=== PATIENT | female | born 1970 | race African-American/Black ===

== ENCOUNTER → 2017-11-06 | Outpatient (CLI) | payer OTHER ==
--- NOTE | 2017-11-08 08:53 | MM ---
Reason for exam: screening (asymptomatic). Last mammogram was performed 2 years and 4 months ago. History: Patient had first child at age 41. Physical Findings: A clinical breast exam by your physician is recommended on an annual basis and results should be correlated with mammographic findings. MG Screening Mammo w CAD Bilateral CC and MLO view(s) were taken. Prior study comparison: July 14, 2015, bilateral MG screening mammo w CAD. June 25, 2014, bilateral MG screening mammo w CAD. No significant changes when compared with prior studies. ASSESSMENT: Benign, BI-RAD 2 RECOMMENDATION: Routine screening mammogram of both breasts in 1 year.
== END | disposition home or self-care (01) ==
LOC: RADMAMWWP 10:42
PROVIDERS: ATTEND Family Medicine
DX: Z12.31 Encounter for screening mammogram for malignant neoplasm of breast (principal)
CPT/HCPCS: 77067

== ENCOUNTER → 2017-11-15 | Outpatient (CLI) | payer OTHER ==
--- NOTE | 2017-11-15 12:29 | XR ---
EXAMINATION TYPE: XR chest 2V DATE OF EXAM: 11/15/2017 COMPARISON: NONE HISTORY: Chest pain TECHNIQUE: Frontal and lateral views of the chest are obtained. FINDINGS: There is no focal air space opacity, pleural effusion, or pneumothorax seen. The cardiac silhouette size is within normal limits. The osseous structures are intact. Minimal multilevel dege nerative change of the thoracic spine is noted. IMPRESSION: No acute cardiopulmonary process.
== END | disposition home or self-care (01) ==
LOC: RADXRMAIN 12:09
PROVIDERS: ATTEND Family Medicine
DX: R07.9 Chest pain, unspecified (principal)
CPT/HCPCS: 71046

== ENCOUNTER 2018-03-04 13:11 | Observation (INO) | payer OTHER ==
[2018-03-04] MEDS ORDERED: NITROGLYCERIN OINT 1 INCH/GM PACKET TOPICAL STA (13:51)
[2018-03-04] MEDS ORDERED: ASPIRIN 81 MG PO STA (13:51)
--- NOTE | 2018-03-04 13:53 | ED ---
General Adult HPI - General Chief complaint: Chest Pain Stated complaint: Chest pain Time Seen by Provider: 03/04/18 13:35 Source: patient, RN notes reviewed Mode of arrival: wheelchair Limitations: no limitations - History of Present Illness Initial comments: Patient is a pleasant 48-year-old female presenting to the emergency Department with complaints of chest discomfort. Patient has had symptoms for several days , worse for the past couple of days. Discomfort is mild at this time. Discomfort seems to be intermittent. Patient does have some exertional dyspnea. No nausea. Patient does feel sweaty at times. No calf pain or leg swelling. No history of cardiac disease. - Related Data Home Medications Medication Instructions Recorded Confirmed Aspirin EC [Ecotrin Low Dose] 81 mg PO DAILY 03/04/18 03/04/18 Flaxseed Oil [[place]-3 Flaxseed Oil] 1,000 mg PO DAILY 03/04/18 03/04/18 Multivitamins, Thera [Multivitamin 1 tab PO DAILY 03/04/18 03/04/18 (formulary)] Ranitidine HCl [Zantac] 150 mg PO BID 03/04/18 03/04/18 Allergies Allergy/AdvReac Type Severity Reaction Status Date / Time No Known Allergies Allergy Verified 03/04/18 13:41 Review of Systems ROS Statement: Those systems with pertinent positive or pertinent negative responses have been documented in the HPI. ROS Other: All systems not noted in ROS Statement are negative. Constitutional: Denies: fever Eyes: Denies: eye pain ENT: Denies: ear pain Respiratory: Reports: dyspnea. Denies: cough Cardiovascular: Reports: chest pain Endocrine: Reports: fatigue Gastrointestinal: Denies: abdominal pain Genitourinary: Denies: dysuria Musculoskeletal: Denies: back pain Skin: Denies: rash Neurological: Denies: weakness Past Medical History Past Medical History: No Reported History Additional Past Medical History / Comment(s): genital herpes History of Any Multi-Drug Resistant Organisms: MRSA Date of last positivie culture/infection: 12/08/2011 MDRO Source:: left axilla Past Surgical History: Cholecystectomy, Hernia Repair Additional Past Surgical History / Comment(s): umbillical hernia Past Anesthesia/Blood Transfusion Reactions: No Reported Reaction Past Psychological History: No Psychological Hx Reported Smoking Status: Former smoker Past Alcohol Use History: None Reported Past Drug Use History: None Reported General Exam Limitations: no limitations General appearance: alert, in no apparent distress Head exam: Present: atraumatic Eye exam: Present: normal appearance, PERRL ENT exam: Present: normal oropharynx Neck exam: Present: normal inspection Respiratory exam: Present: normal lung sounds bilaterally. Absent: chest wall tenderness Cardiovascular Exam: Present: regular rate, normal rhythm Expanded Peripheral pulses: 2+: Radial (R), Radial (L), Posterior Tibialis (R), Posterior Tibialis (L), Dorsalis Pedis (R), Dorsalis Pedis (L) GI/Abdominal exam: Present: soft. Absent: tenderness Extremities exam: Present: normal inspection. Absent: pedal edema, calf tenderness Neurological exam: Present: alert Psychiatric exam: Present: normal affect, normal mood Skin exam: Present: normal color Course Vital Signs 03/04/18 03/04/18 03/04/18 13:16 13:27 14:50 Temperature 98.3 F 98.5 F Pulse Rate 79 79 Pulse Rate [ 86 Head Bone Grinder ] Respiratory 18 18 Rate Blood Pressure 145/107 112/77 O2 Sat by Pulse 99 96 Oximetry EKG Findings - EKG Comments: EKG Findings:: Normal sinus rhythm 84. HI 158. QRS 84. QT 384. QTC 453. Normal axis. Normal QRS. No acute ST change. Medical Decision Making - Medical Decision Making Patient reevaluated and resting comfortably in bed. Patient only with minimal discomfort at this time. Patient updated on results and plan. Case was discussed in detail with Dr. Sarmiento, who will admit for Dr. Kingston. - Lab Data Result diagrams: 03/04/18 13:25 03/04/18 13:25 Lab Results 03/04/18 03/04/18 03/04/18 Range/Units 13:25 13:25 13:25 WBC 5.4 (3.8-10.6) k/uL RBC 4.88 (3.80-5.40) m/uL Hgb 13.5 (11.4-16.0) gm/dL Hct 42.2 (34.0-46.0) % MCV 86.5 (80.0-100.0) fL MCH 27.7 (25.0-35.0) pg MCHC 32.0 (31.0-37.0) g/dL RDW 14.4 (11.5-15.5) % Plt Count 313 (150-450) k/uL Neutrophils % 54 % Lymphocytes % 36 % Monocytes % 3 % Eosinophils % 4 % Basophils % 1 % Neutrophils # 2.9 (1.3-7.7) k/uL Lymphocytes # 2.0 (1.0-4.8) k/uL Monocytes # 0.2 (0-1.0) k/uL Eosinophils # 0.2 (0-0.7) k/uL Basophils # 0.0 (0-0.2) k/uL PT (9.0-12.0) sec INR (<1.2) APTT (22.0-30.0) sec D-Dimer (<0.60) mg/L FEU Sodium 140 (137-145) mmol/L Potassium 4.1 (3.5-5.1) mmol/L Chloride 108 H (98-107) mmol/L Carbon Dioxide 24 (22-30) mmol/L Anion Gap 8 mmol/L BUN 14 (7-17) mg/dL Creatinine 0.78 (0.52-1.04) mg/dL Est GFR (CKD-EPI)AfAm >90 (>60 ml/min/1.73 sqM) Est GFR (CKD-EPI)NonAf 90 (>60 ml/min/1.73 sqM) Glucose 113 H (74-99) mg/dL Calcium 9.0 (8.4-10.2) mg/dL Magnesium 2.0 (1.6-2.3) mg/dL Total Bilirubin 0.3 (0.2-1.3) mg/dL AST 32 (14-36) U/L ALT 33 (9-52) U/L Alkaline Phosphatase 70 (38-126) U/L Total Creatine Kinase 222 H (30-135) U/L CK-MB (CK-2) 1.3 (0.0-2.4) ng/mL CK-MB (CK-2) Rel Index 0.6 Troponin I <0.012 (0.000-0.034) ng/mL NT-Pro-B Natriuret Pep pg/mL Total Protein 6.7 (6.3-8.2) g/dL Albumin 3.8 (3.5-5.0) g/dL 09/25/18 09/25/18 Range/Units 13:25 13:25 WBC (3.8-10.6) k/uL RBC (3.80-5.40) m/uL Hgb (11.4-16.0) gm/dL Hct (34.0-46.0) % MCV (80.0-100.0) fL MCH (25.0-35.0) pg MCHC (31.0-37.0) g/dL RDW (11.5-15.5) % Plt Count (150-450) k/uL Neutrophils % % Lymphocytes % % Monocytes % % Eosinophils % % Basophils % % Neutrophils # (1.3-7.7) k/uL Lymphocytes # (1.0-4.8) k/uL Monocytes # (0-1.0) k/uL Eosinophils # (0-0.7) k/uL Basophils # (0-0.2) k/uL PT 10.2 (9.0-12.0) sec INR 1.0 (<1.2) APTT 23.9 (22.0-30.0) sec D-Dimer 0.28 (<0.60) mg/L FEU Sodium (137-145) mmol/L Potassium (3.5-5.1) mmol/L Chloride (98-107) mmol/L Carbon Dioxide (22-30) mmol/L Anion Gap mmol/L BUN (7-17) mg/dL Creatinine (0.52-1.04) mg/dL Est GFR (CKD-EPI)AfAm (>60 ml/min/1.73 sqM) Est GFR (CKD-EPI)NonAf (>60 ml/min/1.73 sqM) Glucose (74-99) mg/dL Calcium (8.4-10.2) mg/dL Magnesium (1.6-2.3) mg/dL Total Bilirubin (0.2-1.3) mg/dL AST (14-36) U/L ALT (9-52) U/L Alkaline Phosphatase (38-126) U/L Total Creatine Kinase (30-135) U/L CK-MB (CK-2) (0.0-2.4) ng/mL CK-MB (CK-2) Rel Index Troponin I (0.000-0.034) ng/mL NT-Pro-B Natriuret Pep 44 pg/mL Total Protein (6.3-8.2) g/dL Albumin (3.5-5.0) g/dL - Radiology Data Radiology results: image reviewed (Chest x-ray shows no acute process) Disposition Clinical Impression: Chest pain Disposition: ADMITTED IP TO THIS HOSP Is patient prescribed a controlled substance at d/c from ED?: No Referrals: Harjit Kingston DO [Primary Care Provider] - 1-2 days Decision Time: 15:17
[2018-03-04 14:05] LABS: Basophils % (A) 1 %; Eosinophils # (A) 0.2 k/uL (0-0.7); Eosinophils % (A) 4 %; HCT 42.2 % (34.0-46.0); HGB 13.5 gm/dL (11.4-16.0); Lymphocytes % (A) 36 %; MCH 27.7 pg (25.0-35.0); MCV 86.5 fL (80.0-100.0); Mean Platelet Volume 7.2; Monocytes # (A) 0.2 k/uL (0-1.0); Monocytes % (A) 3 %; Neutrophils # (A) 2.9 k/uL (1.3-7.7); Neutrophils % (A) 54 %; Platelet Count 313 k/uL (150-450); RBC 4.88 m/uL (3.80-5.40); RDW 14.4 % (11.5-15.5); WBC 5.4 k/uL (3.8-10.6)
--- NOTE | 2018-03-04 14:12 | XR ---
EXAMINATION TYPE: XR chest 2V DATE OF EXAM: 03/04/2018 COMPARISON: Prior chest x-ray 11/15/2017 HISTORY: Chest pain TECHNIQUE: Frontal and lateral views of the chest are obtained. FINDINGS: There is no focal air space opacity, pleural effusion, or pneumothorax seen. The cardiac silhouette size is within normal limits. The osseous structures are intact. There are overlying car diac leads. Surgical clips are present in the upper abdomen. IMPRESSION: No acute cardiopulmonary process.
[2018-03-04 14:21] LABS: ALT 33 U/L (9-52); AST 32 U/L (14-36); Albumin 3.8 g/dL (3.5-5.0); Alkaline Phosphatase 70 U/L (38-126); Anion Gap 8 mmol/L; Blood Urea Nitrogen 14 mg/dL (7-17); Carbon Dioxide 24 mmol/L (22-30); Chloride 108 mmol/L (98-107); D-Dimer 0.28 mg/L FEU (<0.60); Glucose 113 mg/dL (74-99); Partial Thromboplastin Time 23.9 sec (22.0-30.0); Potassium 4.1 mmol/L (3.5-5.1); Prothrombin Time 10.2 sec (9.0-12.0); Sodium 140 mmol/L (137-145); Total Bilirubin 0.3 mg/dL (0.2-1.3); Total Protein 6.7 g/dL (6.3-8.2)
[2018-03-04 14:22] LABS: Creatine Kinase 222 U/L (30-135)
[2018-03-04 14:35] LABS: Creatine Kinase MB 1.3 ng/mL (0.0-2.4); Troponin I <0.012 ng/mL (0.000-0.034)
[2018-03-04] MEDS ORDERED: NITROGLYCERIN SL TABS 0.4 MG TAB SUBLINGUAL PRN (15:17)
[2018-03-04] MEDS ORDERED: ACETAMINOPHEN TAB 325 MG TAB PO PRN (16:34)
[2018-03-04] MEDS ORDERED: LACTULOSE 20 GM/30 ML CUP PO PRN (16:34)
[2018-03-04] MEDS ORDERED: ONDANSETRON 4 MG/2 ML VIAL IVP PRN (16:34)
[2018-03-04] MEDS ORDERED: MAGNESIUM HYDROXIDE 2,400 MG/10 ML CUP PO PRN (16:34)
[2018-03-04] MEDS ORDERED: CALCIUM CARBONATE 500 MG CHEWABLE PO PRN (16:34)
[2018-03-04] MEDS ORDERED: MELATONIN 3 MG TABLET PO PRN (16:34)
[2018-03-04] MEDS ORDERED: ALPRAZolam 0.25 MG TAB PO PRN (16:34)
[2018-03-04] MEDS: NITROGLYCERIN OINT 1 INCH/GM PACKET TOPICAL SCH (18:09)
[2018-03-04 19:43] LABS: Creatine Kinase 198 U/L (30-135)
[2018-03-04 19:57] LABS: Creatine Kinase MB 1.3 ng/mL (0.0-2.4); Troponin I <0.012 ng/mL (0.000-0.034)
[2018-03-04] MEDS: FAMOTIDINE 20 MG TAB PO SCH (20:32)
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
[2018-03-04] MEDS: PSYLLIUM HUSK 100% 6 GM PACKET PO SCH (22:31)
[2018-03-05] MEDS: NITROGLYCERIN OINT 1 INCH/GM PACKET TOPICAL SCH ×2 (00:33→04:00)
[2018-03-05 01:21] LABS: Cholesterol 173 mg/dL (<200); HDL Cholesterol 49 mg/dL (40-60); LDL Cholesterol,Calculated 96 mg/dL (0-99); Triglycerides 142 mg/dL (<150)
[2018-03-05 01:42] LABS: Creatine Kinase 181 U/L (30-135)
[2018-03-05 01:57] LABS: Creatine Kinase MB 1.1 ng/mL (0.0-2.4); Troponin I <0.012 ng/mL (0.000-0.034)
[2018-03-05 08:00] VITALS: RESP 18; TEMP 98.2
[2018-03-05] MEDS ORDERED: ASPIRIN 81 MG PO SCH (09:00)
[2018-03-05] MEDS ORDERED: ASPIRIN 325 MG TAB PO SCH (09:00)
--- NOTE | 2018-03-05 10:28 | P.CRDCN ---
History of Present Illness History of present illness: This is a pleasant 48-year-old -[place] female past medical history significant for gastroesophageal reflux disease, osteoarthritis, former drug abuse and former nicotine dependence. She denies history of coronary artery disease, hypertension, diabetes mellitus or dyslipidemia. We've passing consultation for symptoms of chest pain. She has been feeling sore achy sensation in the mid-sternal region off and on for the last week. She woke up one day last week with a heavy brick sensation on her chest that was associated with mild shortness of breath and dizziness. The heaviness persisted until she started passing gas and then started to subside. She continued to have a soreness in the chest that has been ongoing ever since. She denies associated palpitations, nausea, vomiting or diaphoresis. She denies radiation of pain to the back, neck, arm or jaw. EKG reveals sinus mechanism with no acute ST or T wave abnormalities noted. Chest x-ray is negative for an acute cardiopulmonary process. Laboratory data reviewed, cardiac enzymes negative 3, hemoglobin 13.5, platelets 313, d-dimer 0.28, sodium 140, potassium 4.1, creatinine 0.78, magnesium 2.0, and she proBNP 44, LDL 96 and HDL 49. Current cardiac medications include aspirin 81 mg daily. She also takes Zantac. Most recent stress test performed 07/2015 negative for stress-induced cardiac ischemia. Review of Systems At the time of my exam: CONSTITUTIONAL: Denies fever. Denies chills. EYES: Denies blurred vision. Denies vision changes. Denies eye pain. EARS, NOSE, MOUTH & THROAT: Denies headache. Denies sore throat. Denies ear pain. CARDIOVASCULAR: Denies chest pain. Denies shortness of breath. Denies orthopnea. Denies PND. Denies palpitations. RESPIRATORY: Denies cough. GASTROINTESTINAL: Denies abdominal pain. Denies diarrhea. Denies constipation. Denies nausea. Denies vomiting. MUSCULOSKELETAL: Denies myalgias. INTEGUMENTARY: Denies pruitis. Denies rash. NEUROLOGIC: Denies numbness. Denies tingling. Denies weakness. PSYCHIATRIC: Denies anxiety. Denies depression. ENDOCRINE: Denies fatigue. Denies weight change. Denies polydipsia. Denies polyurina. GENITOURINARY: Denies burning, hematuria or urgency with micturation. HEMATOLOGIC: Denies history of anemia. Denies bleeding. Past Medical History Past Medical History: GERD/Reflux, Osteoarthritis (OA) Additional Past Medical History / Comment(s): genital herpes-no recent outbreaks , pt stated she was told in past that "she has an irreg heart beat", past bladder polyps-benign, rt knee arthritis. History of Any Multi-Drug Resistant Organisms: MRSA Date of last positivie culture/infection: 12/08/2011 MDRO Source:: left axilla Past Surgical History: Section, Cholecystectomy, Hernia Repair Additional Past Surgical History / Comment(s): umbillical hernia, cystoscopy, resection of bladder tumor Past Anesthesia/Blood Transfusion Reactions: No Reported Reaction Smoking Status: Former smoker - Past Family History Father Family Medical History: Cancer, Hyperlipidemia, Hypertension Additional Family Medical History / Comment(s): hepatitis c Mother Family Medical History: Hypertension Additional Family Medical History / Comment(s): mental health issues Medications and Allergies Home Medications Medication Instructions Recorded Confirmed Type Aspirin EC [Ecotrin Low Dose] 81 mg PO DAILY 03/04/18 03/04/18 History Flaxseed Oil [[place]-3 Flaxseed Oil] 1,000 mg PO DAILY 03/04/18 03/04/18 History Multivitamins, Thera [Multivitamin 1 tab PO DAILY 03/04/18 03/04/18 History (formulary)] Ranitidine HCl [Zantac] 150 mg PO BID 03/04/18 03/04/18 History Allergies Allergy/AdvReac Type Severity Reaction Status Date / Time No Known Allergies Allergy Verified 03/04/18 13:41 Physical Exam Vitals: Vital Signs Temp Pulse Pulse Pulse Resp BP BP 03/05/18 07:20 98.2 F 79 18 136/95 03/05/18 03:58 16 03/05/18 03:54 98.6 F 78 16 115/80 03/05/18 00:00 16 03/04/18 23:24 97.7 F 83 16 126/80 03/04/18 20:00 16 03/04/18 19:39 98.7 F 88 16 122/79 03/04/18 16:35 98.3 F 72 18 146/87 03/04/18 14:50 98.5 F 79 18 112/77 03/04/18 13:27 86 03/04/18 13:16 98.3 F 79 18 145/107 Pulse Ox 03/05/18 07:20 95 03/05/18 03:58 03/05/18 03:54 98 03/05/18 00:00 03/04/18 23:24 95 03/04/18 20:00 03/04/18 19:39 97 03/04/18 16:35 98 03/04/18 14:50 96 03/04/18 13:27 03/04/18 13:16 99 Intake and Output 03/04/18 03/05/18 03/05/18 22:59 06:59 14:59 Other: # Voids 1 1 Weight 116.4 kg Blood pressure 136/95 heart rate 79 afebrile maintaining oxygen saturation on room air GENERAL: This is a 48-year-old -[place] female in no apparent distress at the time of my examination. Obese. HEENT: Head is atraumatic, normocephalic. Pupils are equal, round. Sclerae anicteric. Conjunctivae are clear. Mucous membranes of the mouth are moist. Neck is supple. There is no jugular venous distention. No carotid bruit is heard. LUNGS: Clear to auscultation no wheezes, rales or rhonchi. No chest wall tenderness is noted on palpation or with deep breathing. HEART: Regular rate and rhythm without murmurs, rubs or gallops. S1 and S2 heard. ABDOMEN: Soft, nontender. Bowel sounds are heard. No organomegaly noted. EXTREMITIES: No evidence of peripheral edema and no calf tenderness noted. VASCULAR: Radial and dorsalis pedis pulses palpated, no evidence of clubbing. NEUROLOGIC: Patient is awake, alert and oriented x3. Results 03/04/18 13:25 03/04/18 13:25 Cardiac Enzymes 03/04/18 03/04/18 03/04/18 Range/Units 13:25 13:25 19:02 AST 32 (14-36) U/L CK-MB (CK-2) 1.3 1.3 (0.0-2.4) ng/mL Troponin I <0.012 <0.012 (0.000-0.034) ng/mL 03/05/18 Range/Units 00:51 AST (14-36) U/L CK-MB (CK-2) 1.1 (0.0-2.4) ng/mL Troponin I <0.012 (0.000-0.034) ng/mL Coagulation 03/04/18 Range/Units 13:25 PT 10.2 (9.0-12.0) sec APTT 23.9 (22.0-30.0) sec Lipids 03/04/18 Range/Units 13:25 Triglycerides 142 (<150) mg/dL Cholesterol 173 (<200) mg/dL HDL Cholesterol 49 (40-60) mg/dL CBC 03/04/18 Range/Units 13:25 WBC 5.4 (3.8-10.6) k/uL RBC 4.88 (3.80-5.40) m/uL Hgb 13.5 (11.4-16.0) gm/dL Hct 42.2 (34.0-46.0) % Plt Count 313 (150-450) k/uL Comprehensive Metabolic Panel 03/04/18 Range/Units 13:25 Sodium 140 (137-145) mmol/L Potassium 4.1 (3.5-5.1) mmol/L Chloride 108 H (98-107) mmol/L Carbon Dioxide 24 (22-30) mmol/L BUN 14 (7-17) mg/dL Creatinine 0.78 (0.52-1.04) mg/dL Glucose 113 H (74-99) mg/dL Calcium 9.0 (8.4-10.2) mg/dL AST 32 (14-36) U/L ALT 33 (9-52) U/L Alkaline Phosphatase 70 (38-126) U/L Total Protein 6.7 (6.3-8.2) g/dL Albumin 3.8 (3.5-5.0) g/dL Current Medications Generic Name Dose Route Start Last Admin Trade Name Freq PRN Reason Stop Dose Admin Acetaminophen 650 mg 03/04/18 16:34 03/04/18 20:32 Tylenol Tab PO 650 mg Q6HR PRN Administration Mild Pain or Fever > 100.5 Alprazolam 0.25 mg 03/04/18 16:34 Xanax PO Q6HR PRN Anxiety Aspirin 81 mg 03/05/18 09:00 Aspirin PO DAILY EUSEBIA Calcium Carbonate/Glycine 1,000 mg 09/25/18 16:34 Tums PO Q4HR PRN Dyspepsia Famotidine 20 mg 03/04/18 21:00 03/04/18 20:32 Pepcid PO 20 mg BID [place]SE[place] Administration Lactulose 20 gm 03/04/18 16:34 Cephulac PO DAILY PRN Constipation Magnesium Hydroxide 2,400 mg 03/04/18 16:34 Milk Of Magnesia PO DAILY PRN Constipation Melatonin 3 mg 03/04/18 16:34 Melatonin PO HS PRN Insomnia Multivitamins 1 each 03/05/18 12:00 Theragran PO DAILY@1200 [facility] Nitroglycerin 1 inch 03/04/18 18:00 03/05/18 04:00 Nitro-Bid Oint TOPICAL Not Given Q6HR [facility] Nitroglycerin 0.4 mg 03/04/18 15:17 Nitrostat SUBLINGUAL Q5M PRN Chest Pain Ondansetron HCl 4 mg 03/04/18 16:34 Zofran IVP Q8HR PRN Nausea And Vomiting Psyllium Hydrophilic Mucilloid 6 gm 03/04/18 21:45 03/04/18 22:31 Metamucil PO 6 gm BID [place]SE[place] Administration Sodium Chloride 10 ml 03/04/18 21:00 03/04/18 20:32 Saline Flush IV 10 ml BID [place]SE[place] Administration Intake and Output 03/04/18 03/05/18 03/05/18 22:59 06:59 14:59 Other: # Voids 1 1 Weight 116.4 kg 03/04/18 13:25 03/04/18 13:25 Assessment and Plan Assessment: ASSESSMENT Chest pain, atypical. An acute coronary event has been ruled out with no EKG evidence of ischemia and negative cardiac enzymes. Gastroesophageal reflux disease History of cholecystectomy Morbid obesity, BMI 41.4 PLAN Discontinue Nitropaste. Obtain 2-D echocardiogram and Doppler study to assess cardiac structure and function. Perform stress echocardiogram to assess for stress-induced cardiac ischemia. If stress test is normal she is stable from a cardiac perspective. Lifestyle modifications are recommended for weight loss. Thank you kindly for this consultation. Nurse Practitioner note has been reviewed, I agree with a documented findings and plan of care. Patient was seen and examined.
[2018-03-05] MEDS: PSYLLIUM HUSK 100% 6 GM PACKET PO SCH (11:32)
[2018-03-05] MEDS: FAMOTIDINE 20 MG TAB PO SCH (11:32)
[2018-03-05 11:44] VITALS: BP 125/83; PULSE 77
--- NOTE | 2018-03-05 11:47 | P.STRESS ---
- Stress Test Note Stress Test Results/Findings: Exam Performed: stress echo exercise Exam Date: 03/05/18 Reason for Exam: CHEST PAIN Height: 5 ft 6 in Weight: 116.12 kg Protocol: SHI Stage: 3 Duration of Exercise: 8:00 Resting Heart Rate: 82 Resting Blood Pressure: 141/77 Maximum Achieved Heart Rate: 150 Maximum Achieved Blood Pressure: 187/66 85% PMHR: 145 100% PMHR: 171 METS: 9.7 Technologist Comment: Stress Test Results/Findings: This is a 48-year-old female who was admitted to the hospital with chest pain and palpitations. She has a history of smoking. Stress data: Baseline EKG showed sinus rhythm with normal AR interval and QRS duration. Blood pressure at rest is 140/77 with pulse rate of 82. Patient walked on the face protocol for 8 minutes achieving a maximal heart rate of 150 with a blood pressure 187/66. EKGs taken during and after the exercise did not reveal any significant changes to suggest ischemia. Patient complained of atypical chest pain. Echo data: Baseline echo images show normal wall motion and thickening. Exercise echo images showed augmentation of the wall motion and thickening in all segments. Final impression: #1. Negative stress test #2. Negative stress echo.
--- NOTE | 2018-03-05 11:54 | ECHOF ---
Referral Reason:Chest pain shortness of breath MEASUREMENTS -------- HEIGHT: 167.6 cm WEIGHT: 116.1 kg BP: IVSd: 1.3 cm (0.6 - 1.1) LVIDd: 2.8 cm (3.9 - 5.3) LVPWd: 1.0 cm (0.6 - 1.1) IVSs: 1.3 cm LVIDs: 1.4 cm LVPWs: 1.5 cm Ao Diam: 2.9 cm (2.0 - 3.7) AV Cusp: 1.9 cm (1.5 - 2.6) LA Diam: 3.1 cm (2.7 - 3.8) MV EXCURSION: 21.171 mm (> 18.000) MV EF SLOPE: 88 mm/s (70 - 150) EPSS: 0.8 cm MV E Tim: 0.83 m/s MV DecT: 155 ms MV A Tim: 0.79 m/s MV E/A Ratio: 1.05 RAP: 5.00 mmHg RVSP: 10.42 mmHg FINDINGS -------- Sinus rhythm. This was a technically good study. The left ventricular size is normal. There is borderline concentric left ventricular hypertrophy. Overall left ventricular systolic function is normal with, an EF between 55 - 60 %. The right ventricle is normal in size and function. The left atrium is normal in size. The right atrium is normal in size. The aortic valve is trileaflet, and appears structurally normal. No aortic stenosis or regurgitation. The mitral valve leaflets are mildly thickened. Mild mitral regurgitation is present. Mild tricuspid regurgitation present. The right ventricular systolic pressure, as measured by Doppl er, is 10.42mmHg. Pulmonic valve appears structurally normal. The aortic root size is normal. Normal inferior vena cava with normal inspiratory collapse consistent with estimated right atrial pre ssure of 5 mmHg. The pericardium is normal. CONCLUSIONS -------- 1. Sinus rhythm. 2. This was a technically good study. 3. The left ventricular size is normal. 4. There is borderline concentric left ventricular hypertrophy. 5. Overall left ventricular systolic function is normal with, an EF between 55 - 60 %. 6. The right ventricle is normal in size and function. 7. The left atrium is normal in size. 8. The right atrium is normal in size. 9. The aortic valve is trileaflet, and appears structurally normal. No aortic stenosis or regurgitati on. 10. The mitral valve leaflets are mildly thickened. 11. Mild mitral regurgitation is present. 12. Mild tricuspid regurgitation present. 13. The right ventricular systolic pressure, as measured by Doppler, is 10.42mmHg. 14. Pulmonic valve appears structurally normal. 15. The aortic root size is normal. 16. Normal inferior vena cava with normal inspiratory collapse consistent with estimated right atrial pressure of 5 mmHg. 17. The pericardium is normal. GROCERY WORKER: Madelaine Barreto RDCS
[2018-03-05] MEDS ORDERED: MULTIVITAMINS, THERA 1 EACH TAB PO SCH (12:00)
[2018-03-05 13:46] VITALS: BMI 41.3
--- NOTE | 2018-03-06 05:42 | DS ---
DISCHARGE SUMMARY DATE OF ADMISSION: 03/04/2018 DATE OF DISCHARGE: 03/05/2018 FINAL DIAGNOSES: 1. Anterior chest wall pain probably acute costochondritis. 2. Morbid obesity, body mass index over 41.4. 3. Primary osteoarthritis of the right knee. 4. Chronic constipation. HOSPITAL COURSE: This patient presented with anterior chest wall pain of a long duration. The patient has put on about 30 to 40 pounds. It does get worse on moving the body in a particular direction. The patient was seen by Cardiology. Did undergo a stress echocardiogram that came back to be negative. The patient is advised weight loss. On examination, temperature 98.2, pulse 77, blood pressure 125/83, pulse ox 95% on room air. Troponins were negative. A 2-D echo showed EF of 55% to 60%. CONSULTATION: Dr. Lucia from Cardiology. DISCHARGE MEDICATIONS: 1. Aspirin 81 mg a day. 2. Flaxseed oil 1000 mg p.o. daily. 3. Multivitamin 1 tablet p.o. daily. 4. Zantac 150 mg b.i.d. 5. Metamucil 6 grams p.o. b.i.d. DIET: High fiber. Follow up with Dr. Kingston in [address] Birdie Lucia in 2 weeks. MMODL / IJN: [id number] /
--- NOTE | 2018-03-06 12:54 | ECHOS ---
Stress Test Results/Findings: Exam Performed: stress echo exercise Exam Date: 03/05/18 Reason for Exam: CHEST PAIN Height: 5 ft 6 in Weight: 116.12 kg Protocol: SHI Stage: 3 Duration of Exercise: 8:00 Resting Heart Rate: 82 Resting Blood Pressure: 141/77 Maximum Achieved Heart Rate: 150 Maximum Achieved Blood Pressure: 187/66 85% PMHR: 145 100% PMHR: 171 METS: 9.7 Technologist Comment: Stress Test Results/Findings: This is a 48-year-old female who was admitted to the hospital with chest pain and palpitations. She has a history of smoking. Stress data: Baseline EKG showed sinus rhythm with normal AL interval and QRS duration. Blood pressure at rest is 140/77 with pulse rate of 82. Patient walked on the face protocol for 8 minutes achieving a maximal heart rate of 150 with a blood pressure 187/66. EKGs taken during and after the exercise did not reveal any significant changes to suggest ischemia. Patient complained of atypical chest pain. Echo data: Baseline echo images show normal wall motion and thickening. Exercise echo images showed augmentation of the wall motion and thickening in all segments. Final impression: #1. Negative stress test #2. Negative stress echo. MIKE
== END 2018-03-05 13:57 | disposition home or self-care (01) ==
LOC: EC 13:11 → 3OBS 15:18
PROVIDERS: ADMIT Hospitalist; ATTEND Hospitalist
DX: R07.89 Other chest pain (principal); R42 Dizziness and giddiness; R06.02 Shortness of breath; R06.00 Dyspnea, unspecified; R61 Generalized hyperhidrosis; E66.01 Morbid (severe) obesity due to excess calories; Z68.41 Body mass index [BMI] 40.0-44.9, adult; K59.09 Other constipation; K21.9 Gastro-esophageal reflux disease without esophagitis; M17.11 Unilateral primary osteoarthritis, right knee; Z79.899 Other long term (current) drug therapy; Z79.82 Long term (current) use of aspirin; Z86.14 Personal history of Methicillin resistant Staphylococcus aureus infection; Z90.49 Acquired absence of other specified parts of digestive tract; Z87.891 Personal history of nicotine dependence; Z82.49 Family history of ischemic heart disease and other diseases of the circulatory system; Z80.9 Family history of malignant neoplasm, unspecified; Z84.89 Family history of other specified conditions; Z81.8 Family history of other mental and behavioral disorders
CPT/HCPCS: 99285; 36415; 93005; 93306; 93351; 85379; 83880; 80061; 80053; 82550 ×2; 82553 ×2; 83735; 84484 ×2; 85025; 85610; 85730; 71046; G0378 ×2

== ENCOUNTER 2018-03-27 08:11 | Day surgery (SDC) | payer OTHER ==
[2018-03-25 10:26] VITALS: BMI 41.1
[~2018-03-27 08:11] MED LIST: LACTATED RINGERS 1,000 ML IV SCH; LIDOCAINE 1% 20 ML VIAL (10MG/ML) FOR IV START INTRADERMA PRN; ONDANSETRON 4 MG/2 ML VIAL IVP PRN
[2018-03-27 08:28] VITALS: RESP 16; TEMP 07
[2018-03-27] MEDS ORDERED: LIDOCAINE 1% INJ 10MG/ML (20 ML MDV) ONE (08:39)
[2018-03-27] MEDS ORDERED: PROPOFOL 10 MG/ML 20 ML VIAL IV ONE (08:39)
--- NOTE | 2018-03-27 08:48 | P.GSHP ---
History of Present Illness H&P Date: 03/27/18 Chief Complaint: GERD This a 48-year-old female who presents today for EGD. She's had issues with GERD. Past Medical History Past Medical History: GERD/Reflux, Osteoarthritis (OA) Additional Past Medical History / Comment(s): genital herpes-no recent outbreaks , pt stated she was told in past that "she has an irreg heart beat", past bladder polyps-benign History of Any Multi-Drug Resistant Organisms: MRSA Date of last positivie culture/infection: 12/08/2011 MDRO Source:: left axilla Past Surgical History: Section, Cholecystectomy, Hernia Repair Additional Past Surgical History / Comment(s): umbillical hernia, cystoscopy, resection of bladder tumor Past Anesthesia/Blood Transfusion Reactions: No Reported Reaction Smoking Status: Former smoker - Past Family History Father Family Medical History: Cancer, Hyperlipidemia, Hypertension Additional Family Medical History / Comment(s): hepatitis c Mother Family Medical History: Hypertension Additional Family Medical History / Comment(s): mental health issues Medications and Allergies Home Medications Medication Instructions Recorded Confirmed Type Aspirin EC [Ecotrin Low Dose] 81 mg PO DAILY 03/04/18 03/27/18 History Flaxseed Oil [[place]-3 Flaxseed Oil] 1,000 mg PO DAILY 03/04/18 03/27/18 History Ranitidine HCl [Zantac] 150 mg PO BID 03/04/18 03/27/18 History Psyllium Husk 100% [Metamucil 6 gm PO BID #60 packet 03/05/18 03/27/18 Rx Packet] Allergies Allergy/AdvReac Type Severity Reaction Status Date / Time No Known Allergies Allergy Verified 03/25/18 10:22 Surgical - Exam Vital Signs Temp Pulse Resp BP Pulse Ox 07.0 F L 78 16 131/74 98 03/27/18 08:25 03/27/18 08:25 03/27/18 08:25 03/27/18 08:25 03/27/18 08:25 - General well developed, no distress - Eyes PERRL - ENT normal pinna - Neck no masses - Respiratory normal expansion - Cardiovascular Rhythm: regular - Abdomen Abdomen: soft, non tender Assessment and Plan Assessment: GERD. We'll perform EGD.
--- NOTE | 2018-03-27 09:00 | P.OP ---
Date of Procedure: 03/27/18 Preoperative Diagnosis: GERD epigastric pain Postoperative Diagnosis: Mild antral gastritis Procedure(s) Performed: EGD Anesthesia: MAC Surgeon: Lopez Jang Pathology: other (Antrum) Condition: stable Disposition: PACU Description of Procedure: Patient's placed on the endoscopy table lateral position. She received IV sedation. The gastroscope placed oropharynx passed in the esophagus and stomach. Scope was then placed through the pylorus. The first and second portion of the duodenum appeared normal. Scope was then brought back the antrum this was mildly inflamed. A biopsies performed. Scope was then retroflexed and the remainder of the stomach appeared normal. There is no significant hiatal hernia. The GE junction was at 7 is. The distal esophagus appeared normal. The proximal esophagus. Scope was withdrawn for patient.
[2018-03-27 09:18] VITALS: BP 137/88; PULSE 86
== END 2018-03-27 09:40 | disposition home or self-care (01) ==
LOC: ORWHC2ENDO 08:11
PROVIDERS: ATTEND Surgery
DX: K29.50 Unspecified chronic gastritis without bleeding (principal); B96.81 Helicobacter pylori [H. pylori] as the cause of diseases classified elsewhere; K21.9 Gastro-esophageal reflux disease without esophagitis; M19.90 Unspecified osteoarthritis, unspecified site; Z90.49 Acquired absence of other specified parts of digestive tract; Z87.891 Personal history of nicotine dependence; Z79.82 Long term (current) use of aspirin; Z79.899 Other long term (current) drug therapy; Z86.14 Personal history of Methicillin resistant Staphylococcus aureus infection; Z79.891 Long term (current) use of opiate analgesic
CPT/HCPCS: 81025; 88305; 88342; 43239; J2001; J2704

== ENCOUNTER → 2018-06-09 | Outpatient (CLI) | payer OTHER ==
--- NOTE | 2018-06-09 10:24 | FL ---
EXAMINATION TYPE: FL barium swallow DATE OF EXAM: 06/09/2018 CLINICAL HISTORY: Mid esophageal globus sensation. Prior endoscopy with probable treated H. pylori. TECHNIQUE: A double contrast esophagram is performed utilizing air and barium. A total of 1 minute and 41 seconds of fluoroscopic time was utilized during procedure. 41 images were saved throughout e examination. COMPARISON: None FINDINGS: The esophagus shows normal motility and emptying into the stomach on the gravity dependent portion of the examination. There does appear to be slight delay of focal small volume retained contr ast within the mid esophagus persistently throughout the exam that results upon a second swallow. No focal stricture is seen throughout the esophagus. No hiatal hernia. Moderate degree significant gastr oesophageal reflux was seen during real time performance of this study on the gravity independent por tion of the exam. IMPRESSION: 1. Moderate gastroesophageal reflux on the gravity independent portion of examination to the midthora cic esophagus. 2. Slight delay of a very small volume of contrast at the patient's described area of globus sensatio n without stricture. Correlate with endoscopy results for possible esophagitis.
== END ==
LOC: RADFLMAIN 09:28
PROVIDERS: ATTEND Surgery
DX: K21.9 Gastro-esophageal reflux disease without esophagitis (principal)
CPT/HCPCS: 74220

== ENCOUNTER 2018-07-24 13:23 | Emergency (ER) | payer OTHER ==
[2018-07-24] MEDS ORDERED: ASPIRIN 81 MG PO STA (14:26)
[2018-07-24] MEDS ORDERED: NITROGLYCERIN OINT 1 INCH/GM PACKET TOPICAL STA (14:27)
--- NOTE | 2018-07-24 14:28 | ED ---
General Adult HPI - General Chief complaint: Chest Pain Stated complaint: EYE TURNING YELLOW, CHEST HEAVINESS Time Seen by Provider: 07/24/18 13:50 Source: patient, RN notes reviewed Mode of arrival: ambulatory Limitations: no limitations - History of Present Illness Initial comments: This is a 48-year-old female who comes in complaining of chest pressure that is been constant for 2 months. Patient states it's worse with deep inspiration as well. Patient states she seen her primary medical care doctor multiple times for this. Patient states she does not have diabetes denies hypertension or high cholesterol. Patient denies smoking. Patient denies any family history of heart disease. Patient states her primary has been able to figure that pain out so she decided come emergency department. Patient denies any shortness of breath per patient denies any radiation of the pain. Patient denies any diaphoretic episodes. Patient denies any nausea. Patient denies abdominal pain patient denies vomiting or diarrhea. Patient denies any recent fever chills or cough. Patient denies headache patient denies numbness weakness. Patient denies lightheadedness dizziness or nursing episode. Patient denies any swelling to the legs or calf. - Related Data Home Medications Medication Instructions Recorded Confirmed Acetaminophen Tab [Tylenol Tab] 650 mg PO Q6H PRN 07/24/18 07/24/18 Loratadine [Claritin] 10 mg PO DAILY PRN 07/24/18 07/24/18 Omeprazole 20 mg PO DAILY 07/24/18 07/24/18 Allergies Allergy/AdvReac Type Severity Reaction Status Date / Time No Known Allergies Allergy Verified 07/24/18 14:48 Review of Systems ROS Statement: Those systems with pertinent positive or pertinent negative responses have been documented in the HPI. ROS Other: All systems not noted in ROS Statement are negative. Past Medical History Past Medical History: GERD/Reflux, Osteoarthritis (OA) Additional Past Medical History / Comment(s): genital herpes-no recent outbreaks , pt stated she was told in past that "she has an irreg heart beat", past bladder polyps-benign History of Any Multi-Drug Resistant Organisms: MRSA Date of last positivie culture/infection: 12/08/2011 MDRO Source:: left axilla Past Surgical History: Section, Cholecystectomy, Hernia Repair Additional Past Surgical History / Comment(s): umbillical hernia, cystoscopy, resection of bladder tumor Past Anesthesia/Blood Transfusion Reactions: No Reported Reaction Past Psychological History: No Psychological Hx Reported Smoking Status: Former smoker Past Alcohol Use History: None Reported Past Drug Use History: None Reported - Past Family History Father Family Medical History: Cancer, Hyperlipidemia, Hypertension Additional Family Medical History / Comment(s): hepatitis c Mother Family Medical History: Hypertension Additional Family Medical History / Comment(s): mental health issues General Exam - General Exam Comments Initial Comments: GENERAL: Patient is well-developed and well-nourished. Patient is nontoxic and well- hydrated and is in minimal distress. ENT: Neck is soft and supple. No significant lymphadenopathy is noted. Oropharynx is clear. Moist mucous membranes. Neck has full range of motion without eliciting any pain. EYES: The sclera were anicteric and conjunctiva were pink and moist. Extraocular movements were intact and pupils were equal round and reactive to light. Eyelids were unremarkable. PULMONARY: Unlabored respirations. Good breath sounds bilaterally. No audible rales rhonchi or wheezing was noted. CARDIOVASCULAR: There is a regular rate and rhythm without any murmurs gallops or rubs. ABDOMEN: Soft and nontender with normal bowel sounds. No palpable organomegaly was noted. There is no palpable pulsatile mass. SKIN: Skin is clear with no lesions or rashes and otherwise unremarkable. NEUROLOGIC: Patient is alert and oriented x3. Cranial nerves II through XII are grossly intact. Motor and sensory are also intact. Normal speech, volume and content. Symmetrical smile. MUSCULOSKELETAL: Normal extremities with adequate strength and full range of motion. No lower extremity swelling or edema. No calf tenderness. LYMPHATICS: No significant lymphadenopathy is noted PSYCHIATRIC: Normal psychiatric evaluation. Limitations: no limitations Course Vital Signs 07/24/18 07/24/18 07/24/18 13:40 15:15 16:52 Temperature 97.9 F 98.1 F Pulse Rate 84 82 79 Respiratory 18 16 16 Rate Blood Pressure 129/88 119/80 109/76 O2 Sat by Pulse 98 98 97 Oximetry Medical Decision Making - Medical Decision Making EKG shows normal sinus rhythm at 85 bpm IN interval is 160 QRS is 84 QT interval 386 QTC is 459. Patient's EKG shows no ST segment elevation or depression or T wave abnormalities are noted. Chest x-ray shows no acute abnormality. Patient is indicated to me when I went back into reevaluate her that the pain in her chest is also reproducible with palpation to the center of her chest. - Lab Data Result diagrams: 07/24/18 15:00 07/24/18 15:00 Lab Results 07/24/18 07/24/18 07/24/18 Range/Units 15:00 15:00 15:00 WBC 6.0 (3.8-10.6) k/uL RBC 5.16 (3.80-5.40) m/uL Hgb 13.7 (11.4-16.0) gm/dL Hct 44.0 (34.0-46.0) % MCV 85.3 (80.0-100.0) fL MCH 26.6 (25.0-35.0) pg MCHC 31.1 (31.0-37.0) g/dL RDW 14.5 (11.5-15.5) % Plt Count 307 (150-450) k/uL Neutrophils % 49 % Lymphocytes % 40 % Monocytes % 5 % Eosinophils % 4 % Basophils % 1 % Neutrophils # 3.0 (1.3-7.7) k/uL Lymphocytes # 2.4 (1.0-4.8) k/uL Monocytes # 0.3 (0-1.0) k/uL Eosinophils # 0.3 (0-0.7) k/uL Basophils # 0.0 (0-0.2) k/uL PT (9.0-12.0) sec INR (<1.2) APTT (22.0-30.0) sec D-Dimer (<0.60) mg/L FEU Sodium 144 (137-145) mmol/L Potassium 4.1 (3.5-5.1) mmol/L Chloride 108 H (98-107) mmol/L Carbon Dioxide 28 (22-30) mmol/L Anion Gap 8 mmol/L BUN 13 (7-17) mg/dL Creatinine 0.88 (0.52-1.04) mg/dL Est GFR (CKD-EPI)AfAm 90 (>60 ml/min/1.73 sqM) Est GFR (CKD-EPI)NonAf 78 (>60 ml/min/1.73 sqM) Glucose 78 (74-99) mg/dL Calcium 9.3 (8.4-10.2) mg/dL Magnesium 2.4 H (1.6-2.3) mg/dL Total Bilirubin 0.4 (0.2-1.3) mg/dL AST 35 (14-36) U/L ALT 44 (9-52) U/L Alkaline Phosphatase 71 (38-126) U/L Total Creatine Kinase 340 H (30-135) U/L CK-MB (CK-2) 1.6 (0.0-2.4) ng/mL CK-MB (CK-2) Rel Index 0.5 Troponin I <0.012 (0.000-0.034) ng/mL Total Protein 7.2 (6.3-8.2) g/dL Albumin 4.2 (3.5-5.0) g/dL 07/24/18 Range/Units 15:00 WBC (3.8-10.6) k/uL RBC (3.80-5.40) m/uL Hgb (11.4-16.0) gm/dL Hct (34.0-46.0) % MCV (80.0-100.0) fL MCH (25.0-35.0) pg MCHC (31.0-37.0) g/dL RDW (11.5-15.5) % Plt Count (150-450) k/uL Neutrophils % % Lymphocytes % % Monocytes % % Eosinophils % % Basophils % % Neutrophils # (1.3-7.7) k/uL Lymphocytes # (1.0-4.8) k/uL Monocytes # (0-1.0) k/uL Eosinophils # (0-0.7) k/uL Basophils # (0-0.2) k/uL PT 10.1 (9.0-12.0) sec INR 0.9 (<1.2) APTT 25.5 (22.0-30.0) sec D-Dimer 0.29 (<0.60) mg/L FEU Sodium (137-145) mmol/L Potassium (3.5-5.1) mmol/L Chloride (98-107) mmol/L Carbon Dioxide (22-30) mmol/L Anion Gap mmol/L BUN (7-17) mg/dL Creatinine (0.52-1.04) mg/dL Est GFR (CKD-EPI)AfAm (>60 ml/min/1.73 sqM) Est GFR (CKD-EPI)NonAf (>60 ml/min/1.73 sqM) Glucose (74-99) mg/dL Calcium (8.4-10.2) mg/dL Magnesium (1.6-2.3) mg/dL Total Bilirubin (0.2-1.3) mg/dL AST (14-36) U/L ALT (9-52) U/L Alkaline Phosphatase (38-126) U/L Total Creatine Kinase (30-135) U/L CK-MB (CK-2) (0.0-2.4) ng/mL CK-MB (CK-2) Rel Index Troponin I (0.000-0.034) ng/mL Total Protein (6.3-8.2) g/dL Albumin (3.5-5.0) g/dL Disposition Clinical Impression: Chest wall pain Disposition: HOME SELF-CARE Instructions (If sedation given, give patient instructions): Chest Pain (ED) Is patient prescribed a controlled substance at d/c from ED?: No Referrals: Harjit Kingston DO [Primary Care Provider] - 1-2 days Time of Disposition: 17:26
[2018-07-24 15:12] LABS: Basophils % (A) 1 %; Eosinophils # (A) 0.3 k/uL (0-0.7); Eosinophils % (A) 4 %; HGB 13.7 gm/dL (11.4-16.0); Lymphocytes # (A) 2.4 k/uL (1.0-4.8); Lymphocytes % (A) 40 %; MCH 26.6 pg (25.0-35.0); MCHC 31.1 g/dL (31.0-37.0); MCV 85.3 fL (80.0-100.0); Mean Platelet Volume 6.9; Monocytes # (A) 0.3 k/uL (0-1.0); Monocytes % (A) 5 %; Neutrophils % (A) 49 %; Platelet Count 307 k/uL (150-450); RBC 5.16 m/uL (3.80-5.40); RDW 14.5 % (11.5-15.5)
[2018-07-24 15:17] VITALS: RESP 16
[2018-07-24 15:29] LABS: INR 0.9 (<1.2)
[2018-07-24 15:30] LABS: D-Dimer 0.29 mg/L FEU (<0.60); Partial Thromboplastin Time 25.5 sec (22.0-30.0); Prothrombin Time 10.1 sec (9.0-12.0)
[2018-07-24 15:31] LABS: Albumin 4.2 g/dL (3.5-5.0); Calcium 9.3 mg/dL (8.4-10.2); Creatine Kinase 340 U/L (30-135); Magnesium 2.4 mg/dL (1.6-2.3); Potassium 4.1 mmol/L (3.5-5.1); Total Bilirubin 0.4 mg/dL (0.2-1.3); Total Protein 7.2 g/dL (6.3-8.2)
[2018-07-24 15:43] LABS: Creatine Kinase MB 1.6 ng/mL (0.0-2.4); Troponin I <0.012 ng/mL (0.000-0.034)
--- NOTE | 2018-07-24 15:55 | XR ---
EXAMINATION TYPE: XR chest 2V DATE OF EXAM: 07/24/2018 COMPARISON: 03/04/2018 INDICATION: Difficulty breathing TECHNIQUE: Frontal and lateral views of the chest are obtained. FINDINGS: The heart size is normal. The pulmonary vasculature is upper limits of normal.. The lungs are clear. IMPRESSION: 1. No acute pulmonary process. Early volume overload could be considered.
[2018-07-24 16:53] VITALS: BP 109/76; PULSE 79; TEMP 98.1
== END 2018-07-24 17:55 | disposition home or self-care (01) ==
LOC: EC 13:23
DX: R07.89 Other chest pain (principal); H57.89 Other specified disorders of eye and adnexa; K21.9 Gastro-esophageal reflux disease without esophagitis; Z86.14 Personal history of Methicillin resistant Staphylococcus aureus infection; Z87.891 Personal history of nicotine dependence; Z82.49 Family history of ischemic heart disease and other diseases of the circulatory system; Z79.899 Other long term (current) drug therapy
CPT/HCPCS: 36415; 71046; 80053; 82550; 82553; 83735; 84484; 85025; 85379; 85610; 85730; 93005; 99285

== ENCOUNTER → 2018-08-11 | Outpatient (CLI) | payer OTHER ==
--- NOTE | 2018-08-11 13:17 | XR ---
EXAMINATION TYPE: XR Hip Complete LT DATE OF EXAM: 08/11/2018 CLINICAL HISTORY: Left hip pain with no known injury TECHNIQUE: AP and frogleg views of the left hip are obtained. COMPARISON: None. FINDINGS: There is no acute fracture/dislocation evident in the left hip. The joint space in the le ft hip appears mildly narrowed in the cephalad direction. The overlying soft tissue appears unremark able. Note is made of a tubal ligation clip within the pelvis. IMPRESSION: There is no acute fracture or dislocation in the left hip. Minimal left femoral acetabul ar arthropathy.
== END | disposition home or self-care (01) ==
LOC: RADXRMAIN 12:33
PROVIDERS: ATTEND Internal Medicine
DX: M16.12 Unilateral primary osteoarthritis, left hip (principal)
CPT/HCPCS: 73502

== ENCOUNTER 2019-03-14 20:43 | Emergency (ER) | payer OTHER ==
[2019-03-14 20:49] VITALS: RESP 18
[2019-03-14 21:36] LABS: Basophils # (A) 0.1 k/uL (0-0.2); Basophils % (A) 1 %; Eosinophils # (A) 0.3 k/uL (0-0.7); Eosinophils % (A) 3 %; HCT 42.4 % (34.0-46.0); HGB 13.4 gm/dL (11.4-16.0); Lymphocytes # (A) 3.6 k/uL (1.0-4.8); Lymphocytes % (A) 43 %; MCH 26.9 pg (25.0-35.0); MCHC 31.6 g/dL (31.0-37.0); MCV 85.2 fL (80.0-100.0); Monocytes # (A) 0.5 k/uL (0-1.0); Monocytes % (A) 6 %; Neutrophils # (A) 3.7 k/uL (1.3-7.7); Neutrophils % (A) 45 %; Platelet Count 290 k/uL (150-450); RBC 4.97 m/uL (3.80-5.40); WBC 8.3 k/uL (3.8-10.6)
[2019-03-14] MEDS ORDERED: KETOROLAC 30 MG/ML 1 ML VIAL IVP STA (21:41)
[2019-03-14 21:55] LABS: Albumin 4.2 g/dL (3.5-5.0); Calcium 9.5 mg/dL (8.4-10.2); Magnesium 2.2 mg/dL (1.6-2.3); Total Bilirubin 0.5 mg/dL (0.2-1.3); Total Protein 7.4 g/dL (6.3-8.2)
[2019-03-14 21:59] LABS: INR 0.9 (<1.2); Partial Thromboplastin Time 24.2 sec (22.0-30.0); Prothrombin Time 10.2 sec (9.0-12.0)
[2019-03-14 22:07] LABS: Potassium 4.7 mmol/L (3.5-5.1)
--- NOTE | 2019-03-14 23:12 | XR ---
EXAMINATION TYPE: XR chest 2V DATE OF EXAM: 03/14/2019 COMPARISON: 07/24/2018 HISTORY: Chest pain TECHNIQUE: Frontal and lateral views of the chest are obtained. FINDINGS: Heart and mediastinum are normal. Lungs are clear of infiltrate. There is no heart failure . There are chest leads. Diaphragm is normal. Bony thorax is intact. IMPRESSION: No active cardiopulmonary disease. Normal heart. No change.
[2019-03-15] MEDS ORDERED: ACET/COD 300 MG/30 MG STARTER PACK 6 TAB BTL PO STA (00:06)
--- NOTE | 2019-03-15 00:06 | ED ---
Chest Pain HPI - General Chief Complaint: Chest Pain Stated Complaint: chest pain Time Seen by Provider: 03/14/19 21:31 Source: patient Mode of arrival: wheelchair Limitations: no limitations - History of Present Illness Initial Comments: 49-year-old female patient presents to the emergency department today for evaluation of upper middle chest pain. Patient states pain started this morning has and worsening throughout the day. Patient states the pain increases never she turns her head to the right or left. States she is also having pain to the left side of her neck. Patient denies any known injury. States she has been doing a lot of housework over the last couple days but nothing unusual. Denies taking any medication for her symptoms. She denies shortness of breath, nausea, vomiting, abdominal pain with this. Denies any dizziness or weakness. She denies history of hypertension, diabetes, or heart disease. Patient denies any recent rash, fever, chills, diarrhea, constipation, back pain, numbness, tingling, hematuria, dysuria, urinary urgency, urinary frequency, headache, visual changes, or any other complaints. - Related Data Home Medications Medication Instructions Recorded Confirmed Acetaminophen Tab [Tylenol Tab] 650 mg PO Q6H PRN 07/24/18 07/24/18 Loratadine [Claritin] 10 mg PO DAILY PRN 07/24/18 07/24/18 Omeprazole 20 mg PO DAILY 07/24/18 07/24/18 Previous Rx's Medication Instructions Recorded Naproxen [EC-Naprosyn] 500 mg PO BID PRN #30 tablet. 03/15/19 Allergies Allergy/AdvReac Type Severity Reaction Status Date / Time No Known Allergies Allergy Verified 03/14/19 20:49 Review of Systems ROS Statement: Those systems with pertinent positive or pertinent negative responses have been documented in the HPI. ROS Other: All systems not noted in ROS Statement are negative. EKG Findings - EKG Comments: EKG Findings:: EKG obtained at 2100 shows normal sinus rhythm with a ventricular rate of 83, NJ interval 162, QRS duration 82, QT 386, QTc 453. No evidence of ST elevation or depression. Past Medical History Past Medical History: GERD/Reflux, Osteoarthritis (OA) Additional Past Medical History / Comment(s): genital herpes-no recent outbreaks, pt stated she was told in past that "she has an irreg heart beat", past bladder polyps-benign History of Any Multi-Drug Resistant Organisms: MRSA Date of last positivie culture/infection: 12/08/2011 MDRO Source:: left axilla Past Surgical History: Section, Cholecystectomy, Hernia Repair, Tubal Ligation Additional Past Surgical History / Comment(s): umbillical hernia, cystoscopy, resection of bladder tumor Past Anesthesia/Blood Transfusion Reactions: No Reported Reaction Past Psychological History: No Psychological Hx Reported Smoking Status: Former smoker Past Alcohol Use History: None Reported Past Drug Use History: None Reported - Past Family History Father Family Medical History: Cancer, Hyperlipidemia, Hypertension Additional Family Medical History / Comment(s): hepatitis c Mother Family Medical History: Hypertension Additional Family Medical History / Comment(s): mental health issues General Exam Limitations: no limitations General appearance: alert, in no apparent distress, other (This is a well- developed, well-nourished adult female patient in no acute distress. Vital signs upon presentation are temperature 98.0F, pulse 87, respirations 18, blood pressure 136/81, pulse ox 99% on room air.) Eye exam: Present: normal appearance, PERRL, EOMI. Absent: scleral icterus, conjunctival injection, periorbital swelling ENT exam: Present: normal exam, normal oropharynx, mucous membranes moist Neck exam: Present: normal inspection, tenderness (Left lateral). Absent: meningismus, lymphadenopathy Respiratory exam: Present: normal lung sounds bilaterally. Absent: respiratory distress, wheezes, rales, rhonchi, stridor Cardiovascular Exam: Present: regular rate, normal rhythm, normal heart sounds. Absent: systolic murmur, diastolic murmur, rubs, gallop, clicks GI/Abdominal exam: Present: soft, normal bowel sounds. Absent: distended, tenderness, guarding, rebound, rigid Neurological exam: Present: alert, oriented X3, CN II-XII intact Psychiatric exam: Present: normal affect, normal mood Skin exam: Present: warm, dry, intact, normal color. Absent: rash Course Vital Signs 03/14/19 03/14/19 03/14/19 20:47 21:52 22:26 Temperature 98.0 F Pulse Rate 87 Respiratory 18 18 Rate Blood Pressure 136/81 126/77 O2 Sat by Pulse 99 98 Oximetry 03/14/19 03/15/19 23:05 00:36 Temperature 98.6 F 98.7 F Pulse Rate 84 88 Respiratory 18 18 Rate Blood Pressure 130/84 132/78 O2 Sat by Pulse 98 98 Oximetry Chest Pain MDM - [facility]:Two-view x-ray of the chest is obtained. Report reviewed in its entirety. Impression by Dr. Cross shows no active cardiopulmonary disease. Normal heart. No change. MDM: 49-year-old female patient presents to the emergency department today for evaluation of upper chest pain and left-sided neck pain. Patient states pain worsens with movement of her head. She denies shortness of breath, nausea, vomiting, or sweats. Lungs are clear to auscultation with good air movement. Labs reviewed and were unremarkable. Troponin negative. EKG showed normal s inus rhythm with no ST elevation or depression. Chest x-ray showed no acute cardiopulmonary process. Patient does report improvement of symptoms with administration of anti-inflammatory medication. Patient has no personal history of hypertension, diabetes, coronary artery disease, or cigarette smoking. No family history of heart disease. Given symptoms and findings patient's pain is most likely related to musculoskeletal inflammation. She'll be given a prescription for naproxen. She is instructed to follow-up with her primary care physician for recheck in 1-2 days. Return parameters discussed in detail. She verbalizes understanding and agrees with this plan. Disposition Clinical Impression: Chest pain Disposition: HOME SELF-CARE Condition: Good Instructions (If sedation given, give patient instructions): Chest Pain (ED), Costochondritis (ED) Additional Instructions: Take medications as directed. Follow up with her primary care physician for recheck on Saturday. Return to the emergency department immediately for any new, worsening, or concerning symptoms. Pain medication was sent to [facility] on . Prescriptions: Naproxen [EC-Naprosyn] 500 mg PO BID PRN #30 tablet.dr CABRERA Reason: Pain Is patient prescribed a controlled substance at d/c from ED?: No Referrals: Harjit Kingston DO [Primary Care Provider] - 1-2 days Time of Disposition: 00:05
[2019-03-15 01:12] VITALS: BP 132/78; PULSE 88; TEMP 98.7
== END 2019-03-15 00:36 | disposition home or self-care (01) ==
LOC: EC 20:43
DX: R07.9 Chest pain, unspecified (principal); M54.2 Cervicalgia; K21.9 Gastro-esophageal reflux disease without esophagitis; Z79.899 Other long term (current) drug therapy; Z87.891 Personal history of nicotine dependence
CPT/HCPCS: 36415; 93005; 80053; 83735; 84484; 85025; 85610; 85730; 71046; 99285; 96374; J1885

== ENCOUNTER → 2019-04-01 | Outpatient (CLI) | payer OTHER ==
--- NOTE | 2019-04-02 08:36 | CT ---
EXAMINATION TYPE: CT sinus wo con DATE OF EXAM: 04/01/2019 COMPARISON: None HISTORY: Headache and nasal congestion. CT DLP: 643 mGycm CONTRAST: 0 mL of Isovue 300 The paranasal sinuses are examined in the axial plane at 2 mm thick sections. Reconstructed images i n the coronal plane were obtained. There is dental amalgam scatter artifact The maxillary sinuses are clear. The ethmoid air cells are clear. The sphenoid sinuses are clear. The frontal sinuses are hypoplastic on the right aplastic on the left. The septum is evaluated. There is septal deviation to the right. The ostiomeatal units are patent. IMPRESSIONS: 1. Normal paranasal sinus study
== END | disposition home or self-care (01) ==
LOC: RADCTMAIN 16:16
PROVIDERS: ATTEND Family Medicine
DX: R09.81 Nasal congestion (principal)
CPT/HCPCS: 70486

== ENCOUNTER 2019-04-15 13:12 | Day surgery (SDC) | payer OTHER ==
[2019-04-10 10:30] VITALS: BMI 43.0
[~2019-04-15 13:12] MED LIST changes: -ONDANSETRON 4 MG/2 ML VIAL IVP PRN
[2019-04-15] MEDS ORDERED: MIDAZOLAM 2 MG/2 ML VIAL ONE (14:19)
[2019-04-15] MEDS ORDERED: PROPOFOL 10 MG/ML 20 ML VIAL IV ONE (14:19)
[2019-04-15] MEDS ORDERED: LIDOCAINE 1% INJ 10MG/ML (20 ML MDV) ONE (14:19)
[2019-04-15] MEDS ORDERED: fentaNYL (PF) 50 MCG/ML 2 ML AMP ONE (14:19)
--- NOTE | 2019-04-15 14:20 | P.GSHP ---
History of Present Illness H&P Date: 04/15/19 Chief Complaint: GERD This a 49-year-old female with history of GERD and hiatal hernia. Patient rents today for EGD. Past Medical History Past Medical History: GERD/Reflux, Osteoarthritis (OA) Additional Past Medical History / Comment(s): genital herpes-no recent outbreaks, pt stated she was told in past that "she has an irreg heart beat", past bladder polyps-benign History of Any Multi-Drug Resistant Organisms: MRSA Date of last positivie culture/infection: 12/08/2011 MDRO Source:: left axilla Past Surgical History: Section, Cholecystectomy, Hernia Repair, Tubal Ligation Additional Past Surgical History / Comment(s): umbillical hernia, cystoscopy, resection of bladder tumor Past Anesthesia/Blood Transfusion Reactions: No Reported Reaction Past Psychological History: No Psychological Hx Reported Additional Psychological History / Comment(s): pt is independant. lives with 3 of her children. Smoking Status: Former smoker Past Alcohol Use History: None Reported Additional Past Alcohol Use History / Comment(s): started smoking 1984 adn quit 2002 smoked 1ppd.past occ use of alcohol none now. Past Drug Use History: None Reported Additional Drug Use History / Comment(s): crack/marijuana use but quit 1997 - Past Family History Father Family Medical History: Cancer, Hyperlipidemia, Hypertension Additional Family Medical History / Comment(s): hepatitis c Mother Family Medical History: Hypertension Additional Family Medical History / Comment(s): mental health issues Medications and Allergies Home Medications Medication Instructions Recorded Confirmed Type Acetaminophen Tab [Tylenol Tab] 650 mg PO Q6H PRN 07/24/18 04/10/19 History Omeprazole 20 mg PO DAILY 07/24/18 04/10/19 History Naproxen [EC-Naprosyn] 500 mg PO BID PRN #30 tablet. 03/15/19 04/10/19 Rx Multivitamins, Thera [Multivitamin 1 tab PO DAILY 04/10/19 04/10/19 History (formulary)] [place]-3 Fatty Acids/Fish Oil [Fish 1 each PO DAILY 04/10/19 04/10/19 History Oil 1,000 mg Softgel] Acetaminophen-Codeine 300-30mg 1 tab PO Q6H PRN 04/15/19 04/15/19 History [Tylenol w/codeine #3] Allergies Allergy/AdvReac Type Severity Reaction Status Date / Time No Known Allergies Allergy Verified 04/10/19 10:25 Surgical - Exam - General well developed, well nourished, no distress - Eyes PERRL - ENT normal pinna - Neck no masses - Respiratory normal expansion - Cardiovascular Rhythm: regular - Abdomen Abdomen: soft, non tender Assessment and Plan Assessment: GERD. We'll perform EGD.
--- NOTE | 2019-04-15 14:31 | P.OP ---
Date of Procedure: 04/15/19 Preoperative Diagnosis: GERD Postoperative Diagnosis: Antral gastritis Small hiatal hernia Mild esophagitis Procedure(s) Performed: EGD Anesthesia: MAC Surgeon: Lopez Jang Pathology: other (Antral, esophagus) Condition: stable Disposition: PACU Description of Procedure: The patient's placed on the endoscopy table in the lateral position. She received IV sedation. The gastroscope placed oropharynx passed in the esophagus and stomach. Scope was then placed through the pylorus. The first and second portion of the duodenum appeared normal. Scope was then brought back the antrum was mildly inflamed. A biopsies performed. Scope was unretroflexed and remainder some appeared normal. There was a small hiatal hernia. The GE junction was at 40 cm. The distal esophagus appeared mildly inflamed a biopsies performed. The proximal esophagus appeared normal. The was withdrawn for patient.
[2019-04-15 14:55] VITALS: BP 122/80; PULSE 88; RESP 18
== END 2019-04-15 15:37 | disposition home or self-care (01) ==
LOC: ORWHC2ENDO 13:12
PROVIDERS: ATTEND Surgery
DX: K29.50 Unspecified chronic gastritis without bleeding (principal); K21.0 Gastro-esophageal reflux disease with esophagitis; K44.9 Diaphragmatic hernia without obstruction or gangrene; M19.90 Unspecified osteoarthritis, unspecified site; E66.01 Morbid (severe) obesity due to excess calories; Z79.899 Other long term (current) drug therapy; Z86.19 Personal history of other infectious and parasitic diseases; Z86.14 Personal history of Methicillin resistant Staphylococcus aureus infection; Z90.49 Acquired absence of other specified parts of digestive tract; Z98.51 Tubal ligation status; Z87.891 Personal history of nicotine dependence; Z82.49 Family history of ischemic heart disease and other diseases of the circulatory system; Z83.1 Family history of other infectious and parasitic diseases; Z80.9 Family history of malignant neoplasm, unspecified; Z68.41 Body mass index [BMI] 40.0-44.9, adult
CPT/HCPCS: 81025; 88305; 43239; J2250; J2001; J3010; J2704

== ENCOUNTER 2019-05-21 10:39 | Day surgery (SDC) | payer OTHER ==
[2019-05-19 13:03] VITALS: BMI 43.9
[~2019-05-21 10:39] MED LIST changes: -LIDOCAINE 1% 20 ML VIAL (10MG/ML) FOR IV START INTRADERMA PRN
[2019-05-21 11:08] VITALS: TEMP 97.5
[2019-05-21] MEDS ORDERED: PROPOFOL 10 MG/ML 20 ML VIAL IV ONE (11:33)
[2019-05-21] MEDS ORDERED: LIDOCAINE 1% INJ 10MG/ML (20 ML MDV) ONE (11:33)
--- NOTE | 2019-05-21 11:37 | P.GSHP ---
History of Present Illness H&P Date: 05/21/19 Chief Complaint: Screening colonoscopy This a 49-year-old female who presents today for screening colonoscopy. Patient denies a significant GI complaints. Past Medical History Past Medical History: GERD/Reflux, Osteoarthritis (OA) Additional Past Medical History / Comment(s): genital herpes-no recent outbreaks, pt stated she was told in past that "she has an irreg heart beat", past bladder polyps-benign History of Any Multi-Drug Resistant Organisms: MRSA Date of last positivie culture/infection: 12/08/2011 MDRO Source:: left axilla Past Surgical History: Section, Cholecystectomy, Hernia Repair, Tubal Ligation Additional Past Surgical History / Comment(s): umbilical hernia, cystoscopy, resection of bladder tumor, EGD Past Anesthesia/Blood Transfusion Reactions: No Reported Reaction Smoking Status: Former smoker - Past Family History Father Family Medical History: Cancer, Hyperlipidemia, Hypertension Additional Family Medical History / Comment(s): hepatitis c Mother Family Medical History: Hypertension Additional Family Medical History / Comment(s): mental health issues Medications and Allergies Home Medications Medication Instructions Recorded Confirmed Type Acetaminophen Tab [Tylenol Tab] 650 mg PO Q6H PRN 07/24/18 05/21/19 History Omeprazole 20 mg PO DAILY 07/24/18 05/21/19 History Allergies Allergy/AdvReac Type Severity Reaction Status Date / Time No Known Allergies Allergy Verified 05/21/19 11:08 Surgical - Exam Vital Signs Temp Pulse Resp BP Pulse Ox 97.5 F L 89 17 148/76 100 05/21/19 11:07 05/21/19 11:07 05/21/19 11:07 05/21/19 11:07 05/21/19 11:07 - General well developed, well nourished, no distress - Eyes PERRL - ENT normal pinna - Neck no masses - Respiratory normal expansion - Cardiovascular Rhythm: regular - Abdomen Abdomen: soft, non tender Assessment and Plan Assessment: We'll perform screening colonoscopy
--- NOTE | 2019-05-21 11:51 | P.OP ---
Date of Procedure: 05/21/19 Preoperative Diagnosis: Screening colonoscopy Postoperative Diagnosis: Normal colon Procedure(s) Performed: Colonoscopy Anesthesia: MAC Surgeon: Lopez Jang Pathology: none sent Condition: stable Disposition: PACU Description of Procedure: PROCEDURE: The patient was placed on the endoscopy table in the lateral position. Digital rectal examination was performed which revealed no abnormalities. Flexible colonoscope was then placed in the patient's anus and passed throughout the entire colon. The ileocecal valve was visualized. The cecum, ascending, transverse, descending and sigmoid colon were normal. The rectum was normal as well. There were no masses, polyps or diverticula noted in the entire colon. SUMMARY OF FINDINGS: Normal colonoscopy.
[2019-05-21 12:15] VITALS: BP 117/79; PULSE 87; RESP 18
== END 2019-05-21 12:22 | disposition home or self-care (01) ==
LOC: ORWHC2ENDO 10:39
PROVIDERS: ATTEND Surgery
DX: Z12.11 Encounter for screening for malignant neoplasm of colon (principal); K21.9 Gastro-esophageal reflux disease without esophagitis; M19.90 Unspecified osteoarthritis, unspecified site; Z86.19 Personal history of other infectious and parasitic diseases; Z86.14 Personal history of Methicillin resistant Staphylococcus aureus infection; Z90.49 Acquired absence of other specified parts of digestive tract; Z98.51 Tubal ligation status; Z98.890 Other specified postprocedural states; Z87.19 Personal history of other diseases of the digestive system; Z87.891 Personal history of nicotine dependence; Z83.1 Family history of other infectious and parasitic diseases; Z83.49 Family history of other endocrine, nutritional and metabolic diseases; Z79.899 Other long term (current) drug therapy; Z82.49 Family history of ischemic heart disease and other diseases of the circulatory system; Z78.0 Asymptomatic menopausal state
CPT/HCPCS: 45378; J2001; J2704

== ENCOUNTER → 2019-07-31 | Outpatient (CLI) | payer OTHER ==
--- NOTE | 2019-08-03 13:10 | MM ---
Reason for exam: screening (asymptomatic). Last mammogram was performed 1 year and 9 months ago. History: Patient had first child at age 41. Physical Findings: A clinical breast exam by your physician is recommended on an annual basis and results should be correlated with mammographic findings. MG Screening Mammo w CAD Bilateral CC, MLO, and XCCL view(s) were taken. Prior study comparison: November 06, 2017, bilateral MG screening mammo w CAD. July 14, 2015, bilateral MG screening mammo w CAD. There are scattered fibroglandular densities. Stable benign calcifications. There is no discrete abnormality. No significant changes when compared with prior studies. ASSESSMENT: Benign, BI-RAD 2 RECOMMENDATION: Routine screening mammogram of both breasts in 1 year.
== END | disposition home or self-care (01) ==
LOC: RADMAMWWP 12:59
PROVIDERS: ATTEND Family Medicine
DX: Z12.39 Encounter for other screening for malignant neoplasm of breast (principal)
CPT/HCPCS: 77067

== ENCOUNTER → 2019-10-28 | Outpatient (CLI) | payer OTHER ==
[2019-10-28 15:12] VITALS: BP 137/91; PULSE 92; RESP 20; BMI 44.9
--- NOTE | 2019-10-28 15:51 | P.HPBAR ---
Bariatric H&P - History & Physicial H&P Date: 10/28/19 History & Physicial: Visit/CC: pre surgical visit Patient initial contact: Initial weight: 126.099 kg Initial weight in pounds: 278.00 Height: 5 ft 6 in Initial BMI: 44.9 Last weight: Current weight: 126.099 kg Current weight in pounds: 278.00 Current BMI: 44.9 [place] body weight (based on NIH guidelines): 58.967 kg Excess body weight loss: 0.0% The patient is a 49 year-old F who presents for Bariatric Assessment. She presents for weight loss evaluation. She reports lifetime problems with weight loss. She is looking into the sleeve gastrectomy. She had an upper scope with Dr. Jang and she depends on it. She reports severe GERD. No stomach or esophageal cancer. She takes an anti-acid with some relief for 2 to 3 years. No Crohns or ulcerative colitis. She had her colonoscopy. She does not have her gallbladder. No DVTs or PEs. Food diary journal with 75 grams advised. Osteoarthritis of both knees left worse than the right. Hip pain as well. No ankle pain. She denies no sleep apnea study. She reports sleep apnea. She is at her highest weight at present. 1. Esophogram 2. EGD 3. Labs Past Medical History Past Medical History: GERD/Reflux, Osteoarthritis (OA) Additional Past Medical History / Comment(s): genital herpes-no recent outbreaks, pt stated she was told in past that "she has an irreg heart beat", past bladder polyps-benign History of Any Multi-Drug Resistant Organisms: MRSA Year Discovered:: 12/08/2011 MDRO Source:: left axilla Past Surgical History: Section, Cholecystectomy, Hernia Repair, Tubal Ligation Additional Past Surgical History / Comment(s): umbilical hernia, cystoscopy, resection of bladder tumor, EGD Past Anesthesia/Blood Transfusion Reactions: No Reported Reaction Smoking Status: Former smoker - Past Family History Father Family Medical History: Cancer, Hyperlipidemia, Hypertension Additional Family Medical History / Comment(s): hepatitis c Mother Family Medical History: Hypertension Additional Family Medical History / Comment(s): mental health issues Surgical - Exam Vital Signs Pulse Resp BP 92 20 137/91 10/28/19 15:02 10/28/19 15:02 10/28/19 15:02 Bariatric Checklist Checklist: Plan: Checklist: EGD: 1. Hiatal hernia: 2. H. Pylori: HgbA1c: Vitamin D: Smoking: Former smoker Primary care physician referral: Thee Psychiatry clearance: Cardiology clearance: Sleep study: Diet journal: VTE risk score: VTE risk level: Rehab needs at discharge:
== END | disposition home or self-care (01) ==
LOC: BARWHC3 14:58
PROVIDERS: ATTEND Surgery Plastic and Reconstructive Surgery
DX: K21.9 Gastro-esophageal reflux disease without esophagitis (principal); M17.0 Bilateral primary osteoarthritis of knee; M25.559 Pain in unspecified hip; G47.30 Sleep apnea, unspecified; Z90.49 Acquired absence of other specified parts of digestive tract; Z87.891 Personal history of nicotine dependence
CPT/HCPCS: 99211

== ENCOUNTER → 2019-11-09 | Outpatient (CLI) | payer OTHER ==
[2019-11-09 11:31] LABS: Partial Thromboplastin Time 24.8 sec (22.0-30.0); Prothrombin Time 10.1 sec (9.0-12.0)
[2019-11-09 11:39] LABS: HCT 41.1 % (34.0-46.0); HGB 13.2 gm/dL (11.4-16.0); Hypochromasia Slight; MCH 26.8 pg (25.0-35.0); MCHC 32.1 g/dL (31.0-37.0); MCV 83.6 fL (80.0-100.0); Mean Platelet Volume 7.6; Platelet Count 275 k/uL (150-450); RBC 4.92 m/uL (3.80-5.40); RDW 14.9 % (11.5-15.5); WBC 5.4 k/uL (3.8-10.6)
[2019-11-09 17:22] LABS: African American GFR (CKD) 99.6 (60.0-200.0); Albumin 4.1 g/dL (3.80-4.90); Albumin/Globulin Ratio 1.71 (1.60-3.17); Anion Gap 8.1 mmol/L (4.00-12.00); Calcium 8.9 mg/dL (8.7-10.3); Carbon Dioxide 26.9 mmol/L (21.6-31.8); Globulin 2.4 g/dL (1.6-3.3); Potassium 3.8 mmol/L (3.5-5.5); Total Bilirubin 0.4 mg/dL (0.3-1.2); Total Protein 6.5 g/dL (6.2-8.2)
[2019-11-09 17:23] LABS: % Iron Saturation 15.98 (12.00-45.00); Chol/HDL Ratio 3.87; LDL Cholesterol,Calculated 116.6 mg/dL (0.0-131.0); Magnesium 2.1 mg/dL (1.5-2.4); Phosphorus 4.3 mg/dL (2.4-5.1); VLDL Calculation 12.4 mg/dL (5.00-40.00)
[2019-11-09 17:33] LABS: Ferritin 30.7 ng/mL (10.0-291.0)
[2019-11-09 17:44] LABS: Folate, Serum 20.5 ng/mL
[2019-11-09 18:20] LABS: Hemoglobin A1C 5.8 % (4.0-6.0)
[2019-11-11 07:31] LABS: Vitamin A 44 ug/dL (38-106)
[2019-11-11 08:46] LABS: Vit B1(Thiamine) 38 ug/L (38-122)
[2019-11-11 13:30] LABS: Zinc, Serum 61 ug/dL (60-130)
[2019-11-13 16:50] LABS: Selenium 94 mcg/L (63-160)
== END | disposition home or self-care (01) ==
LOC: LABWHC1 09:27
PROVIDERS: ATTEND Surgery Plastic and Reconstructive Surgery
DX: E89.1 Postprocedural hypoinsulinemia (principal); E21.1 Secondary hyperparathyroidism, not elsewhere classified; D50.9 Iron deficiency anemia, unspecified; K90.9 Intestinal malabsorption, unspecified; E55.9 Vitamin D deficiency, unspecified; K74.1 Hepatic sclerosis; N19 Unspecified kidney failure; K50.90 Crohn's disease, unspecified, without complications
CPT/HCPCS: 36415; 80053; 80061; 82306; 82525; 82607; 82728; 82746; 83036; 83540; 83550; 83735; 83970; 84100; 84134; 84255; 84425; 84443; 84590; 84630; 85027; 85610; 85730; 93005

== ENCOUNTER → 2019-11-10 | Outpatient (CLI) | payer OTHER | END | disposition home or self-care (01) | LOC: LABWHC1 10:23 | PROVIDERS: ATTEND Surgery Plastic and Reconstructive Surgery | DX: Z11.59 Encounter for screening for other viral diseases (principal) ==

== ENCOUNTER 2019-11-19 08:52 | Day surgery (SDC) | payer OTHER ==
[2019-11-18 09:36] VITALS: BMI 44.9
--- NOTE | 2019-11-18 21:31 | P.GSHP ---
History of Present Illness H&P Date: 11/19/19 CHIEF COMPLAINT: GERD HISTORY OF PRESENT ILLNESS: The patient is a 49-year-old female who presents reports gastroesophageal reflux disease. Upper endoscopy was offered for further evaluation and management. PAST MEDICAL HISTORY: Please see list. PAST SURGICAL HISTORY: Please see list. MEDICATIONS: Please see list. ALLERGIES: Please see list. SOCIAL HISTORY: No illicit drug use FAMILY HISTORY: No reports of Crohn disease or ulcerative colitis. REVIEW OF ORGAN SYSTEMS: CONSTITUTIONAL: No reports of fevers or chills. GI: Denies any blood in stools or constipation. PHYSICAL EXAM: VITAL SIGNS: Stable GENERAL: Well-developed and pleasant in no acute distress. HEENT: No scleral icterus. Extraocular movements grossly intact. Moist buccal mucosa. NECK: Supple without lymphadenopathy. CHEST: Unlabored respirations. Equal bilateral excursions. CARDIOVASCULAR: Regular rate and rhythm. Distal 2+ pulses. ABDOMEN: Soft, nondistended. MUSCULOSKELETAL: No clubbing, cyanosis, or edema. ASSESSMENT: 1. Gastroesophageal reflux disease PLAN: 1. Recommend proceeding with an upper endoscopy Past Medical History Past Medical History: GERD/Reflux, Osteoarthritis (OA) Additional Past Medical History / Comment(s): genital herpes-no recent outbreaks, pt stated she was told in past that "she has an irreg heart beat", past bladder polyps-benign , GLAUCOMA History of Any Multi-Drug Resistant Organisms: MRSA Date of last positivie culture/infection: 12/08/2011 MDRO Source:: left axilla Past Surgical History: Section, Cholecystectomy, Hernia Repair, Tubal Ligation Additional Past Surgical History / Comment(s): umbilical hernia resection , cystoscopy, bladder-polyp removed , EGD Past Anesthesia/Blood Transfusion Reactions: No Reported Reaction Smoking Status: Former smoker - Past Family History Father Family Medical History: Cancer, Hyperlipidemia, Hypertension Additional Family Medical History / Comment(s): hepatitis c Mother Family Medical History: Hypertension Additional Family Medical History / Comment(s): mental health issues Medications and Allergies Home Medications Medication Instructions Recorded Confirmed Type Acetaminophen Tab [Tylenol Tab] 650 mg PO Q6H PRN 07/24/18 11/18/19 History Omeprazole 20 mg PO DAILY 07/24/18 11/18/19 History Multivitamin [Multivitamins Adult 1 each PO DAILY 10/28/19 11/18/19 History Gummies] [place]-3 Fatty Acids [[place]-3] 1,000 mg PO DAILY 10/28/19 11/18/19 History Vit D3/Folic Acid/B2/B6/B12 1 each PO DAILY 10/28/19 11/18/19 History [Folgard Tablet] Brimonidine Tartrate/Timolol 1 drop BOTH EYES DAILY 11/18/19 11/18/19 History [Combigan 0.2%-0.5% Eye Drops] valACYclovir HCL [Valacyclovir] 1,000 mg PO DAILY PRN 11/18/19 11/18/19 History Allergies Allergy/AdvReac Type Severity Reaction Status Date / Time No Known Allergies Allergy Verified 11/18/19 08:51
[2019-11-19 09:19] VITALS: TEMP 97.8
[2019-11-19] MEDS ORDERED: LACTATED RINGERS 1,000 ML IV ONE (09:25)
[2019-11-19] MEDS ORDERED: LIDOCAINE 1% INJ 10MG/ML (20 ML MDV) ONE (09:34)
[2019-11-19] MEDS ORDERED: PROPOFOL 10 MG/ML 20 ML VIAL IV ONE (09:34)
--- NOTE | 2019-11-19 09:52 | P.HPADDEND ---
H&P Addendum H&P Addendum Date: 11/19/19 Patient presents with reflux disease and gastritis. Will proceed for endoscopy.
--- NOTE | 2019-11-19 09:53 | P.PCN ---
Date of Procedure: 11/19/19 Description of Procedure: PREOPERATIVE DIAGNOSIS: Gastroesophageal reflux disease. Morbid obesity. POSTOPERATIVE DIAGNOSIS: Morbid obesity. Gastritis. Gastroesophageal reflux disease. Diaphragmatic hiatal hernia OPERATION: Esophagogastroduodenoscopy with biopsies along antrum. SURGEON: Kimberly Gifford MD ANESTHESIA: MAC. INDICATIONS: The patient is a 49-year-old female who presents with a history of reflux disease. Benefits and risks of the procedure were described. Informed consent was obtained. DESCRIPTION: The patient was brought into the endoscopy suite and laid in the left lateral decubitus position. An Olympus gastroscope was passed along the posterior oropharynx down to the distal esophagus where the squamocolumnar junction was encountered at 35 cm from the incisors. The stomach was entered and no bile reflux was found. Additional findings are listed below. Biopsies with cold f orceps were obtained of the antrum. The first through third portion of the duodenum was examined and unremarkable. Retroflexion of the scope confirmed Hill grade 2 lower esophageal valve. The squamocolumnar junction demonstrated LA grade A erosive esophagitis. The stomach was desufflated. The patient tolerated the procedure well. FINDINGS: Squamocolumnar junction 35 cm from the incisors. Diaphragmatic hiatus at 36 cm. Hiatal hernia, 1 cm Hill grade 2 lower esophageal valve. LA grade A erosive esophagitis. No active duodenitis. Chronic gastritis RECOMMENDATIONS: Upper endoscopy as needed. Plan - Discharge Summary Discharge Rx Participant: Yes New Discharge Prescriptions: Continue Acetaminophen Tab [Tylenol] 650 mg PO Q6H PRN PRN Reason: Pain Omeprazole 20 mg PO DAILY Vit D3/Folic Acid/B2/B6/B12 [Folgard Tablet] 1 each PO DAILY [place]-3 Fatty Acids [[place]-3] 1,000 mg PO DAILY Multivitamin [Multivitamins Adult Gummies] 1 each PO DAILY valACYclovir HCL [Valacyclovir] 1,000 mg PO DAILY PRN PRN Reason: HERPES FLARE UP Brimonidine Tartrate/Timolol [Combigan 0.2%-0.5% Eye Drops] 1 drop BOTH EYES DAILY Discharge Medication List Acetaminophen Tab [Tylenol] 650 mg PO Q6H PRN 07/24/18 [History] Omeprazole 20 mg PO DAILY 07/24/18 [History] Multivitamin [Multivitamins Adult Gummies] 1 each PO DAILY 10/28/19 [History] [place]-3 Fatty Acids [[place]-3] 1,000 mg PO DAILY 10/28/19 [History] Vit D3/Folic Acid/B2/B6/B12 [Folgard Tablet] 1 each PO DAILY 10/28/19 [History] Brimonidine Tartrate/Timolol [Combigan 0.2%-0.5% Eye Drops] 1 drop BOTH EYES DAILY 11/18/19 [History] valACYclovir HCL [Valacyclovir] 1,000 mg PO DAILY PRN 11/18/19 [History] [facility] [facility] [place] [facility] [place] Patient Instructions/Handouts: Gastritis (DC) Discharge Disposition: HOME SELF-CARE
[2019-11-19 09:56] VITALS: RESP 16
[2019-11-19 10:13] VITALS: BP 113/73; PULSE 91
== END 2019-11-19 10:32 | disposition home or self-care (01) ==
LOC: ORWHC2ENDO 08:52
PROVIDERS: ATTEND Surgery Plastic and Reconstructive Surgery
DX: K21.0 Gastro-esophageal reflux disease with esophagitis (principal); K22.10 Ulcer of esophagus without bleeding; K29.50 Unspecified chronic gastritis without bleeding; K44.9 Diaphragmatic hernia without obstruction or gangrene; E66.01 Morbid (severe) obesity due to excess calories; M19.90 Unspecified osteoarthritis, unspecified site; A60.00 Herpesviral infection of urogenital system, unspecified; I49.9 Cardiac arrhythmia, unspecified; H40.9 Unspecified glaucoma; Z68.42 Body mass index [BMI] 45.0-49.9, adult; Z87.19 Personal history of other diseases of the digestive system; Z86.14 Personal history of Methicillin resistant Staphylococcus aureus infection; Z98.890 Other specified postprocedural states; Z90.49 Acquired absence of other specified parts of digestive tract; Z98.51 Tubal ligation status; Z87.891 Personal history of nicotine dependence; Z79.899 Other long term (current) drug therapy; Z80.9 Family history of malignant neoplasm, unspecified; Z83.438 Family history of other disorder of lipoprotein metabolism and other lipidemia; Z82.49 Family history of ischemic heart disease and other diseases of the circulatory system; Z83.1 Family history of other infectious and parasitic diseases; Z81.8 Family history of other mental and behavioral disorders
CPT/HCPCS: 81025; 88305; 43239; J2001; J2704

== ENCOUNTER → 2019-11-23 | Outpatient (CLI) | payer OTHER ==
[2019-11-23 09:41] VITALS: BMI 46.0
== END | disposition home or self-care (01) ==
LOC: BARWHC3 09:03
PROVIDERS: ATTEND Surgery Plastic and Reconstructive Surgery
DX: E66.01 Morbid (severe) obesity due to excess calories (principal); Z71.3 Dietary counseling and surveillance; Z68.42 Body mass index [BMI] 45.0-49.9, adult
CPT/HCPCS: 97804

== ENCOUNTER → 2019-11-26 | Outpatient (CLI) | payer OTHER ==
--- NOTE | 2019-11-26 11:42 | FL ---
EXAMINATION TYPE: FL barium swallow DATE OF EXAM: 11/26/2019 CLINICAL HISTORY: Dysphagia per order. Burning epigastric pain per patient. Recent endoscopy one week ago with hiatal hernia per patient. TECHNIQUE: A double contrast esophagram is performed utilizing air and barium. A total of 29 second s of fluoroscopic time was utilized during procedure. 55 spot images are saved to PACS. COMPARISON: Prior esophagram June 09, 2018 FINDINGS: The esophagus shows satisfactory motility and emptying into the stomach. No evidence of fi xed hiatal hernia or stricture noted. No significant gastroesophageal reflux was seen during real karan e performance of this study. Cholecystectomy clips incidentally noted. IMPRESSION: No significant abnormality is seen to account for patient's symptoms.
== END | disposition home or self-care (01) ==
LOC: RADUSWWP 10:13
PROVIDERS: ATTEND Surgery Plastic and Reconstructive Surgery
DX: R13.10 Dysphagia, unspecified (principal)
CPT/HCPCS: 74220

== ENCOUNTER 2020-01-04 08:22 | Day surgery (SDC) | payer OTHER ==
[2019-12-30 13:33] VITALS: BMI 45.1
--- NOTE | 2020-01-03 19:28 | P.GSHP ---
History of Present Illness H&P Date: 01/03/20 DATE OF SERVICE: 01/03/2020 CHIEF COMPLAINT: Morbid obesity HISTORY OF PRESENT ILLNESS: Franko Rao is a 49-year-old female who comes with lifelong morbid obesity. She presents for weight loss evaluation. She reports lifetime problems with weight loss. She is looking into the gastric bypass as she reports severe gastroesophageal reflux disease. She denies stomach or esophageal cancer. She takes an anti-acid with some relief for 2 to 3 years. She denies Crohns or ulcerative colitis. She had a colonoscopy. She does not have her gallbladder. No reports of deep venous thrombosis or pulmonary embolism. As result of her morbid obesity, she has developed osteoarthritis of both knees with left knee worse than the right. She reports hip pain as well. She denies any ankle pain. She reports sleep apnea. She has completed medical included cardiac risk assessment. She completed upper endoscopy. Nutritional assessment were completed. At height of 5 feet 6 inches, her ideal body weight is 154 pounds. She comes in 277 pounds. Her body mass index is 44.9. She is 123 pounds overweight. PAST MEDICAL HISTORY: 1. Morbid obesity due to excess calories 2. Body mass index of 44.9, initial 3. Gastroesophageal reflux disease 4. History of methicillin resistant staph aureus infection 5. Osteoarthritis of the knee 6. Osteoarthritis of the hips 7. History of bladder tumor PAST SURGICAL HISTORY: 1. section 2. Cholecystectomy 3. Umbilical hernia 4. Tubal ligation 5. Cystoscopy 6. Upper endoscopy 7. Bladder tumor resection 8. Colonoscopy HOME MEDICATIONS: Home Medications Medication Instructions Recorded Confirmed Acetaminophen Tab [Tylenol Tab] 650 mg PO Q6H PRN 07/24/18 10/28/19 Omeprazole 20 mg PO DAILY 07/24/18 10/28/19 Multivitamin [Multivitamins Adult 1 each PO 10/28/19 Gummies] [place]-3 Fatty Acids [[place]-3] 10/28/19 Vit D3/Folic Acid/B2/B6/B12 1 each PO 10/28/19 [Folgard Tablet] ALLERGIES: SOCIAL HISTORY: Past tobacco use. FAMILY HISTORY: No family history of ulcerative colitis disease or Crohn's disease. Family history of morbid obesity. No lupus in the family. No reports of stomach or esophageal cancer. REVIEW OF ORGAN SYSTEMS: CONSTITUTIONAL: At height of 5 feet 6 inches, her ideal body weight is 154 pounds. She comes in 277 pounds. Her body mass index is 44.9. She is 123 pounds overweight. HEENT: Denies any active troubles with vision or hearing. ENDOCRINE: No diabetes. No hypothyroidism. CARDIOVASCULAR: She reports past history of irregular heart rate. No recent chest pain. RESPIRATORY: Has daytime somnolence. Denies asthma. GASTROINTESTINAL: Denies any bright red blood per rectum. No diarrhea. No constipation. She reports severe GERD. MUSCULOSKELETAL: Has lower back pain and joint pain. Has osteoarthritis of the knees and hips. Osteoarthritis of both knees left worse than the right. Hip pain as well. No ankle pain. NEURO: No headaches. No seizure disorders. PSYCH: Denies depression. No suicidal ideation. RHEUMATOLOGIC: No lupus. No rheumatoid arthritis. HEMATOLOGIC: Denies any abnormal bleeding or bruising. No personal history of DVTs. SKIN: No rash. No skin cancer. PHYSICAL EXAM: VITAL SIGNS: Height 5 foot 6 inches, weight 277 pounds. BMI 44.9 GENERAL: Well-developed in no acute distress. HEENT: No scleral icterus. Extraocular movements grossly intact. Hears conversational speech. No nasal drainage. NECK: Supple without lymphadenopathy. CHEST: Nonlabored respirations with equal bilateral excursions. CARDIOVASCULAR: Regular rate and regular rhythm. Distal 2+ pulses. ABDOMEN: Obese, soft, nontender, nondistended. MUSCULOSKELETAL: No clubbing, cyanosis. NEURO: No focal or lateralizing signs. Cranial nerves 2 through 12 grossly within normal limits. PSYCH: Appropriate affect. Alert and oriented to person, place and time. SKIN: Good skin turgor. Well perfused. ASSESSMENT: PAST MEDICAL HISTORY: 1. Morbid obesity due to excess calories 2. Body mass index of 44.9, initial 3. Gastroesophageal reflux disease 4. History of methicillin resistant staph aureus infection 5. Osteoarthritis of the knee 6. Osteoarthritis of the hips 7. History of bladder tumor 8. History of irregular heart rate PLAN: 1. Bariatric options between a sleeve, band and a Lois-en-Y gastric bypass were reviewed in detail. The patient elected for a gastric bypass to address severe gastroesophageal reflux disease Robotic assisted approach described. 2. The [facility] Data was also reviewed with benefits and risks as described. 3. An 8 page second-generation bariatric consent form was reviewed in detail including potential of bleeding, infection, leaks, adequate weight loss, nutritional deficiencies which the patient demonstrated understanding of the risks. 4. A 2 week high-protein low caloric 800 kcal diet described to address hepatomegaly. 5. Preoperative labs including complete metabolic panel and CBC with type and screen recommended. 6. DVT prophylaxis per [place] [facility]. 7. Antibiotic prophylaxis. 8. Inpatient hospitalization anticipated for more than 2 nights. 9. All questions and concerns were addressed with the patient. 10. She is elevated risk for complications due to pre-existing MRSA, irregular heart rate. Past Medical History Past Medical History: GERD/Reflux, Hypertension, Osteoarthritis (OA) Additional Past Medical History / Comment(s): genital herpes-no recent outbreaks, pt stated she was told in past that "she has an irreg heart beat", past bladder polyps-benign , GLAUCOMA, pt states she stopped chlorthalidone because she was having some dizziness-instructed to call her physician. , Pt states she is on a high protein shake diet per Dr. Alfred instructions. History of Any Multi-Drug Resistant Organisms: MRSA Date of last positivie culture/infection: 12/08/2011 MDRO Source:: left axilla Past Surgical History: Section, Cholecystectomy, Hernia Repair, Tubal Ligation Additional Past Surgical History / Comment(s): umbilical hernia , cystoscopy, bladder-polyp removed , EGD Past Anesthesia/Blood Transfusion Reactions: No Reported Reaction Past Psychological History: No Psychological Hx Reported Additional Psychological History / Comment(s): . Smoking Status: Former smoker Past Alcohol Use History: Rare Additional Past Alcohol Use History / Comment(s): started smoking 1984 and quit 2002 smoked 1ppd. Past Drug Use History: Cocaine, Marijuana Additional Drug Use History / Comment(s): crack/marijuana use but quit 1997 - Past Family History Father Family Medical History: Cancer, Hyperlipidemia, Hypertension Additional Family Medical History / Comment(s): hepatitis c Mother Family Medical History: Hypertension Additional Family Medical History / Comment(s): mental health issues Medications and Allergies Home Medications Medication Instructions Recorded Confirmed Type Acetaminophen Tab [Tylenol] 650 mg PO Q6H PRN 07/24/18 12/30/19 History Omeprazole 20 mg PO DAILY 07/24/18 12/30/19 History Brimonidine Tartrate/Timolol 1 drop BOTH EYES DAILY 11/18/19 12/30/19 History [Combigan 0.2%-0.5% Eye Drops] Chlorthalidone [Hygroton] 25 mg PO DAILY 12/22/19 12/30/19 History Acetaminophen [Tylenol Arthritis] 650 mg PO DIRECTED PRN 12/30/19 12/30/19 History Randell/D3/Mag11/Zinc/[employer]/Anthony/Bor 1 each PO DAILY 12/30/19 12/30/19 History [Caltrate 600+D Plus Tablet] Lysine 500 mg PO BID 12/30/19 12/30/19 History [place] 3-6-9 1 tab PO DAILY 12/30/19 History Vitamin B-12 (Unknown Dose) 1 tab PO DAILY 12/30/19 History valACYclovir HCL [Valacyclovir] 500 mg PO DAILY PRN 12/30/19 12/30/19 History Allergies Allergy/AdvReac Type Severity Reaction Status Date / Time No Known Allergies Allergy Verified 12/30/19 12:55
[2020-01-04 06:32] VITALS: RESP 16
[2020-01-04 06:58] LABS: Basophils % (A) 1 %; Eosinophils # (A) 0.2 k/uL (0-0.7); Eosinophils % (A) 4 %; HGB 14.9 gm/dL (11.4-16.0); Lymphocytes # (A) 2.3 k/uL (1.0-4.8); Lymphocytes % (A) 50 %; MCH 26.9 pg (25.0-35.0); MCHC 33.1 g/dL (31.0-37.0); MCV 81.2 fL (80.0-100.0); Mean Platelet Volume 7.6; Monocytes # (A) 0.3 k/uL (0-1.0); Monocytes % (A) 7 %; Neutrophils # (A) 1.7 k/uL (1.3-7.7); Neutrophils % (A) 37 %; Platelet Count 285 k/uL (150-450); RBC 5.54 m/uL (3.80-5.40); WBC 4.7 k/uL (3.8-10.6)
[~2020-01-04 08:22] MED LIST changes: +ACETAMINOPHEN IV (For NPO) 1,000 MG in EMPTY BAG 1 BAG IVPB ONE; +BUPIVACAIN-EPI 0.25%-1:200,000 30 ML VIAL SQ ONE; +CHLORHEXIDINE GLUCONATE 15 ML CUP MUCOUS MEM ONE; +DEXAMETHASONE SOD PHOSPHATE 10 MG/ML 1 ML VIAL IV ONE; +ENOXAPARIN 40 MG/0.4 ML SYRINGE SQ ONE; +GABAPENTIN 300 MG CAP PO ONE; +GLYCOPYRROLATE 0.2 MG/ML 2 ML VIAL ONE; +LIDOCAINE 1% (10MG/ML) FOR IV START INTRADERMA PRN; +LIDOCAINE 1% INJ 10MG/ML (20 ML MDV) ONE; +MAGNESIUM SULFATE-D5W PMX 1 GM in DEXTROSE/WATER 1 100ML.BAG IVPB ONE; +MIDAZOLAM 2 MG/2 ML VIAL ONE; +NEOSTIGMINE 1 MG/ML 10 ML VIAL ONE; +ONDANSETRON 4 MG/2 ML VIAL IVP ONE; +ONDANSETRON 4 MG/2 ML VIAL ONE; +PANTOPRAZOLE 40 MG/10 ML VIAL IV ONE; +PHENYLEPHRINE-0.9% NACL SYG 1 MG/10 ML SYRINGE ONE; +PROPOFOL 10 MG/ML 20 ML VIAL IV ONE; +ROCURONIUM BROMIDE 10 MG/ML 5 ML VIAL IV ONE; +SCOPOLAMINE 1.5MG/72HR PATCH TRANSDERM ONE; +SUCCINYLCHOLINE CHLORIDE 100 MG/5 ML SYR IV ONE; +TAMSULOSIN 0.4 MG CAP.ER.24H PO ONE; +ceFAZolin 3 GM in SODIUM CHLORIDE 0.9% 100 ML IVPB ONE; +fentaNYL (PF) 50 MCG/ML 2 ML AMP ONE
[2020-01-04 08:58] VITALS: TEMP 97.6
--- NOTE | 2020-01-04 09:03 | P.OP ---
Date of Procedure: 01/04/20 Description of Procedure: SURGEON: KP DUPREE MD PREOPERATIVE DIAGNOSES: 1. Morbid obesity due to excess calories 2. Body mass index of 44.9, initial 3. Gastroesophageal reflux disease 4. History of methicillin resistant staph aureus infection 5. Osteoarthritis of the knee 6. Osteoarthritis of the hips 7. History of bladder tumor 8. History of irregular heart rate POSTOPERATIVE DIAGNOSES: 1. Morbid obesity due to excess calories 2. Body mass index of 44.9, initial 3. Gastroesophageal reflux disease 4. History of methicillin resistant staph aureus infection 5. Osteoarthritis of the knee 6. Osteoarthritis of the hips 7. History of bladder tumor 8. History of irregular heart rate OPERATION: 1. Aborted Robotic assisted da Sharmaine Xi laparoscopic Lois-en-Y gastric bypass to diagnostic laparoscopy ANESTHESIA: GETA and local ESTIMATED BLOOD LOSS: 5 mL SPECIMENS REMOVED: None. COMPLICATIONS: NONE. Operative Findings: 1. Dense greater omental adhesions with incarcerated ventral hernia incorporating greater omentum including bilateral upper quadrant peritoneal adhesions prohibiting advancement to gastric bypass INDICATIONS: Franko Rao is a 49-year-old female who comes with lifelong morbid obesity. She comes in for the gastric bypass. She completed all measures as required at the bariatric center including medical risk assessment, cardiac risk assessment, psychological assessment and including but not limited to medical supervised weight loss. At height of 5 feet 6 inches, her ideal body weight is 154 pounds. She comes in 277 pounds. Her body mass index is 44.9. She is 123 pounds overweight. A second-generation bariatric consent form was described in detail including the possibility of protein malnutrition, leaks, gastrojejunal stricture, venous thrombosis, need for further surgery for which she demonstrated understanding. Benefits and risks of the procedure were described at length. Informed consent was obtained. DESCRIPTION: The patient was brought into the operating room theater. She was placed supine. She had received Lovenox subcutaneously for DVT prophylaxis. Additionally she Peridex oral solution as an oral decontaminant. After general induction, the abdomen was prepped and draped in standard sterile fashion. Ioban draping was placed along the abdomen. Wagoner catheter was placed A robotic da Sharmaine Xi system was prepped and primed. Incisions were proposed at 15 cm from the xiphoid. Proposed port sites were marked with indelible marker along the anterior axillary line bilaterally, mid clavicular line bilaterally with each port marked 10 cm from each other. The robotic stapler port was marked for the right midclavicular line including along the left midclavicular line. A 5 mm 0 degrees laparoscopic trocar entry was performed along the left upper quadrant. The abdomen was insufflated to 15 mmHg pressure, which she tolerated well. Diagnostic laparoscopy demonstrated no injury to bowel, viscera, or mesentery. Along the umbilicus, incarcerated greater omentum was found consistent with incarcerated ventral hernia. Additionally along the bilateral upper abdomen, abdominal wall peritoneal adhesions greater omentum to the abdominal wall were identified as well. With this finding, gastric bypass was abandoned. Patient did not give consent for alternatives such as sleeve gastrectomy or additional procedures. All instruments and pneumoperitoneum were evacuated from the abdominal cavity. The left upper quadrant incision was reapproximated using 4-0 Monocryl in an interrupted subcuticular fashion. Local anesthetic was infiltrated along the skin for postop analgesia. At the end of the procedure, needle, sponge and instrument count had been verified correct by the neurosurgical physician assistant. The patient had tolerated the procedure well and was extubated and taken to the postanesthesia unit in stable condition. Intraoperative findings were described to the patient. Follow-up in the bariatric center for additional options were described. Plan - Discharge Summary Discharge Rx Participant: Yes New Discharge Prescriptions: Continue Acetaminophen Tab [Tylenol] 650 mg PO Q6H PRN PRN Reason: Pain Omeprazole 20 mg PO DAILY Brimonidine Tartrate/Timolol [Combigan 0.2%-0.5% Eye Drops] 1 drop BOTH EYES DAILY Chlorthalidone [Hygroton] 25 mg PO DAILY valACYclovir HCL 500 mg PO DAILY PRN PRN Reason: herpes [place] 3-6-9 1 tab PO DAILY Vitamin B-12 (Unknown Dose) 1 tab PO DAILY Randell/D3/Mag11/Zinc/Makeup Sales Advisor/Anthony/Bor [Caltrate 600+D Plus Tablet] 1 each PO DAILY Lysine 500 mg PO BID Discontinued Acetaminophen [Tylenol Arthritis] 650 mg PO DIRECTED PRN PRN Reason: Pain Discharge Medication List Acetaminophen Tab [Tylenol] 650 mg PO Q6H PRN 07/24/18 [History] Omeprazole 20 mg PO DAILY 07/24/18 [History] Brimonidine Tartrate/Timolol [Combigan 0.2%-0.5% Eye Drops] 1 drop BOTH EYES DAILY 11/18/19 [History] Chlorthalidone [Hygroton] 25 mg PO DAILY 12/22/19 [History] Randell/D3/Mag11/Zinc/Makeup Sales Advisor/Anthony/Bor [Caltrate 600+D Plus Tablet] 1 each PO DAILY 12/30/19 [History] Lysine 500 mg PO BID 12/30/19 [History] [place] 3-6-9 1 tab PO DAILY 12/30/19 [History] Vitamin B-12 (Unknown Dose) 1 tab PO DAILY 12/30/19 [History] valACYclovir HCL 500 mg PO DAILY PRN 12/30/19 [History] Follow up Appointment(s[facility]Ref[place]s[place] [facility] [place] [place] [facility] [place] [facility] Patient Instructions/Handouts: Exploratory Laparoscopy (DC) Activity/Diet/Wound Care/Special Instructions: No lifting over 10 pounds in 2 weeks until Jan 17October shower. No bath tub soaks for two weeks until Jan 17 Diet as tolerated. Use Tylenol and ibuprofen or Aleve scheduled for the next 24-48 hours for best pain relief. Use ice along incisions for the today to prevent swelling. Discharge Disposition: HOME SELF-CARE
--- NOTE | 2020-01-04 09:06 | P.DS ---
Providers Date of admission: 01/04/20 05:54 Expected date of discharge: 01/04/20 Attending physician: Kimberly Gifford Primary care physician: Mario Hartman - Discharge Diagnosis(es) (1) Morbid (severe) obesity due to excess calories Current Visit: Yes Status: Acute (2) BMI 40.0-44.9, adult Current Visit: Yes Status: Acute Hospital Course: POSTOPERATIVE DIAGNOSES: 1. Morbid obesity due to excess calories 2. Body mass index of 44.9, initial 3. Gastroesophageal reflux disease 4. History of methicillin resistant staph aureus infection 5. Osteoarthritis of the knee 6. Osteoarthritis of the hips 7. History of bladder tumor 8. History of irregular heart rate COURSE: Franko Rao is a 49-year-old female who comes in for gastric bypass. She completed bariatric risk assessment prior to procedure. During surgery, the abdomen was entered and dense abdominal adhesions were found prohibiting advancement of her gastric bypass. As result, her gastric bypass was aborted. Patient was hemodynamically stable prior to discharge. Procedures: OPERATION: 1. Aborted Robotic assisted da Sharmaine Xi laparoscopic Lois-en-Y gastric bypass to diagnostic laparoscopy ANESTHESIA: GETA and local ESTIMATED BLOOD LOSS: 5 mL SPECIMENS REMOVED: None. COMPLICATIONS: NONE. Operative Findings: 1. Dense greater omental adhesions with incarcerated ventral hernia incorporating greater omentum including bilateral upper quadrant peritoneal adhesions prohibiting advancement to gastric bypass Patient Condition at Discharge: Stable Plan - Discharge Summary Discharge Rx Participant: Yes New Discharge Prescriptions: Continue Acetaminophen Tab [Tylenol] 650 mg PO Q6H PRN PRN Reason: Pain Omeprazole 20 mg PO DAILY Brimonidine Tartrate/Timolol [Combigan 0.2%-0.5% Eye Drops] 1 drop BOTH EYES DAILY Chlorthalidone [Hygroton] 25 mg PO DAILY valACYclovir HCL 500 mg PO DAILY PRN PRN Reason: herpes [place] 3-6-9 1 tab PO DAILY Vitamin B-12 (Unknown Dose) 1 tab PO DAILY Randell/D3/Mag11/Zinc/Control Area Operator/Anthony/Bor [Caltrate 600+D Plus Tablet] 1 each PO DAILY Lysine 500 mg PO BID Discontinued Acetaminophen [Tylenol Arthritis] 650 mg PO DIRECTED PRN PRN Reason: Pain Discharge Medication List Acetaminophen Tab [Tylenol] 650 mg PO Q6H PRN 07/24/18 [History] Omeprazole 20 mg PO DAILY 07/24/18 [History] Brimonidine Tartrate/Timolol [Combigan 0.2%-0.5% Eye Drops] 1 drop BOTH EYES DAILY 11/18/19 [History] Chlorthalidone [Hygroton] 25 mg PO DAILY 12/22/19 [History] Randell/D3/Mag11/Zinc/Control Area Operator/Anthony/Bor [Caltrate 600+D Plus Tablet] 1 each PO DAILY 12/30/19 [History] Lysine 500 mg PO BID 12/30/19 [History] [place] 3-6-9 1 tab PO DAILY 12/30/19 [History] Vitamin B-12 (Unknown Dose) 1 tab PO DAILY 12/30/19 [History] valACYclovir HCL 500 mg PO DAILY PRN 12/30/19 [History] Follow up Appointment(s)/Ref[place]([facility] [facility] [place] - 01/06/20 Patient Instructions/Handouts: Exploratory Laparoscopy (DC) Activity/Diet/Wound Care/Special Instructions: No lifting over 10 pounds in 2 weeks until Jan 17October shower. No bath tub soaks for two weeks until Jan 17 Diet as tolerated. Use Tylenol and ibuprofen or Aleve scheduled for the next 24-48 hours for best pain relief. Use ice along incisions for the today to prevent swelling. Discharge Disposition: HOME SELF-CARE
[2020-01-04] MEDS: HYDROmorphone 0.5 MG/0.5 ML SYRINGE IVP PRN ×2 (09:30→09:40)
[2020-01-04] MEDS ORDERED: KETOROLAC 30 MG/ML 1 ML VIAL IVP ONE (09:39)
[2020-01-04 10:10] VITALS: BP 120/75; PULSE 81
== END 2020-01-04 10:39 | disposition home or self-care (01) ==
LOC: OR 08:22 → UNDODISIN 10:39 → OR 10:39
PROVIDERS: ATTEND Surgery Plastic and Reconstructive Surgery
DX: E66.01 Morbid (severe) obesity due to excess calories (principal); K21.9 Gastro-esophageal reflux disease without esophagitis; I10 Essential (primary) hypertension; K66.0 Peritoneal adhesions (postprocedural) (postinfection); Z86.018 Personal history of other benign neoplasm; M16.9 Osteoarthritis of hip, unspecified; H40.9 Unspecified glaucoma; Z86.14 Personal history of Methicillin resistant Staphylococcus aureus infection; Z68.41 Body mass index [BMI] 40.0-44.9, adult; M17.9 Osteoarthritis of knee, unspecified; Z98.890 Other specified postprocedural states; Z87.891 Personal history of nicotine dependence; Z79.899 Other long term (current) drug therapy; Z98.51 Tubal ligation status; Z90.49 Acquired absence of other specified parts of digestive tract; Z82.49 Family history of ischemic heart disease and other diseases of the circulatory system; Z80.9 Family history of malignant neoplasm, unspecified; Z81.8 Family history of other mental and behavioral disorders
CPT/HCPCS: 81025; 86900; 86901; 84132; 85025; 86850; 49320; C1762; J2250; J1100; J2710; J0690; J2405; J2001; J1650; J3010; J1885; J0131; J2370; J0330; J2704; C9113; J1170

== ENCOUNTER 2020-01-25 06:53 | Day surgery (SDC) | payer OTHER ==
[2020-01-21 12:28] VITALS: BMI 27.9
[~2020-01-25 06:53] MED LIST changes: -ACETAMINOPHEN IV (For NPO) 1,000 MG in EMPTY BAG 1 BAG IVPB ONE; -BUPIVACAIN-EPI 0.25%-1:200,000 30 ML VIAL SQ ONE; -CHLORHEXIDINE GLUCONATE 15 ML CUP MUCOUS MEM ONE; -ENOXAPARIN 40 MG/0.4 ML SYRINGE SQ ONE; -GABAPENTIN 300 MG CAP PO ONE; -GLYCOPYRROLATE 0.2 MG/ML 2 ML VIAL ONE; -LIDOCAINE 1% (10MG/ML) FOR IV START INTRADERMA PRN; -LIDOCAINE 1% INJ 10MG/ML (20 ML MDV) ONE; -MAGNESIUM SULFATE-D5W PMX 1 GM in DEXTROSE/WATER 1 100ML.BAG IVPB ONE; +MIDAZOLAM 2 MG/2 ML VIAL IV PRN; -MIDAZOLAM 2 MG/2 ML VIAL ONE; -NEOSTIGMINE 1 MG/ML 10 ML VIAL ONE; -ONDANSETRON 4 MG/2 ML VIAL ONE; -PANTOPRAZOLE 40 MG/10 ML VIAL IV ONE; -PHENYLEPHRINE-0.9% NACL SYG 1 MG/10 ML SYRINGE ONE; -PROPOFOL 10 MG/ML 20 ML VIAL IV ONE; -ROCURONIUM BROMIDE 10 MG/ML 5 ML VIAL IV ONE; -SUCCINYLCHOLINE CHLORIDE 100 MG/5 ML SYR IV ONE; -TAMSULOSIN 0.4 MG CAP.ER.24H PO ONE; -ceFAZolin 3 GM in SODIUM CHLORIDE 0.9% 100 ML IVPB ONE; -fentaNYL (PF) 50 MCG/ML 2 ML AMP ONE
[2020-01-25] MEDS ORDERED: fentaNYL (PF) 50 MCG/ML 2 ML AMP IVP ONE (07:00)
[2020-01-25] MEDS ORDERED: MIDAZOLAM 2 MG/2 ML VIAL IVP ONE (07:00)
[2020-01-25] MEDS ORDERED: ONDANSETRON 4 MG/2 ML VIAL ONE (07:14)
[2020-01-25] MEDS ORDERED: LIDOCAINE 1% (10MG/ML) FOR IV START INTRADERMA ONE (07:18)
--- NOTE | 2020-01-25 07:40 | P.GSHP ---
History of Present Illness H&P Date: 01/25/20 CHIEF COMPLAINT: Incisional hernia. HISTORY OF PRESENT ILLNESS: The patient is a 49-year-old female who presents with a history of swelling along the abdomen. Findings were consistent with possible incisional hernia. Now she presents for further evaluation and management. PAST MEDICAL HISTORY: Please see list. PAST SURGICAL HISTORY: Please see list. MEDICATIONS: Please see list. ALLERGIES: Please see list. SOCIAL HISTORY: No illicit drug use FAMILY HISTORY: No reports of Crohn disease or ulcerative colitis. REVIEW OF ORGAN SYSTEMS: CONSTITUTIONAL: No reports of fevers or chills. GI: Denies any blood in stools or constipation. PHYSICAL EXAM: VITAL SIGNS: Stable GENERAL: Well-developed pleasant female in no acute distress. HEENT: No scleral icterus. Extraocular movements grossly intact. Moist buccal mucosa. NECK: Supple without lymphadenopathy. CHEST: Unlabored respirations. Equal bilateral excursions. CARDIOVASCULAR: Regular rate and rhythm. Distal 2+ pulses. ABDOMEN: Soft, nondistended. Swelling along the abdomen. Protuberant. MUSCULOSKELETAL: No clubbing, cyanosis, or edema. ASSESSMENT: 1. Incisional ventral hernia. 2. Morbid obesity, BMI 44.6 PLAN: 1. Recommend proceeding with robotic ventral hernia repair with mesh. 2. Benefits and risks of surgical intervention was discussed including possibility of open technique. 3. DVT prophylaxis. 4. Antibiotic prophylaxis. Past Medical History Past Medical History: GERD/Reflux, Hypertension, Osteoarthritis (OA) Additional Past Medical History / Comment(s): genital herpes-no recent outbreaks, pt stated she was told in past that "she has an irreg heart beat", Hx bladder polyps-benign , glaucoma. , has ventral hernia and adhesions -pt had laparoscopy 01/04/20. History of Any Multi-Drug Resistant Organisms: MRSA Date of last positivie culture/infection: 12/08/2011 MDRO Source:: left axilla Past Surgical History: Section, Cholecystectomy, Hernia Repair, Tubal Ligation Additional Past Surgical History / Comment(s): umbilical hernia , cystoscopy, bladder-polyp removed , EGD., 01/04/20-laparoscopy-(bariatric surgery aborted due to hernia and adhesions) Past Anesthesia/Blood Transfusion Reactions: No Reported Reaction Past Psychological History: No Psychological Hx Reported Additional Psychological History / Comment(s): . Smoking Status: Former smoker Past Alcohol Use History: Rare Additional Past Alcohol Use History / Comment(s): started smoking 1984 and quit 2002 smoked 1ppd. Past Drug Use History: Cocaine, Marijuana Additional Drug Use History / Comment(s): crack/marijuana use but quit 1997 - Past Family History Father Family Medical History: Cancer, Hyperlipidemia, Hypertension Additional Family Medical History / Comment(s): hepatitis c Mother Family Medical History: Hypertension Additional Family Medical History / Comment(s): mental health issues Medications and Allergies Home Medications Medication Instructions Recorded Confirmed Type Omeprazole 20 mg PO DAILY 07/24/18 01/21/20 History Brimonidine Tartrate/Timolol 1 drop BOTH EYES DAILY 11/18/19 01/25/20 History [Combigan 0.2%-0.5% Eye Drops] valACYclovir HCL 500 mg PO DAILY PRN 12/30/19 01/25/20 History Acetaminophen [Tylenol Arthritis] 650 mg PO DIRECTED PRN 01/21/20 01/25/20 History Allergies Allergy/AdvReac Type Severity Reaction Status Date / Time No Known Allergies Allergy Verified 01/25/20 07:03 Surgical - Exam Vital Signs Temp Pulse Resp BP Pulse Ox 97.8 F 84 18 132/69 96 01/25/20 07:10 01/25/20 07:10 01/25/20 07:10 01/25/20 07:10 01/25/20 07:10
[2020-01-25] MEDS ORDERED: SCOPOLAMINE 1.5MG/72HR PATCH TRANSDERM STA (07:41)
[2020-01-25] MEDS ORDERED: ACETAMINOPHEN TAB 500 MG TAB PO STA (07:41)
[2020-01-25] MEDS ORDERED: GABAPENTIN 300 MG CAP PO STA (07:41)
[2020-01-25] MEDS ORDERED: HEPARIN SODIUM,PORCINE 5,000 UNIT/ML 1 ML VIAL SQ ONE (07:41)
[2020-01-25] MEDS ORDERED: HEPARIN SODIUM,PORCINE 5,000 UNIT/ML 1 ML VIAL ONE (07:50)
[2020-01-25] MEDS ORDERED: ACETAMINOPHEN TAB 500 MG TAB ONE (07:50)
[2020-01-25] MEDS ORDERED: PHENYLEPHRINE-0.9% NACL SYG 1 MG/10 ML SYRINGE ONE (09:25)
[2020-01-25] MEDS ORDERED: ROCURONIUM 10 MG/ML (5 ML VIAL) IV ONE (09:25)
[2020-01-25] MEDS ORDERED: DEXAMETHASONE SOD PHOSPHATE 4 MG/ML 1 ML VIAL ONE (09:25)
[2020-01-25] MEDS ORDERED: ROPIVACAINE 5 MG/ML 30 ML VIAL ONE (09:25)
[2020-01-25] MEDS ORDERED: fentaNYL (PF) 50 MCG/ML 2 ML AMP ONE (09:25)
[2020-01-25] MEDS ORDERED: SODIUM CHLORIDE 0.9% 100 ML BAG ONE (09:25)
[2020-01-25] MEDS ORDERED: ceFAZolin 1,000 MG VIAL ONE (09:25)
[2020-01-25] MEDS ORDERED: SUCCINYLCHOLINE CHLORIDE 100 MG/5 ML SYR IV ONE (09:25)
[2020-01-25] MEDS ORDERED: MIDAZOLAM 2 MG/2 ML VIAL ONE (09:25)
[2020-01-25] MEDS ORDERED: GLYCOPYRROLATE 0.2 MG/ML 2 ML VIAL ONE (09:25)
[2020-01-25] MEDS ORDERED: LIDOCAINE 1% INJ 10MG/ML (20 ML MDV) ONE (09:25)
[2020-01-25] MEDS ORDERED: NEOSTIGMINE 1 MG/ML 10 ML VIAL ONE (09:25)
[2020-01-25] MEDS ORDERED: PROPOFOL 10 MG/ML 20 ML VIAL IV ONE (09:25)
[2020-01-25] MEDS ORDERED: LIDOCAINE 1%-EPI 1:100,000 20 ML VIAL SQ ONE (10:13)
[2020-01-25] MEDS ORDERED: LACTATED RINGERS 1,000 ML IV ONE ×2 (10:38→11:32)
[2020-01-25] MEDS ORDERED: KETOROLAC 15 MG/ML 1 ML VIAL IVP PRN (10:50)
[2020-01-25 10:55] VITALS: TEMP 98.1
--- NOTE | 2020-01-25 10:59 | P.OP ---
Description of Procedure: SURGEON: KP DUPREE MD PREOPERATIVE DIAGNOSES: 1. Initial incarcerated incisional hernia 2. Morbid obesity due to excess calories, BMI 44.6 3. Gastroesophageal reflux disease 4. Hypertensive heart disease 5. Osteoarthritis, generalized POSTOPERATIVE DIAGNOSES: 1. Initial incarcerated incisional hernia 2. Morbid obesity due to excess calories, BMI 44.6 3. Gastroesophageal reflux disease 4. Hypertensive heart disease 5. Osteoarthritis, generalized 6. Intra-abdominal peritoneal adhesions, OPERATION: 1. Robotic-assisted daVinci Xi laparoscopic repair of initial incarcerated incisional hernia 2 cm with fascial imbrication 3 without mesh 2. Robotic-assisted daVinci Xi laparoscopic extensive lysis of adhesions ANESTHESIA: General with local, and abdominal wall block ESTIMATED BLOOD LOSS: 5 mL. SPECIMENS: None. COMPLICATIONS: None. Operative Findings: 1. Incarcerated incisional hernia supraumbilical from previous surgery with incarcerated omental fat reduced 2. Lysis of adhesions mid-abdomen and right upper quadrant from previous cholecystectomy INDICATIONS: The patient is a 49-year-old female who presents with incisional hernia from previous abdominal surgery. Surgical intervention with laparoscopic versus robotic and open techniques were reviewed. Placement of mesh was also reviewed. Benefits and risks were thoroughly described. Informed consent was obtained. DESCRIPTION OF PROCEDURE: The patient was brought into the operating room and laid in supine position. After general induction, the abdomen had been prepped and draped in standard sterile fashion. Ioban draping was also placed. Prior to incision, a timeout protocol was confirmed with surgical team regarding the patient's name including procedures to be performed. The robot was primed prior to the procedure. A field block using local anesthetis was placed along hernia site including the proposed port sites. Initial incision was made with an #11 blade along the left upper quadrant. A 0 degree 5 mm laparoscopic trocar entry was performed. Diagnostic laparoscopy demonstrated peritoneal adhesions along the midline and right upper quadrant. Two 8-mm ports were placed along the left lateral abdominal wall under direct visualization. The 5-mm port was exchanged for an 8 mm robotic port. Placements of the ports were 20 cm from the target anatomy and 10 cm apart. A separate 12-mmn port was placed along the right upper quadrant to facilitate placement of sutures and mesh. The Electrikusi XI robot was previously primed, prepped and draped then docked along the left side of the patient. I then sat at the robot Da Sharmaine XI console where working arms of the robot including Bovie cautery connected to robotic scissors, vessel sealer and graspers placed by the dietetic assistant. Adhesions along the midline including right upper quadrant were lysed sharply using Bovie cautery and scissors. Incarcerated falciform ligament and omentum along the epigastrium was reduced. Fascial defect was 2 cm in size. With her pre-existing history of severe peritoneal adhesions, oversew of fascial defects were proposed without mesh. The hernia defect was oversewn using #1 nonabsorbable VLOC with fascial imbrication. Mesh placement was avoided given the severe peritoneal adhesions and foreign body reaction to mesh. A final endoscopic imaging was obtained. All instruments and pneumoperitoneum were evacuated from the abdominal cavity. The da Sharmaine XI robot was undocked from the patient. I re-scrubbed into the case for closure of incisions. The incisions were reapproximated using 4-0 Monocryl in an interrupted subcuticular fashion. Liquid glue was applied to the skin. At the end of the procedure, needle, sponge, and instrument count had been verified correct by control systems technician. The patient was taken to the postanesthesia care unit in stable condition with abdominal binder. Plan - Discharge Summary New Discharge Prescriptions: New Naproxen [Naprosyn] 250 mg PO TID PRN #30 tab PRN Reason: Pain Acetaminophen Tab [Tylenol Tab] 1,000 mg PO Q6HR PRN #30 tablet PRN Reason: Pain Continue RX: Omeprazole 20 mg PO DAILY RX: Brimonidine Tartrate/Timolol [Combigan 0.2%-0.5% Eye Drops] 1 drop BOTH EYES DAILY RX: valACYclovir HCL 500 mg PO DAILY PRN PRN Reason: herpes Discontinued Acetaminophen [Tylenol Arthritis] 650 mg PO DIRECTED PRN PRN Reason: Pain Discharge Medication List RX: Omeprazole 20 mg PO DAILY 07/24/18 [History] RX: Brimonidine Tartrate/Timolol [Combigan 0.2%-0.5% Eye Drops] 1 drop BOTH EYES DAILY 11/18/19 [History] RX: valACYclovir HCL 500 mg PO DAILY PRN 12/30/19 [History] Acetaminophen Tab [Tylenol Tab] 1,000 mg PO Q6HR PRN #30 tablet 01/25/20 [Rx] Naproxen [Naprosyn] 250 mg PO TID PRN #30 tab 01/25/20 [Rx] [facility]ment[facility] [facility] [place] [place] [facility] [place] [facility] Patient Instructions/Handouts: Ventral Hernia Repair (GEN), Laparoscopic Herniorrhaphy (IP), Abdominal Binder (DC) Activity/Diet/Wound Care/Special Instructions: Wear abdominal binder at all times No lifting over 10 pounds in 2 weeks until Feb 07. October shower. No bath tub soaks for two weeks until Feb 07. Diet as tolerated. No driving while on narcotics. Use Tylenol and ibuprofen/Aleve scheduled for the next 24-48 hours for best pain relief. Use ice along incisions for the today to prevent swelling. Discharge Disposition: HOME SELF-CARE
--- NOTE | 2020-01-25 10:59 | P.PN ---
Progress Note - Text Progress Note Date: 01/25/20 Patient's family member was contacted via telephone regarding update
[2020-01-25] MEDS: HYDROmorphone 0.5 MG/0.5 ML SYRINGE IVP PRN ×2 (11:17→11:21)
[2020-01-25 12:38] VITALS: BP 119/69; PULSE 82; RESP 20
--- NOTE | 2020-01-25 12:41 | P.ANPRN ---
Procedure Note - Anesthesia - Nerve Block Performed Bilateral Rectus Abdominis Time Out Performed: Yes (:) Date of Procedure: 01/25/20 Procedure Start Time: Procedure Stop Time: Location of Patient: PreOp Indication: Acute Post-Operative Pain, Requested by Surgeon (Dr Gifford) Sedation Type: Sedate with meaningful contact maintained Preparation: Sterile Prep Position: Supine Catheter: None Needle Types: Pajunk Needle Gauge: 21 Ultrasound used to visualize needle placement: Yes Ultrasound used to observe medication spread: Yes Injectate: 0.5% Ropivacaine (see comment for volume) (15cc 0.5% Rovipacaine each side. Decadron 2mg each side) Blood Aspirated: No Pain Paresthesia on Injection Noted: No Resistance on Injection: Normal Image Stored and Saved: Yes Events: Uneventful and Well Tolerated
== END 2020-01-25 13:20 | disposition home or self-care (01) ==
LOC: OR 06:53
PROVIDERS: ATTEND Surgery Plastic and Reconstructive Surgery
DX: K43.0 Incisional hernia with obstruction, without gangrene (principal); K66.0 Peritoneal adhesions (postprocedural) (postinfection); I11.9 Hypertensive heart disease without heart failure; K21.9 Gastro-esophageal reflux disease without esophagitis; E66.01 Morbid (severe) obesity due to excess calories; M19.90 Unspecified osteoarthritis, unspecified site; H40.9 Unspecified glaucoma; Z68.41 Body mass index [BMI] 40.0-44.9, adult; Z79.899 Other long term (current) drug therapy; Z86.73 Personal history of transient ischemic attack (TIA), and cerebral infarction without residual deficits; Z86.14 Personal history of Methicillin resistant Staphylococcus aureus infection; Z86.19 Personal history of other infectious and parasitic diseases; Z90.49 Acquired absence of other specified parts of digestive tract; Z98.51 Tubal ligation status; Z98.891 History of uterine scar from previous surgery; Z98.890 Other specified postprocedural states; Z87.891 Personal history of nicotine dependence; Z82.49 Family history of ischemic heart disease and other diseases of the circulatory system; Z83.1 Family history of other infectious and parasitic diseases
CPT/HCPCS: 64488; 49655; J2250; J1644; J1100 ×2; J2710; J0690 ×2; J2405; J2001; J3010; J2795; J2370; J0330; J2704; J1170

== ENCOUNTER 2020-07-30 11:58 | Emergency (ER) | payer OTHER ==
[2020-07-30 12:04] VITALS: RESP 18; TEMP 98.1
--- NOTE | 2020-07-30 12:27 | ED ---
General Adult HPI - General Chief complaint: Chest Pain Stated complaint: chest pain Source: patient Mode of arrival: wheelchair Limitations: no limitations - History of Present Illness Initial comments: Dictation was produced using [employer] dictation software. please excuse any grammatical, word or spelling errors. This patient was cared for during a federal and state declared state of emergency secondary to Covid 19 Chief Complaint: 50-year-old female with past medical history of GERD, hypertension and hypercholesterol presents emergency department with chest pain since yesterday History of Present Illness: She is 50-year-old female she presents today with chief complaint of chest pain. Patient has been having intermittent episodes since yesterday. Patient states that it's a sharp substernal pressure. She does feel like it's worse whenever she lifts her right upper extremity. Patient denies any history of coronary artery disease. She denies any extensive family history of chest pain. She does report that may be her grandmother had some car diac processes in her geriatric years. Patient complains of some mild associated nausea. Denies any associated shortness of breath or diaphoresis. No radiation to the jaw shoulders or upper 70s. Patient has any chest pain at this time. She is here in the emergency department to make sure she is not having a heart process. The ROS documented in this emergency department record has been reviewed and confirmed by me. Those systems with pertinent positive or negative responses have been documented in the HPI. All other systems are other negative and/or noncontributory. PHYSICAL EXAM: General Impression: Alert and oriented x3, not in acute distress HEENT: Normocephalic atraumatic, extra-ocular movements intact, pupils equal and reactive to light bilaterally, mucous membranes moist. Cardiovascular: Heart regular rate and rhythm Chest: Able to complete full sentences, no retractions, no tachypnea Abdomen: abdomen soft, non-tender, non-distended, no organomegaly Musculoskeletal: Pulses present and equal in all extremities, no peripheral edema Motor: no focal deficits noted Neurological: CN II-XII grossly intact, no focal motor or sensory deficits noted Skin: Intact with no visualized rashes Psych: Normal affect and mood ED course: 50-year-old male presents with atypical chest pain with typical features. Signs upon arrival are within acceptable limits. EKG does not show a ny signs of ischemia or infarction. Patient is currently asymptomatic. She does have some risk factors. Laboratory evaluation obtained. CBC, coag panel, metabolic panel is unremarkable. Troponin is negative. Chest x-ray is nonacute. Patient given aspirin. She is notified of results of her workup. Disposition options were discussed. It is recommended the patient be admitted observation for suture troponins however patient declined patient understands that heart attacks have not been completely ruled out. She is provided bedside approximately 1:30 PM in stable medical condition. Denies any symptoms. Patient is urged to follow-up with her primary care physician. She is also given referral to cardiology. She is told to return to emergency department as soon as possible with any worsening symptoms. Patient be discharged. EKG interpretation: Ventricular rate 84, normal sinus rhythm,. Interval 174, QRS 82, QTc 456. No FL prolongation, no QTC prolongation, no ST or T-wave hall ges noted. EKG compared to 11/09/2019 showing no changes. Overall, this EKG is unremarkable - Related Data Home Medications Medication Instructions Recorded Confirmed Omeprazole 20 mg PO DAILY 07/24/18 07/30/20 Ascorbic Acid [Vitamin C] 500 mg PO DAILY 07/30/20 07/30/20 Cholecalciferol [Vitamin D3 (25 25 mcg PO DAILY 07/30/20 07/30/20 Mcg = 1000 Iu)] Multivitamins, Thera [Multivitamin 1 tab PO DAILY 07/30/20 07/30/20 (formulary)] Naproxen [Naprosyn] 500 mg PO ONCE PRN 07/30/20 07/30/20 Allergies Allergy/AdvReac Type Severity Reaction Status Date / Time No Known Allergies Allergy Verified 07/30/20 13:10 Review of Systems ROS Statement: Those systems with pertinent positive or pertinent negative responses have been documented in the HPI. ROS Other: All systems not noted in ROS Statement are negative. Past Medical History Past Medical History: GERD/Reflux, Hypertension, Osteoarthritis (OA) Additional Past Medical History / Comment(s): genital herpes-no recent outbreaks, pt stated she was told in past that "she has an irreg heart beat", Hx bladder polyps-benign , glaucoma. , has ventral hernia and adhesions -pt had laparoscopy 01/04/20. History of Any Multi-Drug Resistant Organisms: MRSA Date of last positivie culture/infection: 12/08/2011 MDRO Source:: left axilla Past Surgical History: Section, Cholecystectomy, Hernia Repair, Tubal L igation Additional Past Surgical History / Comment(s): umbilical hernia , cystoscopy, bladder-polyp removed , EGD., 01/04/20-laparoscopy-(bariatric surgery aborted due to hernia and adhesions) Past Anesthesia/Blood Transfusion Reactions: No Reported Reaction Past Psychological History: No Psychological Hx Reported Smoking Status: Former smoker Past Alcohol Use History: None Reported Past Drug Use History: Cocaine, Marijuana - Past Family History Father Family Medical History: Cancer, Hyperlipidemia, Hypertension Additional Family Medical History / Comment(s): hepatitis c Mother Family Medical History: Hypertension Additional Family Medical History / Comment(s): mental health issues General Exam Limitations: no limitations Course Vital Signs 07/30/20 07/30/20 07/30/20 12:00 12:24 12:47 Temperature 98.1 F Pulse Rate 85 82 79 Pulse Rate [ Pulse Oximetery ] Respiratory 18 18 18 Rate Blood Pressure 127/81 99/82 113/79 O2 Sat by Pulse 100 99 98 Oximetry 07/30/20 12:52 Temperature Pulse Rate Pulse Rate [ 79 Pulse Oximetery ] Respiratory Rate Blood Pressure O2 Sat by Pulse Oximetry Medical Decision Making - Lab Data Result diagrams: 07/30/20 12:22 07/30/20 12:22 Lab Results 07/30/20 07/30/20 07/30/20 Range/Units 12:22 12:22 12:22 WBC 5.6 (3.8-10.6) k/uL RBC 5.17 (3.80-5.40) m/uL Hgb 13.7 (11.4-16.0) gm/dL Hct 42.7 (34.0-46.0) % MCV 82.5 (80.0-100.0) fL MCH 26.6 (25.0-35.0) pg MCHC 32.2 (31.0-37.0) g/dL RDW 14.5 (11.5-15.5) % Plt Count 266 (150-450) k/uL MPV 7.3 Neutrophils % 43 % Lymphocytes % 44 % Monocytes % 5 % Eosinophils % 5 % Basophils % 1 % Neutrophils # 2.4 (1.3-7.7) k/uL Lymphocytes # 2.5 (1.0-4.8) k/uL Monocytes # 0.3 (0-1.0) k/uL Eosinophils # 0.3 (0-0.7) k/uL Basophils # 0.0 (0-0.2) k/uL PT 10.5 (9.0-12.0) sec INR 1.0 (<1.2) APTT 24.9 (22.0-30.0) sec Sodium 139 (137-145) mmol/L Potassium 3.8 (3.5-5.1) mmol/L Chloride 104 (98-107) mmol/L Carbon Dioxide 29 (22-30) mmol/L Anion Gap 6 mmol/L BUN 10 (7-17) mg/dL Creatinine 0.85 (0.52-1.04) mg/dL Est GFR (CKD-EPI)AfAm >90 (>60 ml/min/1.73 sqM) Est GFR (CKD-EPI)NonAf 80 (>60 ml/min/1.73 sqM) Glucose 93 (74-99) mg/dL Calcium 9.0 (8.4-10.2) mg/dL Magnesium 2.1 (1.6-2.3) mg/dL Total Bilirubin 0.4 (0.2-1.3) mg/dL AST 33 (14-36) U/L ALT 34 (4-34) U/L Alkaline Phosphatase 87 (38-126) U/L Troponin I (0.000-0.034) ng/mL Total Protein 7.0 (6.3-8.2) g/dL Albumin 4.0 (3.5-5.0) g/dL 07/30/20 Range/Units 12:22 WBC (3.8-10.6) k/uL RBC (3.80-5.40) m/uL Hgb (11.4-16.0) gm/dL Hct (34.0-46.0) % MCV (80.0-100.0) fL MCH (25.0-35.0) pg MCHC (31.0-37.0) g/dL RDW (11.5-15.5) % Plt Count (150-450) k/uL MPV Neutrophils % % Lymphocytes % % Monocytes % % Eosinophils % % Basophils % % Neutrophils # (1.3-7.7) k/uL Lymphocytes # (1.0-4.8) k/uL Monocytes # (0-1.0) k/uL Eosinophils # (0-0.7) k/uL Basophils # (0-0.2) k/uL PT (9.0-12.0) sec INR (<1.2) APTT (22.0-30.0) sec Sodium (137-145) mmol/L Potassium (3.5-5.1) mmol/L Chloride (98-107) mmol/L Carbon Dioxide (22-30) mmol/L Anion Gap mmol/L BUN (7-17) mg/dL Creatinine (0.52-1.04) mg/dL Est GFR (CKD-EPI)AfAm (>60 ml/min/1.73 sqM) Est GFR (CKD-EPI)NonAf (>60 ml/min/1.73 sqM) Glucose (74-99) mg/dL Calcium (8.4-10.2) mg/dL Magnesium (1.6-2.3) mg/dL Total Bilirubin (0.2-1.3) mg/dL AST (14-36) U/L ALT (4-34) U/L Alkaline Phosphatase (38-126) U/L Troponin I <0.012 (0.000-0.034) ng/mL Total Protein (6.3-8.2) g/dL Albumin (3.5-5.0) g/dL Disposition Clinical Impression: Chest pain Disposition: HOME SELF-CARE Condition: Good Instructions (If sedation given, give patient instructions): Chest Pain (ED) Additional Instructions: Please seek immediate medical attention if you have any recurrence of symptoms especially if it's associated with sweating, nausea or radiation of symptoms to the jaw or upper extremity. Otherwise it's important that he follow-up with a primary care physician. You're also given referral to cardiology. Is patient prescribed a controlled substance at d/c from ED?: No Referrals: Mario Hartman MD [Primary Care Provider] - 1-2 days Roldan Farrell DO [STAFF PHYSICIAN] - 1-2 days Time of Disposition: 13:35
[2020-07-30] MEDS ORDERED: ASPIRIN 81 MG PO STA (12:28)
[2020-07-30 12:36] LABS: Basophils % (A) 1 %; Eosinophils # (A) 0.3 k/uL (0-0.7); Eosinophils % (A) 5 %; HCT 42.7 % (34.0-46.0); HGB 13.7 gm/dL (11.4-16.0); Lymphocytes # (A) 2.5 k/uL (1.0-4.8); Lymphocytes % (A) 44 %; MCH 26.6 pg (25.0-35.0); MCHC 32.2 g/dL (31.0-37.0); MCV 82.5 fL (80.0-100.0); Mean Platelet Volume 7.3; Monocytes # (A) 0.3 k/uL (0-1.0); Monocytes % (A) 5 %; Neutrophils # (A) 2.4 k/uL (1.3-7.7); Neutrophils % (A) 43 %; Platelet Count 266 k/uL (150-450); RBC 5.17 m/uL (3.80-5.40); RDW 14.5 % (11.5-15.5); WBC 5.6 k/uL (3.8-10.6)
[2020-07-30 12:44] LABS: ALT 34 U/L (4-34); AST 33 U/L (14-36); African American GFR (CKD) >90 (>60 ml/min/1.73 sqM); Alkaline Phosphatase 87 U/L (38-126); Anion Gap 6 mmol/L; Blood Urea Nitrogen 10 mg/dL (7-17); Carbon Dioxide 29 mmol/L (22-30); Chloride 104 mmol/L (98-107); Glucose 93 mg/dL (74-99); Magnesium 2.1 mg/dL (1.6-2.3); Non-African American GFR(CKD) 80 (>60 ml/min/1.73 sqM); Potassium 3.8 mmol/L (3.5-5.1); Sodium 139 mmol/L (137-145); Total Bilirubin 0.4 mg/dL (0.2-1.3)
--- NOTE | 2020-07-30 12:46 | XR ---
EXAMINATION TYPE: XR chest 2V DATE OF EXAM: 07/30/2020 COMPARISON: 03/24/2019 HISTORY: Chest pain TECHNIQUE: Frontal and lateral views of the chest are obtained. FINDINGS: There is no focal air space opacity. No evidence for pneumothorax. No pleural effusion. The cardiac silhouette size is within normal limits. The osseous structures are grossly intact. IMPRESSION: 1. No acute cardiopulmonary process.
[2020-07-30 12:51] LABS: Partial Thromboplastin Time 24.9 sec (22.0-30.0); Prothrombin Time 10.5 sec (9.0-12.0)
[2020-07-30 13:51] VITALS: BP 114/74; PULSE 83
== END 2020-07-30 13:48 | disposition home or self-care (01) ==
LOC: EC 11:58
DX: R07.89 Other chest pain (principal); R11.0 Nausea; K21.9 Gastro-esophageal reflux disease without esophagitis; I10 Essential (primary) hypertension; Z79.899 Other long term (current) drug therapy; M19.90 Unspecified osteoarthritis, unspecified site; Z87.891 Personal history of nicotine dependence; Z86.14 Personal history of Methicillin resistant Staphylococcus aureus infection; Z98.51 Tubal ligation status; Z90.49 Acquired absence of other specified parts of digestive tract
CPT/HCPCS: 36415; 71046; 80053; 83735; 84484; 85025; 85610; 85730; 93005; 99285

== ENCOUNTER 2020-09-01 07:59 | Day surgery (SDC) | payer OTHER ==
[2020-08-29 14:56] VITALS: BMI 47.7
[~2020-09-01 07:59] MED LIST changes: -DEXAMETHASONE SOD PHOSPHATE 10 MG/ML 1 ML VIAL IV ONE; +LIDOCAINE 1% (10MG/ML) FOR IV START INTRADERMA PRN; -MIDAZOLAM 2 MG/2 ML VIAL IV PRN; -ONDANSETRON 4 MG/2 ML VIAL IVP ONE; -SCOPOLAMINE 1.5MG/72HR PATCH TRANSDERM ONE
[2020-09-01 08:39] VITALS: TEMP 97.3
[2020-09-01] MEDS ORDERED: LACTATED RINGERS 1,000 ML IV ONE ×2 (08:40)
[2020-09-01] MEDS ORDERED: LIDOCAINE 1% INJ 10MG/ML (20 ML MDV) ONE (08:57)
[2020-09-01] MEDS ORDERED: PROPOFOL 10 MG/ML 20 ML VIAL IV ONE (08:57)
--- NOTE | 2020-09-01 09:03 | P.GSHP ---
History of Present Illness H&P Date: 09/01/20 Chief Complaint: GERD Is a 50-year-old female who's had history of GERD. Patient presents today for EGD. Past Medical History Past Medical History: GERD/Reflux, Hypertension, Osteoarthritis (OA) Additional Past Medical History / Comment(s): "had covid 12 days ago-just off [place]."genital herpes-no recent outbreaks, pt stated she was told in past that "she has an irreg heart beat", Hx bladder polyps-benign , glaucoma. , has ventral hernia and adhesions History of Any Multi-Drug Resistant Organisms: MRSA Date of last positivie culture/infection: 12/08/2011 MDRO Source:: left axilla Past Surgical History: Section, Cholecystectomy, Hernia Repair, Tubal Ligation Additional Past Surgical History / Comment(s): umbilical hernia , cystoscopy, bladder-polyp removed , EGD., 01/04/20-laparoscopy-(bariatric surgery aborted due to hernia and adhesions) Past Anesthesia/Blood Transfusion Reactions: No Reported Reaction Smoking Status: Former smoker - Past Family History Father Family Medical History: Cancer, Hyperlipidemia, Hypertension Additional Family Medical History / Comment(s): hepatitis c Mother Family Medical History: Hypertension Additional Family Medical History / Comment(s): mental health issues Medications and Allergies Home Medications Medication Instructions Recorded Confirmed Type Omeprazole 20 mg PO DAILY 07/24/18 08/29/20 History Ascorbic Acid [Vitamin C] 500 mg PO DAILY 07/30/20 08/29/20 History Cholecalciferol [Vitamin D3 (25 25 mcg PO DAILY 07/30/20 08/29/20 History Mcg = 1000 Iu)] Multivitamins, Thera [Multivitamin 1 tab PO DAILY 07/30/20 08/29/20 History (formulary)] Acetaminophen [Tylenol Extra 500 mg PO Q6H PRN 08/29/20 08/29/20 History Strength] Aspirin 81 mg PO DAILY 08/29/20 08/29/20 History Allergies Allergy/AdvReac Type Severity Reaction Status Date / Time No Known Allergies Allergy Verified 08/29/20 14:49 Surgical - Exam Vital Signs Temp Pulse Resp BP Pulse Ox 97.3 F L 85 18 135/88 97 09/01/20 08:37 09/01/20 08:37 09/01/20 08:37 09/01/20 08:37 09/01/20 08:37 - General well developed, well nourished, no distress - Eyes PERRL - ENT normal pinna - Neck no masses - Respiratory normal expansion - Cardiovascular Rhythm: regular - Abdomen Abdomen: soft Assessment and Plan Assessment: GERD. We'll perform EGD.
--- NOTE | 2020-09-01 09:10 | P.OP ---
Date of Procedure: 09/01/20 Preoperative Diagnosis: GERD Postoperative Diagnosis: Antral gastritis Mild esophagitis Procedure(s) Performed: EGD Anesthesia: MAC Surgeon: Lopez Jang Pathology: other (Antrum, esophagus) Condition: stable Disposition: PACU Description of Procedure: The patient's placed on the endoscopy table in the lateral position. She received IV sedation. The gastro-/oropharynx passed in the esophagus and stomach. Scope was then placed through the pylorus. First and second portion of duodenum appeared normal. Scope was then brought back the antrum this. Mildly inflamed. A biopsies performed. Scope was unretroflexed and remainder stomach appeared normal. There is no significant hiatal hernia. The GE junction was at 47 is. The distal esophagus. Minimal inflamed a biopsies performed. The proximal esophagus appeared normal. The scope was withdrawn for patient.
[2020-09-01 09:15] VITALS: RESP 16
[2020-09-01 09:29] VITALS: PULSE 81
[2020-09-01 09:40] VITALS: BP 106/85
== END 2020-09-01 09:52 | disposition home or self-care (01) ==
LOC: ORWHC2ENDO 07:59
PROVIDERS: ATTEND Surgery
DX: K29.50 Unspecified chronic gastritis without bleeding (principal); K21.00 Gastro-esophageal reflux disease with esophagitis, without bleeding; I10 Essential (primary) hypertension; M19.90 Unspecified osteoarthritis, unspecified site; Z86.16 Personal history of COVID-19; B00.9 Herpesviral infection, unspecified; H40.9 Unspecified glaucoma; Z86.14 Personal history of Methicillin resistant Staphylococcus aureus infection; Z98.891 History of uterine scar from previous surgery; Z90.49 Acquired absence of other specified parts of digestive tract; Z98.890 Other specified postprocedural states; Z98.51 Tubal ligation status; Z87.891 Personal history of nicotine dependence; Z82.49 Family history of ischemic heart disease and other diseases of the circulatory system; Z81.8 Family history of other mental and behavioral disorders; Z83.1 Family history of other infectious and parasitic diseases; Z79.82 Long term (current) use of aspirin; Z79.899 Other long term (current) drug therapy
CPT/HCPCS: 88305; 43239; J2001; J2704

== ENCOUNTER → 2020-10-03 | Outpatient (CLI) | payer OTHER ==
[2020-10-03 14:38] VITALS: BP 119/88; PULSE 90; TEMP 98.1; BMI 47.2
--- NOTE | 2020-10-03 17:37 | P.HPBAR ---
Bariatric H&P - History & Physicial H&P Date: 10/03/20 History & Physicial: Visit/CC: initial clinic visit with dr sauceda Patient initial contact: Initial weight: 126.099 kg Initial weight in pounds: 278.00 Height: 5 ft 6 in Initial BMI: 44.9 Last weight: Current weight: 132.903 kg Current weight in pounds: 293.00 Current BMI: 47.2 Rogers body weight (based on NIH guidelines): 58.967 kg Excess body weight loss: The patient is a 50 year-old F who presents for Bariatric Assessment. Patient presents today for initial clinic visit she is requesting sleeve dysphagia. She's had problems morbid obesity for most of her life. Her BMI is 47. Past Medical History Past Medical History: GERD/Reflux, Hypertension, Osteoarthritis (OA) Additional Past Medical History / Comment(s): genital herpes-no recent outbreaks, pt stated she was told in past that "she has an irreg heart beat", Hx bladder polyps-benign , glaucoma. , has ventral hernia and adhesions -pt had laparoscopy 01/04/20. History of Any Multi-Drug Resistant Organisms: MRSA Year Discovered:: 12/08/2011 MDRO Source:: left axilla Past Surgical History: Section, Cholecystectomy, Hernia Repair, Tubal Ligation Additional Past Surgical History / Comment(s): umbilical hernia , cystoscopy, bladder-polyp removed , EGD., 01/04/20-laparoscopy-(bariatric surgery aborted due to hernia and adhesions) Past Anesthesia/Blood Transfusion Reactions: No Reported Reaction Past Psychological History: No Psychological Hx Reported Additional Psychological History / Comment(s): . Smoking Status: Former smoker Past Alcohol Use History: None Reported Additional Past Alcohol Use History / Comment(s): started smoking 1984 and quit 2002 smoked 1ppd. Past Drug Use History: Cocaine, Marijuana Additional Drug Use History / Comment(s): crack/marijuana use but quit 1997 - Past Family History Father Family Medical History: Cancer, Hyperlipidemia, Hypertension Additional Family Medical History / Comment(s): hepatitis c Mother Family Medical History: Hypertension Additional Family Medical History / Comment(s): mental health issues Surgical - Exam Vital Signs Temp Pulse BP 98.1 F 90 119/88 10/03/20 14:37 10/03/20 14:37 04/26/21 14:37 - General well developed, well nourished, no distress - Eyes PERRL - ENT normal pinna - Neck no masses - Respiratory normal expansion - Abdomen Abdomen: soft, non tender Bariatric Assessment & Plan Plan: Morbid obesity. Patient is already undergone EGD. She'll follow-up in one month. We will attempt to obtain her progress notes from her PCP. Bariatric Checklist Checklist: Plan: Checklist: EGD: 1. Hiatal hernia: 2. H. Pylori: HgbA1c: Vitamin D: Smoking: Former smoker Primary care physician referral: Thee Psychiatry clearance: Cardiology clearance: Sleep study: Diet journal: VTE risk score: VTE risk level: Rehab needs at discharge:
== END | disposition home or self-care (01) ==
LOC: BARWHC3 13:56
PROVIDERS: ATTEND Surgery
DX: E66.01 Morbid (severe) obesity due to excess calories (principal); Z68.42 Body mass index [BMI] 45.0-49.9, adult
CPT/HCPCS: 99211

== ENCOUNTER 2020-11-10 09:08 | Emergency (ER) | payer OTHER ==
[2020-11-10 09:16] VITALS: BP 126/74; PULSE 90; TEMP 97.5
[2020-11-10] MEDS ORDERED: KETOROLAC 15 MG/ML 1 ML VIAL IM STA (10:24)
--- NOTE | 2020-11-10 10:54 | XR ---
EXAMINATION TYPE: XR Hip Complete LT DATE OF EXAM: 11/10/2020 CLINICAL HISTORY: Left hip pain . TECHNIQUE: Single AP portable view of left hip is obtained immediately postoperatively. COMPARISON: 08/11/2018 FINDINGS: No evidence of fracture or dislocation of the left hip. There is mild osteoarthritis of the left hip with superior compartment joint space narrowing and subchondral sclerosis of the acetabulum . Soft tissues are unremarkable. IMPRESSION: 1. No evidence of fracture or dislocation of left hip. Mild osteoporosis of the left hip.
--- NOTE | 2020-11-10 11:05 | ED ---
Back Pain HPI - General Chief Complaint: Back Pain/Injury Stated Complaint: L side pain Time Seen by Provider: 11/10/20 09:55 Source: patient, RN notes reviewed Limitations: no limitations - History of Present Illness Initial Comments: Patient is a 50-year-old female that presents emergency room complaining of left lower back and left hip pain. 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 She noted that the pain started after this increase in work. She denied any radicular symptoms such as weakness numbness tingling decreased strength or range of motion. She denied any tenderness. She was a well-appearing well- hydrated 50-year-old female in no apparent distress. She did note that her pain was approximately an 8 out of 10. She denied any decreased range of motion or strength in her left lower extremity. She denied any chest pain first breath headache nausea vomiting diarrhea constipation fever fatigue chills. - Related Data Home Medications Medication Instructions Recorded Confirmed Omeprazole 20 mg PO DAILY 07/24/18 11/10/20 Ascorbic Acid [Vitamin C] 500 mg PO DAILY 07/30/20 11/10/20 Cholecalciferol [Vitamin D3 (25 25 mcg PO DAILY 07/30/20 11/10/20 Mcg = 1000 Iu)] Multivitamins, Thera [Multivitamin 1 tab PO DAILY 07/30/20 11/10/20 (formulary)] Brimonidine Tartrate [Alphagan P 1 drops LEFT EYE BID 11/10/20 11/10/20 0.2% Ophth Soln] Naproxen 500 mg PO BID PRN 11/10/20 11/10/20 Zinc 50 mg PO DAILY 11/10/20 11/10/20 Allergies Allergy/AdvReac Type Severity Reaction Status Date / Time No Known Allergies Allergy Verified 11/10/20 12:05 Review of Systems ROS Statement: Those systems with pertinent positive or pertinent negative responses have been documented in the HPI. ROS Other: All systems not noted in ROS Statement are negative. Past Medical History Past Medical History: GERD/Reflux, Hypertension, Osteoarthritis (OA) Additional Past Medical History / Comment(s): genital herpes-no recent outbreaks, pt stated she was told in past that "she has an irreg heart beat", Hx bladder polyps-benign , glaucoma. , has ventral hernia and adhesions -pt had laparoscopy 01/04/20. History of Any Multi-Drug Resistant Organisms: MRSA Date of last positivie culture/infection: 12/08/2011 MDRO Source:: left axilla Past Surgical History: Section, Cholecystectomy, Hernia Repair, Tubal Ligation Additional Past Surgical History / Comment(s): umbilical hernia , cystoscopy, bladder-polyp removed , EGD., 01/04/20-laparoscopy-(bariatric surgery aborted due to hernia and adhesions) Past Anesthesia/Blood Transfusion Reactions: No Reported Reaction Past Psychological History: No Psychological Hx Reported Smoking Status: Former smoker Past Alcohol Use History: None Reported Past Drug Use History: Cocaine, Marijuana - Past Family History Father Family Medical History: Cancer, Hyperlipidemia, Hypertension Additional Family Medical History / Comment(s): hepatitis c Mother Family Medical History: Hypertension Additional Family Medical History / Comment(s): mental health issues General Exam Limitations: no limitations General appearance: alert, in no apparent distress, obese Head exam: Present: atraumatic, normocephalic, normal inspection Eye exam: Present: normal appearance, PERRL, EOMI. Absent: scleral icterus, conjunctival injection, periorbital swelling Neck exam: Present: normal inspection Respiratory exam: Present: normal lung sounds bilaterally. Absent: respiratory distress, wheezes, rales, rhonchi, stridor Cardiovascular Exam: Present: regular rate, normal rhythm, normal heart sounds. Absent: systolic murmur, diastolic murmur, rubs, gallop, clicks GI/Abdominal exam: Present: soft, normal bowel sounds. Absent: distended, tenderness, guarding, rebound, rigid Extremities exam: Present: normal inspection, full ROM, normal capillary refill. Absent: tenderness, pedal edema, joint swelling, calf tenderness Back exam: Present: normal inspection, tenderness (Mild tenderness along the left paraspinal and SI.) Neurological exam: Present: alert, oriented X3, CN II-XII intact Psychiatric exam: Present: normal affect, normal mood Skin exam: Present: warm, dry, intact, normal color. Absent: rash Course Vital Signs 11/10/20 09:12 Temperature 97.5 F L Pulse Rate 90 Respiratory 18 Rate Blood Pressure 126/74 O2 Sat by Pulse 99 Oximetry Medical Decision Making - Medical Decision Making 50-year-old female complaining of left lower back and left hip pain after increased work at home. 15 mg Toradol, x-ray of the lumbar and left hip ordered. X-ray shows arthritic and osteoporosis changes to the left hip. Case discussed with Dr. Berger, patient can discharge home with follow-up to primary care. - Radiology Data Radiology results: report reviewed, image reviewed X-ray lumbar spine on there are 5 lumbar type vertebral bodies redemonstrated. The lumbar spine shows stable and satisfactory alignment without evidence of acute fracture dislocation. Mild disc space narrowing with moderate anterior spurring L5 to S1 level didn't demonstrated. For T[place]o body heights and disc space heights otherwise are within normal limits. Bilateral pars defect L5 level without spondylolisthesis. Mild to moderate multilevel anterior lateral spurring the lower thoracic spine with dementia. Cholecystectomy clips in the overlying soft tissue again seen. Left hip x-ray: No evidence of fracture dislocation of the left hip. There is mild osteoarthritis of the left hip superior compartment joint space narrowing and subchondral sclerosis of the acetabulum. Soft tissues are unremarkable. Mild osteoporosis of left hip. Disposition Clinical Impression: Left hip pain, Hip arthritis, Osteoporosis Disposition: HOME SELF-CARE Condition: Stable Instructions (If sedation given, give patient instructions): Osteoarthritis (ED), Osteoporosis (ED), Acute Low Back Pain (ED) Additional Instructions: Please return to the Emergency Department if symptoms worsen or any other conc erns. Follow-up primary care as needed for symptom control. Can take Tylenol Motrin for pain control. Rest, avoid any strenuous lifting or activities for the next several days. Is patient prescribed a controlled substance at d/c from ED?: No Referrals: Mario Hartman MD [Primary Care Provider] - 1-2 days Time of Disposition: 12:20
--- NOTE | 2020-11-10 11:19 | XR ---
EXAMINATION TYPE: XR lumbar spine 2 or 3V DATE OF EXAM: 11/10/2020 CLINICAL HISTORY: Lumbar radiculopathy. Low back pain into left hip. TECHNIQUE: Frontal and lateral images of the lumbar spine are obtained. COMPARISON: Prior lumbar spine x-ray May 16, 2015 FINDINGS: There are 5 lumbar type vertebral bodies redemonstrated. The lumbar spine shows stable an d satisfactory alignment without evidence of acute fracture or dislocation. Mild disc space narrowing with moderate anterior spurring L5-S1 level redemonstrated. Vertebral body heights and disk space he ights otherwise are within normal limits. Bilateral pars defect L5 level without spondylolisthesis. M [id number] multilevel anterior and lateral spurring in the lower thoracic spine redemonstrated. Cholecystectomy clips in the overlying soft tissue again seen. IMPRESSION: As above. No significant change from prior.
[2020-11-10 12:30] VITALS: RESP 16
== END 2020-11-10 12:25 | disposition home or self-care (01) ==
LOC: EC 09:08
DX: M16.12 Unilateral primary osteoarthritis, left hip (principal); M81.0 Age-related osteoporosis without current pathological fracture; I10 Essential (primary) hypertension; K21.9 Gastro-esophageal reflux disease without esophagitis; Z87.891 Personal history of nicotine dependence; Z79.899 Other long term (current) drug therapy
CPT/HCPCS: 99283 ×2; 72100; 73502; 96372; J1885

== ENCOUNTER → 2020-12-01 | Outpatient (CLI) | payer OTHER ==
[2020-12-01 15:42] LABS: Albumin 4.5 g/dL (3.5-5.0); Calcium 9.8 mg/dL (8.4-10.2); Potassium 4.2 mmol/L (3.5-5.1); Total Bilirubin 0.2 mg/dL (0.2-1.3); Total Protein 7.3 g/dL (6.3-8.2)
[2020-12-01 16:08] LABS: Basophils # (A) 0.1 k/uL (0-0.2); Basophils % (A) 1 %; Eosinophils # (A) 0.1 k/uL (0-0.7); Eosinophils % (A) 2 %; Lymphocytes # (A) 2.6 k/uL (1.0-4.8); Lymphocytes % (A) 42 %; MCH 26.9 pg (25.0-35.0); MCHC 32.6 g/dL (31.0-37.0); MCV 82.5 fL (80.0-100.0); Mean Platelet Volume 7.5; Monocytes # (A) 0.3 k/uL (0-1.0); Monocytes % (A) 5 %; Neutrophils % (A) 48 %; Platelet Count 268 k/uL (150-450); RBC 5.21 m/uL (3.80-5.40); RDW 14.8 % (11.5-15.5); WBC 6.2 k/uL (3.8-10.6)
[2020-12-02 04:15] LABS: Hemoglobin A1C 5.8 % (4.0-6.0)
== END | disposition home or self-care (01) ==
LOC: LABPAT 14:55
PROVIDERS: ATTEND Surgery
DX: Z01.812 Encounter for preprocedural laboratory examination (principal)
CPT/HCPCS: 36415; 80053; 83036; 85025

== ENCOUNTER 2020-12-06 07:14 | Inpatient (IN) | payer OTHER ==
[~2020-12-06 07:14] MED LIST changes: +DEXAMETHASONE SOD PHOSPHATE 4 MG/ML 1 ML VIAL IV ONE; +ENOXAPARIN 40 MG/0.4 ML SYRINGE SQ PRN; -LACTATED RINGERS 1,000 ML IV SCH; -LIDOCAINE 1% (10MG/ML) FOR IV START INTRADERMA PRN; +ONDANSETRON 4 MG/2 ML VIAL IVP ONE; +ceFAZolin 3 GM in SODIUM CHLORIDE 0.9% 100 ML IVPB PRN
[2020-12-06] MEDS: LACTATED RINGERS 1,000 ML IV SCH (07:48)
[2020-12-06] MEDS ORDERED: ONDANSETRON 4 MG/2 ML VIAL IVP ONE (08:01)
[2020-12-06] MEDS ORDERED: DEXAMETHASONE SOD PHOSPHATE 4 MG/ML 1 ML VIAL IVP ONE (08:01)
[2020-12-06] MEDS ORDERED: MIDAZOLAM 2 MG/2 ML VIAL IVP ONE ×2 (08:19→08:25)
--- NOTE | 2020-12-06 08:47 | P.GSHP ---
History of Present Illness H&P Date: 12/06/20 Chief Complaint: Morbid obesity, BMI 45 This a 50-year-old female who presents today for laparoscopic sleeve gastrectomy. Patient's had issues with morbid obesity. Her BMI is 45. Patient since procedure of sleeve gastrectomy. She is aware the risk, location's and benefits procedure. He is also aware of risk of gastric perforation bleeding and scarring. Past Medical History Past Medical History: GERD/Reflux, Hypertension, Osteoarthritis (OA) Additional Past Medical History / Comment(s): genital herpes., past HTN (no current meds)., states irregular heart beat., bladder polyps. , glaucoma left eye . History of Any Multi-Drug Resistant Organisms: MRSA Date of last positivie culture/infection: 12/08/2011 MDRO Source:: left axilla Past Surgical History: Section, Cholecystectomy, Hernia Repair, Tubal Ligation Additional Past Surgical History / Comment(s): umbilical hernia , cystoscopy, bladder-polyp removed , EGD., 01/04/20-laparoscopy-(bariatric surgery aborted due to hernia and adhesions) Past Anesthesia/Blood Transfusion Reactions: No Reported Reaction Past Psychological History: No Psychological Hx Reported Additional Psychological History / Comment(s): . Smoking Status: Former smoker Past Alcohol Use History: None Reported Additional Past Alcohol Use History / Comment(s): started smoking 1984 and quit 2002 smoked 1ppd. Past Drug Use History: Cocaine, Marijuana Additional Drug Use History / Comment(s): crack/marijuana use but quit 1997 - Past Family History Father Family Medical History: Cancer, Hyperlipidemia, Hypertension Additional Family Medical History / Comment(s): hepatitis c Mother Family Medical History: Hypertension Additional Family Medical History / Comment(s): mental health issues Medications and Allergies Home Medications Medication Instructions Recorded Confirmed Type Omeprazole 20 mg PO DAILY 07/24/18 12/01/20 History Ascorbic Acid [Vitamin C] 500 mg PO DAILY 07/30/20 12/01/20 History Cholecalciferol [Vitamin D3 (25 25 mcg PO DAILY 07/30/20 12/01/20 History Mcg = 1000 Iu)] Multivitamins, Thera [Multivitamin 1 tab PO DAILY 07/30/20 12/01/20 History (formulary)] Brimonidine Tartrate [Alphagan P 1 drops LEFT EYE BID 11/10/20 12/06/20 History 0.2% Ophth Soln] Naproxen 500 mg PO BID PRN 11/10/20 12/01/20 History Zinc 50 mg PO DAILY 11/10/20 12/01/20 History Acetaminophen Tab [Tylenol] 325 mg PO DIRECTED PRN 12/01/20 12/01/20 History Allergies Allergy/AdvReac Type Severity Reaction Status Date / Time No Known Allergies Allergy Verified 12/06/20 07:53 Surgical - Exam Vital Signs Temp Pulse Resp BP Pulse Ox 97.7 F 93 16 126/75 95 12/06/20 07:45 12/06/20 07:45 12/06/20 07:45 12/06/20 07:45 12/06/20 07:45 - General well developed, well nourished, no distress - Eyes PERRL - ENT normal pinna - Neck no masses - Respiratory normal expansion - Cardiovascular Rhythm: regular - Abdomen Abdomen: soft, non tender Assessment and Plan Assessment: Morbid obesity. We'll perform laparoscopic sleeve gastrectomy.
[2020-12-06] MEDS ORDERED: KETOROLAC 15 MG/ML 1 ML VIAL ONE (08:58)
[2020-12-06] MEDS ORDERED: ROCURONIUM 10 MG/ML (5 ML VIAL) IV ONE (08:58)
[2020-12-06] MEDS ORDERED: ePHEDrine SULFATE/0.9% NACL/PF 50 MG/5 ML SYRINGE IV ONE (08:58)
[2020-12-06] MEDS ORDERED: MIDAZOLAM 2 MG/2 ML VIAL ONE (08:58)
[2020-12-06] MEDS ORDERED: KETAMINE 10 MG/ML 20 ML VIAL ONE (08:58)
[2020-12-06] MEDS ORDERED: PHENYLEPHRINE-0.9% NACL SYG 1,000 MCG/10 ML SYRINGE ONE (08:58)
[2020-12-06] MEDS ORDERED: HYDROmorphone (PF) 1 MG/ML ONE (08:58)
[2020-12-06] MEDS ORDERED: WATER FOR INJECTION, STERILE 10 ML VIAL IV ONE (08:58)
[2020-12-06] MEDS ORDERED: LIDOCAINE 1% INJ 10MG/ML (20 ML MDV) ONE (08:58)
[2020-12-06] MEDS ORDERED: PROPOFOL 10 MG/ML 20 ML VIAL IV ONE (08:58)
[2020-12-06] MEDS ORDERED: NEOSTIGMINE 1 MG/ML 10 ML VIAL ONE (08:58)
[2020-12-06] MEDS ORDERED: fentaNYL (PF) 50 MCG/ML 2 ML AMP ONE (08:58)
[2020-12-06] MEDS ORDERED: SUCCINYLCHOLINE CHLORIDE 100 MG/5 ML SYR IV ONE (08:58)
[2020-12-06] MEDS ORDERED: GLYCOPYRROLATE 0.2 MG/ML 2 ML VIAL ONE (08:58)
[2020-12-06] MEDS ORDERED: BUPIVACAINE (PF) 0.25% 30 ML VIAL SQ ONE (09:43)
[2020-12-06] MEDS ORDERED: LACTATED RINGERS 1,000 ML IV ONE (09:51)
[2020-12-06] MEDS ORDERED: NALOXONE 0.4 MG/ML 1 ML VIAL IV PRN (10:20)
[2020-12-06] MEDS ORDERED: HYDROcodone/APAP 15 ML SOLUTION PO PRN (10:20)
[2020-12-06] MEDS ORDERED: ONDANSETRON 4 MG/2 ML VIAL IVP PRN (10:20)
[2020-12-06] MEDS ORDERED: HYOSCYAMINE ORAL DROPS 1.875 MG/15 ML BOTTLE PO PRN (10:20)
[2020-12-06] MEDS ORDERED: SIMETHICONE 40 MG/0.6 ML DROPS 2,000 MG/30 ML BOTTLE PO PRN (10:20)
[2020-12-06] MEDS ORDERED: diphenhydrAMINE 50 MG/ML 1 ML VIAL IVP PRN (10:20)
--- NOTE | 2020-12-06 10:20 | P.OP ---
Date of Procedure: 12/06/20 Preoperative Diagnosis: Morbid obesity, BMI 45 Postoperative Diagnosis: Morbid obesity, BMI 45 Procedure(s) Performed: Laparoscopic sleeve gastrectomy Anesthesia: BRUNO Surgeon: Lopez Jang Estimated Blood Loss (ml): 10 Pathology: other (Stomach) Condition: stable Disposition: PACU Description of Procedure: The patient was placed on the operating room table in the supine position. She received general anesthesia and then was placed in dorsal lithotomy position. Her abdomen was prepped and draped in sterile fashion. The skin incision sites were anesthetized 1% local Xylocaine. And then the skin was incised with an 11 blade in the left lateral position. Using a blade less trocar under direct visualization the peritoneal cavity was entered. The abdomen was insufflated and then a 5 mm laparoscope was placed into the peritoneal cavity. A 5 mm trocar was placed in the right epigastric, and right lateral position. A 15 mm trocar was placed in the supra-umbilical position and another 5 mm trocar was placed in the left lateral position. The left lateral lobe of the liver was retracted. The stomach was visualized. The greater curvature of the stomach was then dissected using the Harmonic scissors. The dissection occurred approximately 5 cm from the pylorus to the level of the left nirmala. There was no hiatal hernia seen. At this point a 40-Bel[place]ian bougie dilator was placed the oropharynx and passed into the esophagus and into the stomach by the [employer]EST [employer] PROFESSOR. The sleeve gastrectomy was performed by using the powered echelon stapler with a seam guard buttress material. Sequential firings of the stapler were performed. The gastric remnant was then brought out through the 15 mm trocar site. The dilator was withdrawn. And a orogastric tube was replaced into the stomach. The stomach was insufflated with 200 mL of methylene blue normal saline. There was no evidence of extravasation. The abdomen was irrigated there is no bleeding seen. The Peewee-Shawna device was used to close the 15 mm trocar with 0 Vicryl. Skin was closed with interrupted 3-0 Monocryl sutures once the trochars withdrawn. Dermabond dressing was applied. Patient was sent to recovery in stable condition.
[2020-12-06] MEDS: HYDROmorphone 0.5 MG/0.5 ML SYRINGE IVP PRN ×3 (10:43→12:04)
[2020-12-06] MEDS: KETOROLAC 15 MG/ML 1 ML VIAL IVP SCH ×2 (13:15→17:42)
[2020-12-06] MEDS: HYDROmorphone 1 MG/ML 1 ML SYRINGE IVP PRN ×3 (14:02→23:42)
[2020-12-06] MEDS: 0.9% NACL WITH KCL 20 MEQ/L 1,000 ML IV SCH ×2 (14:20→20:11)
[2020-12-06] MEDS: ALBUTEROL NEBULIZED 2.5 MG/3 ML INHALATION SCH ×2 (15:36→20:46)
[2020-12-06] MEDS ORDERED: ENALAPRILAT 1.25 MG/ML 1 ML VIAL IVP STA (17:23)
[2020-12-06] MEDS: ceFAZolin 3 GM in SODIUM CHLORIDE 0.9% 100 ML IVPB SCH (17:41)
[2020-12-06] MEDS ORDERED: SIMETHICONE 80 MG CHEWABLE PO PRN (17:43)
[2020-12-06] MEDS: ONDANSETRON 4 MG/2 ML VIAL IVP PRN (20:11)
[2020-12-06] MEDS: SIMETHICONE 40 MG/0.6 ML DROPS 2,000 MG/30 ML BOTTLE PO PRN (20:11)
[2020-12-06] MEDS: ENOXAPARIN 40 MG/0.4 ML SYRINGE SQ SCH (20:12)
[2020-12-06] MEDS ORDERED: atenoloL 25 MG TAB PO SCH (21:00)
[2020-12-07] MEDS: KETOROLAC 15 MG/ML 1 ML VIAL IVP SCH ×5 (00:20→23:05)
[2020-12-07] MEDS: ceFAZolin 3 GM in SODIUM CHLORIDE 0.9% 100 ML IVPB SCH (00:21)
[2020-12-07] MEDS: 0.9% NACL WITH KCL 20 MEQ/L 1,000 ML IV SCH (02:32)
[2020-12-07] MEDS: HYDROmorphone 1 MG/ML 1 ML SYRINGE IVP PRN ×4 (02:33→20:25)
[2020-12-07] MEDS: ONDANSETRON 4 MG/2 ML VIAL IVP PRN ×4 (02:33→23:05)
[2020-12-07] MEDS: LACTATED RINGERS 1,000 ML IV SCH (05:02)
--- NOTE | 2020-12-07 06:26 | CONS ---
CONSULTATION HISTORY OF PRESENT ILLNESS: female, status post gastric sleeve, sitting up in bed. She has some atypical chest pain, nausea. Medications have been restarted. She is going to get a swallow test in the morning. Continue home medications. Hypertension acceleration was treated with some Vasotec today p.r.n. She is not able to take her home medicines yet. She is on IV thiamine, folic acid, potassium, albuterol, Benadryl, [place], Dilaudid, Levsin drops, Toradol p.r.n. Temp 97.5, pulse is 102, respiratory 16 to 18, blood pressure is 143/87 currently, 93% on 2 L. Cardiovascular S1-S2. Lungs mostly clear. GI soft. Hematology negative Homans. Plan is to wean off the oxygen. Check electrolytes. Check a chest x-ray. Continue home medicines. Prognosis guarded. Try to wean off the oxygen and maybe give her breathing treatment. She is on Decadron and cefazolin. Do a chest x-ray to rule out any pneumonia. Prognosis guarded. Continue current treatment. MMODL / IJN: [id number] /
[2020-12-07] MEDS: ENOXAPARIN 40 MG/0.4 ML SYRINGE SQ SCH ×2 (07:39→20:25)
[2020-12-07] MEDS: BRIMONIDINE TARTRATE 0.2% DROPS 5 ML BTL LEFT EYE SCH ×2 (07:39→20:25)
[2020-12-07] MEDS: PANTOPRAZOLE 40 MG/10 ML VIAL IV SCH (07:40)
[2020-12-07] MEDS: SIMETHICONE 40 MG/0.6 ML DROPS 2,000 MG/30 ML BOTTLE PO PRN ×2 (07:49→20:32)
[2020-12-07] MEDS: ALBUTEROL NEBULIZED 2.5 MG/3 ML INHALATION SCH ×4 (08:09→19:56)
[2020-12-07] MEDS: 1: MVI, ADULT NO.4 WITH VIT K 10 ML, THIAMINE 100 MG, FOLIC ACID 1 MG, POTASSIUM CHLORID IV SCH ×12 (08:59→15:40)
[2020-12-07] MEDS ORDERED: SIMETHICONE 40 MG/0.6 ML DROPS 2,000 MG/30 ML BOTTLE PO PRN (09:00)
[2020-12-07] MEDS ORDERED: SCOPOLAMINE 1.5MG/72HR PATCH TRANSDERM SCH (10:00)
[2020-12-07 10:20] LABS: Basophils # (A) 0.01 X 10*3/uL (0.00-0.10); Basophils % (A) 0.1 %; Eosinophils # (A) 0 X 10*3/uL (0.04-0.35); Eosinophils % (A) 0 %; HCT 42.9 % (37.2-46.3); HGB 13.3 g/dL (12.0-15.0); Lymphocytes # (A) 1.46 X 10*3/uL (0.90-5.00); Lymphocytes % (A) 16.4 %; MCH 26.3 pg (27.0-32.0); MCV 84.8 fL (80.0-97.0); Mean Platelet Volume 10.8 fL (9.5-12.2); Monocytes # (A) 0.73 X 10*3/uL (0.20-1.00); Monocytes % (A) 8.2 %; Neutrophils # (A) 6.69 X 10*3/uL (1.80-7.70); Platelet Count 316 X 10*3/uL (140-440); RBC 5.06 X 10*6/uL (4.10-5.20); RDW 15.8 % (11.5-14.5); WBC 8.92 X 10*3/uL (4.50-10.00)
[2020-12-07 10:36] LABS: African American GFR (CKD) 98.9 (60.0-200.0); Albumin 4.3 g/dL (3.80-4.90); Albumin/Globulin Ratio 1.72 (1.60-3.17); Anion Gap 11.3 mmol/L (4.00-12.00); Calcium 8.3 mg/dL (8.7-10.3); Carbon Dioxide 23.7 mmol/L (21.6-31.8); Globulin 2.5 g/dL (1.6-3.3); Magnesium 2.1 mg/dL (1.5-2.4); Non-African American GFR(CKD) 85.4 (60.0-200.0); Phosphorus 3.6 mg/dL (2.4-5.1); Potassium 4.4 mmol/L (3.5-5.5); Total Bilirubin 0.3 mg/dL (0.3-1.2); Total Protein 6.8 g/dL (6.2-8.2)
[2020-12-07] MEDS: DEXAMETHASONE SOD PHOSPHATE 4 MG/ML 1 ML VIAL IV SCH ×4 (12:05→23:05)
--- NOTE | 2020-12-07 13:30 | FL ---
EXAMINATION TYPE: FL UGI DATE OF EXAM: 12/07/2020 COMPARISON: NONE HISTORY: Recent gastric sleeve TECHNIQUE: A single Isovue contrast UGI study is performed. A total of 40 seconds of fluoroscopic t jyothi was utilized during procedure and multiple images obtained. FINDINGS: The esophagus shows normal motility and emptying into the stomach. The gastric sleeve is patent. No e vidence of leakage of contrast. Contrast is seen within the duodenum.. IMPRESSION: 1. Post gastric sleeve. No evidence of leakage of contrast. Contrast is seen within the duodenum.
--- NOTE | 2020-12-07 13:36 | XR ---
EXAMINATION TYPE: XR chest 2V DATE OF EXAM: 12/07/2020 COMPARISON: 07/30/2020 HISTORY: 50-year-old female with hypoxia TECHNIQUE: Frontal and lateral views of the chest are obtained. FINDINGS: Heart size is within normal limits. Trachea is midline. There are patchy and linear infrah ilar and bibasilar airspace opacities suggestive of atelectasis or developing pneumonia. No pleural e ffusion or pneumothorax. Degenerative changes of the spine. IMPRESSION: 1. Patchy and linear bibasilar airspace opacities and left infrahilar airspace opacity are suggestive of infectious/inflammatory processes, such as pneumonia or atelectasis.
[2020-12-07 13:43] VITALS: BMI 45.3
--- NOTE | 2020-12-07 15:20 | P.PN ---
Subjective Progress Note Date: 12/07/20 CHIEF COMPLAINT: Morbid obesity HISTORY OF PRESENT ILLNESS: Patient is postop day #1 status post laparoscopic sleeve gastrectomy. Patient had nausea and vomiting last night and this morning. Scopolamine patch was added as well as Decadron. Patient's nausea has improved. Patient has not yet started her bariatric clear liquid diet. Nursing staff is bringing in tray shortly. Patient reports that her pain is controlled. Denies any flatus or BM. Upper GI showed no leak or obstruction. She is afeb rile. Patient has had some mild tachycardia. Heart rate 109 PHYSICAL EXAM: VITAL SIGNS: Reviewed. GENERAL: Well-developed in no acute distress. HEENT: No sclera icterus. Extraocular movements grossly intact. Moist buccal mucosa. Head is atraumatic, normocephalic. ABDOMEN: Soft. Nondistended. Incision sites clean dry and intact NEUROLOGIC: Alert and oriented. Cranial nerves II through XII grossly intact. ASSESSMENT: 1. Morbid obesity status post laparoscopic sleeve gastrectomy PLAN: -Start bariatric clear liquid diet -Continue Decadron for nausea -Scopolamine patches added for nausea and vomiting -Continue pain medication as needed -Encourage patient to ambulate -Encourage patient to use incentive spirometer. Chest x-ray did show evidence of atelectasis -Continue GI and DVT prophylaxis Physician Department Chair note has been reviewed by physician. Signing provider agrees with the documented findings, assessment, and plan of care. Objective - Vital Signs Vital signs: Vital Signs Temp 98.8 F 12/07/20 14:00 Pulse 109 H 12/07/20 14:00 Resp 18 12/07/20 14:00 BP 136/82 12/07/20 14:00 Pulse Ox 92 L 12/07/20 14:00 Intake & Output 12/06/20 12/07/20 12/07/20 18:59 06:59 18:59 Intake Total 1700 Output Total 5 Balance 1695 Weight 127.4 kg 127.4 kg Intake: IV 1700 Output: Estimated Blood Loss 5 Other: Voiding Method Toilet # Voids 1 2 - Labs CBC & Chem 7: 12/07/20 05:29 12/07/20 05:29 Labs: Abnormal Lab Results - Last 24 Hours (Table) 12/07/20 12/07/20 Range/Units 05:29 05:29 MCH 26.3 L (27.0-32.0) pg MCHC 31.0 L (32.0-37.0) g/dL RDW 15.8 H (11.5-14.5) % Eosinophils # 0 L (0.04-0.35) X 10*3/uL BUN 8.0 L (9.0-27.0) mg/dL BUN/Creatinine Ratio 10.00 L (12.00-20.00) Ratio Calcium 8.3 L (8.7-10.3) mg/dL AST 69 H (13-35) U/L ALT 50 H (8-44) U/L
[2020-12-08] MEDS: LACTATED RINGERS 1,000 ML IV SCH (00:48)
[2020-12-08] MEDS: 1: MVI, ADULT NO.4 WITH VIT K 10 ML, THIAMINE 100 MG, FOLIC ACID 1 MG, POTASSIUM CHLORID IV SCH ×6 (05:14)
[2020-12-08] MEDS: KETOROLAC 15 MG/ML 1 ML VIAL IVP SCH (05:15)
[2020-12-08] MEDS: DEXAMETHASONE SOD PHOSPHATE 4 MG/ML 1 ML VIAL IV SCH ×3 (05:15→12:07)
[2020-12-08] MEDS: HYDROmorphone 1 MG/ML 1 ML SYRINGE IVP PRN (06:21)
--- NOTE | 2020-12-08 07:13 | PN ---
PROGRESS NOTE A 50-year-old female. Remains on dexamethasone, Lovenox, Benadryl, [place], Dilaudid, Toradol, Protonix, Transderm scopolamine, drops. Cardiovascular S1-S2. Lungs transmitted upper airway sounds. Hematology negative Homans. Psych fair mood and affect. Chest pain is better. She is feeling better. She is having more liquids. Her hypertension is improved. Possible discharge home. Continue current medicines. Discharge home in the morning. MMODL / IJN: [id number] /
[2020-12-08] MEDS: SIMETHICONE 40 MG/0.6 ML DROPS 2,000 MG/30 ML BOTTLE PO PRN ×2 (07:19→12:07)
[2020-12-08] MEDS: ENOXAPARIN 40 MG/0.4 ML SYRINGE SQ SCH (07:19)
[2020-12-08] MEDS: BRIMONIDINE TARTRATE 0.2% DROPS 5 ML BTL LEFT EYE SCH (07:19)
[2020-12-08] MEDS: PANTOPRAZOLE 40 MG/10 ML VIAL IV SCH (07:19)
[2020-12-08] MEDS: ALBUTEROL NEBULIZED 2.5 MG/3 ML INHALATION SCH ×2 (09:15→12:18)
[2020-12-08 09:24] VITALS: PULSE 90
--- NOTE | 2020-12-08 13:15 | P.DS ---
Providers Date of admission: 12/06/20 07:14 Expected date of discharge: 12/08/20 Attending physician: Lopez Jang Consults: 12/06/20 10:20 Consult Physician Routine Consulting Provider: Mario Hartman Consult Reason/Comments: Medical management Do you want consulting provider notified?: Yes Primary care physician: Mario Hartman [facility] Course: Discharge diagnosis 1. Morbid obesity status post laparoscopic sleeve gastrectomy Hospital course This is a 50-year-old female with history of morbid obesity. She is status post laparoscopic sleeve gastrectomy. Patient tolerated surgery well. Her pain is controlled. She is tolerating bariatric clear liquid diet. She is having flatus. She has been up and ambulating. She is afebrile. She is stable for discharge. Please refer to chart for any further details. Physician Fret Saw Operator note has been reviewed by physician. Signing provider agrees with the documented findings, assessment, and plan of care. Patient Condition at Discharge: Stable Plan - Discharge Summary Discharge Rx Participant: Yes New Discharge Prescriptions: New HYDROcodone/APAP [[place] Elixir 7.5-325Mg/15Ml] 15 ml PO Q6HR PRN #180 ml PRN Reason: Severe Pain Continue Omeprazole 20 mg PO DAILY Multivitamins, Thera [Multivitamin (formulary)] 1 tab PO DAILY Cholecalciferol [Vitamin D3 (25 Mcg = 1000 Iu)] 25 mcg PO DAILY Ascorbic Acid [Vitamin C] 500 mg PO DAILY Brimonidine Tartrate [Alphagan P 0.2% Ophth Soln] 1 drops LEFT EYE BID Zinc 50 mg PO DAILY Discontinued Naproxen 500 mg PO BID PRN PRN Reason: Pain Acetaminophen Tab [Tylenol] 325 mg PO DIRECTED PRN PRN Reason: Pain Discharge Medication List Omeprazole 20 mg PO DAILY 07/24/18 [History] Ascorbic Acid [Vitamin C] 500 mg PO DAILY 07/30/20 [History] Cholecalciferol [Vitamin D3 (25 Mcg = 1000 Iu)] 25 mcg PO DAILY 07/30/20 [History] Multivitamins, Thera [Multivitamin (formulary)] 1 tab PO DAILY 07/30/20 [History] Brimonidine Tartrate [Alphagan P 0.2% Ophth Soln] 1 drops LEFT EYE BID 11/10/20 [History] Zinc 50 mg PO DAILY 11/10/20 [History] HYDROcodone/APAP [[place] Elixir 7.5-325Mg/15Ml] 15 ml PO Q6HR PRN #180 ml 12/08/20 [Rx] Follow up Appointment(s)/Referral(s): Mario Hartman MD [Primary Care Provider] - [facility] [place] - 12/09/20 10:45 am Activity/Diet/Wound Care/Special Instructions: No driving while taking [place] No lifting over 10 pounds You may shower. No soaking or tub baths for 2 weeks Very light activity until you are reevaluated at your follow up appointment with your surgeon Discharge Disposition: HOME SELF-CARE
[2020-12-08 15:16] VITALS: BP 156/81; RESP 15; TEMP 98.7
== END 2020-12-08 14:40 | disposition home or self-care (01) | DRG 621 ==
LOC: 2ORMAIN 07:14 → 4SSUR 12:07
PROVIDERS: ADMIT Surgery; ATTEND Surgery
PROC: 0DB64Z3 Excision of Stomach, Percutaneous Endoscopic Approach, Vertical (ICD-10-PCS; principal; 2020-12-06 08:35)
DX: E66.01 Morbid (severe) obesity due to excess calories (principal); Z68.42 Body mass index [BMI] 45.0-49.9, adult; H40.9 Unspecified glaucoma; Z20.822 Contact with and (suspected) exposure to COVID-19; I10 Essential (primary) hypertension; K21.9 Gastro-esophageal reflux disease without esophagitis; M19.90 Unspecified osteoarthritis, unspecified site; Z79.899 Other long term (current) drug therapy; Z87.891 Personal history of nicotine dependence; Z86.19 Personal history of other infectious and parasitic diseases; Z86.14 Personal history of Methicillin resistant Staphylococcus aureus infection; Z90.49 Acquired absence of other specified parts of digestive tract; Z87.19 Personal history of other diseases of the digestive system; Z87.448 Personal history of other diseases of urinary system; Z98.51 Tubal ligation status; Z98.891 History of uterine scar from previous surgery; Z98.890 Other specified postprocedural states; Z82.49 Family history of ischemic heart disease and other diseases of the circulatory system; Z83.49 Family history of other endocrine, nutritional and metabolic diseases; Z83.79 Family history of other diseases of the digestive system; Z81.8 Family history of other mental and behavioral disorders; Z80.9 Family history of malignant neoplasm, unspecified
CPT/HCPCS: 71046; 74240; 80053; 81025; 83735; 84100; 84443; 85025; 87635; 88307; 94640; 94760; 94762

== ENCOUNTER → 2020-12-09 | Outpatient (CLI) | payer OTHER ==
[2020-12-09 11:35] VITALS: BP 106/70; PULSE 86; RESP 16; TEMP 99.2; BMI 45.0
== END ==
LOC: BARWHC3 10:47
PROVIDERS: ATTEND Surgery
DX: E66.01 Morbid (severe) obesity due to excess calories (principal); Z48.815 Encounter for surgical aftercare following surgery on the digestive system; Z98.84 Bariatric surgery status
CPT/HCPCS: 99211

== ENCOUNTER → 2020-12-14 | Outpatient (CLI) | payer OTHER ==
[2020-12-14] MEDS: SODIUM CHLORIDE 0.9% 1,000 ML IV SCH ×2 (12:10→13:14)
[2020-12-14 12:21] VITALS: BP 104/65; PULSE 82; RESP 16; TEMP 97.7
== END ==
LOC: PROCWHC3 12:04
PROVIDERS: ATTEND Surgery
DX: E86.0 Dehydration (principal); Z87.891 Personal history of nicotine dependence
CPT/HCPCS: 96360; 96361

== ENCOUNTER → 2020-12-19 | Outpatient (CLI) | payer OTHER ==
[2020-12-19 14:29] VITALS: BP 122/86; PULSE 106; TEMP 98; BMI 43.2
--- NOTE | 2020-12-19 16:17 | P.HPBAR ---
Bariatric H&P - History & Physicial H&P Date: 12/19/20 History & Physicial: Visit/CC: two follow up sleeve Patient initial contact: Initial weight: 126.099 kg Initial weight in pounds: 278.00 Height: 5 ft 6 in Initial BMI: 44.9 Last weight: Current weight: 121.563 kg Current weight in pounds: 268.00 Current BMI: 43.2 [place] body weight (based on NIH guidelines): 58.967 kg Excess body weight loss: 6.7% The patient is a 50 year-old F who presents for Bariatric Assessment. Patient presents today for sleeve gastrectomy follow-up. She's had excellent weight loss. She complains of some mild GERD. Past Medical History Past Medical History: GERD/Reflux, Hypertension, Osteoarthritis (OA) Additional Past Medical History / Comment(s): genital herpes., past HTN (no current meds)., states irregular heart beat., bladder polyps. , glaucoma left eye . History of Any Multi-Drug Resistant Organisms: MRSA Year Discovered:: 12/08/2011 MDRO Source:: left axilla Past Surgical History: Bariatric Surgery, Section, Cholecystectomy, Hernia Repair, Tubal Ligation Additional Past Surgical History / Comment(s): umbilical hernia , cystoscopy, bladder-polyp removed , EGD., 01/04/20-laparoscopy-(bariatric surgery aborted due to hernia and adhesions). Gastric sleeve 12/06/20 Past Anesthesia/Blood Transfusion Reactions: No Reported Reaction Past Psychological History: No Psychological Hx Reported Additional Psychological History / Comment(s): . Smoking Status: Former smoker Past Alcohol Use History: None Reported Additional Past Alcohol Use History / Comment(s): started smoking 1984 and quit 2002 smoked 1ppd. Past Drug Use History: Cocaine, Marijuana Additional Drug Use History / Comment(s): crack/marijuana use but quit 1997 - Past Family History Father Family Medical History: Cancer, Hyperlipidemia, Hypertension Additional Family Medical History / Comment(s): hepatitis c Mother Family Medical History: Hypertension Additional Family Medical History / Comment(s): mental health issues Surgical - Exam Vital Signs Temp Pulse BP 98 F 106 H 122/86 12/19/20 14:27 12/19/20 14:27 12/19/20 14:27 - General well developed, well nourished, no distress - Eyes PERRL - ENT normal pinna - Neck no masses - Respiratory normal expansion - Cardiovascular Rhythm: regular - Abdomen Abdomen: soft, non tender Bariatric Assessment & Plan Plan: Status post sleeve yesterday. Patient is an excellent weight loss. Her GERD is minimal will be observed. Bariatric Checklist Checklist: Plan: Checklist: EGD: 1. Hiatal hernia: 2. H. Pylori: HgbA1c: Vitamin D: Smoking: Former smoker Primary care physician referral: Thee Psychiatry clearance: Cardiology clearance: Sleep study: Diet journal: VTE risk score: VTE risk level: Rehab needs at discharge:
== END ==
LOC: BARWHC3 13:38
PROVIDERS: ATTEND Surgery
DX: Z09 Encounter for follow-up examination after completed treatment for conditions other than malignant neoplasm (principal); K21.9 Gastro-esophageal reflux disease without esophagitis; I10 Essential (primary) hypertension; M19.90 Unspecified osteoarthritis, unspecified site; Z98.84 Bariatric surgery status; Z87.891 Personal history of nicotine dependence
CPT/HCPCS: 99211

== ENCOUNTER → 2020-12-27 | Outpatient (CLI) | payer OTHER ==
[2020-12-27 12:30] VITALS: BP 110/77; PULSE 103; RESP 16; TEMP 98
[2020-12-27] MEDS: SODIUM CHLORIDE 0.9% 1,000 ML IV SCH ×2 (12:30→13:23)
== END ==
LOC: PROCWHC3 12:11
PROVIDERS: ATTEND Surgery
DX: E86.0 Dehydration (principal); Z87.891 Personal history of nicotine dependence
CPT/HCPCS: 96360; 96361

== ENCOUNTER → 2021-01-02 | Outpatient (CLI) | payer OTHER ==
[2021-01-02 13:42] VITALS: BP 118/78; PULSE 101; TEMP 97.7; BMI 40.8
--- NOTE | 2021-01-02 14:37 | P.HPBAR ---
Bariatric H&P - History & Physicial H&P Date: 01/02/21 History & Physicial: Visit/CC: one month follow up Patient initial contact: Initial weight: 126.099 kg Initial weight in pounds: 278.00 Height: 5 ft 6 in Initial BMI: 44.9 Last weight: Current weight: 114.759 kg Current weight in pounds: 253.00 Current BMI: 40.8 [place] body weight (based on NIH guidelines): 58.967 kg Excess body weight loss: 16.8% The patient is a 50 year-old F who presents for Bariatric Assessment. Patient presents today for 1 month. Follow-up. She states she has some mild dysphagia. She is requesting fluid hydration. Past Medical History Past Medical History: GERD/Reflux, Hypertension, Osteoarthritis (OA) Additional Past Medical History / Comment(s): genital herpes., past HTN (no current meds)., states irregular heart beat., bladder polyps. , glaucoma left eye . History of Any Multi-Drug Resistant Organisms: MRSA Year Discovered:: 12/08/2011 MDRO Source:: left axilla Past Surgical History: Bariatric Surgery, Section, Cholecystectomy, Hernia Repair, Tubal Ligation Additional Past Surgical History / Comment(s): umbilical hernia , cystoscopy, bladder-polyp removed , EGD., 01/04/20-laparoscopy-(bariatric surgery aborted due to hernia and adhesions). Gastric sleeve 12/06/20 Past Anesthesia/Blood Transfusion Reactions: No Reported Reaction Past Psychological History: No Psychological Hx Reported Additional Psychological History / Comment(s): . Smoking Status: Former smoker Past Alcohol Use History: None Reported Additional Past Alcohol Use History / Comment(s): started smoking 1984 and quit 2002 smoked 1ppd. Past Drug Use History: Cocaine, Marijuana Additional Drug Use History / Comment(s): crack/marijuana use but quit 1997 - Past Family History Father Family Medical History: Cancer, Hyperlipidemia, Hypertension Additional Family Medical History / Comment(s): hepatitis c Mother Family Medical History: Hypertension Additional Family Medical History / Comment(s): mental health issues Surgical - Exam Vital Signs Temp Pulse BP 97.7 F 101 H 118/78 01/02/21 13:40 01/02/21 13:40 01/02/21 13:40 - General well developed, well nourished, no distress - Eyes PERRL - ENT normal pinna - Neck no masses - Respiratory normal expansion - Cardiovascular Rhythm: regular - Abdomen Abdomen: soft, non tender Bariatric Assessment & Plan Plan: Mild dysphagia and GERD. Patient was given 1 L of saline today. She'll follow- up in the morning for another liter. Bariatric Checklist Checklist: Plan: Checklist: EGD: 1. Hiatal hernia: 2. H. Pylori: HgbA1c: Vitamin D: Smoking: Former smoker Primary care physician referral: Thee Psychiatry clearance: Cardiology clearance: Sleep study: Diet journal: VTE risk score: VTE risk level: Rehab needs at discharge:
[2021-01-02 15:05] LABS: HCT 45.6 % (34.0-46.0); HGB 14.4 gm/dL (11.4-16.0); MCH 26.9 pg (25.0-35.0); MCHC 31.5 g/dL (31.0-37.0); MCV 85.3 fL (80.0-100.0); Mean Platelet Volume 8.9; Platelet Count 215 k/uL (150-450); RBC 5.34 m/uL (3.80-5.40); RDW 14.7 % (11.5-15.5); WBC 4.8 k/uL (3.8-10.6)
[2021-01-02 19:16] LABS: Ferritin 198.2 ng/mL (10.0-291.0)
[2021-01-02 19:33] LABS: % Iron Saturation 21.29 (12.00-45.00); African American GFR (CKD) 98.9 (60.0-200.0); Albumin/Globulin Ratio 1.6 (1.60-3.17); Anion Gap 15.2 mmol/L (4.00-12.00); BUN/Creat Ratio 12.5 Ratio (12.00-20.00); Calcium 8.9 mg/dL (8.7-10.3); Carbon Dioxide 21.8 mmol/L (21.6-31.8); Folate, Serum 13.4 ng/mL; Globulin 2.5 g/dL (1.6-3.3); Magnesium 1.6 mg/dL (1.5-2.4); Non-African American GFR(CKD) 85.4 (60.0-200.0); Potassium 3.9 mmol/L (3.5-5.5); Total Bilirubin 0.4 mg/dL (0.2-1.2); Total Protein 6.5 g/dL (6.2-8.2)
[2021-01-03 11:51] LABS: Zinc, Serum 99 ug/dL (60-130)
[2021-01-04 07:09] LABS: Vitamin A 30 ug/dL (38-106)
[2021-01-04 07:50] LABS: Vit B1(Thiamine) 39 ug/L (38-122)
== END ==
LOC: BARWHC3 10:55
PROVIDERS: ATTEND Surgery
DX: Z09 Encounter for follow-up examination after completed treatment for conditions other than malignant neoplasm (principal); K21.9 Gastro-esophageal reflux disease without esophagitis; I10 Essential (primary) hypertension; M19.90 Unspecified osteoarthritis, unspecified site; Z98.84 Bariatric surgery status; Z87.891 Personal history of nicotine dependence
CPT/HCPCS: 84255; 84425; 80053; 82607; 82728; 82746; 83540; 83550; 83735; 84443; 84590; 84630; 85027; 82306; 97803; G0463; 99211

== ENCOUNTER 2021-01-21 10:21 | Inpatient (IN) | payer OTHER ==
[2021-01-21] MEDS ORDERED: SODIUM CHLORIDE 0.9% 1,000 ML IV STA (10:31)
[2021-01-21] MEDS ORDERED: ONDANSETRON 4 MG/2 ML VIAL IVP STA (10:31)
--- NOTE | 2021-01-21 10:34 | ED ---
General Adult HPI - General Stated complaint: NVD Time Seen by Provider: 01/21/21 10:23 - History of Present Illness Initial comments: Dictation was produced using [employer] dictation software. please excuse any grammatical, word or spelling errors. Chief Complaint: 50-year-old female presents with nausea vomiting. She is 6 weeks status post bariatric surgery History of Present Illness: Patient is a 50-year-old female she states that 6 weeks ago she had bariatric surgery. On December 06 patient had laparoscopic sleeve gastrectomy. Patient has had a mostly an uncomplicated postoperative course. However over the last several days she's been having worsening nausea, vomiting. Patient states that her symptoms are so severe that she is unable to keep any liquids or solids down. She started to feel lightheaded. Patient claims of some mild suprapubic pain. Denies any dysuria. No fever chills or night sweats. Patient states she feels lightheaded when she tries to any activity especially stand and walk. The ROS documented in this emergency department record has been reviewed and confirmed by me. Those systems with pertinent positive or negative responses have been documented in the HPI. All other systems are other negative and/or noncontributory. PHYSICAL EXAM: General Impression: Alert and oriented x3, not in acute distress HEENT: Normocephalic atraumatic, extra-ocular movements intact, pupils equal and reactive to light bilaterally, dry mucous membranes. Cardiovascular: Heart regular rate and rhythm Chest: Able to complete full sentences, no retractions, no tachypnea Abdomen: abdomen soft, non-tender, non-distended, no organomegaly Musculoskeletal: Pulses present and equal in all extremities, no peripheral edema Motor: no focal deficits noted Neurological: CN II-XII grossly intact, no focal motor or sensory deficits noted Skin: Intact with no visualized rashes Psych: Normal affect and mood ED course: 50-year-old female presents with nausea, vomiting status post sleeve gastrectomy. Vital signs upon arrival are within acceptable limits. Laboratory evaluation obtained. CBC unremarkable. No leukocytosis. Hemoglobin stable. Metabolic panel shows mild acidosis. Lipase level 752. Patient ree valuated bedside at 1:35 PM found to be in stable medical condition. Patient states that she does not feel comfortable being discharged. She states that she is unable to tolerate anything by mouth. Given patient's symptoms I will have patient needed observation with IV fluids, symptoms controlled and general surgery on consult. Patient is agreeable with plan. EKG interpretation: Ventricular rate 77, normal sinus rhythm,. 166, QRS 84, QTC 420. No NE prolongation, no QTC prolongation, no ST or T-wave changes noted. Overall, this EKG is unremarkable - Related Data Home Medications Medication Instructions Recorded Confirmed Omeprazole 20 mg PO DAILY 07/24/18 01/03/21 Ascorbic Acid [Vitamin C] 500 mg PO DAILY 07/30/20 01/03/21 Cholecalciferol [Vitamin D3 (25 25 mcg PO DAILY 07/30/20 01/03/21 Mcg = 1000 Iu)] Multivitamins, Thera [Multivitamin 1 tab PO DAILY 07/30/20 01/03/21 (formulary)] Brimonidine Tartrate [Alphagan P 1 drops LEFT EYE BID 11/10/20 01/03/21 0.2% Ophth Soln] Zinc 50 mg PO DAILY 11/10/20 01/03/21 Previous Rx's Medication Instructions Recorded HYDROcodone/APAP [[place] Elixir 15 ml PO Q6HR PRN #180 ml 12/08/20 7.5-325Mg/15Ml] Ondansetron Odt [Zofran Odt] 4 mg PO Q8HR PRN #9 tab 12/08/20 Simethicone 40 mg/0.6 ml Drops 40 mg PO PCHS PRN #30 ml 12/08/20 [Mylicon Drops] bisacodyL [Dulcolax] 5 mg PO DAILY PRN #10 tablet. 12/08/20 Allergies Allergy/AdvReac Type Severity Reaction Status Date / Time No Known Allergies Allergy Verified 01/03/21 12:17 Review of Systems ROS Statement: Those systems with pertinent positive or pertinent negative responses have been documented in the HPI. ROS Other: All systems not noted in ROS Statement are negative. Past Medical History Past Medical History: GERD/Reflux, Hypertension, Osteoarthritis (OA) Additional Past Medical History / Comment(s): genital herpes., past HTN (no current meds)., states irregular heart beat., bladder polyps. , glaucoma left eye . History of Any Multi-Drug Resistant Organisms: MRSA Date of last positivie culture/infection: 12/08/2011 MDRO Source:: left axilla Past Surgical History: Bariatric Surgery, Section, Cholecystectomy, Hernia Repair, Tubal Ligation Additional Past Surgical History / Comment(s): umbilical hernia , cystoscopy, bladder-polyp removed , EGD., 01/04/20-laparoscopy-(bariatric surgery aborted due to hernia and adhesions). Gastric sleeve 12/06/20 Past Anesthesia/Blood Transfusion Reactions: No Reported Reaction Smoking Status: Former smoker - Past Family History Father Family Medical History: Cancer, Hyperlipidemia, Hypertension Additional Family Medical History / Comment(s): hepatitis c Mother Family Medical History: Hypertension Additional Family Medical History / Comment(s): mental health issues Course Vital Signs 01/21/21 01/21/21 10:32 11:50 Temperature 98.0 F 98.7 F Pulse Rate 83 74 Respiratory 16 16 Rate Blood Pressure 116/87 122/81 O2 Sat by Pulse 97 99 Oximetry Medical Decision Making - Lab Data Result diagrams: 01/21/21 10:40 01/21/21 10:40 Lab Results 01/21/21 01/21/21 Range/Units 10:40 10:40 WBC 5.6 (3.8-10.6) k/uL RBC 5.63 H (3.80-5.40) m/uL Hgb 15.2 (11.4-16.0) gm/dL Hct 47.7 H (34.0-46.0) % MCV 84.7 (80.0-100.0) fL MCH 26.9 (25.0-35.0) pg MCHC 31.8 (31.0-37.0) g/dL RDW 14.2 (11.5-15.5) % Plt Count 216 (150-450) k/uL MPV 8.9 Neutrophils % 60 % Lymphocytes % 30 % Monocytes % 5 % Eosinophils % 2 % Basophils % 1 % Neutrophils # 3.4 (1.3-7.7) k/uL Lymphocytes # 1.7 (1.0-4.8) k/uL Monocytes # 0.3 (0-1.0) k/uL Eosinophils # 0.1 (0-0.7) k/uL Basophils # 0.0 (0-0.2) k/uL Sodium 135 L (137-145) mmol/L Potassium 3.4 L (3.5-5.1) mmol/L Chloride 100 (98-107) mmol/L Carbon Dioxide 20 L (22-30) mmol/L Anion Gap 15 mmol/L BUN 12 (7-17) mg/dL Creatinine 0.69 (0.52-1.04) mg/dL Est GFR (CKD-EPI)AfAm >90 (>60 ml/min/1.73 sqM) Est GFR (CKD-EPI)NonAf >90 (>60 ml/min/1.73 sqM) Glucose 88 (74-99) mg/dL Calcium 9.5 (8.4-10.2) mg/dL Magnesium 2.0 (1.6-2.3) mg/dL Total Bilirubin 0.6 (0.2-1.3) mg/dL AST 29 (14-36) U/L ALT 23 (4-34) U/L Alkaline Phosphatase 87 (38-126) U/L Total Protein 7.0 (6.3-8.2) g/dL Albumin 4.1 (3.5-5.0) g/dL Lipase 752 H (23-300) U/L Disposition Clinical Impression: Intractable nausea and vomiting Disposition: ADMITTED IP TO THIS [facility] Condition: Fair Referrals: Mario Hartman MD [Primary Care Provider] - 1-2 days
[2021-01-21 10:47] LABS: Basophils % (A) 1 %; Eosinophils # (A) 0.1 k/uL (0-0.7); Eosinophils % (A) 2 %; HCT 47.7 % (34.0-46.0); HGB 15.2 gm/dL (11.4-16.0); Lymphocytes # (A) 1.7 k/uL (1.0-4.8); Lymphocytes % (A) 30 %; MCH 26.9 pg (25.0-35.0); MCHC 31.8 g/dL (31.0-37.0); MCV 84.7 fL (80.0-100.0); Mean Platelet Volume 8.9; Monocytes # (A) 0.3 k/uL (0-1.0); Monocytes % (A) 5 %; Neutrophils # (A) 3.4 k/uL (1.3-7.7); Neutrophils % (A) 60 %; Platelet Count 216 k/uL (150-450); RBC 5.63 m/uL (3.80-5.40); RDW 14.2 % (11.5-15.5); WBC 5.6 k/uL (3.8-10.6)
[2021-01-21 11:16] LABS: ALT 23 U/L (4-34); AST 29 U/L (14-36); African American GFR (CKD) >90 (>60 ml/min/1.73 sqM); Albumin 4.1 g/dL (3.5-5.0); Alkaline Phosphatase 87 U/L (38-126); Anion Gap 15 mmol/L; Blood Urea Nitrogen 12 mg/dL (7-17); Calcium 9.5 mg/dL (8.4-10.2); Carbon Dioxide 20 mmol/L (22-30); Chloride 100 mmol/L (98-107); Glucose 88 mg/dL (74-99); Lipase 752 U/L (23-300); Non-African American GFR(CKD) >90 (>60 ml/min/1.73 sqM); Sodium 135 mmol/L (137-145); Total Bilirubin 0.6 mg/dL (0.2-1.3)
[2021-01-21 11:39] LABS: Potassium 3.4 mmol/L (3.5-5.1)
[2021-01-21] MEDS ORDERED: NALOXONE 0.4 MG/ML 1 ML VIAL IV PRN (13:31)
[2021-01-21 13:36] LABS: Appearance,Urine Cloudy (Clear); Bacteria,Urine Rare /hpf; Bilirubin,Urine 1+ (Negative); Blood,Urine Trace (Negative); Color,Urine Yellow; Glucose,Urine (UA) Negative (Negative); Hyaline Casts,Urine 26 /lpf (0-2); Ketones,Urine 4+ (Negative); Leukocyte Esterase,Urine Negative (Negative); Mucus,Urine Many /hpf; Nitrite,Urine Negative (Negative); Protein,Urine 1+ (Negative); RBC,Urine 4 /hpf (0-5); Specific Gravity,Urine 1.033 (1.001-1.035); Squamous Epithelial Cell,Urine 4 /hpf (0-4); WBC,Urine 4 /hpf (0-5)
[2021-01-21] MEDS: ONDANSETRON 4 MG/2 ML VIAL IVP PRN (16:59)
[2021-01-21] MEDS: SODIUM CHLORIDE 0.9% 1,000 ML IV SCH (17:03)
[2021-01-21] MEDS ORDERED: diphenhydrAMINE 50 MG/ML 1 ML VIAL IVP PRN (21:23)
[2021-01-22] MEDS: SODIUM CHLORIDE 0.9% 1,000 ML IV SCH ×4 (06:14→23:28)
[2021-01-22] MEDS: CHOLECALCIFEROL 25 MCG (1000 IU) TABLET PO SCH (08:17)
[2021-01-22] MEDS: polyethylene glycoL 3350 17 GM POWD.PACK PO SCH (08:17)
[2021-01-22] MEDS: ASCORBIC ACID 500 MG TAB PO SCH (08:17)
[2021-01-22] MEDS: MULTIVITAMINS, THERA 1 EACH TAB PO SCH (08:17)
[2021-01-22] MEDS: PANTOPRAZOLE 40 MG TABLET PO SCH (08:17)
[2021-01-22] MEDS: ZINC SULFATE 220 MG CAP PO SCH (08:17)
[2021-01-22] MEDS: METOCLOPRAMIDE 5 MG/ML 2 ML VIAL IVP SCH ×3 (08:17→23:28)
--- NOTE | 2021-01-22 11:07 | HP ---
HISTORY AND PHYSICAL 50-year-old female came in with status post 6 weeks for bariatric surgery. She had laparoscopic sleeve gastrectomy. She has been in the hospital 4 or 5 times for fluid rehydration due to worsening, nausea, vomiting worse. She is unable to keep solids or liquids down, has been lightheaded and near syncope for weeks. She is unable to get in Dr. Jang's office to see him postop. Admitted for rehydration and surgical consult. Possibly GI. PHYSICAL EXAM: This is an overweight female in no acute distress. Cardiovascular S1, S2. Lungs: Clear. GI: Diffuse tenderness. No organomegaly. Pulses are normal. No extremity edema. Integument dry skin, poor skin turgor, dry mucous membranes. Psych: Fair mood and affect. Lipase is high in the 700. She presents with nausea, vomiting, status post gastric sleeve gastrectomy, mild hypokalemia, elevated lipase for acute on chronic pancreatitis. EKG shows sinus rhythm. ASSESSMENT: 1. Dehydration. 2. Status post gastric sleeve. 3. Acute on chronic pancreatitis. 4. Gastroesophageal reflux disease. 5. Hypertension. 6. Osteoarthritis. Admit. Consult surgery versus GI. Clear liquid diet. Ultrasound of her abdomen. Please see further orders. Possible barium swallow will have to be done. MMODL / IJN: [id number] /
--- NOTE | 2021-01-22 17:06 | US ---
EXAMINATION TYPE: US abdomen complete DATE OF EXAM: 01/22/2021 COMPARISON: NONE CLINICAL HISTORY: pancreatitis; 6 weeks post gastric sleeve bypass; RUQ pain; gallbladder removed EXAM MEASUREMENTS: Liver Length: 13.4 cm Gallbladder Wall: surgically removed CBD: 0.5 cm Spleen: 8.0 cm Right Kidney: 11.3 x 5.7 x 4.6 cm Left Kidney: 11.2 x 5.6 x 5.3 cm Pancreas: hyperechoic; mid and tail gassed out Liver: hyperechoic Evidence for sonographic Alegria's sign: no CBD: wnl Spleen: wnl Right Kidney: No hydronephrosis or masses seen Left Kidney: No hydronephrosis or masses seen Upper IVC: wnl Abd Aorta: intimal wall thickening noted distally with A/P measure = 2.5cm. IMPRESSION: Cholecystectomy. No dilated ducts. No free fluid.
[2021-01-22] MEDS ORDERED: IOPAMIDOL CONTRAST (ORAL USE) VIAL PO PRN (18:37)
--- NOTE | 2021-01-22 19:04 | P.GSCN ---
History of Present Illness Consult date: 01/22/21 History of present illness: CHIEF COMPLAINT: Intractable nausea and vomiting HISTORY OF PRESENT ILLNESS: Franko Rao is a 50-year-old female who presents with intractable nausea and vomiting following sleeve gastrectomy 1 month ago. Patient had a complicated postoperative course including chronic dehydration and nausea with vomiting. She has lost over 35 pounds in 1 year. She's had multiple diagnostic studies regarding her dysphagia. Patient presents with intolerance of solid foods and drinking liquids. She reports intermittent epigastric abdominal pain. No reports recent blood in stools. She reports troubles with severe gastroesophageal reflux disease following her sleeve. PAST MEDICAL HISTORY: 1. Morbid obesity due to excess calories 2. Body mass index of 45.2 3. Gastroesophageal reflux disease 4. History of methicillin resistant staph aureus infection 5. Osteoarthritis of the knee 6. Osteoarthritis of the hips 7. History of bladder tumor PAST SURGICAL HISTORY: 1. section 2. Cholecystectomy 3. Umbilical hernia 4. Tubal ligation 5. Cystoscopy 6. Upper endoscopy 7. Bladder tumor resection 8. Colonoscopy 9. Ventral hernia repair 10. Sleeve gastrectomy HOME MEDICATIONS: Home Medications Medication Instructions Recorded Confirmed Omeprazole 20 mg PO DAILY 07/24/18 01/21/21 Ascorbic Acid [Vitamin C] 500 mg PO DAILY 07/30/20 01/21/21 Cholecalciferol [Vitamin D3 (25 25 mcg PO DAILY 07/30/20 01/21/21 Mcg = 1000 Iu)] Multivitamins, Thera [Multivitamin 1 tab PO DAILY 07/30/20 01/21/21 (formulary)] Brimonidine Tartrate [Alphagan P 1 drops LEFT EYE BID 11/10/20 01/21/21 0.2% Ophth Soln] Zinc 50 mg PO DAILY 11/10/20 01/21/21 polyethylene glycoL 3350 [Miralax] 17 gm PO DAILY 01/21/21 01/21/21 ALLERGIES: Allergies Allergy/AdvReac Type Severity Reaction Status Date / Time No Known Allergies Allergy Verified 01/21/21 13:48 SOCIAL HISTORY: Past tobacco use. FAMILY HISTORY: No family history of ulcerative colitis disease or Crohn's disease. Family history of morbid obesity. No lupus in the family. No reports of stomach or esophageal cancer. REVIEW OF ORGAN SYSTEMS: CONSTITUTIONAL: At height of 5 feet 6 inches, her ideal body weight is 154 pounds. Prior weight of Her body mass index is 45.2. HEENT: Denies any active troubles with vision or hearing. ENDOCRINE: No diabetes. No hypothyroidism. CARDIOVASCULAR: She reports past history of irregular heart rate. No recent chest pain. RESPIRATORY: Has daytime somnolence. Denies asthma. GASTROINTESTINAL: Denies any bright red blood per rectum. No diarrhea. No constipation. GERD present prior to her sleeve gastrectomy. MUSCULOSKELETAL: Has lower back pain and joint pain. Has osteoarthritis of the knees and hips. Osteoarthritis of both knees left worse than the right. Hip pain as well. No ankle pain. NEURO: No headaches. No seizure disorders. PSYCH: Denies depression. No suicidal ideation. RHEUMATOLOGIC: No lupus. No rheumatoid arthritis. HEMATOLOGIC: Denies any abnormal bleeding or bruising. No personal history of DVTs. SKIN: No rash. No skin cancer. PHYSICAL EXAM: VITAL SIGNS: Height 5 foot 6 inches, weight 245 pounds. BMI 39.7. Reviewed GENERAL: Well-developed in no acute distress. HEENT: No scleral icterus. Extraocular movements grossly intact. Hears conversational speech. No nasal drainage. NECK: Supple without lymphadenopathy. CHEST: Nonlabored respirations with equal bilateral excursions. CARDIOVASCULAR: Regular rate and regular rhythm. Distal 2+ pulses. ABDOMEN: Obese, soft, nontender, nondistended. MUSCULOSKELETAL: No clubbing, cyanosis. NEURO: No focal or lateralizing signs. Cranial nerves 2 through 12 grossly within normal limits. PSYCH: Appropriate affect. Alert and oriented to person, place and time. SKIN: Good skin turgor. Well perfused. LABS: Reviewed. White blood cell count normal 5.6. Potassium low 3.4. Lipase done elevated from 752 to 910. Urinalysis was 4+ ketones. STUDIES: Reviewed. Barium swallow from December 2020 independent reviewed demonstrating stricture along the body of sleeve gastrectomy of moderate reflux. This is my independent interpretation. RECORDS: Reviewed hospitalization from November 2020 to December 2020 demonstrating multiple visits for IV fluid hydration and esophagram demonstrating no leaks following procedure. ASSESSMENT: 1. Dysphagia. 2. Intractable nausea and vomiting 3. Status post sleeve gastrectomy 4. Morbid obesity due to excess calories 5. Body mass index of 44.9, initial to 39.7 6. Gastroesophageal reflux disease 7. Hyperkalemia 8. Elevated lipase PLAN: 1. She has elevated lipase levels with recent sleeve gastrectomy. Recommend CT of the of the abdomen and pelvis IV contrast for further assessment of pancreatitis including risk of leak following sleeve gastrectomy. 2. Patient has elevated liver enzymes in the presence of has cholecystectomy. Recommend right upper quadrant ultrasound to evaluate for common bile duct stricture due to persistently elevated LFTs 3. IV fluid hydration 4. For chronic stenosis, may require upper endoscopy with dilation for which she is high risk due to recent surgery. 5. All questions addressed with patient including recent imaging barium swallow. ADDENDUM: Ultrasound of right upper quadrant demonstrates CBD within normal limits. Past Medical History Past Medical History: GERD/Reflux, Hypertension, Osteoarthritis (OA) Additional Past Medical History / Comment(s): genital herpes., past HTN (no current meds)., states irregular heart beat., bladder polyps. , glaucoma left eye . History of Any Multi-Drug Resistant Organisms: MRSA Year Discovered:: 12/08/2011 MDRO Source:: left axilla Past Surgical History: Bariatric Surgery, Section, Cholecystectomy, Hernia Repair, Tubal Ligation Additional Past Surgical History / Comment(s): umbilical hernia , cystoscopy, bladder-polyp removed , EGD., 01/04/20-laparoscopy-(bariatric surgery aborted due to hernia and adhesions). Gastric sleeve 12/06/20 Past Anesthesia/Blood Transfusion Reactions: No Reported Reaction Past Psychological History: No Psychological Hx Reported Smoking Status: Former smoker Past Alcohol Use History: None Reported Additional Past Alcohol Use History / Comment(s): started smoking 1984 and quit 2002 smoked 1ppd. Past Drug Use History: Cocaine, Marijuana Additional Drug Use History / Comment(s): crack/marijuana use but quit 1997 - Past Family History Father Family Medical History: Cancer, Hyperlipidemia, Hypertension Additional Family Medical History / Comment(s): hepatitis c Mother Family Medical History: Hypertension Additional Family Medical History / Comment(s): mental health issues Medications and Allergies Home Medications Medication Instructions Recorded Confirmed Type Omeprazole 20 mg PO DAILY 07/24/18 01/21/21 History Ascorbic Acid [Vitamin C] 500 mg PO DAILY 07/30/20 01/21/21 History Cholecalciferol [Vitamin D3 (25 25 mcg PO DAILY 07/30/20 01/21/21 History Mcg = 1000 Iu)] Multivitamins, Thera [Multivitamin 1 tab PO DAILY 07/30/20 01/21/21 History (formulary)] Brimonidine Tartrate [Alphagan P 1 drops LEFT EYE BID 11/10/20 01/21/21 History 0.2% Ophth Soln] Zinc 50 mg PO DAILY 11/10/20 01/21/21 History polyethylene glycoL 3350 [Miralax] 17 gm PO DAILY 01/21/21 01/21/21 History Allergies Allergy/AdvReac Type Severity Reaction Status Date / Time No Known Allergies Allergy Verified 01/21/21 13:48 Surgical - Exam Vital Signs Temp Pulse Resp BP Pulse Ox 98.0 F 83 16 116/87 97 01/21/21 10:32 01/21/21 10:32 01/21/21 10:32 01/21/21 10:32 01/21/21 10:32 Results - Labs 01/21/21 10:40 01/21/21 10:40 Abnormal Lab Results - Last 24 Hours (Table) 01/22/21 Range/Units 12:25 Lipase 913 H (23-300) U/L Assessment and Plan (1) Pancreatitis Current Visit: Yes Status: Acute Code(s): K85.90 - ACUTE PANCREATITIS WITHOUT NECROSIS OR INFECTION, UNSP SNOMED Code(s): 94997630 (2) History of sleeve gastrectomy Current Visit: Yes Status: Acute Code(s): Z90.3 - ACQUIRED ABSENCE OF STOMACH [PART OF] SNOMED Code(s): 316885025678726 (3) Intractable nausea and vomiting Current Visit: Yes Status: Acute Code(s): R11.2 - NAUSEA WITH VOMITING, UNSPECIFIED SNOMED Code(s): 923014655 (4) Morbid (severe) obesity due to excess calories Current Visit: No Status: Acute Code(s): E66.01 - MORBID (SEVERE) OBESITY DUE TO EXCESS CALORIES SNOMED Code(s): 716845122
--- NOTE | 2021-01-22 19:38 | CT ---
EXAMINATION TYPE: CT abdomen pelvis w con DATE OF EXAM: 01/22/2021 COMPARISON: 07/15/2014 HISTORY: Pancreatitis. Hx bariatric sx 6 [address] ago. Bariatric prep CT DLP: 2271.4 mGycm Automated exposure control for dose reduction was used. CONTRAST: Performed with IV Contrast, patient injected with 100 mL of Isovue 300. Images obtained from the diaphragm to the floor the pelvis with IV contrast. The lung bases are clear of consolidation. There is minimal subsegmental atelectasis at the lung base s. Heart size is normal. There is no pericardial effusion. Liver spleen appear intact. Gallbladder is intact. There are clips from gastric bariatric surgery. I see no evidence of pancreatic mass. There is no adrenal mass. Kidneys show satisfactory contrast opacification. There is no hydronephrosi s. Ureters are not dilated. Bladder distends smoothly. There is no inguinal hernia. Uterus is antever alvaro. There is no free fluid in the pelvis. I see no sign of a pelvic mass. There are phleboliths in t he pelvis. The lumbar vertebra have normal alignment. Disc spaces are normal. There is no compression fracture. The bony pelvis is intact. Hip joints are intact. There is no hip dysplasia. There is no mesenteric edema. There is no ascites or free air. There is no sign of a bowel obstructio n. Appendix has normal size. There is some calcification in the appendix. There is no mesenteric edema. There is no ascites or free air. There is no sign of a bowel obstructio n. IMPRESSION: There are appendicoliths without evidence of appendicitis. Gastric bariatric surgery. No sign of a pancreatitis.
[2021-01-22] MEDS: BRIMONIDINE TARTRATE 0.2% DROPS 5 ML BTL LEFT EYE SCH ×2 (21:02→22:13)
[2021-01-23] MEDS: METOCLOPRAMIDE 5 MG/ML 2 ML VIAL IVP SCH ×4 (05:30→22:55)
[2021-01-23] MEDS: SODIUM CHLORIDE 0.9% 1,000 ML IV SCH ×3 (06:09→20:23)
[2021-01-23] MEDS: BRIMONIDINE TARTRATE 0.2% DROPS 5 ML BTL LEFT EYE SCH ×2 (07:58→20:21)
[2021-01-23] MEDS: polyethylene glycoL 3350 17 GM POWD.PACK PO SCH (07:58)
[2021-01-23] MEDS: PANTOPRAZOLE 40 MG TABLET PO SCH (07:59)
[2021-01-23] MEDS: ASCORBIC ACID 500 MG TAB PO SCH (07:59)
[2021-01-23] MEDS: CHOLECALCIFEROL 25 MCG (1000 IU) TABLET PO SCH (07:59)
[2021-01-23] MEDS: MULTIVITAMINS, THERA 1 EACH TAB PO SCH ×2 (07:59→08:00)
[2021-01-23] MEDS: ZINC SULFATE 220 MG CAP PO SCH (07:59)
[2021-01-23 08:59] LABS: Basophils # (A) 0.05 X 10*3/uL (0.00-0.10); Basophils % (A) 0.9 %; Eosinophils # (A) 0.11 X 10*3/uL (0.04-0.35); Eosinophils % (A) 1.9 %; HGB 12.6 g/dL (12.0-15.0); Lymphocytes # (A) 2.73 X 10*3/uL (0.90-5.00); MCHC 31.5 g/dL (32.0-37.0); MCV 82.5 fL (80.0-97.0); Mean Platelet Volume 11.7 fL (9.5-12.2); Monocytes # (A) 0.46 X 10*3/uL (0.20-1.00); Monocytes % (A) 7.9 %; Neutrophils # (A) 2.44 X 10*3/uL (1.80-7.70); Platelet Count 193 X 10*3/uL (140-440); RBC 4.85 X 10*6/uL (4.10-5.20); RDW 14.8 % (11.5-14.5); WBC 5.81 X 10*3/uL (4.50-10.00)
[2021-01-23 09:48] LABS: African American GFR (CKD) 98.9 (60.0-200.0); Albumin 3.6 g/dL (3.80-4.90); Albumin/Globulin Ratio 1.71 (1.60-3.17); Anion Gap 13.1 mmol/L (4.00-12.00); BUN/Creat Ratio 8.75 Ratio (12.00-20.00); Calcium 8.4 mg/dL (8.7-10.3); Carbon Dioxide 26.9 mmol/L (21.6-31.8); Globulin 2.1 g/dL (1.6-3.3); Non-African American GFR(CKD) 85.4 (60.0-200.0); Potassium 3.1 mmol/L (3.5-5.5); Total Bilirubin 0.4 mg/dL (0.3-1.2); Total Protein 5.7 g/dL (6.2-8.2)
[2021-01-23] MEDS: ONDANSETRON 4 MG/2 ML VIAL IVP PRN (15:58)
[2021-01-24] MEDS: METOCLOPRAMIDE 5 MG/ML 2 ML VIAL IVP SCH ×4 (05:09→23:57)
[2021-01-24] MEDS: SODIUM CHLORIDE 0.9% 1,000 ML IV SCH ×3 (05:19→18:26)
[2021-01-24] MEDS: PANTOPRAZOLE 40 MG TABLET PO SCH ×2 (06:09→09:55)
[2021-01-24 07:16] LABS: Basophils % (A) 1 %; Eosinophils # (A) 0.2 k/uL (0-0.7); Eosinophils % (A) 3 %; HCT 40.3 % (34.0-46.0); HGB 13.3 gm/dL (11.4-16.0); Lymphocytes # (A) 1.7 k/uL (1.0-4.8); Lymphocytes % (A) 35 %; MCHC 33.1 g/dL (31.0-37.0); MCV 84.7 fL (80.0-100.0); Mean Platelet Volume 9.3; Monocytes # (A) 0.3 k/uL (0-1.0); Monocytes % (A) 6 %; Neutrophils # (A) 2.5 k/uL (1.3-7.7); Neutrophils % (A) 53 %; Platelet Count 176 k/uL (150-450); RBC 4.76 m/uL (3.80-5.40); RDW 14.2 % (11.5-15.5); WBC 4.8 k/uL (3.8-10.6)
--- NOTE | 2021-01-24 07:35 | PN ---
PROGRESS NOTE 50-year-old white female, started on Reglan and Zofran, Protonix. She is going to get an EGD tomorrow for possible esophageal stenosis dilation. If not, she is going to get outpatient gastric bypass gastric sleeve converted to a bypass with Dr. Gifford. Cardiovascular: S1, S2. GI soft. Hematology negative Homans. Psych: Fair mood and affect. ASSESSMENT: Progressive nausea vomiting with liquids and solids, status post gastric sleeve with stenosis, gastric stenosis, possible esophageal dilation tomorrow. Possible conversion of gastric sleeve to gastric bypass and worse case scenario. Continue to advance to clear liquid diet. IV fluids. Prognosis guarded. Monitor electrolytes. MMODL / IJN: [id number] /
[2021-01-24 07:43] LABS: ALT 19 U/L (4-34); AST 22 U/L (14-36); African American GFR (CKD) >90 (>60 ml/min/1.73 sqM); Albumin 3.6 g/dL (3.5-5.0); Alkaline Phosphatase 82 U/L (38-126); Anion Gap 15 mmol/L; Blood Urea Nitrogen 5 mg/dL (7-17); Calcium 8.8 mg/dL (8.4-10.2); Carbon Dioxide 25 mmol/L (22-30); Chloride 100 mmol/L (98-107); Glucose 70 mg/dL (74-99); Non-African American GFR(CKD) >90 (>60 ml/min/1.73 sqM); Potassium 2.8 mmol/L (3.5-5.1); Sodium 140 mmol/L (137-145); Total Bilirubin 0.6 mg/dL (0.2-1.3); Total Protein 5.9 g/dL (6.3-8.2)
[2021-01-24] MEDS: ASCORBIC ACID 500 MG TAB PO SCH (09:53)
[2021-01-24] MEDS: polyethylene glycoL 3350 17 GM POWD.PACK PO SCH (09:53)
[2021-01-24] MEDS: CHOLECALCIFEROL 25 MCG (1000 IU) TABLET PO SCH (09:53)
[2021-01-24] MEDS: MULTIVITAMINS, THERA 1 EACH TAB PO SCH (09:53)
[2021-01-24] MEDS: ZINC SULFATE 220 MG CAP PO SCH (09:53)
[2021-01-24] MEDS: BRIMONIDINE TARTRATE 0.2% DROPS 5 ML BTL LEFT EYE SCH ×2 (09:54→20:53)
[2021-01-24] MEDS ORDERED: Potassium Replacement Protocol 1 EACH MISC MISCELLANE PRN (11:15)
[2021-01-24] MEDS ORDERED: GLYCERIN ADULT SUPPOSITORY 1 EACH RECTAL STA (11:19)
[2021-01-24] MEDS: POTASSIUM CHLORIDE ER 20 MEQ TAB.ER PO SCH ×4 (12:06→21:22)
--- NOTE | 2021-01-24 12:10 | P.PN ---
Progress Note - Text Progress Note Date: 01/23/21 Patient was admitted over the weekend for dysphagia and dehydration. She states she has trouble drinking. On exam vital signs are stable. Abdomen soft. Patient was scheduled for EGD in the a.m.
--- NOTE | 2021-01-24 12:11 | P.PN ---
Progress Note - Text Progress Note Date: 01/24/21 The patient is resting comfortably liver bed. She denies any significant abdominal pain. She was scheduled for an EGD today however her potassium was 2.7. Anesthesia cancel her procedure. On exam her vital signs are stable. Abdomen soft. Patient will undergo potassium replacement today. She'll have her EGD rescheduled for tomorrow. We will perform an esophagram today. Patient states that she may not have the EGD performed she is unsure if she wants to have it done. We will reevaluate her position on the EGD in the a.m.
--- NOTE | 2021-01-24 17:17 | FL ---
EXAMINATION TYPE: FL UGI w esophagus DATE OF EXAM: 01/24/2021 COMPARISON: 01/02/2021 HISTORY: 50-year-old female dysphasia, sleeve gastrectomy TECHNIQUE: A single contrast UGI study is performed. A total of 1 minute 58 seconds of fluoroscopic time was utilized during procedure and 36 images obtai carrington. FINDINGS: The esophagus shows normal motility and emptying into the stomach. No evidence of hiatal hernia. Post surgical change of sleeve gastrectomy is redemonstrated. There is persistent relative narrowing along the mid segment of the spleen. As seen previously, a challenge results in aggressive accumulati on and pooling of contrast to the lower third esophageal level. The duodenal bulb, sweep, and proximal small bowel loops are unremarkable. IMPRESSION: Stable findings compared to 01/02/2021. Relative narrowing at the midportion of the sleeve gastrectomy . A challenge results in pooling of contrast to the lower third esophagus.
[2021-01-24] MEDS: ONDANSETRON 4 MG/2 ML VIAL IVP PRN (20:55)
[2021-01-25] MEDS: SODIUM CHLORIDE 0.9% 1,000 ML IV SCH ×3 (02:04→19:25)
[2021-01-25] MEDS: METOCLOPRAMIDE 5 MG/ML 2 ML VIAL IVP SCH ×3 (06:13→18:11)
[2021-01-25] MEDS: BRIMONIDINE TARTRATE 0.2% DROPS 5 ML BTL LEFT EYE SCH ×2 (09:41→19:53)
[2021-01-25 10:04] VITALS: BMI 39.6
[2021-01-25 10:30] LABS: ALT 18 U/L (4-34); AST 23 U/L (14-36); African American GFR (CKD) >90 (>60 ml/min/1.73 sqM); Albumin 3.4 g/dL (3.5-5.0); Alkaline Phosphatase 83 U/L (38-126); Anion Gap 11 mmol/L; Blood Urea Nitrogen 3 mg/dL (7-17); Calcium 8.7 mg/dL (8.4-10.2); Carbon Dioxide 25 mmol/L (22-30); Chloride 102 mmol/L (98-107); Glucose 76 mg/dL (74-99); Non-African American GFR(CKD) >90 (>60 ml/min/1.73 sqM); Potassium 3.6 mmol/L (3.5-5.1); Sodium 138 mmol/L (137-145); Total Bilirubin 0.6 mg/dL (0.2-1.3)
[2021-01-25] MEDS ORDERED: POTASSIUM BICARBONATE/CIT AC 20 MEQ TABLET.EFF PO ONE (12:52)
--- NOTE | 2021-01-25 13:35 | PN ---
PROGRESS NOTE DATE OF SERVICE: 01/24/2021 This 50-year-old -[place] female is supposed to have EGD done tomorrow. We are replacing her potassium due to significant hypokalemia, hypomagnesemia. Today her potassium was 2.8 and 3.5. Cardiovascular: S1, S2. Lungs clear. GI soft. Hematology: Negative Homans. ASSESSMENT: 1. Severe dehydration. 2. Hypokalemia. 3. Hypomagnesemia secondary to dehydration secondary to status post gastric sleeve with esophageal narrowing. Will have to have an EGD with dilation tomorrow. Wait for test to be done per Dr. Jang. MMODL / IJN: [id number] /
--- NOTE | 2021-01-25 13:38 | P.PN ---
Progress Note - Text Progress Note Date: 01/25/21 Patient feels well. She was scheduled for EGD today. However due to delays in the endoscopy unit will be rescheduled for tomorrow. On exam her vital signs are stable abdomen soft. Patient be scheduled for EGD in the a.m. Her esophagram was reviewed. She appears to have some corkscrewing of the stomach gastric sleeve which may be causing a relative obstruction.
[2021-01-25] MEDS: ONDANSETRON 4 MG/2 ML VIAL IVP PRN ×2 (14:25→21:28)
[2021-01-25] MEDS: POTASSIUM CHLORIDE ER 20 MEQ TAB.ER PO SCH (14:26)
[2021-01-25] MEDS: CHOLECALCIFEROL 25 MCG (1000 IU) TABLET PO SCH (14:26)
[2021-01-25] MEDS: ZINC SULFATE 220 MG CAP PO SCH (14:27)
[2021-01-25] MEDS: ASCORBIC ACID 500 MG TAB PO SCH (14:27)
[2021-01-25] MEDS: polyethylene glycoL 3350 17 GM POWD.PACK PO SCH (14:27)
[2021-01-25] MEDS: MULTIVITAMINS, THERA 1 EACH TAB PO SCH (14:27)
[2021-01-26] MEDS: METOCLOPRAMIDE 5 MG/ML 2 ML VIAL IVP SCH ×5 (00:21→23:47)
[2021-01-26] MEDS: SODIUM CHLORIDE 0.9% 1,000 ML IV SCH ×5 (02:20→23:51)
--- NOTE | 2021-01-26 07:41 | PN ---
PROGRESS NOTE 50-year-old female hypokalemia has been resolved. Cardiovascular S1-S2. Lungs clear. GI soft. Hematology: Negative Homans. ASSESSMENT: 1. Esophageal stenosis. 2. Gastric stenosis. 3. Hypokalemia. 4. Dehydration. Continue with IV fluids, updrafts. Continue current treatment. Follow up in next 24 to 48 hours for discharge after EGD is done to stretch her gastric stenosis. MMODL / IJN: [id number] /
[2021-01-26] MEDS ORDERED: IV FLUID CONTINUATION 800 ML IV ONE (08:20)
--- NOTE | 2021-01-26 08:38 | P.OP ---
Date of Procedure: 01/26/21 Preoperative Diagnosis: Dysphagia Postoperative Diagnosis: 's fascia Possible mild stricture of lower thirds of sleeve Procedure(s) Performed: EGD Dilatation 20 mm Anesthesia: MAC Surgeon: Lopez Jang Pathology: none sent Condition: stable Disposition: PACU Description of Procedure: The patient's placed on the endoscopy table in the lateral position. She received IV sedation. The gastroscope placed oropharynx passed in scope was then placed through the pylorus. The duodenum was photographed. The antrum appeared normal. Scope was brought back the lower third of the sleeve appeared to be a small possible stricture. The 20 mm balloon was placed across this. His relative for 3 minutes. There is no evidence of any injury to the stomach. The balloon was withdrawn.
[2021-01-26 09:54] VITALS: RESP 16
[2021-01-26] MEDS: PANTOPRAZOLE 40 MG TABLET PO SCH (10:16)
[2021-01-26] MEDS: CHOLECALCIFEROL 25 MCG (1000 IU) TABLET PO SCH (10:17)
[2021-01-26] MEDS: ASCORBIC ACID 500 MG TAB PO SCH (10:17)
[2021-01-26] MEDS: MULTIVITAMINS, THERA 1 EACH TAB PO SCH (10:17)
[2021-01-26] MEDS: POTASSIUM CHLORIDE ER 20 MEQ TAB.ER PO SCH (10:18)
[2021-01-26] MEDS: ZINC SULFATE 220 MG CAP PO SCH (10:18)
[2021-01-26] MEDS: polyethylene glycoL 3350 17 GM POWD.PACK PO SCH (10:18)
[2021-01-26] MEDS: BRIMONIDINE TARTRATE 0.2% DROPS 5 ML BTL LEFT EYE SCH ×2 (11:32→20:44)
--- NOTE | 2021-01-26 22:49 | PN ---
PROGRESS NOTE This 50-year-old -[place] female was taken for EGD for dilation gastric stenosis area by Dr. Jang. She is now on a clear liquid diet. Cardiovascular: S1, S2. Lungs clear. GI soft. Hematology: Negative Homans. Potassium is 3.6. Will discharge her home tomorrow. She is on a clear liquid diet at this time and we will discharge her home, as she is appears to be stable at this point. MMODL / IJN: [id number] /
[2021-01-27] MEDS: SODIUM CHLORIDE 0.9% 1,000 ML IV SCH (05:57)
[2021-01-27] MEDS: METOCLOPRAMIDE 5 MG/ML 2 ML VIAL IVP SCH (05:57)
[2021-01-27 07:17] LABS: Basophils % (A) 1 %; Eosinophils # (A) 0.2 k/uL (0-0.7); Eosinophils % (A) 4 %; HCT 41.5 % (34.0-46.0); HGB 13.4 gm/dL (11.4-16.0); Lymphocytes # (A) 2.1 k/uL (1.0-4.8); Lymphocytes % (A) 41 %; MCH 27.2 pg (25.0-35.0); MCHC 32.4 g/dL (31.0-37.0); MCV 84.1 fL (80.0-100.0); Mean Platelet Volume 9.1; Monocytes # (A) 0.3 k/uL (0-1.0); Monocytes % (A) 5 %; Neutrophils # (A) 2.5 k/uL (1.3-7.7); Neutrophils % (A) 48 %; Platelet Count 202 k/uL (150-450); RBC 4.93 m/uL (3.80-5.40); RDW 14.6 % (11.5-15.5); WBC 5.2 k/uL (3.8-10.6)
[2021-01-27 07:37] LABS: ALT 21 U/L (4-34); AST 28 U/L (14-36); African American GFR (CKD) >90 (>60 ml/min/1.73 sqM); Albumin 3.4 g/dL (3.5-5.0); Alkaline Phosphatase 83 U/L (38-126); Anion Gap 12 mmol/L; Blood Urea Nitrogen 2 mg/dL (7-17); Calcium 8.7 mg/dL (8.4-10.2); Carbon Dioxide 25 mmol/L (22-30); Chloride 102 mmol/L (98-107); Glucose 74 mg/dL (74-99); Non-African American GFR(CKD) >90 (>60 ml/min/1.73 sqM); Potassium 3.3 mmol/L (3.5-5.1); Sodium 139 mmol/L (137-145); Total Bilirubin 0.5 mg/dL (0.2-1.3); Total Protein 5.9 g/dL (6.3-8.2)
[2021-01-27] MEDS: POTASSIUM CHLORIDE ER 20 MEQ TAB.ER PO SCH (07:52)
[2021-01-27] MEDS: PANTOPRAZOLE 40 MG TABLET PO SCH (07:52)
[2021-01-27 08:00] VITALS: BP 121/76; PULSE 85; TEMP 98.2
[2021-01-27] MEDS ORDERED: PROPOFOL 10 MG/ML 20 ML VIAL IV ONE (08:20)
[2021-01-27] MEDS ORDERED: LIDOCAINE 1% INJ 10MG/ML (20 ML MDV) ONE (08:20)
[2021-01-27] MEDS: polyethylene glycoL 3350 17 GM POWD.PACK PO SCH (09:00)
[2021-01-27] MEDS: ZINC SULFATE 220 MG CAP PO SCH (09:00)
[2021-01-27] MEDS: ASCORBIC ACID 500 MG TAB PO SCH (09:00)
[2021-01-27] MEDS: MULTIVITAMINS, THERA 1 EACH TAB PO SCH (09:00)
[2021-01-27] MEDS: CHOLECALCIFEROL 25 MCG (1000 IU) TABLET PO SCH (09:00)
--- NOTE | 2021-01-27 11:47 | P.PN ---
Progress Note - Text Progress Note Date: 01/27/21 Patient states she feels better today. She is actually tolerating clear liquids. She has no abdominal pain. Patiently discharged home today. She'll follow-up in next Saturday at the bariatric center
== END 2021-01-27 12:20 | disposition home or self-care (01) | DRG 393 ==
LOC: EC 10:21 → 4SSUR 13:31 → 6PED 01-23 10:15 → OBSVTOIN 01-24 14:21
PROVIDERS: ADMIT Family Medicine; ATTEND Family Medicine
PROC: 0D748ZZ Dilation of Esophagogastric Junction, Via Natural or Artificial Opening Endoscopic (ICD-10-PCS; principal; 2021-01-26 12:10)
DX: K95.89 Other complications of other bariatric procedure (principal); K85.90 Acute pancreatitis without necrosis or infection, unspecified; E87.2 Acidosis; K86.1 Other chronic pancreatitis; Z68.41 Body mass index [BMI] 40.0-44.9, adult; E66.01 Morbid (severe) obesity due to excess calories; E83.42 Hypomagnesemia; E86.0 Dehydration; E87.5 Hyperkalemia; E87.6 Hypokalemia; I10 Essential (primary) hypertension; K21.9 Gastro-esophageal reflux disease without esophagitis; K22.2 Esophageal obstruction; M16.0 Bilateral primary osteoarthritis of hip; M17.10 Unilateral primary osteoarthritis, unspecified knee; Z82.49 Family history of ischemic heart disease and other diseases of the circulatory system; Z86.14 Personal history of Methicillin resistant Staphylococcus aureus infection; Z87.891 Personal history of nicotine dependence; Z98.84 Bariatric surgery status
CPT/HCPCS: 36415; 43249; 74177; 74240; 76700; 80053; 81001; 83690; 83735; 84132; 84703; 85025; 93005; 96361; 96374; 99285

== ENCOUNTER → 2021-01-30 | Outpatient (CLI) | payer OTHER ==
--- NOTE | 2021-01-30 14:55 | P.HPBAR ---
Bariatric H&P - History & Physicial H&P Date: 01/30/21 History & Physicial: Visit/CC: Patient initial contact: Initial weight: 126.099 kg Initial weight in pounds: Height: Initial BMI: Last weight: Current weight: Current weight in pounds: Current BMI: [place] body weight (based on NIH guidelines): Excess body weight loss: The patient is a 50 year-old F who presents for Bariatric Assessment. Patient presents today for bariatric follow-up. She underwent EGD with balloon di latation last week. She states that she has improvement in her oral intake. Past Medical History Past Medical History: GERD/Reflux, Hypertension, Osteoarthritis (OA) Additional Past Medical History / Comment(s): genital herpes., past HTN (no current meds)., states irregular heart beat., bladder polyps. , glaucoma left eye . History of Any Multi-Drug Resistant Organisms: MRSA Year Discovered:: 12/08/2011 MDRO Source:: left axilla Past Surgical History: Bariatric Surgery, Section, Cholecystectomy, Hernia Repair, Tubal Ligation Additional Past Surgical History / Comment(s): umbilical hernia , cystoscopy, bladder-polyp removed , EGD., 01/04/20-laparoscopy-(bariatric surgery aborted due to hernia and adhesions). Gastric sleeve 12/06/20 Past Anesthesia/Blood Transfusion Reactions: No Reported Reaction Past Psychological History: No Psychological Hx Reported Smoking Status: Former smoker Past Alcohol Use History: None Reported Additional Past Alcohol Use History / Comment(s): started smoking 1984 and quit 2002 smoked 1ppd. Past Drug Use History: Cocaine, Marijuana Additional Drug Use History / Comment(s): crack/marijuana use but quit 1997 - Past Family History Father Family Medical History: Cancer, Hyperlipidemia, Hypertension Additional Family Medical History / Comment(s): hepatitis c Mother Family Medical History: Hypertension Additional Family Medical History / Comment(s): mental health issues Surgical - Exam - General well developed, well nourished, no distress - Eyes PERRL - ENT normal pinna - Neck no masses - Respiratory normal expansion - Cardiovascular Rhythm: regular - Abdomen Abdomen: soft, non tender Bariatric Assessment & Plan Plan: Status post sleeve gastrectomy. Patient's dysphagia has improved. She'll follow-up in one week. Bariatric Checklist Checklist: Plan: Checklist: EGD: 1. Hiatal hernia: 2. H. Pylori: HgbA1c: Vitamin D: Smoking: Former smoker Primary care physician referral: TWYLA CARLSON Psychiatry clearance: Cardiology clearance: Sleep study: Diet journal: VTE risk score: VTE risk level: Rehab needs at discharge:
[2021-01-30 15:00] VITALS: BP 118/72; PULSE 72; RESP 18; TEMP 98.4; BMI 37.9
== END ==
LOC: BARWHC3 14:21
PROVIDERS: ATTEND Surgery
DX: Z09 Encounter for follow-up examination after completed treatment for conditions other than malignant neoplasm (principal); I10 Essential (primary) hypertension; M19.90 Unspecified osteoarthritis, unspecified site; Z98.84 Bariatric surgery status; Z87.891 Personal history of nicotine dependence
CPT/HCPCS: 99211

== ENCOUNTER → 2021-02-06 | Outpatient (CLI) | payer OTHER ==
[2021-02-06 14:13] VITALS: BP 116/79; PULSE 81; RESP 18; TEMP 97.7; BMI 38.2
--- NOTE | 2021-03-07 10:24 | P.HPBAR ---
Bariatric H&P - History & Physicial H&P Date: 02/06/21 History & Physicial: Visit/CC: follow up Patient initial contact: Initial weight: 126.099 kg Initial weight in pounds: 278.00 Height: 5 ft 6 in Initial BMI: 44.9 Last weight: Current weight: 107.365 kg Current weight in pounds: 236.70 Current BMI: 38.2 [place] body weight (based on NIH guidelines): 58.967 kg Excess body weight loss: 27.9% The patient is a 51 year-old F who presents for Bariatric Assessment. Patient presents today for bariatric follow-up. She states her dysphagia has improved. She's had some minimal GERD. Past Medical History Past Medical History: GERD/Reflux, Hypertension, Osteoarthritis (OA) Additional Past Medical History / Comment(s): genital herpes., past HTN (no current meds)., states irregular heart beat., bladder polyps. , glaucoma left eye . History of Any Multi-Drug Resistant Organisms: MRSA Year Discovered:: 12/08/2011 MDRO Source:: left axilla Past Surgical History: Bariatric Surgery, Section, Cholecystectomy, Hernia Repair, Tubal Ligation Additional Past Surgical History / Comment(s): umbilical hernia , cystoscopy, bladder-polyp removed , EGD., 01/04/20-laparoscopy-(bariatric surgery aborted due to hernia and adhesions). Gastric sleeve 12/06/20 Past Anesthesia/Blood Transfusion Reactions: No Reported Reaction Past Psychological History: No Psychological Hx Reported Additional Psychological History / Comment(s): . Smoking Status: Former smoker Past Alcohol Use History: None Reported Additional Past Alcohol Use History / Comment(s): started smoking 1984 and quit 2002 smoked 1ppd. Past Drug Use History: Cocaine, Marijuana Additional Drug Use History / Comment(s): crack/marijuana use but quit 1997 - Past Family History Father Family Medical History: Cancer, Hyperlipidemia, Hypertension Additional Family Medical History / Comment(s): hepatitis c Mother Family Medical History: Hypertension Additional Family Medical History / Comment(s): mental health issues Surgical - Exam Vital Signs Temp Pulse Resp BP 97.7 F 81 18 116/79 02/06/21 14:12 02/06/21 14:12 02/06/21 14:12 02/06/21 14:12 - General well developed, well nourished, no distress - Eyes PERRL - ENT normal pinna - Neck no masses - Respiratory normal expansion - Cardiovascular Rhythm: regular - Abdomen Abdomen: soft, non tender Bariatric Assessment & Plan Plan: Status post sleeve gastric. Patient dysphagia improved. Her GERD is minimal O will be observed. She'll follow-up in 4 weeks. Bariatric Checklist Checklist: Plan: Checklist: EGD: 1. Hiatal hernia: 2. H. Pylori: HgbA1c: Vitamin D: Smoking: Former smoker Primary care physician referral: TWYLA CARLSON Psychiatry clearance: Cardiology clearance: Sleep study: Diet journal: VTE risk score: VTE risk level: Rehab needs at discharge:
== END ==
LOC: BARWHC3 14:05
PROVIDERS: ATTEND Surgery
DX: Z09 Encounter for follow-up examination after completed treatment for conditions other than malignant neoplasm (principal); K21.9 Gastro-esophageal reflux disease without esophagitis; I10 Essential (primary) hypertension; M19.90 Unspecified osteoarthritis, unspecified site; Z98.84 Bariatric surgery status; Z87.891 Personal history of nicotine dependence
CPT/HCPCS: 99211

== ENCOUNTER → 2021-02-20 | Outpatient (CLI) | payer OTHER ==
[2021-02-20 14:32] VITALS: BP 119/79; PULSE 82; RESP 18; TEMP 98.2; BMI 37.4
--- NOTE | 2021-03-07 10:52 | P.HPBAR ---
Bariatric H&P - History & Physicial H&P Date: 02/20/21 History & Physicial: Visit/CC: follow up Patient initial contact: Initial weight: 126.099 kg Initial weight in pounds: 278.00 Height: 5 ft 6 in Initial BMI: 44.9 Last weight: Current weight: 105.233 kg Current weight in pounds: 232.00 Current BMI: 37.4 [place] body weight (based on NIH guidelines): 58.967 kg Excess body weight loss: 31.0% The patient is a 51 year-old F who presents for Bariatric Assessment. Patient presents today for sleeve gastrectomy follow-up. She states her dysphagia and GERD are improving. Past Medical History Past Medical History: GERD/Reflux, Hypertension, Osteoarthritis (OA) Additional Past Medical History / Comment(s): genital herpes., past HTN (no current meds)., states irregular heart beat., bladder polyps. , glaucoma left e ye . History of Any Multi-Drug Resistant Organisms: MRSA Year Discovered:: 12/08/2011 MDRO Source:: left axilla Past Surgical History: Bariatric Surgery, Section, Cholecystectomy, Hernia Repair, Tubal Ligation Additional Past Surgical History / Comment(s): umbilical hernia , cystoscopy, bladder-polyp removed , EGD., 01/04/20-laparoscopy-(bariatric surgery aborted due to hernia and adhesions). Gastric sleeve 12/06/20 Past Anesthesia/Blood Transfusion Reactions: No Reported Reaction Smoking Status: Former smoker - Past Family History Father Family Medical History: Cancer, Hyperlipidemia, Hypertension Additional Family Medical History / Comment(s): hepatitis c Mother Family Medical History: Hypertension Additional Family Medical History / Comment(s): mental health issues Surgical - Exam Vital Signs Temp Pulse Resp BP 98.2 F 82 18 119/79 02/20/21 14:29 02/20/21 14:29 02/20/21 14:29 02/20/21 14:29 - General well developed, well nourished, no distress - Eyes PERRL - ENT normal pinna - Neck no masses - Cardiovascular Rhythm: regular - Abdomen Abdomen: soft, non tender Bariatric Assessment & Plan Plan: Status post sleeve gastrectomy. Improving GERD and dysphagia. She'll follow-up in 4 weeks. Bariatric Checklist Checklist: Plan: Checklist: EGD: 1. Hiatal hernia: 2. H. Pylori: HgbA1c: Vitamin D: Smoking: Former smoker Primary care physician referral: TWYLA CARLSON Psychiatry clearance: Cardiology clearance: Sleep study: Diet journal: VTE risk score: VTE risk level: Rehab needs at discharge:
== END ==
LOC: BARWHC3 14:16
PROVIDERS: ATTEND Surgery
DX: Z09 Encounter for follow-up examination after completed treatment for conditions other than malignant neoplasm (principal); K21.9 Gastro-esophageal reflux disease without esophagitis; I10 Essential (primary) hypertension; M19.90 Unspecified osteoarthritis, unspecified site; Z87.891 Personal history of nicotine dependence; Z98.84 Bariatric surgery status
CPT/HCPCS: 99211

== ENCOUNTER → 2021-03-06 | Outpatient (CLI) | payer OTHER ==
[2021-03-06 14:26] VITALS: BP 115/76; PULSE 78; RESP 18; TEMP 98.1; BMI 36.3
--- NOTE | 2021-03-06 14:46 | P.HPBAR ---
Bariatric H&P - History & Physicial H&P Date: 03/06/21 History & Physicial: Visit/CC: follow up Patient initial contact: Initial weight: 126.099 kg Initial weight in pounds: 278.00 Height: 5 ft 6 in Initial BMI: 44.9 Last weight: Current weight: 102.058 kg Current weight in pounds: 225.00 Current BMI: 36.3 [place] body weight (based on NIH guidelines): 58.967 kg Excess body weight loss: 35.8% The patient is a 51 year-old F who presents for Bariatric Assessment. Patient presents today for follow-up. She's had some minimal GERD. She denies any dysphagia. Past Medical History Past Medical History: GERD/Reflux, Hypertension, Osteoarthritis (OA) Additional Past Medical History / Comment(s): genital herpes., past HTN (no current meds)., states irregular heart beat., bladder polyps. , glaucoma left eye . History of Any Multi-Drug Resistant Organisms: MRSA Year Discovered:: 12/08/2011 MDRO Source:: left axilla Past Surgical History: Bariatric Surgery, Section, Cholecystectomy, Hernia Repair, Tubal Ligation Additional Past Surgical History / Comment(s): umbilical hernia , cystoscopy, bladder-polyp removed , EGD., 01/04/20-laparoscopy-(bariatric surgery aborted due to hernia and adhesions). Gastric sleeve 12/06/20 Past Anesthesia/Blood Transfusion Reactions: No Reported Reaction Past Psychological History: No Psychological Hx Reported Additional Psychological History / Comment(s): . Smoking Status: Former smoker Past Alcohol Use History: None Reported Additional Past Alcohol Use History / Comment(s): started smoking 1984 and quit 2002 smoked 1ppd. Past Drug Use History: Cocaine, Marijuana Additional Drug Use History / Comment(s): crack/marijuana use but quit 1997 - Past Family History Father Family Medical History: Cancer, Hyperlipidemia, Hypertension Additional Family Medical History / Comment(s): hepatitis c Mother Family Medical History: Hypertension Additional Family Medical History / Comment(s): mental health issues Surgical - Exam Vital Signs Temp Pulse Resp BP 98.1 F 78 18 115/76 03/06/21 14:21 03/06/21 14:21 03/06/21 14:21 03/06/21 14:21 - General well developed, well nourished, no distress - Eyes PERRL - ENT normal pinna - Neck no masses - Respiratory normal expansion - Cardiovascular Rhythm: regular - Abdomen Abdomen: soft, non tender Bariatric Assessment & Plan Plan: Resolving morbid obesity. Patient's creatinine is minimal and will be observed. She'll follow-up in 4 weeks. Bariatric Checklist Checklist: Plan: Checklist: EGD: 1. Hiatal hernia: 2. H. Pylori: HgbA1c: Vitamin D: Smoking: Former smoker Primary care physician referral: TWYLA CARLSON Psychiatry clearance: Cardiology clearance: Sleep study: Diet journal: VTE risk score: VTE risk level: Rehab needs at discharge:
== END ==
LOC: BARWHC3 14:05
PROVIDERS: ATTEND Surgery
DX: E66.01 Morbid (severe) obesity due to excess calories (principal); I10 Essential (primary) hypertension; M19.90 Unspecified osteoarthritis, unspecified site; Z98.84 Bariatric surgery status; Z87.891 Personal history of nicotine dependence; Z68.36 Body mass index [BMI] 36.0-36.9, adult
CPT/HCPCS: 99211

== ENCOUNTER → 2021-04-19 | Outpatient (CLI) | payer OTHER ==
--- NOTE | 2021-04-19 14:10 | XR ---
EXAMINATION TYPE: XR lumbar spine 2 or 3V DATE OF EXAM: 04/19/2021 Comparison: 11/10/2020 Clinical History: 51-year-old female low back pain, Lumbago Findings: 5 lumbar type vertebral bodies. Advanced hypertrophic facet arthropathy mid to lower lumbar spine wit h grade 1 anterolisthesis L4-L5. Moderate degenerative disc disease and endplate spondylosis L5-S1 an d mild within the remainder of the lumbar spine. Tubal ligation clips are noted. Impression: Advanced hypertrophic facet arthropathy mid to lower lumbar spine with degenerative grade 1 anterolis thesis at L4-L5. Moderate degenerative disc disease L5-S1 may be slightly progressed. Mild within the remainder of the lumbar spine.
== END | disposition home or self-care (01) ==
LOC: RADXRMAIN 10:58
PROVIDERS: ATTEND Family Medicine
DX: M51.37 Other intervertebral disc degeneration, lumbosacral region (principal); M43.16 Spondylolisthesis, lumbar region; M47.816 Spondylosis without myelopathy or radiculopathy, lumbar region
CPT/HCPCS: 72100

== ENCOUNTER → 2021-05-29 | Outpatient (CLI) | payer OTHER ==
[2021-05-29 14:47] VITALS: BP 118/76; PULSE 69; RESP 16; TEMP 98; BMI 32.9
--- NOTE | 2021-05-29 16:43 | P.HPBAR ---
Bariatric H&P - History & Physicial H&P Date: 05/29/21 History & Physicial: Visit/CC: sleeve 12/06/20 Patient initial contact: Initial weight: 126.099 kg Initial weight in pounds: 278.00 Height: 5 ft 6 in Initial BMI: 44.9 Last weight: Current weight: 92.533 kg Current weight in pounds: 204.00 Current BMI: 32.9 [place] body weight (based on NIH guidelines): 58.967 kg Excess body weight loss: 50.0% The patient is a 51 year-old F who presents for Bariatric Assessment. Patient presents today for sleeve gastrectomy follow-up. She is an excellent weight loss. She has lost a total of approximately 85 pounds. She's had some minimal GERD. Past Medical History Past Medical History: GERD/Reflux, Hypertension, Osteoarthritis (OA) Additional Past Medical History / Comment(s): genital herpes., past HTN (no current meds)., states irregular heart beat., bladder polyps. , glaucoma left eye . History of Any Multi-Drug Resistant Organisms: MRSA Year Discovered:: 12/08/2011 MDRO Source:: left axilla Past Surgical History: Bariatric Surgery, Section, Cholecystectomy, Hernia Repair, Tubal Ligation Additional Past Surgical History / Comment(s): umbilical hernia , cystoscopy, bladder-polyp removed , EGD., 01/04/20-laparoscopy-(bariatric surgery aborted due to hernia and adhesions). Gastric sleeve 12/06/20 Past Anesthesia/Blood Transfusion Reactions: No Reported Reaction Past Psychological History: No Psychological Hx Reported Additional Psychological History / Comment(s): . Smoking Status: Former smoker Past Alcohol Use History: None Reported Additional Past Alcohol Use History / Comment(s): started smoking 1984 and quit 2002 smoked 1ppd. Past Drug Use History: Cocaine, Marijuana Additional Drug Use History / Comment(s): crack/marijuana use but quit 1997 - Past Family History Father Family Medical History: Cancer, Hyperlipidemia, Hypertension Additional Family Medical History / Comment(s): hepatitis c Mother Family Medical History: Hypertension Additional Family Medical History / Comment(s): mental health issues Surgical - Exam Vital Signs Temp Pulse Resp BP 98 F 69 16 118/76 05/29/21 14:45 05/29/21 14:45 05/29/21 14:45 05/29/21 14:45 - General well developed, well nourished, no distress - Eyes PERRL - ENT normal pinna - Neck no masses - Respiratory normal expansion - Cardiovascular Rhythm: regular - Abdomen Abdomen: soft, non tender Bariatric Assessment & Plan Plan: Resolving morbid obesity. Patient's GERD is minimal and will be observed. She'll follow-up in 4 weeks. Bariatric Checklist Checklist: Plan: Checklist: EGD: 1. Hiatal hernia: 2. H. Pylori: HgbA1c: Vitamin D: Smoking: Former smoker Primary care physician referral: TWYLA CARLSON Psychiatry clearance: Cardiology clearance: Sleep study: Diet journal: VTE risk score: VTE risk level: Rehab needs at discharge:
== END ==
LOC: BARWHC3 13:20
PROVIDERS: ATTEND Surgery
DX: E66.01 Morbid (severe) obesity due to excess calories (principal); K21.9 Gastro-esophageal reflux disease without esophagitis; I10 Essential (primary) hypertension; M19.90 Unspecified osteoarthritis, unspecified site; Z87.891 Personal history of nicotine dependence; Z68.32 Body mass index [BMI] 32.0-32.9, adult
CPT/HCPCS: 99211

== ENCOUNTER → 2021-06-15 | Outpatient (CLI) | payer OTHER ==
[2021-06-15 09:18] VITALS: BP 123/78; PULSE 92; RESP 18; TEMP 98.4
--- NOTE | 2021-06-15 09:35 | P.PAINCN ---
History of Present Illness - Reason for Consult Consult date: 06/15/21 Neck pain, and headache - Chief Complaint Neck pain, and headache - History of Present Illness Mrs. Rao is a 51 -year-old pleasant female came to the [facility] pain clinic for initial evaluation for her headache, neck pain. Patient has ongoing pain for many years. She noticed her pain only during winter months. Patient describes pain is aching, throbbing, intermittent type of pain. Upper neck Pain is radiating to and middle of head. Patient did not identified any triggering factors except winter months. Patient rated pain levels are 2-7 out of 10 in severity. With the help of medications pain levels are 0-3 out of 10 in severity. Activities making pain worse. Medications, resting helping in relieving patient's pain. Patient pain some days better than others. Overall activities decreased secondary to pain. Because of the pain sometimes patient is feeling lack of sleep, interest, and energy. Denied any side effects with the medications. Denied any bowel or bladder problems at this time. Patient is not using any for walking support. Patient denies any suicidal or homicidal ideations intent or plan. Patient denies any auditory or visual hallucinations. Patient denied any red flag symptoms related to pain. Review of Systems All systems: negative Constitutional: Denies chills, Denies fever Eyes: denies blurred vision, denies pain Ears, nose, mouth and throat: Denies headache, Denies sore throat Cardiovascular: Denies chest pain, Denies shortness of breath Respiratory: Denies cough Gastrointestinal: Denies abdominal pain, Denies diarrhea, Denies nausea, Denies vomiting Genitourinary: Denies dysuria, Denies hematuria Musculoskeletal: Reports myalgias, Reports neck pain Integumentary: Denies pruritus, Denies rash Neurological: Reports headaches, Denies numbness, Denies weakness Psychiatric: Denies anxiety, Denies depression Endocrine: Denies fatigue, Denies weight change Past Medical History Past Medical History: GERD/Reflux, Hypertension, Osteoarthritis (OA) Additional Past Medical History / Comment(s): genital herpes., past HTN (no current meds)., states irregular heart beat., bladder polyps. , glaucoma left eye . History of Any Multi-Drug Resistant Organisms: MRSA Year Discovered:: 12/08/2011 MDRO Source:: left axilla Past Surgical History: Bariatric Surgery, Section, Cholecystectomy, Hernia Repair, Tubal Ligation Additional Past Surgical History / Comment(s): umbilical hernia , cystoscopy, bladder-polyp removed , EGD., 01/04/20-laparoscopy-(bariatric surgery aborted due to hernia and adhesions). Gastric sleeve 12/06/20 Past Anesthesia/Blood Transfusion Reactions: No Reported Reaction Past Psychological History: No Psychological Hx Reported Additional Psychological History / Comment(s): . Smoking Status: Former smoker Past Alcohol Use History: None Reported Additional Past Alcohol Use History / Comment(s): started smoking 1984 and quit 2002 smoked 1ppd. Past Drug Use History: Cocaine, Marijuana Additional Drug Use History / Comment(s): crack/marijuana use but quit 1997 - Past Family History Father Family Medical History: Cancer, Hyperlipidemia, Hypertension Additional Family Medical History / Comment(s): hepatitis c Mother Family Medical History: Hypertension Additional Family Medical History / Comment(s): mental health issues Medications and Allergies Home Medications Medication Instructions Recorded Confirmed Type Ascorbic Acid [Vitamin C] 500 mg PO DAILY 07/30/20 06/15/21 History Multivitamins, Thera [Multivitamin 1 tab PO DAILY 07/30/20 06/15/21 History (formulary)] Brimonidine Tartrate [Alphagan P 1 drops LEFT EYE BID 11/10/20 06/15/21 History 0.2% Ophth Soln] polyethylene glycoL 3350 [Miralax] 17 gm PO DAILY 01/21/21 06/15/21 History Calcium Crb,Cit/D3/Min34/Sanjay 1 each PO DAILY 01/30/21 06/15/21 History [Citracal Plus Bone Density Tab] Allergies Allergy/AdvReac Type Severity Reaction Status Date / Time No Known Allergies Allergy Verified 06/15/21 09:20 Physical Exam Vitals: Vital Signs Temp Pulse Resp BP Pulse Ox 06/15/21 09:09 98.4 F 92 18 123/78 100 General: Well-developed, well-nourished, no acute distress HEENT: Normocephalic, and atraumatic Neck: Supple, no neck swelling Psychiatric: Appropriate mood, and affect ROVING CHANGER: No focal neurological deficits Musculoskeletal: Upper extremity: Normal strength, and range of motion. Sensation grossly intact Lower extremity: Normal strength, and range of motion Cervical spine: Paravertebral tenderness: Positive Cervical spine facet nelda: Positive Cervical spine Spurling test: Negative Tenderness over the occipital ridge area positive. Results Comments: MRI of the brain done on 05/22/2021 showed: No significant findings identified Assessment and Plan Assessment: Occipital neuralgia Cervicalgia Plan: #1 Diagnoses, prognosis, and multiple treatment options including but not limited to physical therapy, interventional therapy, adjunct medication therapy, narcotic medication, and surgical options were discussed with the patient. And all questions were answered to the patient's satisfaction. #2 treatment plan agreement : Patient was thoroughly discussed regarding the treatment options, alternatives, and importance of exercises as tolerated. Patient clearly understood. #3 Patient was counseled on importance of regular exercise. Including chata chi, aerobic exercises as tolerated. Which helps for chronic pain, and overall well- being. Patient also counseled regarding importance of weight control rolling chronic pain, and overall other health issues. By altering diet habits, minimizing sugar intake, and processed foods helps in minimizing Inflammation. Also discussed with the patient regarding intermittent fasting. #4 investigations: MAPS- reviewed , urine drug test- not done #5 diagnostic tests: None #6 consultation : None # 7 interventional procedures: Bilateral occipital nerve block discussed with the patient . Procedure, complications, alternatives discussed with the patient. #8 medications #1 magnesium oxide 400 mg by mouth daily Medication side effects, complications, long-term consequences discussed with the patient. Patient recommended to contact the pain clinic if noticed any issues with given medications. #9 morphine milligrams equivalents dose ( MME) per day: 0 from the pain clinic. # 10 TENS unit's, and percussion massage device #11 disposition: scheduled to follow up with pain clinic in 8 weeks duration. Time with Patient: Greater than 30 PQRS Measure Charge Sheet Measure #226: Tobacco Use: Screen & Cessation Intervention: Pt not a tobacco user (he) Measure #111: Pneumonia Vaccination: Pneumococcal vaccine NOT administered or previously given Measure #47: Advance Care Plan: Advance care planning discussed & documented, pt chose/unable to give Measure #408: Opioid Therapy Follow-up Evaluation: Patient had NO f/u eval minimum every 3 months during opioid therapy Measure #317: Preventitive Care & Scrn High Bld Press & F/U: Pre-hypertensive or hypertensive BP documented, pt will f/u with PCP Measure #128: Body Mass Index (BMI) Screening & Follow-up: BMI documented ABOVE normal parameters - f/u documented Measure #131: Pain Assessment & Follow-up: Pain positive & plan documented Measure #431: Unhealthy Alcohol Use Preventative Care & Scrn: Patient not identified as an unhealthy alcohol user Mode of Arrival: Ambulatory - Pain Location Bilateral Occipital Non-Pharmacological Interventions: Position/Reposition, Relaxation Technique Pharmacological Interventions: PRN Medication PQRS Narrative: Smoking Status Former smoker Blood Pressure 123/78 Pain Intensity [Bilateral 0 Occipital] Scale Used Numeric (1 - 10) Home Medications: Ambulatory Orders Ascorbic Acid [Vitamin C] 500 mg PO DAILY 07/30/20 Multivitamins, Thera [Multivitamin (formulary)] 1 tab PO DAILY 07/30/20 Brimonidine Tartrate [Alphagan P 0.2% Ophth Soln] 1 drops LEFT EYE BID 11/10/20 polyethylene glycoL 3350 [Miralax] 17 gm PO DAILY 01/21/21 Calcium Crb,Cit/D3/Min34/Sanjay [Citracal Plus Bone Density Tab] 1 each PO DAILY 01/30/21
== END ==
LOC: PNWHC3 08:50
DX: M54.81 Occipital neuralgia (principal); I10 Essential (primary) hypertension; M19.90 Unspecified osteoarthritis, unspecified site; Z87.891 Personal history of nicotine dependence
CPT/HCPCS: 99211

== ENCOUNTER → 2021-08-28 | Outpatient (CLI) | payer OTHER ==
[2021-08-28 13:55] VITALS: BP 124/80; PULSE 78; RESP 16; TEMP 98.1; BMI 32.8
--- NOTE | 2021-08-29 11:43 | P.HPBAR ---
Bariatric H&P - History & Physicial H&P Date: 08/28/21 History & Physicial: Visit/CC: F/U sleeve 12/06/20 Patient initial contact: Initial weight: 126.099 kg Initial weight in pounds: 278.00 Height: 5 ft 6 in Initial BMI: 44.9 Last weight: Current weight: 92.079 kg Current weight in pounds: 203.00 Current BMI: 32.8 [place] body weight (based on NIH guidelines): 58.967 kg Excess body weight loss: 50.6% The patient is a 51 year-old F who presents for Bariatric Assessment. Patient rents today for sleeve gastrectomy follow-up. She's had some minimal GERD symptoms. She denies any dysphagia. She is an excellent weight loss. Past Medical History Past Medical History: GERD/Reflux, Hypertension, Osteoarthritis (OA) Additional Past Medical History / Comment(s): genital herpes., past HTN (no current meds)., states irregular heart beat., bladder polyps. , glaucoma left eye . History of Any Multi-Drug Resistant Organisms: MRSA Year Discovered:: 12/08/2011 MDRO Source:: left axilla Past Surgical History: Bariatric Surgery, Section, Cholecystectomy, Hernia Repair, Tubal Ligation Additional Past Surgical History / Comment(s): umbilical hernia , cystoscopy, bladder-polyp removed , EGD., 01/04/20-laparoscopy-(bariatric surgery aborted due to hernia and adhesions). Gastric sleeve 12/06/20 Past Anesthesia/Blood Transfusion Reactions: No Reported Reaction Past Psychological History: No Psychological Hx Reported Additional Psychological History / Comment(s): . Smoking Status: Former smoker Past Alcohol Use History: None Reported Additional Past Alcohol Use History / Comment(s): started smoking 1984 and quit 2002 smoked 1ppd. Past Drug Use History: Cocaine, Marijuana Additional Drug Use History / Comment(s): crack/marijuana use but quit 1997 - Past Family History Father Family Medical History: Cancer, Hyperlipidemia, Hypertension Additional Family Medical History / Comment(s): hepatitis c Mother Family Medical History: Hypertension Additional Family Medical History / Comment(s): mental health issues Surgical - Exam Vital Signs Temp Pulse Resp BP 98.1 F 78 16 124/80 08/28/21 13:51 08/28/21 13:51 08/28/21 13:51 08/28/21 13:51 - General well nourished, no distress - Eyes PERRL - ENT normal pinna - Neck no masses - Respiratory normal expansion - Cardiovascular Rhythm: regular - Abdomen Abdomen: soft, non tender Bariatric Assessment & Plan Plan: Status post sleeve gastric. Patient is minimal and will be observed. She has doing quite well. Bariatric Checklist Checklist: Plan: Checklist: EGD: 1. Hiatal hernia: 2. H. Pylori: HgbA1c: Vitamin D: Smoking: Former smoker Primary care physician referral: TWYLA CARLSON Psychiatry clearance: Cardiology clearance: Sleep study: Diet journal: VTE risk score: VTE risk level: Rehab needs at discharge:
== END ==
LOC: BARWHC3 13:32
PROVIDERS: ATTEND Surgery
DX: Z09 Encounter for follow-up examination after completed treatment for conditions other than malignant neoplasm (principal); K21.9 Gastro-esophageal reflux disease without esophagitis; I10 Essential (primary) hypertension; Z98.84 Bariatric surgery status; M19.90 Unspecified osteoarthritis, unspecified site; Z87.891 Personal history of nicotine dependence
CPT/HCPCS: 99211

== ENCOUNTER → 2021-08-28 | Outpatient (CLI) | payer OTHER ==
[2021-08-28 18:16] LABS: HGB 12.3 g/dL (12.0-15.0); MCH 26.5 pg (27.0-32.0); MCHC 30.8 g/dL (32.0-37.0); MCV 86.2 fL (80.0-97.0); Mean Platelet Volume 10.5 fL (9.5-12.2); NRBC Per 100 WBC 0 /100 WBCS (0.0-0.0); Platelet Count 306 X 10*3/uL (140-440); RBC 4.64 X 10*6/uL (4.10-5.20); RDW 15.2 % (11.5-14.5); WBC 5.62 X 10*3/uL (4.50-10.00)
[2021-08-28 18:50] LABS: % Iron Saturation 27.85 (12.00-45.00); ALT 34 U/L (8-44); AST 24 U/L (13-35); African American GFR (CKD) 87.6 (60.0-200.0); Albumin/Globulin Ratio 1.68 (1.60-3.17); Alkaline Phosphatase 98 U/L (41-126); BUN/Creat Ratio 24.32 Ratio (12.00-20.00); Blood Urea Nitrogen 21.4 mg/dL (9.0-27.0); Calcium 9.1 mg/dL (8.7-10.3); Carbon Dioxide 23.1 mmol/L (20.0-27.5); Chloride 107 mmol/L (96-109); Globulin 2.4 g/dL (1.6-3.3); Glucose 83 mg/dL (70-110); Iron 78 ug/dL (50-170); Magnesium 2.3 mg/dL (1.5-2.4); Non-African American GFR(CKD) 75.5 (60.0-200.0); Potassium 3.9 mmol/L (3.5-5.5); Sodium 142 mmol/L (135-145); Total Bilirubin <0.15 mg/dL (0.30-1.20); Total Iron Binding Capacity 279 ug/dL (228-460); Total Protein 6.4 g/dL (6.2-8.2); Vitamin B12 >2000.0 pg/mL (200.0-944.0)
[2021-08-29 12:26] LABS: Zinc, Serum 65 ug/dL (60-130)
[2021-08-30 06:18] LABS: Vitamin A 44 ug/dL (38-106)
[2021-08-31 07:04] LABS: Vit B1(Thiamine) 53 ug/L (38-122)
== END | disposition home or self-care (01) ==
LOC: LABWHC1 13:09
PROVIDERS: ATTEND Surgery
DX: E55.9 Vitamin D deficiency, unspecified (principal); E44.0 Moderate protein-calorie malnutrition; E66.01 Morbid (severe) obesity due to excess calories; D50.8 Other iron deficiency anemias; T56.894A Toxic effect of other metals, undetermined, initial encounter
CPT/HCPCS: 36415; 80053; 82306; 82607; 82728; 82746; 83540; 83550; 83735; 84255; 84425; 84443; 84590; 84630; 85027

== ENCOUNTER → 2021-10-03 | Outpatient (CLI) | payer OTHER ==
--- NOTE | 2021-10-03 15:35 | MR ---
EXAMINATION TYPE: MR lumbar spine wo/w con DATE OF EXAM: 10/03/2021 COMPARISON: Plain film 04/19/2021 HISTORY: Low back pain. TECHNIQUE: Multiplanar, multisequence images of the lumbar spine were acquired without and with 9 mL intravenous Gadavist gadolinium contrast. L1-L2: Normal disc appearance without desiccation. No herniation, protrusion or disc bulging. No ca nal stenosis is present. Foramina are patent bilaterally. L2-L3: Posterior broad-based disc bulge causes only minimal effacement of anterior thecal sac, no sig nificant foraminal encroachment. L3-L4: Posterior broad-based disc bulge causes mild anterior mass effect on the thecal sac. No signif icant foraminal encroachment. L4-L5: Normal disc appearance without desiccation. No herniation, protrusion or disc bulging. No ca nal stenosis is present. Foramina are patent bilaterally. Facet arthropathy with hypertrophy ligamen jaziel flavum causes some posterior lateral mass effect on the thecal sac. L5-S1: Circumferential extension of endplate disc complex causes some right-sided foraminal encroachm ent. No significant mass effect on the thecal sac. There is facet arthropathy change present. Lumbar segments are intact. No paraspinal masses are identified. Conus medullaris has a normal appe arance. Minimal grade 1 anterolisthesis L4-5, there is multilevel spondylosis with endplate discogeni c marrow signal change, loss of disc height signal is greatest at L3-4, L5-S1, L2-3 consistent with d isc desiccation and degenerative disc disease. There is no significant spinal stenosis. No abnormal e nhancement following contrast administration. There is a spinal curvature. Cortical cysts are associa alvaro with the kidneys. IMPRESSION: Degenerative disc disease and facet arthropathy, foraminal encroachment as described.
== END | disposition home or self-care (01) ==
LOC: RADMRIMAIN 08:37
PROVIDERS: ATTEND Family Medicine
DX: M51.36 Other intervertebral disc degeneration, lumbar region (principal); M47.816 Spondylosis without myelopathy or radiculopathy, lumbar region
CPT/HCPCS: 72158; A9585

== ENCOUNTER → 2021-11-20 | Outpatient (CLI) | payer OTHER ==
--- NOTE | 2021-11-20 14:09 | P.HPBAR ---
Bariatric H&P - History & Physicial H&P Date: 11/20/21 History & Physicial: Visit/CC: Patient initial contact: Initial weight: 126.099 kg Initial weight in pounds: Height: Initial BMI: Last weight: Current weight: Current weight in pounds: Current BMI: [place] body weight (based on NIH guidelines): Excess body weight loss: The patient is a 51 year-old F who presents for Bariatric Assessment. Patient rents today for sleeve gastrectomy follow-up. She weighs 198 pounds. She previously weight 203 pounds her last visit. She has some mild GERD. Past Medical History Past Medical History: GERD/Reflux, Hypertension, Osteoarthritis (OA) Additional Past Medical History / Comment(s): genital herpes., past HTN (no current meds)., states irregular heart beat., bladder polyps. , glaucoma left eye . History of Any Multi-Drug Resistant Organisms: MRSA Year Discovered:: 12/08/2011 MDRO Source:: left axilla Past Surgical History: Bariatric Surgery, Section, Cholecystectomy, Hernia Repair, Tubal Ligation Additional Past Surgical History / Comment(s): umbilical hernia , cystoscopy, bladder-polyp removed , EGD., 01/04/20-laparoscopy-(bariatric surgery aborted due to hernia and adhesions). Gastric sleeve 12/06/20 Past Anesthesia/Blood Transfusion Reactions: No Reported Reaction Past Psychological History: No Psychological Hx Reported Additional Psychological History / Comment(s): . Smoking Status: Former smoker Past Alcohol Use History: None Reported Additional Past Alcohol Use History / Comment(s): started smoking 1984 and quit 2002 smoked 1ppd. Past Drug Use History: Cocaine, Marijuana Additional Drug Use History / Comment(s): crack/marijuana use but quit 1997 - Past Family History Father Family Medical History: Cancer, Hyperlipidemia, Hypertension Additional Family Medical History / Comment(s): hepatitis c Mother Family Medical History: Hypertension Additional Family Medical History / Comment(s): mental health issues Surgical - Exam - General well developed, well nourished, no distress - Eyes PERRL - ENT normal pinna - Neck no masses - Respiratory normal expansion - Cardiovascular Rhythm: regular - Abdomen Abdomen: soft, non tender Bariatric Assessment & Plan Plan: Status post sleeve gastrectomy. Patient's GERD is minimal and will be observed. She's had excellent weight loss. Bariatric Checklist Checklist: Plan: Checklist: EGD: 1. Hiatal hernia: 2. H. Pylori: HgbA1c: Vitamin D: Smoking: Former smoker Primary care physician referral: TWYLA CARLSON Psychiatry clearance: Cardiology clearance: Sleep study: Diet journal: VTE risk score: VTE risk level: Rehab needs at discharge:
[2021-11-21 12:30] VITALS: BP 138/86; PULSE 86; TEMP 98.2; BMI 31.9
== END ==
LOC: BARWHC3 13:34
PROVIDERS: ATTEND Surgery
DX: E66.01 Morbid (severe) obesity due to excess calories (principal); K21.9 Gastro-esophageal reflux disease without esophagitis; Z98.84 Bariatric surgery status; Z87.891 Personal history of nicotine dependence; I10 Essential (primary) hypertension; M19.90 Unspecified osteoarthritis, unspecified site
CPT/HCPCS: 99211

== ENCOUNTER → 2022-03-05 | Outpatient (CLI) | payer OTHER ==
[2022-03-05 13:39] VITALS: BP 129/88; PULSE 77; TEMP 98.1; BMI 31.9
--- NOTE | 2022-03-20 12:35 | P.HPBAR ---
Bariatric H&P - History & Physicial H&P Date: 03/05/22 History & Physicial: Visit/CC: sleeve f/u Patient initial contact: Initial weight: 126.099 kg Initial weight in pounds: 278.00 Height: 5 ft 6 in Initial BMI: 44.9 Last weight: Current weight: 89.811 kg Current weight in pounds: 198.00 Current BMI: 31.9 [place] body weight (based on NIH guidelines): 58.967 kg Excess body weight loss: 54.0% The patient is a 52 year-old F who presents for Bariatric Assessment. Patient presents today for sleeve gastrectomy fall. She's had excellent weight loss. Patient is developed a large panniculus to loss. She's had issues with chronic skin irritation infection. Past Medical History Past Medical History: GERD/Reflux, Hypertension, Osteoarthritis (OA) Additional Past Medical History / Comment(s): genital herpes., past HTN (no current meds)., states irregular heart beat., bladder polyps. , glaucoma left eye . History of Any Multi-Drug Resistant Organisms: MRSA Year Discovered:: 12/08/2011 MDRO Source:: left axilla Past Surgical History: Bariatric Surgery, Section, Cholecystectomy, Hernia Repair, Tubal Ligation Additional Past Surgical History / Comment(s): umbilical hernia , cystoscopy, bladder-polyp removed , EGD., 01/04/20-laparoscopy-(bariatric surgery aborted due to hernia and adhesions). Gastric sleeve 12/06/20 Past Anesthesia/Blood Transfusion Reactions: No Reported Reaction Past Psychological History: No Psychological Hx Reported Additional Psychological History / Comment(s): . Smoking Status: Former smoker Past Alcohol Use History: None Reported Additional Past Alcohol Use History / Comment(s): started smoking 1984 and quit 2002 smoked 1ppd. Past Drug Use History: Cocaine, Marijuana Additional Drug Use History / Comment(s): crack/marijuana use but quit 1997 - Past Family History Father Family Medical History: Cancer, Hyperlipidemia, Hypertension Additional Family Medical History / Comment(s): hepatitis c Mother Family Medical History: Hypertension Additional Family Medical History / Comment(s): mental health issues Surgical - Exam Vital Signs Temp Pulse BP 98.1 F 77 129/88 03/05/22 13:36 03/05/22 13:36 03/05/22 13:36 - General well developed, well nourished, no distress - Eyes PERRL - ENT normal pinna - Neck no masses - Respiratory normal expansion - Cardiovascular Rhythm: regular - Abdomen Large pannus a and. The skin pain is over the pubic area. There is evidence of chronic skin irritation's at the pannus. Abdomen: soft, non tender Bariatric Assessment & Plan Plan: Resolving morbid obesity. Patient's current BMI is 32. Large pannus with evidence of chronic skin irritation. Patient was given information on panniculectomy. We'll we will attempt to obtain insurance authorization for panniculectomy. Bariatric Checklist Checklist: Plan: Checklist: EGD: 1. Hiatal hernia: 2. H. Pylori: HgbA1c: Vitamin D: Smoking: Former smoker Primary care physician referral: TWYLA CARLSON Psychiatry clearance: Cardiology clearance: Sleep study: Diet journal: VTE risk score: VTE risk level: Rehab needs at discharge:
== END ==
LOC: BARWHC3 13:20
PROVIDERS: ATTEND Surgery
DX: Z98.84 Bariatric surgery status (principal); E66.01 Morbid (severe) obesity due to excess calories; Z68.32 Body mass index [BMI] 32.0-32.9, adult; Z87.891 Personal history of nicotine dependence
CPT/HCPCS: 99211

== ENCOUNTER → 2022-04-02 | Outpatient (CLI) | payer OTHER ==
[2022-04-02 13:45] VITALS: BP 128/79; PULSE 87; RESP 16; TEMP 98; BMI 31.4
== END ==
LOC: BARWHC3 13:25
PROVIDERS: ATTEND Surgery
DX: E66.01 Morbid (severe) obesity due to excess calories (principal); Z68.31 Body mass index [BMI] 31.0-31.9, adult; Z87.891 Personal history of nicotine dependence
CPT/HCPCS: 99211

== ENCOUNTER → 2022-05-22 | Outpatient (CLI) | payer OTHER ==
--- NOTE | 2022-05-22 12:52 | XR ---
EXAMINATION TYPE: XR lumbar spine 2 or 3V DATE OF EXAM: 05/22/2022 CLINICAL HISTORY: pain TECHNIQUE: Three views of the lumbar spine are submitted. COMPARISON: None. FINDINGS: There are 5 lumbar type vertebral bodies identified. Curvature convex to the right. The lumbar spine shows satisfactory alignment without evidence of acute fracture or dislocation. Vertebral body heigh ts are within normal limits. Moderate degenerative narrowing L4-5 and L5-S1. Moderate facet joint a rthropathy lower lumbar spine. The overlying soft tissue appears unremarkable. IMPRESSION: No acute fracture or dislocation is seen in the lumbar spine. ICD 10 NO FRACTURE, INITIAL EVALUATION
== END | disposition home or self-care (01) ==
LOC: RADXRMAIN 12:17
PROVIDERS: ATTEND Family Medicine
DX: M54.50 Low back pain, unspecified (principal)
CPT/HCPCS: 72100

== ENCOUNTER → 2022-06-28 | Outpatient (CLI) | payer OTHER ==
[2022-06-28 13:04] VITALS: BP 109/75; PULSE 83; RESP 18; TEMP 98.2
--- NOTE | 2022-06-28 14:18 | P.PAINPG ---
PQRS Measure Charge Sheet Comment: A 52 yr old female with a history of severe and chronic LBP pain secondary to DDD, spondylosis and facet arthropathy without myelopathy presents today for LBP evaluation. Pain level is provoked at 8 /10 in intensity, constant, localized in the lumbar spine, throbbing in character w shooting towards the BLEs. Pain is provoked by standing/ walking/ bending/ lifting for periods of 15 min or more. Pain is alleviated with PT in Jun 2021 without relief, home exercises as tolerated, heat, meds (Tramadol, Tylenol, Motrin), topicals, repositioning and rest. Interventional pain procedures completed include Denies Patient is currently on Tramadol, Tylenol, Motrin Patient denies any side effects of the medication(s), denies excessive drowsiness or sleepiness, denies suicidal ideation and reports that the current pain medication is helping to control the pain and improve activities of daily living. Patient denies any motor or sensory deficits. Patient denies any fever or night sweats, denies any change in the bowel movements or urination. Physical Examination: -Constitutional: Cooperative. Not in acute distress . - Neurologic: Cranial nerve II to XII intact. No focal neurological deficits. - Psychatric: Alert & oriented x 3. Matching mood & appropriate affect. Judgment and insight intact. - Musculoskeletal: Cervical spine: Muscle bulk/ tone/ strength in the bilateral upper extremities normal Vertebral body tenderness to palpation over Spurling test positive Distraction test positive Facet loading test positive Thoracic spine Muscle bulk / tone/ strength in the bilateral paraspinal muscles normal Vertebral body tender to palpation over Facet loading test positive Lumbar spine: Motor bulk/ tone/ strength lower extremities , thigh and legs : 5/5 Deep tendon reflexes : Normal Knee Jerk. Normal Ankle Jerk . Vertebral body tenderness to palpation over L4, L5 Lumbar Facet Loading Test positive Straight Leg Raise: positive at 30 degrees right side/ left side Gaenslen's Test positive Sacral spine : Severe tenderness over the Sacroiliac joint: right side / left side Range of motion: Flexion of the lumbar spine <60 degrees Range of motion: Extension of the lumbar spine <20 degrees Gaenslen's Test positive Sandra test: positive right side / left side Thigh Thrust Test Sacral Thrust Test Imaging: Lumbar x ray from 05/22/22 reviewed Assessment and plan: Chronic LBP secondary to DDD, spondylosis and facet arthropathy without myelopathy Recommendation of MRI of the lumbar spine re: M51.36. May return to the clinic within 2-4 wks for a re evaluation. All patient questions answered I have spent less than 30 minutes on patient care today. Dr Paul was availab le by phone for the evaluation of this patient. The time was used to review the medical records including relevant urine studies and Prescription history (MAPs), review of the available imaging, evaluation and examination of the patient, coordination of care with the medical staff and if applicable referring physicians, as well as creation of the medical record PQRS Narrative: Smoking Status Former smoker Home Medications: Ambulatory Orders Ascorbic Acid [Vitamin C] 500 mg PO DAILY 07/30/20 Multivitamins, Thera [Multivitamin (formulary)] 1 tab PO DAILY 07/30/20 Brimonidine Tartrate [Alphagan P 0.2% Ophth Soln] 1 drops LEFT EYE BID 11/10/20 polyethylene glycoL 3350 [Miralax] 17 gm PO DAILY 01/21/21 Calcium Crb,Cit/D3/Min34/Sanjay [Citracal Plus Bone Density Tab] 1 each PO DAILY 01/30/21 Dicyclomine [Bentyl] 10 mg PO TID PRN 3 Days #12 capsule 02/02/22 Controlled Substance Measures - Controlled Substance Measures Is patient prescribed a controlled substance at discharge?: No
== END ==
LOC: PNWHC3 09:14
PROVIDERS: ATTEND Specialist
DX: M47.816 Spondylosis without myelopathy or radiculopathy, lumbar region (principal); M51.36 Other intervertebral disc degeneration, lumbar region; Z87.891 Personal history of nicotine dependence
CPT/HCPCS: 99211

== ENCOUNTER → 2023-02-27 | Outpatient (CLI) | payer OTHER ==
--- NOTE | 2023-02-27 16:50 | XR ---
EXAMINATION TYPE: XR knee complete RT DATE OF EXAM: 02/27/2023 4:35 PM CLINICAL INDICATION:Female, 53 years old with history of S39.012D S83.91XD; [facility] COMPARISON: 11/17/2015. TECHNIQUE: The Right knee(s) was examined in Frontal, lateral and oblique projections. FINDINGS: No evidence of any acute osseous pathology, soft tissue swelling, or joint effusion is no alvaro. Unchanged ossification of the medial collateral ligament. A fabella is present. Tricompartmental osteophyte formation involving the femoral condyles, tibial plateau and patella. Mi ld joint space narrowing. IMPRESSION: 1. No acute osseous pathology. 2. Mild to moderate tricompartmental osteoarthritic changes.
--- NOTE | 2023-02-27 16:51 | XR ---
EXAMINATION TYPE: XR lumbar spine 2 or 3V DATE OF EXAM: 02/27/2023 4:36 PM CLINICAL INDICATION:Female, 53 years old with history of S39.012D S83.91XD; H COMPARISON: Multiple radiographs 05/22/2022 TECHNIQUE: Frontal, lateral and coned in L5-S1 lateral views of the spine. FINDINGS: No evidence of any acute osseous pathology. No evidence of loss of vertebral body height i s seen. There is normal alignment of the lumbar vertebral bodies. Mild scattered disc space narrowing . Multilevel marginal osteophyte formation throughout the visualized spine. There is facet joint arth ropathy throughout the spine. Scattered at least mild neural foraminal stenosis. Right upper quadrant course thickening clips. IMPRESSION: 1. No acute fracture. 2. Mild multilevel disc degeneration.
== END | disposition home or self-care (01) ==
LOC: RADXRMAIN 16:08
PROVIDERS: ATTEND Emergency Medicine
DX: M17.11 Unilateral primary osteoarthritis, right knee (principal); S39.012D Strain of muscle, fascia and tendon of lower back, subsequent encounter; S83.91XD Sprain of unspecified site of right knee, subsequent encounter; M51.36 Other intervertebral disc degeneration, lumbar region; X58.XXXD Exposure to other specified factors, subsequent encounter
CPT/HCPCS: 72100

== ENCOUNTER → 2023-04-23 | Outpatient (CLI) | payer OTHER ==
[2023-04-23 13:37] VITALS: BP 110/76; PULSE 82; RESP 17; TEMP 97.8
--- NOTE | 2023-04-23 14:21 | P.HPOB ---
History of Present Illness H&P Date: 04/23/23 Chief Complaint: The patient is here for her routine gynecologic exam and ma mmogram. This is a 53-year-old with an LMP of 2019. The patient is here to establish with this office. It has been about 2 years since her last pelvic exam. She is without gynecologic complaints and denies any postmenopausal bleeding. Review of Systems She has lost about 93 pounds since her bariatric surgery in 2019. She denies respiratory, cardiac, or GI problems. Past Medical History Past Medical History: GERD/Reflux, Hypertension, Osteoarthritis (OA) Additional Past Medical History / Comment(s): hx irregular heart beat., bladder polyps. , glaucoma left eye ., DDD with back pain. 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 Genital HSV. History of Any Multi-Drug Resistant Organisms: MRSA Date of last positivie culture/infection: 12/08/2011 MDRO Source:: left axilla Past Surgical History: Bariatric Surgery, Section, Cholecystectomy, Hernia Repair, Tubal Ligation Additional Past Surgical History / Comment(s): umbilical hernia , cystoscopy, bladder-polyp removed , EGD., 01/04/20-laparoscopy-(bariatric surgery aborted due to hernia and adhesions). Gastric sleeve 12/06/20 Past Anesthesia/Blood Transfusion Reactions: No Reported Reaction Past Psychological History: No Psychological Hx Reported Additional Psychological History / Comment(s): . Smoking Status: Former smoker Past Alcohol Use History: None Reported Additional Past Alcohol Use History / Comment(s): started smoking 1984 and quit 2002 smoked 1ppd. Stops drinking at approximately age 31. Past Drug Use History: Cocaine, Marijuana Additional Drug Use History / Comment(s): crack/marijuana use but quit 1997 - Past Family History Father Family Medical History: Hyperlipidemia, Hypertension Additional Family Medical History / Comment(s): hepatitis c>Liver transplant Mother Family Medical History: Hypertension Additional Family Medical History / Comment(s): mental health issues Medications and Allergies Home Medications Medication Instructions Recorded Confirmed Type Multivitamins, Thera [Multivitamin 1 tab PO DAILY 07/30/20 04/23/23 History (formulary)] Brimonidine Tartrate [Alphagan P 1 drops LEFT EYE DAILY 11/10/20 04/23/23 History 0.2% Ophth Soln] Calcium Crb,Cit/D3/Min34/Sanjay 1 each PO DAILY 01/30/21 04/23/23 History [Citracal Plus Bone Density Tab] Acetaminophen [Tylenol Extra 1,000 mg PO DIRECTED PRN 07/19/22 04/23/23 History Strength] amLODIPine [Norvasc] 2.5 mg PO DAILY 04/23/23 04/23/23 History Allergies Allergy/AdvReac Type Severity Reaction Status Date / Time No Known Allergies Allergy Verified 04/23/23 13:10 Exam Vital Signs Temp Pulse Resp BP Pulse Ox 04/23/23 13:11 97.8 F 82 17 110/76 100 Intake and Output 04/22/23 04/23/23 04/23/23 22:59 06:59 14:59 Other: Weight 92.079 kg Height 5 feet 6 inches, weight 203 pounds, BMI 32.8. This is a well-developed well-nourished black female who is alert and oriented times 3 in no acute distress. HEENT: Within normal limits. NECK: Supple without mass or thyromegaly. CHEST AND LUNGS: Clear to auscultation. HEART: Regular rate and rhythm. BREASTS: Are without mass or discharge. AXILLARY EXAM: Negative for adenopathy. BACK: Negative for CVA tenderness. ABDOMEN: Soft, nontender, without palpable masses. PELVIC EXAM: Normal external genitalia with mild atrophy. Cervix and vagina appear normal with mild atrophy. There is no unusual discharge. There is no evidence of prolapse. The uterus is midposition, nongravid size and nontender. There are no palpable adnexal masses or tenderness. RECTAL EXAM: Rectovaginal exam is negative for mass or tenderness and is negative for occult blood. EXTREMITIES: Nontender. IMPRESSION: 1. 53-year-old menopausal female with normal gynecologic exam. 2. History of genital HSV with no outbreaks for several years. PLAN: 1. Pap smear and cone test was performed. 2. Self breast awareness was discussed with the patient. We have also discussed symptoms associated with inflammatory breast cancer. 3. Screening mammogram will be done today. 4. Osteoporosis prevention was discussed. I have stressed the importance of adequate calcium, vitamin D and regular exercise. Recommended amounts of calcium and vitamin D were also discussed. 5. She last had a colonoscopy about 10 years ago. I have recommended that she continue doing another one. She will discuss this with her PCP. 6. She was advised to return in one year for her annual well woman exam.
--- NOTE | 2023-04-24 20:12 | MM ---
Reason for Exam: Screening (asymptomatic). Last mammogram was performed 3 year(s) and 9 month(s) ago. Patient History: Menarche at age 15. First Full-Term at age 41. Late child-bearing (after 30). Postmenopausal. Last menstrual period: Risk Values: Dariana 5 year model risk: 1.4%. NCI Lifetime model risk: 10.4%. Prior Study Comparison: 07/14/2015 Bilateral Screening Mammogram, [facility]. 11/06/2017 Bilateral Screening Mammogram, [facility]. 07/31/2019 Bilateral Screening Mammogram, [facility]. Tissue Density: There are scattered fibroglandular densities. Findings: Analyzed By CAD. There is no suspicious group of microcalcifications or new suspicious mass in either breast. Overall Assessment: Negative, BI-RAD 1 Management: Screening Mammogram of both breasts in 1 year. . Patient should continue monthly self-breast exams. A clinical breast exam by your physician is recommended on an annual basis. This exam should not preclude additional follow-up of suspicious palpable abnormalities. Note on Dariana scores and lifetime risk: 1. A Dariana score greater than 3% is considered moderate risk. If this is the case, consider specialist referral to assess eligibility for a risk reducing agent. 2. If overall lifetime risk for the development of breast cancer is 20% or higher, the patient may qualify for future screening with alternating mammogram and breast MRI. Electronically signed and approved by: Terrell Villafuerte M.D. Radiologist
== END ==
LOC: WWCWWP 13:00
PROVIDERS: ATTEND Obstetrics & Gynecology
DX: Z12.31 Encounter for screening mammogram for malignant neoplasm of breast (principal); I10 Essential (primary) hypertension; K21.9 Gastro-esophageal reflux disease without esophagitis; M19.90 Unspecified osteoarthritis, unspecified site; M51.9 Unspecified thoracic, thoracolumbar and lumbosacral intervertebral disc disorder; Z78.0 Asymptomatic menopausal state; Z86.19 Personal history of other infectious and parasitic diseases; Z79.899 Other long term (current) drug therapy; Z87.891 Personal history of nicotine dependence
CPT/HCPCS: 77063; 77067

== ENCOUNTER → 2023-05-15 | Outpatient (CLI) | payer OTHER ==
[2023-05-15 15:52] VITALS: BP 136/76; PULSE 83; TEMP 98.1; BMI 32.5
--- NOTE | 2023-05-15 16:32 | P.BASOAP ---
Subjective Progress Note Date: 05/15/23 DATE OF SERVICE: 05/15/23 REASON FOR CONSULTATION: Panniculitis HISTORY OF PRESENT ILLNESS: Franko Rao is a 53-year-old female who comes with lifelong morbid obesity. He is status post sleeve gastrectomy 12/06/2020. She is 2 years postop. She comes in with excess skin of the abdomen with panni culitis. Reports trouble before back pain and skin infections over 2 years. She reports troubles with wearing clothes. She presents in assessment for panniculectomy. At height of 5 feet 6 inches, her ideal body weight is 154 pounds. Highest weight 295 pounds. Her body mass index is 47.8. She presents 202 pounds. She has lost 93 pounds lifetime. She is 33 pounds overweight. Lifetime percent excess weight loss 66%. PAST MEDICAL HISTORY: 1. Morbid obesity due to excess calories 2. Body mass index of 44.9, initial 3. Gastroesophageal reflux disease 4. History of methicillin resistant staph aureus infection 5. Osteoarthritis of the knee 6. Osteoarthritis of the hips 7. History of bladder tumor PAST SURGICAL HISTORY: 1. section 2. Cholecystectomy 3. Umbilical hernia 4. Tubal ligation 5. Cystoscopy 6. Upper endoscopy 7. Bladder tumor resection 8. Colonoscopy 9. Status post sleeve gastrectomy HOME MEDICATIONS: Home Medications Medication Instructions Recorded Confirmed Multivitamins, Thera [Multivitamin 1 tab PO DAILY 07/30/20 05/15/23 (formulary)] Brimonidine Tartrate [Alphagan P 1 drops LEFT EYE DAILY 11/10/20 05/15/23 0.2% Ophth Soln] Calcium Crb,Cit/D3/Min34/Sanjay 1 each PO DAILY 01/30/21 05/15/23 [Citracal Plus Bone Density Tab] Acetaminophen [Tylenol Extra 1,000 mg PO DIRECTED PRN 07/19/22 05/15/23 Strength] amLODIPine [Norvasc] 2.5 mg PO DAILY 04/23/23 05/15/23 ALLERGIES: Allergies Allergy/AdvReac Type Severity Reaction Status Date / Time No Known Allergies Allergy Verified 04/23/23 13:10 SOCIAL HISTORY: Past tobacco use. FAMILY HISTORY: No family history of ulcerative colitis disease or Crohn's disease. Family history of morbid obesity. No lupus in the family. No reports of stomach or esophageal cancer. REVIEW OF ORGAN SYSTEMS: CONSTITUTIONAL: At height of 5 feet 6 inches, her ideal body weight is 154 pounds. She comes in 277 pounds. Her body mass index is 44.9. She is 123 pounds overweight. HEENT: Denies any active troubles with vision or hearing. ENDOCRINE: No diabetes. No hypothyroidism. CARDIOVASCULAR: She reports past history of irregular heart rate. No recent chest pain. RESPIRATORY: Has daytime somnolence. Denies asthma. GASTROINTESTINAL: Denies any bright red blood per rectum. No diarrhea. No constipation. She reports severe GERD. MUSCULOSKELETAL: Has lower back pain and joint pain. Has osteoarthritis of the knees and hips. Osteoarthritis of both knees left worse than the right. Hip pain as well. No ankle pain. NEURO: No headaches. No seizure disorders. PSYCH: Denies depression. No suicidal ideation. RHEUMATOLOGIC: No lupus. No rheumatoid arthritis. HEMATOLOGIC: Denies any abnormal bleeding or bruising. No personal history of DVTs. SKIN: Has panniculitis over 2 years. No skin cancer. PHYSICAL EXAM: VITAL SIGNS: Height 5 foot 6 inches, weight 202 pounds. BMI 32.6 Vital Signs Temp 98.1 F 05/15/23 15:41 Pulse 83 05/15/23 15:41 Resp BP 136/76 05/15/23 15:41 Pulse Ox FiO2 GENERAL: Well-developed in no acute distress. HEENT: No scleral icterus. Extraocular movements grossly intact. Hears conversational speech. No nasal drainage. NECK: Supple without lymphadenopathy. CHEST: Nonlabored respirations with equal bilateral excursions. CARDIOVASCULAR: Regular rate and regular rhythm. Distal 2+ pulses. ABDOMEN: Obese, soft, nontender, nondistended. Grade 3 panniculitis 15 pounds. MUSCULOSKELETAL: No clubbing, cyanosis. NEURO: No focal or lateralizing signs. Cranial nerves 2 through 12 grossly within normal limits. PSYCH: Appropriate affect. Alert and oriented to person, place and time. SKIN: Good skin turgor. Well perfused. ASSESSMENT: 1. Panniculitis 2. Body mass index of 44.9, initial to 32.6 3. Gastroesophageal reflux disease 4. History of methicillin resistant staph aureus infection 5. Osteoarthritis of the knee 6. Osteoarthritis of the hips 7. History of bladder tumor 8. History of irregular heart rate 9. Morbid obesity due to excess calories 10. Status post sleeve gastrectomy PLAN: 1. Recommend apprentice jockey for treatment of panniculitis 2. Recommend urine nicotine test prior to surgical intervention 3. Recommend full bariatric labs 4. Nystatin prescribed for panniculitis 5. Will need stable weight loss 6. Recommend images for panniculitis Objective - Vital Signs Vital signs: Vital Signs Temp 98.1 F 05/15/23 15:41 Pulse 83 05/15/23 15:41 Resp BP 136/76 05/15/23 15:41 Pulse Ox FiO2 Intake & Output 05/14/23 05/15/23 05/15/23 18:59 06:59 18:59 Weight 91.626 kg Assessment/Plan Plan: Date: 05/15/23 Initial Weight: 126.099 kg Initial BMI: 44.9 Current Weight: 91.626 kg Current BMI: 32.5 Type of Surgery: Total Volume in Band: Previous Volume: Volume Removed: Volume Added: Band Size:
== END ==
LOC: BARWHC3 14:46
PROVIDERS: ATTEND Surgery Plastic and Reconstructive Surgery
DX: E66.01 Morbid (severe) obesity due to excess calories (principal); A49.02 Methicillin resistant Staphylococcus aureus infection, unspecified site; D49.9 Neoplasm of unspecified behavior of unspecified site; K21.9 Gastro-esophageal reflux disease without esophagitis; I49.9 Cardiac arrhythmia, unspecified; M79.3 Panniculitis, unspecified; M17.0 Bilateral primary osteoarthritis of knee; M16.0 Bilateral primary osteoarthritis of hip; Z98.890 Other specified postprocedural states; Z68.32 Body mass index [BMI] 32.0-32.9, adult; Z87.891 Personal history of nicotine dependence
CPT/HCPCS: 99211

== ENCOUNTER → 2023-05-16 | Outpatient (CLI) | payer OTHER ==
[2023-05-16 15:09] LABS: Partial Thromboplastin Time 26.1 sec (22.0-30.0); Prothrombin Time 11.2 sec (10.0-12.5)
[2023-05-17 02:24] LABS: % Iron Saturation 32.52 (12.00-45.00); ALT 22 U/L (8-44); AST 17 U/L (13-35); Albumin 4.2 g/dL (3.8-4.9); Albumin/Globulin Ratio 1.91 Ratio (1.60-3.17); Alkaline Phosphatase 68 U/L (41-126); BUN/Creat Ratio 27.33 Ratio (12.00-20.00); Blood Urea Nitrogen 24.6 mg/dL (9.0-27.0); Calcium 9.5 mg/dL (8.7-10.3); Carbon Dioxide 24.8 mmol/L (21.6-31.8); Chloride 107 mmol/L (96-109); Chol/HDL Ratio 3.62 Ratio; Globulin 2.2 g/dL (1.6-3.3); Glucose 109 mg/dL (70-110); Iron 93 UG/DL (50-170); LDL Cholesterol,Calculated 96.4 mg/dL (0.0-131.0); Magnesium 2.1 mg/dL (1.5-2.4); Phosphorus 3.8 mg/dL (2.4-5.1); Potassium 3.7 mmol/L (3.5-5.5); Sodium 143 mmol/L (135-145); Total Bilirubin <0.2 mg/dL (0.3-1.2); Total Iron Binding Capacity 286 UG/DL (228-460); Total Protein 6.4 g/dL (6.2-8.2)
[2023-05-17 02:49] LABS: HCT 40.9 % (37.2-46.3); HGB 12.6 g/dL (12.0-15.0); MCH 26.1 pg (27.0-32.0); MCHC 30.8 g/dL (32.0-37.0); MCV 84.9 FL (80.0-97.0); Mean Platelet Volume 10.6 FL (9.5-12.2); NRBC Per 100 WBC 0 X 10*3/uL (0.00-0.01); Platelet Count 300 X 10*3/uL (140-440); RBC 4.82 X 10*6/uL (4.10-5.20); RDW 14.7 % (11.5-14.5); WBC 5.42 X 10*3/uL (4.50-10.00)
[2023-05-17 02:50] LABS: Prealbumin 23.5 mg/dL (18.0-42.0)
[2023-05-17 06:00] LABS: Urine Alcohol Negative (Negative)
[2023-05-17 06:29] LABS: Urine Barbiturate Negative (Negative); Urine Cocaine Negative (Negative); Urine Methadone Negative (Negative); Urine Opiates Negative (Negative); Urine Phencyclidine Negative (Negative)
[2023-05-17 14:53] LABS: Zinc, Serum 72 ug/dL (60-130)
== END | disposition home or self-care (01) ==
LOC: LABWHC1 12:21
PROVIDERS: ATTEND Surgery Plastic and Reconstructive Surgery
DX: E66.01 Morbid (severe) obesity due to excess calories (principal); E89.1 Postprocedural hypoinsulinemia; D50.8 Other iron deficiency anemias; K91.2 Postsurgical malabsorption, not elsewhere classified; E44.0 Moderate protein-calorie malnutrition; E44.1 Mild protein-calorie malnutrition; E45 Retarded development following protein-calorie malnutrition; E46 Unspecified protein-calorie malnutrition; E55.9 Vitamin D deficiency, unspecified; K74.1 Hepatic sclerosis; N19 Unspecified kidney failure; T56.894A Toxic effect of other metals, undetermined, initial encounter; K50.90 Crohn's disease, unspecified, without complications
CPT/HCPCS: 84255; 84134; 84425; 80061; 80053; 82607; 82728; 82525; 82746; 83540; 83550; 83735; 84100; 84443; 84590; 84630; 85027; 85610; 85730; 82306; 80306; 83970; 83036; 93005; 36415; G0480; 80323

== ENCOUNTER → 2023-06-05 | Outpatient (CLI) | payer OTHER ==
--- NOTE | 2023-06-06 10:58 | MR ---
EXAMINATION TYPE: MR lumbar spine wo con DATE OF EXAM: 06/05/2023 COMPARISON: None HISTORY: Pain low back into buttocks on both sides CONTRAST: 0 mL intravenous Gadavist. TECHNIQUE: Multiplanar, multisequence images of the lumbar spine were acquired. FINDINGS: L5-S1: Disc desiccation is present. Disc height appears preserved. No suspicious focal disc herniatio n or significant disc bulge. No spinal canal stenosis is present. There is mild right foraminal narro wing. L4-L5: No significant disc bulge or disc herniation. No spinal canal stenosis. No foraminal stenosi s. Neural foramen are patent.. L3-L4: No significant disc bulge or disc herniation. No spinal canal stenosis. No foraminal stenosi s. Mild facet hypertrophy is present. L2-L3: No significant disc bulge or disc herniation. No spinal canal stenosis. No foraminal stenosi s. Mild left facet hypertrophy is present. L1-L2: No significant disc bulge or disc herniation. No spinal canal stenosis. No foraminal stenosi s. Neural foramen are patent.. T12-L1: No significant disc bulge or disc herniation. No spinal canal stenosis. No foraminal stenos is. Neural foramen are patent.. IMPRESSION: 1. Mild facet degenerative changes without spinal canal stenosis. 2. Mild right foraminal narrowing L5-S1
== END | disposition home or self-care (01) ==
LOC: RADMRIMAIN 19:06
PROVIDERS: ATTEND Emergency Medicine
DX: S39.012D Strain of muscle, fascia and tendon of lower back, subsequent encounter (principal); S83.91XD Sprain of unspecified site of right knee, subsequent encounter; M47.816 Spondylosis without myelopathy or radiculopathy, lumbar region; M99.74 Connective tissue and disc stenosis of intervertebral foramina of sacral region; X58.XXXD Exposure to other specified factors, subsequent encounter
CPT/HCPCS: 72148

== ENCOUNTER → 2023-08-02 | Outpatient (CLI) | payer OTHER ==
[2023-08-02 15:34] LABS: Basophils # (A) 0.02 X 10*3/uL (0.00-0.10); Basophils % (A) 0.5 %; Eosinophils # (A) 0.08 X 10*3/uL (0.04-0.35); Eosinophils % (A) 1.9 %; HCT 40.5 % (37.2-46.3); HGB 13.2 g/dL (12.0-15.0); Lymphocytes # (A) 1.76 X 10*3/uL (0.90-5.00); Lymphocytes % (A) 42.6 %; MCH 27.3 pg (27.0-32.0); MCHC 32.6 g/dL (32.0-37.0); MCV 83.7 FL (80.0-97.0); Monocytes # (A) 0.23 X 10*3/uL (0.20-1.00); Monocytes % (A) 5.6 %; NRBC Per 100 WBC 0 X 10*3/uL (0.00-0.01); Neutrophils # (A) 2.03 X 10*3/uL (1.80-7.70); Neutrophils % (A) 49.2 %; Platelet Count 267 X 10*3/uL (140-440); RBC 4.84 X 10*6/uL (4.10-5.20); RDW 14.7 % (11.5-14.5); WBC 4.13 X 10*3/uL (4.50-10.00)
[2023-08-02 15:40] LABS: ALT 49 U/L (8-44); AST 35 U/L (13-35); Albumin 4.2 g/dL (3.8-4.9); Albumin/Globulin Ratio 1.91 Ratio (1.60-3.17); Alkaline Phosphatase 76 U/L (41-126); Blood Urea Nitrogen 23.7 mg/dL (9.0-27.0); Calcium 9.2 mg/dL (8.7-10.3); Carbon Dioxide 24.7 mmol/L (21.6-31.8); Chloride 106 mmol/L (96-109); Globulin 2.2 g/dL (1.6-3.3); Glucose 76 mg/dL (70-110); Potassium 4.1 mmol/L (3.5-5.5); Sodium 142 mmol/L (135-145); Total Bilirubin 0.3 mg/dL (0.3-1.2); Total Protein 6.4 g/dL (6.2-8.2)
== END | disposition home or self-care (01) ==
LOC: LABPAT 09:17
PROVIDERS: ATTEND Surgery Plastic and Reconstructive Surgery
DX: Z01.812 Encounter for preprocedural laboratory examination (principal); R94.31 Abnormal electrocardiogram [ECG] [EKG]
CPT/HCPCS: 36415; 80053; 85025; 93005

== ENCOUNTER 2023-08-12 08:15 | Inpatient (IN) | payer OTHER ==
[2023-08-06 10:49] VITALS: BMI 31.8
--- NOTE | 2023-08-12 07:53 | P.GSHP ---
History of Present Illness H&P Date: 08/12/23 CHIEF COMPLAINT: Panniculitis HISTORY OF PRESENT ILLNESS: Franko Rao is a 53-year-old female who comes with lifelong morbid obesity. She is status post sleeve gastrectomy 2 years postop. She comes in with excess skin of the abdomen with panniculitis. She presents for panniculectomy. At height of 5 feet 6 inches, her ideal body weight is 154 pounds. Highest weight 295 pounds. Her body mass index is 47.8. She presents 202 pounds. She has lost 93 pounds lifetime. She is 33 pounds overweight. Lifetime percent excess weight loss 66%. PAST MEDICAL HISTORY: 1. Morbid obesity due to excess calories 2. Body mass index of 44.9, initial 3. Gastroesophageal reflux disease 4. History of methicillin resistant staph aureus infection 5. Osteoarthritis of the knee 6. Osteoarthritis of the hips 7. History of bladder tumor PAST SURGICAL HISTORY: 1. section 2. Cholecystectomy 3. Umbilical hernia 4. Tubal ligation 5. Cystoscopy 6. Upper endoscopy 7. Bladder tumor resection 8. Colonoscopy 9. Status post sleeve gastrectomy HOME MEDICATIONS: Home Medications Medication Instructions Recorded Confirmed Multivitamins, Thera [Multivitamin 1 tab PO DAILY 07/30/20 05/15/23 (formulary)] Brimonidine Tartrate [Alphagan P 1 drops LEFT EYE DAILY 11/10/20 05/15/23 0.2% Ophth Soln] Calcium Crb,Cit/D3/Min34/Sanjay 1 each PO DAILY 01/30/21 05/15/23 [Citracal Plus Bone Density Tab] Acetaminophen [Tylenol Extra 1,000 mg PO DIRECTED PRN 07/19/22 05/15/23 Strength] amLODIPine [Norvasc] 2.5 mg PO DAILY 04/23/23 05/15/23 ALLERGIES: Allergies Allergy/AdvReac Type Severity Reaction Status Date / Time No Known Allergies Allergy Verified 04/23/23 13:10 SOCIAL HISTORY: Past tobacco use. FAMILY HISTORY: No family history of ulcerative colitis disease or Crohn's disease. Family history of morbid obesity. No lupus in the family. No reports of stomach or esophageal cancer. REVIEW OF ORGAN SYSTEMS: CONSTITUTIONAL: At height of 5 feet 6 inches, her ideal body weight is 154 pounds. She comes in 277 pounds. Her body mass index is 44.9. She is 123 pounds overweight. HEENT: Denies any active troubles with vision or hearing. ENDOCRINE: No diabetes. No hypothyroidism. CARDIOVASCULAR: She reports past history of irregular heart rate. No recent chest pain. RESPIRATORY: Has daytime somnolence. Denies asthma. GASTROINTESTINAL: Denies any bright red blood per rectum. No diarrhea. No constipation. She reports severe GERD. MUSCULOSKELETAL: Has lower back pain and joint pain. Has osteoarthritis of the knees and hips. Osteoarthritis of both knees left worse than the right. Hip pain as well. No ankle pain. NEURO: No headaches. No seizure disorders. PSYCH: Denies depression. No suicidal ideation. RHEUMATOLOGIC: No lupus. No rheumatoid arthritis. HEMATOLOGIC: Denies any abnormal bleeding or bruising. No personal history of DVTs. SKIN: Has panniculitis over 2 years. No skin cancer. PHYSICAL EXAM: VITAL SIGNS: Height 5 foot 6 inches, weight 202 pounds. BMI 32.6 GENERAL: Well-developed in no acute distress. HEENT: No scleral icterus. Extraocular movements grossly intact. Hears conversational speech. No nasal drainage. NECK: Supple without lymphadenopathy. CHEST: Nonlabored respirations with equal bilateral excursions. CARDIOVASCULAR: Regular rate and regular rhythm. Distal 2+ pulses. ABDOMEN: Obese, soft, nontender, nondistended. Grade 3 panniculitis 15 pounds. MUSCULOSKELETAL: No clubbing, cyanosis. NEURO: No focal or lateralizing signs. Cranial nerves 2 through 12 grossly within normal limits. PSYCH: Appropriate affect. Alert and oriented to person, place and time. SKIN: Good skin turgor. Well perfused. ASSESSMENT: 1. Panniculitis 2. Body mass index of 44.9, initial to 32.6 3. Gastroesophageal reflux disease 4. History of methicillin resistant staph aureus infection 5. Osteoarthritis of the knee 6. Osteoarthritis of the hips 7. History of bladder tumor 8. History of irregular heart rate 9. Morbid obesity due to excess calories 10. Status post sleeve gastrectomy PLAN: 1. Recommend panniculectomy for chronic panniculitis with concomittant severe lower back pain and uncontrolled symptoms despite systemic and local treatment including limitation of activities of daily living. Anticipated resection over 10+ pounds described. Panniculectomy should correct her functional deficits. 2. Risks of bleeding, needs for drains, flap failure, infection, need for further surgery were described. She is high risk for melodie-operative complications with anticipated 10+ pounds skin resection. 3. Inpatient hospitalization also described 4. Anticipated weight loss down to 196 pounds described. Loss of umbilicus described. Past Medical History Past Medical History: GERD/Reflux, Hypertension, Osteoarthritis (OA) Additional Past Medical History / Comment(s): hx irregular heart beat., bladder polyps. , glaucoma left eye ., DDD with back pain. 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 Genital HSV. PANNICULITIS History of Any Multi-Drug Resistant Organisms: MRSA Date of last positivie culture/infection: 12/08/2011 MDRO Source:: left axilla Past Surgical History: Bariatric Surgery, Section, Cholecystectomy, Hernia Repair, Tubal Ligation Additional Past Surgical History / Comment(s): umbilical hernia , cystoscopy, bladder-polyp removed , EGD., 01/04/20-laparoscopy-(bariatric surgery aborted due to hernia and adhesions). Gastric sleeve 12/06/20, COLONOSCOPY Past Anesthesia/Blood Transfusion Reactions: No Reported Reaction Smoking Status: Former smoker - Past Family History Father Family Medical History: Hyperlipidemia, Hypertension Additional Family Medical History / Comment(s): hepatitis c>Liver transplant Mother Family Medical History: Hypertension Additional Family Medical History / Comment(s): mental health issues Medications and Allergies Home Medications Medication Instructions Recorded Confirmed Type Multivitamins, Thera [Multivitamin 1 tab PO DAILY 07/30/20 08/06/23 History (formulary)] Brimonidine Tartrate [Alphagan P 1 drops LEFT EYE DAILY 11/10/20 08/06/23 History 0.2% Ophth Soln] Calcium Crb,Cit/D3/Min34/Sanjay 1 each PO DAILY 01/30/21 08/06/23 History [Citracal Plus Bone Density Tab] Acetaminophen [Tylenol Extra 1,000 mg PO DIRECTED PRN 07/19/22 08/06/23 History Strength] amLODIPine [Norvasc] 2.5 mg PO DAILY 04/23/23 08/06/23 History Aspirin EC [Ecotrin Low Dose] 81 mg PO DAILY 08/06/23 08/06/23 History Inulin/Chromium Picolinate [Fiber 2 tab PO DAILY 08/06/23 08/06/23 History Gummies Chew] Allergies Allergy/AdvReac Type Severity Reaction Status Date / Time No Known Allergies Allergy Verified 08/06/23 10:21
[2023-08-12] MEDS: ACETAMINOPHEN TAB 500 MG TAB PO PRN (09:12)
[2023-08-12] MEDS: LACTATED RINGERS 1,000 ML IV ONE ×3 (09:12→12:14)
[2023-08-12] MEDS: HEPARIN SODIUM,PORCINE 5,000 UNIT/ML 1 ML VIAL SQ PRN (09:12)
[2023-08-12] MEDS: DEXAMETHASONE SOD PHOSPHATE 4 MG/ML 1 ML VIAL IVP ONE (09:12)
[2023-08-12] MEDS: ONDANSETRON 4 MG/2 ML VIAL IVP PRN (09:12)
[2023-08-12] MEDS ORDERED: SUCCINYLCHOLINE CHLORIDE 200 MG/10 ML VIAL IV ONE (09:57)
[2023-08-12] MEDS ORDERED: NEOSTIGMINE 1 MG/ML 10 ML VIAL ONE (09:57)
[2023-08-12] MEDS ORDERED: PHENYLEPHRINE-0.9% NACL SYG 1,000 MCG/10 ML SYRINGE ONE (09:57)
[2023-08-12] MEDS ORDERED: LIDOCAINE 1% INJ 10MG/ML (20 ML MDV) ONE (09:57)
[2023-08-12] MEDS ORDERED: fentaNYL (PF) 50 MCG/ML 2 ML AMP ONE (09:57)
[2023-08-12] MEDS ORDERED: HYDROmorphone (PF) 1 MG/ML ONE (09:57)
[2023-08-12] MEDS ORDERED: PROPOFOL 10 MG/ML 20 ML VIAL IV ONE (09:57)
[2023-08-12] MEDS ORDERED: MIDAZOLAM 2 MG/2 ML VIAL ONE (09:57)
[2023-08-12] MEDS ORDERED: GLYCOPYRROLATE 0.2 MG/ML 2 ML VIAL ONE (09:57)
[2023-08-12] MEDS ORDERED: ROCURONIUM 10 MG/ML (5 ML VIAL) IV ONE (09:57)
[2023-08-12] MEDS: HYDROmorphone 0.5 MG/0.5 ML SYRINGE IVP ONE ×4 (13:17→16:26)
[2023-08-12] MEDS ORDERED: HYDROmorphone 1 MG/ML 1 ML SYRINGE IVP PRN (13:41)
[2023-08-12] MEDS ORDERED: NALOXONE 0.4 MG/ML 1 ML VIAL IV PRN ×2 (13:41→14:04)
[2023-08-12] MEDS ORDERED: fentaNYL PCA 500 MCG/50 ML BAG IV PRN (14:04)
--- NOTE | 2023-08-12 14:12 | P.OP ---
Date of Procedure: 08/12/23 Description of Procedure: SURGEON: KP DUPREE MD PREOPERATIVE DIAGNOSES: 1. Panniculitis 2. Adiposus panniculus. 3. Morbid obesity due to excess calories 4. Body mass index 47.8 to 31.8 5. Gastroesophageal reflux disease 6. History of methicillin resistant staph aureus infection 7. Osteoarthritis of the knee 8. Osteoarthritis of the hips 9. Personal history of abdominal wall hernia POSTOPERATIVE DIAGNOSES: 1. Panniculitis 2. Adiposus panniculus. 3. Morbid obesity due to excess calories 4. Body mass index 47.8 to 31.8 5. Gastroesophageal reflux disease 6. History of methicillin resistant staph aureus infection 7. Osteoarthritis of the knee 8. Osteoarthritis of the hips 9. Recurrent abdominal ventral hernia, 10 x 24 cm, unrelated to prior bariatric surgery. OPERATION: 1. Panniculectomy. 2. Primary repair of ventral hernia 10 x 24 cm cm without mesh. 3. Abdominal wall reconstruction with bilateral myocutaneous flap advancement. ANESTHESIA: General, regional block ESTIMATED BLOOD LOSS: 150 mL SPECIMENS REMOVED: Pannus 12.8 pounds. COMPLICATIONS: None. CONDITION: Stable. DRAINS: Two #19 Max drains below abdominal flap extending through the pubis. OPERATIVE FINDINGS: 1. Pannus weighing 12.8 pounds, excised. 2. Abdominal ventral hernia of 10 x 24 cm along the midline repaired primarily using fascial imbrication. INDICATIONS: The patient is a 53-year-old female with a history of massive weight loss over 100 pounds over 2 years. Despite medical therapy with prescription powders such as Nystatin over 1 year, she has developed severe medical refractory panniculitis including chronic lower back pain. Her body mass index has been reduced from approximately 47.8 down to 31.8. She also has a personal history of prior abdominal wall hernia previously repaired prior to her sleeve gastrectomy. Given her clinical symptoms, including massive weight loss, she elected for surgical intervention with a panniculectomy. Benefits and risks of the procedure including bleeding, infection, risk of flap failure were described at length. Informed consent was obtained. DESCRIPTION: In the preanesthesia care unit the patient was marked with an indelible marker. She had also been given heparin subcutaneously. The patient was brought into the operating room and laid in supine position. After general induction, a Wagoner catheter was placed. The abdomen was then prepped and draped in standard sterile fashion using ChloraPrep. The skin was prepped as far laterally to the back, inferiorly to the upper thighs and superiorly to above the bilateral breasts. A timeout protocol was confirmed with the surgical team regarding patient's name, procedure to be performed, including preoperative medications. She had received Ancef 2 grams IV antibiotics. Once the time-out protocol was confirmed with the surgical team, the patient was re-marked with indelible marker whereby the midline of the xiphoid to the mons pubis was marked. The anterior/superior iliac spine along the bilateral hips was also marked. Approximately 7 cm above the pubis commissure a transverse incision was made for the inferior portion of the flap. Using a #10 blade, the incision was taken from the midline laterally to above the anterior/superior iliac spine, initially on the left side of the patient and then on the right side of the patient. Electro-Bovie cautery was used to control for hemostasis. The dissection was taken down to the level of the fascia. Landmarks used were the xiphoid process as well as the bilateral costal margins for the superior margin. Care was taken to avoid any creation of dog ears during the dissection. Once hemostasis was checked, a large ventral hernia fascial defect of 10 x 24 cm was identified from a prior ventral hernia repair. During this dissection, the umbilicus was truncated at its fascial insertion. Bilateral myocutaneous flap advancement was performed to close the large defect of 10 x 24 cm using the rectus muscle. After the flaps were raised, the midline was re-marked again from the xiphoid to the pubis commissure. Fascial imbrication was proposed for primary repair and to reinforce the bilateral myocutaneous flap advancement. Starting from the xiphoid process, the rectus muscle was overlapped in the bila teral myocutaneous flap advancement using #2 Ethibond. The ventral hernia defect was completely repaired and closed. Hemostasis was once again checked with electro-Bovie cautery and all defects we re addressed. Attention was now brought to closure of the flap. Using stainless steel skin trisha, the midline was once again marked of the upper flap as well as the pubic commissure. The patient was placed in a flexed position of approximately 30 degrees at the hips. The pannus was extended inferiorly to the feet. The upper flap was created once the excess skin was excised. Again care was taken to avoid any dog ears along the lateral aspect of the incisions. Once excised, the pannus weighed approximately 12.8 pounds. The upper and lower flaps were reapproximated at the midline and then laterally to the skin with skin trisha. Once reapproximated, the skin was closed in layers using 0 Vicryl for the superficial fascial system followed by running 3-0 Monocryl for the deep dermis and finally 4-0 Monocryl in a running subcuticular fashion. Prior to skin closure, two round #19 Max drains were placed underneath the flap and brought out just inferior to the incision along the pubis. Drain stitch using 2-0 nylon was placed. Once the incision was closed, bulb suction was attached. Hemostasis was checked. Exofin tape with glue including Optifoam dressing was placed. At the end of the procedure, the needle, sponge and instrument count was verified correct. The patient was then transferred to a hospital bed in a beach chair position. An abdominal binder was placed and marked. The patient was taken to the postanesthesia care unit in stable condition, awake and extubated.
[2023-08-12] MEDS: ACETAMINOPHEN IV (For NPO) 1,000 MG in EMPTY BAG 1 BAG IVPB SCH (17:59)
[2023-08-12] MEDS: fentaNYL PCA 500 MCG/50 ML BAG IV SCH (19:55)
[2023-08-12] MEDS: SYMBICORT 80-4.5 MCG INHALER INHALATION SCH (21:23)
[2023-08-13] MEDS: ONDANSETRON 4 MG/2 ML VIAL IVP PRN (00:38)
[2023-08-13 08:39] LABS: Basophils # (A) 0.01 X 10*3/uL (0.00-0.10); Basophils % (A) 0.1 %; Eosinophils # (A) 0.07 X 10*3/uL (0.04-0.35); Eosinophils % (A) 0.9 %; HCT 32.2 % (37.2-46.3); HGB 10.3 g/dL (12.0-15.0); Lymphocytes # (A) 0.72 X 10*3/uL (0.90-5.00); Lymphocytes % (A) 8.7 %; MCH 27.2 pg (27.0-32.0); MCV 85.2 FL (80.0-97.0); Mean Platelet Volume 11.1 FL (9.5-12.2); Monocytes # (A) 0.38 X 10*3/uL (0.20-1.00); Monocytes % (A) 4.6 %; NRBC Per 100 WBC 0 X 10*3/uL (0.00-0.01); Neutrophils # (A) 7.02 X 10*3/uL (1.80-7.70); Neutrophils % (A) 85.3 %; Platelet Count 217 X 10*3/uL (140-440); RBC 3.78 X 10*6/uL (4.10-5.20); RDW 14.6 % (11.5-14.5); WBC 8.23 X 10*3/uL (4.50-10.00)
[2023-08-13] MEDS: ENOXAPARIN 30 MG/0.3 ML SYRINGE SQ SCH (08:55)
[2023-08-13] MEDS: ASPIRIN 81 MG PO SCH (08:55)
[2023-08-13] MEDS: amLODIPine 2.5 MG TAB PO SCH (08:55)
[2023-08-13] MEDS: PANTOPRAZOLE 40 MG/10 ML VIAL IV SCH (08:55)
[2023-08-13] MEDS: CALCIUM CARB-VIT D 500 MG-5 MCG TAB PO SCH (08:55)
[2023-08-13] MEDS: MULTIVITAMINS, THERA 1 EACH TAB PO SCH (08:56)
[2023-08-13] MEDS ORDERED: NON FORMULARY DRUG (Inulin/Chromium Picolinate [Fiber Gummies Chew] 1 EACH Tab.Chew) PO SCH (09:00)
[2023-08-13] MEDS: BRIMONIDINE TARTRATE 0.2% DROPS 5 ML BTL LEFT EYE SCH (13:10)
--- NOTE | 2023-08-13 13:54 | P.PN ---
Subjective Progress Note Date: 08/13/23 CHIEF COMPLAINT: Panniculitis HISTORY OF PRESENT ILLNESS: Patient is postop day #1 status post panniculectomy and primary repair of ventral hernia without mesh. Patient had bleeding around the lower PETER drain site last night. This has resolved. She is having issues with the left PETER drain bulb staying suctioned. Afebrile. BP 96/63 WBC 8.23 Hgb 10.3 platelets 217 PETER drain on the left 0 mL right lower quadrant drain 70 mL output sanguinous. PHYSICAL EXAM: VITAL SIGNS: Reviewed GENERAL: Well-developed in no acute distress. HEENT: No sclera icterus. Extraocular movements grossly intact. Moist buccal mucosa. Head is atraumatic, normocephalic. Hears conversational speech. No nasal drainage. NECK: Supple without lymphadenopathy. CHEST: Non-labored respirations and equal bilateral excursions. CARDIOVASCULAR: Palpable 2+ radial pulses. ABDOMEN: Soft. Nondistended. Abdominal binder in place lower dressing with dried blood noted. MUSCULOSKELETAL: No clubbing or cyanosis. NEUROLOGIC: No focal or lateralizing signs. Cranial nerves II through XII grossly intact. PSYCH: Appropriate affect. Alert and oriented to person, place and time. SKIN: Well perfused. Good skin turgor. ASSESSMENT: 1. Panniculitis 2. Adiposus panniculus. 3. Morbid obesity due to excess calories 4. Body mass index 47.8 to 31.8 5. Gastroesophageal reflux disease 6. History of methicillin resistant staph aureus infection 7. Osteoarthritis of the knee 8. Osteoarthritis of the hips 9. Recurrent abdominal ventral hernia, 10 x 24 cm, unrelated to prior bariatric surgery. PLAN: -Continue pain management -Continue regular diet -Continue to monitor PETER drain output -Surgeon will change left PETER drain bulb -Continue supportive care -Further recommendations forthcoming per surgeon -Will have nursing staff repeat blood pressure. Make further adjustments accordingly Physician Applications Architect note has been reviewed by physician. Signing provider agrees with the documented findings, assessment, and plan of care. Objective - Vital Signs Vital signs: Vital Signs Temp 98.4 F 08/13/23 08:00 Pulse 98 08/13/23 08:00 Resp 17 08/13/23 08:00 BP 96/63 08/13/23 08:00 Pulse Ox 99 08/13/23 08:00 FiO2 Intake & Output 08/12/23 08/13/2308/12/24 18:59 06:59 18:59 Intake Total 2750 Output Total 310 140 Balance 2440 -140 Weight 89.358 kg Intake: IV 2750 Output: Drainage 140 LLQ 35 RLQ 105 Urine 160 Estimated Blood Loss 150 Other: Voiding Method Indwelling Catheter Indwelling Catheter - Labs CBC & Chem 7: 08/13/23 04:42 Labs: Abnormal Lab Results - Last 24 Hours (Table) 08/13/23 Range/Units 04:42 RBC 3.78 L (4.10-5.20) X 10*6/uL Hgb 10.3 L (12.0-15.0) g/dL Hct 32.2 L (37.2-46.3) % RDW 14.6 H (11.5-14.5) % Lymphocytes # 0.72 L (0.90-5.00) X 10*3/uL
--- NOTE | 2023-08-14 15:43 | P.PN ---
Subjective Progress Note Date: 08/14/23 CHIEF COMPLAINT: Panniculitis HISTORY OF PRESENT ILLNESS: Patient is postop day #2 status post panniculectomy and primary repair of ventral hernia without mesh. Bleeding around the lower PETER drain site resolved. Still there was no suction present in that lower PETER drain bulb. Dr. Gifford did pull back the dressing and found that the PETER drain is faulty equipment. Portion of the drain remains in the abdomen. It has somehow become detached. Patient has no increase in abdominal pain. Vital stable. PHYSICAL EXAM: VITAL SIGNS: Reviewed GENERAL: Well-developed in no acute distress. HEENT: No sclera icterus. Extraocular movements grossly intact. Moist buccal mucosa. Head is atraumatic, normocephalic. Hears conversational speech. No nasal drainage. NECK: Supple without lymphadenopathy. CHEST: Non-labored respirations and equal bilateral excursions. CARDIOVASCULAR: Palpable 2+ radial pulses. ABDOMEN: Soft. Nondistended. Abdominal binder in place lower dressing with dried blood noted. MUSCULOSKELETAL: No clubbing or cyanosis. NEUROLOGIC: No focal or lateralizing signs. Cranial nerves II through XII grossly intact. PSYCH: Appropriate affect. Alert and oriented to person, place and time. SKIN: Well perfused. Good skin turgor. ASSESSMENT: 1. Panniculitis 2. Adiposus panniculus. 3. Morbid obesity due to excess calories 4. Body mass index 47.8 to 31.8 5. Gastroesophageal reflux disease 6. History of methicillin resistant staph aureus infection 7. Osteoarthritis of the knee 8. Osteoarthritis of the hips 9. Recurrent abdominal ventral hernia, 10 x 24 cm, unrelated to prior bariatric surgery. PLAN: -Patient to be taken to the OR today for removal of foreign body from abdominal wall -Place patient n.p.o. -Continue to monitor Physician Wildlife [employer] note has been reviewed by physician. Signing provider agrees with the documented findings, assessment, and plan of care. Objective - Vital Signs Vital signs: Vital Signs Temp 98.1 F 08/14/23 08:00 Pulse 95 08/14/23 08:00 Resp 18 08/14/23 08:00 BP 110/78 08/14/23 08:00 Pulse Ox 96 08/14/23 08:00 FiO2 Intake & Output 08/13/23 08/14/23 08/14/23 18:59 06:59 18:59 Output Total 1200 1025 20 Balance -1200 -1025 -20 Output: Drainage 25 20 LLQ 0 RLQ 25 20 Urine 1200 1000 Other: Voiding Method Indwelling Catheter Indwelling Catheter Indwelling Catheter - Labs CBC & Chem 7: 08/13/23 04:42
--- NOTE | 2023-08-14 16:52 | P.HPADDEND ---
H&P Addendum H&P Addendum Date: 08/14/23 Patient seen and evaluated. Notified by nursing that left PETER drain no longer holding suction. Dressing was discontinued demonstrating complete separation and detachment of white suction apparatus from clear tubing. Findings consistent with equipment failure. Suction tubing embedded within the skin and will need surgical removal. Benefits and risks described with patient. Will proceed with removal of suction apparatus from subcutaneous tissue.
[2023-08-14] MEDS: IV FLUID CONTINUATION 1,000 ML IV ONE (17:05)
[2023-08-14] MEDS: LACTATED RINGERS 1,000 ML IV ONE (17:05)
[2023-08-14] MEDS ORDERED: LIDOCAINE 1% INJ 10MG/ML (20 ML MDV) ONE (18:08)
[2023-08-14] MEDS ORDERED: PROPOFOL 10 MG/ML 20 ML VIAL IV ONE (18:08)
[2023-08-14] MEDS ORDERED: SUCCINYLCHOLINE CHLORIDE 200 MG/10 ML VIAL IV ONE (18:08)
[2023-08-14] MEDS ORDERED: MIDAZOLAM 2 MG/2 ML VIAL ONE (18:08)
[2023-08-14] MEDS ORDERED: PHENYLEPHRINE-0.9% NACL SYG 1,000 MCG/10 ML SYRINGE ONE (18:08)
[2023-08-14] MEDS ORDERED: DEXAMETHASONE SOD PHOSPHATE 4 MG/ML 1 ML VIAL ONE (18:08)
[2023-08-14] MEDS ORDERED: ONDANSETRON 4 MG/2 ML VIAL ONE (18:08)
[2023-08-14] MEDS ORDERED: fentaNYL (PF) 50 MCG/ML 2 ML AMP ONE (18:08)
[2023-08-14] MEDS ORDERED: ROCURONIUM 10 MG/ML (5 ML VIAL) IV ONE (18:08)
[2023-08-14] MEDS: SODIUM CHLORIDE 0.9% 50 ML with ceFAZolin 2,000 MG IV ONE (18:29)
[2023-08-14] MEDS: LIDOCAINE 1%-EPI 1:100,000 50 ML VIAL SQ ONE ×2 (18:44→19:11)
[2023-08-14] MEDS: SODIUM CHLORIDE 0.9% 1,000 ML IV ONE (18:45)
[2023-08-14] MEDS ORDERED: NALOXONE 0.4 MG/ML 1 ML VIAL IV PRN (19:34)
--- NOTE | 2023-08-14 19:49 | P.OP ---
Date of Procedure: 08/14/23 Description of Procedure: SURGEON: KP DUPREE MD PREOPERATIVE DIAGNOSES: 1. Foreign body in abdominal wall due to equipment failure PETER drain, left side 2. Status post panniculectomy POSTOPERATIVE DIAGNOSES: 1. Foreign body in abdominal wall due to equipment failure PETER drain, left side 2. Status post panniculectomy 3. Abdominal wall hematoma OPERATION: 1. Removal of foreign body from abdominal wall, PETER drain tubing 2. Evacuation of abdominal wall hematoma, 260 cc 3. Intermediate closure 5 cm incision 4. Re-Placement of #19 round Stephen-Berrios drain subcutaneous, abdominal wall, left ANESTHESIA: General ESTIMATED BLOOD LOSS: 20 mL SPECIMENS REMOVED: None COMPLICATIONS: None. CONDITION: Stable. DRAINS: Replacement of left-sided #19 round Stephen-Berrios drain OPERATIVE FINDINGS: 1. Complete disruption of Stephen-Berrios tubing at adapter site with suction tubing in abdominal wall 2. Multiple clots under abdominal flap, 260 cc drained INDICATIONS: The patient is a 53-year-old female status post panniculectomy, 2 days ago. I was called at bedside due to PETER bulb could no longer hold suction. PETER bulb was replaced with repeat problem with suction. Dressing along left PETER site was discontinued with complete separation of PETER tubing at the attachment site of suction tubing and tunneling system at his adapter consistent with equipment failure. Entire suction tubing was within the subcutaneous tissue requiring surgical removal. Benefits and risks of the procedure including bleeding, infection, cosmetic deformity, abdominal seromas, placement of drains, risk of flap failure were described at length. Informed consent was obtained. DESCRIPTION: The patient was brought into the operating room and laid in beachchair position. After general induction, the abdomen was then prepped and draped in standard sterile fashion using ChloraPrep along the left side of the abdomen as her dressings were discontinued. A timeout protocol was confirmed with the surgical team regarding patient's name, procedure to be performed, including preoperative medications. Antibiotics were administered. The tubing was not able to be palpated underneath the subcutaneous tissue of the pubis or abdominal wall. Cut down on prior incision 5 cm just to the left of the midline. Suction tubing was placed where over 260 cc of blood clots and hematoma was evacuated from the abdominal wall. A long Sruthi was placed within the incision and the tunneled tubing suction device was removed from the abdominal wall. Inspection confirmed complete disruption and failure of the adapter and tubing at the manufactured glued site. Due to the moderate hematoma evacuated from the abdominal wall, replacement left round #19 PETER drain was placed and position under the abdominal wall flap using a long Sruthi. The PETER drain was exited via the suprapubic area intact using 2-0 nylon. The incision was reapproximated using deep subcutaneous bites of 0 Vicryl and fascia. The skin incision was oversewn using 3-0 Monocryl in a subcuticular fashion. Bulb suction was placed. Once the incision was closed, bulb suction was attached. Hemostasis was checked. At the end of the procedure, the needle, sponge and instrument count was verified correct. The skin was cleansed with hydrogen peroxide. Exofin tape including adhesive was placed along the length of the incision. Optifoam dressing was also placed over the incision and over the PETER sites. The patient was then transferred to a hospital bed in a beach chair position. An abdominal binder was placed and marked. The patient was taken to the postanesthesia care unit in stable condition, awake and extubated.
[2023-08-15 10:49] LABS: Basophils # (A) 0.02 X 10*3/uL (0.00-0.10); Basophils % (A) 0.2 %; Eosinophils # (A) 0.09 X 10*3/uL (0.04-0.35); Eosinophils % (A) 1.1 %; HCT 30.2 % (37.2-46.3); HGB 9.6 g/dL (12.0-15.0); Lymphocytes # (A) 1.56 X 10*3/uL (0.90-5.00); Lymphocytes % (A) 19.3 %; MCH 27.3 pg (27.0-32.0); MCHC 31.8 g/dL (32.0-37.0); MCV 85.8 FL (80.0-97.0); Mean Platelet Volume 10.9 FL (9.5-12.2); Monocytes # (A) 0.51 X 10*3/uL (0.20-1.00); Monocytes % (A) 6.3 %; NRBC Per 100 WBC 0 X 10*3/uL (0.00-0.01); Neutrophils # (A) 5.87 X 10*3/uL (1.80-7.70); Neutrophils % (A) 72.9 %; Platelet Count 230 X 10*3/uL (140-440); RBC 3.52 X 10*6/uL (4.10-5.20); RDW 14.7 % (11.5-14.5); WBC 8.07 X 10*3/uL (4.50-10.00)
--- NOTE | 2023-08-15 12:04 | P.DS ---
Providers Date of admission: 08/12/23 08:30 Expected date of discharge: 08/15/23 Attending physician: Kimberly Gifford Primary care physician: Mario Hartman [facility] Course: Discharge diagnosis 1. Panniculitis 2. Adiposus panniculus. 3. Morbid obesity due to excess calories 4. Body mass index 47.8 to 31.8 5. Gastroesophageal reflux disease 6. History of methicillin resistant staph aureus infection 7. Osteoarthritis of the knee 8. Osteoarthritis of the hips 9. Recurrent abdominal ventral hernia, 10 x 24 cm, unrelated to prior bariatric surgery. Hospital course The patient is status post panniculectomy he patient is a 53-year-old female with a history of massive weight loss over 100 pounds over 2 years. Despite medical therapy with prescription powders such as Nystatin over 1 year, she has developed severe medical refractory panniculitis including chronic lower back pain. And primary repair of ventral hernia without mesh. Patient also had a faulty PETER drain. She required to be taken back to the OR for removal of the PETER drain tubing from abdominal wall and evacuation of abdominal wall hematoma. She had a new PETER drain placed. Patient reports her pain is controlled. She has been up and ambulating. She is tolerating diet. She is having flatus. Denies any difficulty urinating. She is afebrile. She is stable for discharge. Physician Reconnaissance Man note has been reviewed by physician. Signing provider agrees with the documented findings, assessment, and plan of care. Patient Condition at Discharge: Stable Plan - Discharge Summary Discharge Rx Participant: No New Discharge Prescriptions: New Acetaminophen Tab [Tylenol] 1,000 mg PO Q6HR PRN #30 tablet PRN Reason: Pain Continue Multivitamins, Thera [Multivitamin (formulary)] 1 tab PO DAILY Brimonidine Tartrate [Alphagan P 0.2% Ophth Soln] 1 drops LEFT EYE DAILY Calcium Crb,Cit/D3/Min34/Sanjay [Citracal Plus Bone Density Tab] 1 each PO DAILY Aspirin EC [Ecotrin Low Dose] 81 mg PO DAILY amLODIPine [Norvasc] 2.5 mg PO DAILY Inulin/Chromium Picolinate [Fiber Gummies Chew] 2 tab PO DAILY Fluticasone Propion/Salmeterol [Wixela 250-50 Inhub] 1 inhalation PO BID Discontinued Acetaminophen [Tylenol Extra Strength] 1,000 mg PO DIRECTED PRN PRN Reason: Pain Discharge Medication List Multivitamins, Thera [Multivitamin (formulary)] 1 tab PO DAILY 07/30/20 [History] Brimonidine Tartrate [Alphagan P 0.2% Ophth Soln] 1 drops LEFT EYE DAILY 1 [History] Calcium Crb,Cit/D3/Min34/Sanjay [Citracal Plus Bone Density Tab] 1 each PO DAILY 01/30/21 [History] amLODIPine [Norvasc] 2.5 mg PO DAILY 04/23/23 [History] Aspirin EC [Ecotrin Low Dose] 81 mg PO DAILY 08/06/23 [History] Inulin/Chromium Picolinate [Fiber Gummies Chew] 2 tab PO DAILY 08/06/23 [History] Fluticasone Propion/Salmeterol [Wixela 250-50 Inhub] 1 inhalation PO BID 08/12/23 [History] Acetaminophen Tab [Tylenol] 1,000 mg PO Q6HR PRN #30 tablet 08/15/23 [Rx] [place] [facility]Ref[place]21[facility]23 2:00 pm Activity/Diet/Wound Care/Special Instructions: No lifting over 4 pounds in 4 weeks. No bathtub soaks. No shower. No stretching or twisting. Sleep in a recliner. DO NOT REMOVE DRESSINGS. DO NOT REMOVE BINDER. Keep record of PETER outputs daily. Discharge Disposition: HOME SELF-CARE
[2023-08-15 15:13] VITALS: BP 94/61; PULSE 100; RESP 17; TEMP 98.5
== END 2023-08-15 16:16 | disposition home or self-care (01) | DRG 364 ==
LOC: 2ORMAIN 08:30 → 4SSUR 16:23
PROVIDERS: ADMIT Surgery Plastic and Reconstructive Surgery; ATTEND Surgery Plastic and Reconstructive Surgery
PROC: 0JB80ZZ Excision of Abdomen Subcutaneous Tissue and Fascia, Open Approach (ICD-10-PCS; 2023-08-12)
PROC: 0KXL0Z2 Transfer Left Abdomen Muscle with Skin and Subcutaneous Tissue, Open Approach (ICD-10-PCS; 2023-08-12)
PROC: 0KXK0Z2 Transfer Right Abdomen Muscle with Skin and Subcutaneous Tissue, Open Approach (ICD-10-PCS; 2023-08-12)
PROC: 0WQF0ZZ Repair Abdominal Wall, Open Approach (ICD-10-PCS; principal; 2023-08-12 10:40)
DX: M79.3 Panniculitis, unspecified (principal); E66.01 Morbid (severe) obesity due to excess calories; K21.9 Gastro-esophageal reflux disease without esophagitis; Z68.32 Body mass index [BMI] 32.0-32.9, adult; I10 Essential (primary) hypertension; K43.9 Ventral hernia without obstruction or gangrene; M16.0 Bilateral primary osteoarthritis of hip; M17.0 Bilateral primary osteoarthritis of knee; Z86.14 Personal history of Methicillin resistant Staphylococcus aureus infection; Z87.891 Personal history of nicotine dependence; S30.1XXA Contusion of abdominal wall, initial encounter; Z79.82 Long term (current) use of aspirin; Z79.899 Other long term (current) drug therapy; Z98.84 Bariatric surgery status
CPT/HCPCS: 85025; 94640

== ENCOUNTER 2023-08-19 07:56 | Emergency (ER) | payer OTHER ==
[2023-08-19 08:13] VITALS: RESP 16; TEMP 97.5
--- NOTE | 2023-08-19 08:27 | ED ---
Recheck HPI - General Chief Complaint: Recheck/Abnormal Lab/Rx Stated Complaint: Incision Bleeding Time Seen by Provider: 08/19/23 08:05 Source: patient, RN notes reviewed Mode of arrival: wheelchair Limitations: no limitations - History of Present Illness Initial Comments: This is a 53 year old female who presents to the emergency department for problems with her abdominal incision. Patient had a panniculectomy with Dr. Gifford on 08/11. She had 2 PETER drains placed, and on 08/13 the drain on the left was found to be malfunctioning. This was then replaced along with evacuation of an abdominal wall hematoma. States that at the point of discharge she did have some small drainage/leaking around the PETER drains, however the drains themselves were still functional. This morning, she noticed a large amount of drainage coming around the PETER drains and the incision itself, which had not happened before. The PETER drains are still functional. Denies any abdominal pain. - Related Data Home Medications Medication Instructions Recorded Confirmed Multivitamins, Thera [Multivitamin 1 tab PO DAILY 07/30/20 08/06/23 (formulary)] Brimonidine Tartrate [Alphagan P 1 drops LEFT EYE DAILY 11/10/20 08/06/23 0.2% Ophth Soln] Calcium Crb,Cit/D3/Min34/Sanjay 1 each PO DAILY 01/30/21 08/06/23 [Citracal Plus Bone Density Tab] amLODIPine [Norvasc] 2.5 mg PO DAILY 04/23/23 08/06/23 Aspirin EC [Ecotrin Low Dose] 81 mg PO DAILY 08/06/23 08/06/23 Inulin/Chromium Picolinate [Fiber 2 tab PO DAILY 08/06/23 08/06/23 Gummies Chew] Fluticasone Propion/Salmeterol 1 inhalation PO BID 08/12/23 08/12/23 [Wixela 250-50 Inhub] Previous Rx's Medication Instructions Recorded Acetaminophen Tab [Tylenol] 1,000 mg PO Q6HR PRN #30 tablet 08/15/23 Allergies Allergy/AdvReac Type Severity Reaction Status Date / Time No Known Allergies Allergy Verified 08/19/23 08:04 Review of Systems ROS Statement: Those systems with pertinent positive or pertinent negative responses have been documented in the HPI. ROS Other: All systems not noted in ROS Statement are negative. Past Medical History Past Medical History: GERD/Reflux, Hypertension, Osteoarthritis (OA) Additional Past Medical History / Comment(s): hx irregular heart beat., bladder polyps. , glaucoma left eye ., DDD with back pain. Past [employer] history: History of Trichomonas and GC in her 20s. Genital HSV. PANNICULITIS History of Any Multi-Drug Resistant Organisms: MRSA Date of last positivie culture/infection: 12/08/2011 MDRO Source:: left axilla Past Surgical History: Bariatric Surgery, Section, Cholecystectomy, Hernia Repair, Tubal Ligation Additional Past Surgical History / Comment(s): umbilical hernia , cystoscopy, bladder-polyp removed , EGD., 01/04/20-laparoscopy-(bariatric surgery aborted due to hernia and adhesions). Gastric sleeve 12/06/20, COLONOSCOPY Past Anesthesia/Blood Transfusion Reactions: No Reported Reaction Past Psychological History: No Psychological Hx Reported Smoking Status: Former smoker Past Alcohol Use History: None Reported Past Drug Use History: None Reported - Past Family History Father Family Medical History: Hyperlipidemia, Hypertension Additional Family Medical History / Comment(s): hepatitis c>Liver transplant Mother Family Medical History: Hypertension Additional Family Medical History / Comment(s): mental health issues General Exam Limitations: no limitations General appearance: alert, in no apparent distress Head exam: Present: atraumatic, normocephalic, normal inspection Respiratory exam: Present: normal lung sounds bilaterally. Absent: respiratory distress, wheezes, rales, rhonchi, stridor Cardiovascular Exam: Present: regular rate, normal rhythm, normal heart sounds. Absent: systolic murmur, diastolic murmur, rubs, gallop, clicks Extremities exam: Present: other (Fluid on the gauze surrounding the PETER drains without any active drainage.) Neurological exam: Present: alert, oriented X3, CN II-XII intact Psychiatric exam: Present: normal affect, normal mood Skin exam: Present: warm, dry, intact, normal color. Absent: rash Course Vital Signs 08/19/23 08/19/23 08/19/23 08:01 08:13 10:00 Temperature 97.5 F L Pulse Rate 86 91 89 Respiratory 16 16 16 Rate Blood Pressure 86/57 91/65 103/66 O2 Sat by Pulse 97 99 Oximetry Medical Decision Making - Medical Decision Making This is a 53 year old female who presents to the emergency department for problems with her incision. Was pt. sent in by a medical professional or institution? @ -No Did you speak to anyone other than the patient for history? @ -No Did you review nursing and triage notes? @ -Yes, and I agree, it is accurate with regards to the patient's symptoms. Were old charts reviewed? @ -No Differential Diagnosis? @ -Differential Leaking Incisions: Infection, malfunctioned PETER drain, wound dehiscence, normal drainage, this is not meant to be an all-inclusive list. EKG interpreted by me (3pts min.)? @ -Not obtained X-rays interpreted by me (1pt min.)? @ -Not obtained CT interpreted by me (1pt min.)? @ -CT scan of the abdomen and pelvis obtained. My interpretation identifies no evidence of bowel wall thickening or free air. U/S interpreted by me (1pt. min.)? @ -Not obtained What testing was considered but not performed? (CT, X-rays, U/S, labs)? Why? @ -None What meds were considered but not given? Why? @ -None Did you discuss the management of the patient with other professionals? @ -Yes, Dr. Gifford, who advised that the patient can be discharged home with follow up in the office as scheduled. Did you reconcile home meds? @ -No Was smoking cessation discussed for >3mins.? @ -No Was critical care preformed (if so, how long)? @ -No Were there social determinants of health that impacted care today? How? (Homelessness, low income, unemployed, alcoholism, drug addiction, transportation, low edu. Level, literacy, decrease access to med. care, detention, rehab)? @ -No Was there de-escalation of care discussed even if they declined? (Discuss DNR or withdrawal of care, Hospice)? @ -No What co-morbidities impacted this encounter? (DM, HTN, Smoking, COPD, CAD, Cancer, CVA, Hep., AIDS, mental health diagnosis, sleep apnea, morbid obesity)? @ -None Was patient admitted / discharged? @ -Discharged. Lab work demonstrates stable hemoglobin. She has a mild elevation in LFTs. CT scan of the abdomen pelvis demonstrates surgical changes to the anterior wall with PETER drainage tubes in place. No acute changes or complications were noted. Case discussed with Dr. Gifford, who advised that the patient needs to avoid manipulating or moving the drains at all and plan to follow-up as scheduled in the office. Someone from the office will contact the patient as well regarding her concerns. Patient discharged home in stable condition. Undiagnosed new problem with uncertain prognosis? @ -None Drug Therapy requiring intensive monitoring for toxicity (Heparin, Nitro, Insulin, Cardizem)? @ -None Were any procedures done? @ -None Diagnosis/symptom? @ -Leaking PETER drains Acute, or Chronic, or Acute on Chronic? @ -Acute Uncomplicated (without systemic symptoms) or Complicated (systemic symptoms)? @ -Uncomplicated Side effects of treatment? @ -None Exacerbation, Progression, or Severe Exacerbation] @ -Not applicable Poses a threat to life or bodily function? @ -No Return precautions reviewed in depth, the patient is instructed to return to the emergency department with any new, worsening, or concerning symptoms. Patient verbalized understanding. This case was discussed in detail with the attending ED physician, Dr. Youngblood. Presentation, findings, and treatment plan discussed in detail as well. - Lab Data Result diagrams: 08/19/23 08:29 08/19/23 08:29 Lab Results 08/19/23 08/19/23 08/19/23 Range/Units 08:29 08:29 08:29 WBC 7.5 (3.8-10.6) k/uL RBC 3.50 L (3.80-5.40) m/uL Hgb 9.7 L (11.4-16.0) gm/dL Hct 30.2 L (34.0-46.0) % MCV 86.3 (80.0-100.0) fL MCH 27.8 (25.0-35.0) pg MCHC 32.2 (31.0-37.0) g/dL RDW 14.6 (11.5-15.5) % Plt Count 385 (150-450) k/uL MPV 7.4 Neutrophils % 64 % Lymphocytes % 22 % Monocytes % 5 % Eosinophils % 6 % Basophils % 0 % Neutrophils # 4.8 (1.3-7.7) k/uL Lymphocytes # 1.7 (1.0-4.8) k/uL Monocytes # 0.4 (0-1.0) k/uL Eosinophils # 0.5 (0-0.7) k/uL Basophils # 0.0 (0-0.2) k/uL Sodium 142 (137-145) mmol/L Potassium 3.7 (3.5-5.1) mmol/L Chloride 107 (98-107) mmol/L Carbon Dioxide 26 (22-30) mmol/L Anion Gap 9 mmol/L BUN 18 H (7-17) mg/dL Creatinine 0.72 (0.52-1.04) mg/dL Est GFR (CKD-EPI)AfAm >90 (>60 ml/min/1.73 sqM) Est GFR (CKD-EPI)NonAf >90 (>60 ml/min/1.73 sqM) Glucose 98 (74-99) mg/dL Plasma Lactic Acid Thompson 0.9 (0.7-2.0) mmol/L Calcium 8.6 (8.4-10.2) mg/dL Total Bilirubin 0.6 (0.2-1.3) mg/dL AST 129 H (14-36) U/L ALT 147 H (4-34) U/L Alkaline Phosphatase 164 H (38-126) U/L Total Protein 6.0 L (6.3-8.2) g/dL Albumin 3.3 L (3.5-5.0) g/dL - Radiology Data Radiology results: report reviewed, image reviewed Disposition Clinical Impression: Postop check Disposition: HOME SELF-CARE Additional Instructions: Return to the emergency department with any new, worsening, or concerning symptoms. Follow up with Dr. Gifford. Is patient prescribed a controlled substance at d/c from ED?: No Referrals: Mario Hartman MD [Primary Care Provider] - 1-2 days Time of Disposition: 10:06
[2023-08-19] MEDS: SODIUM CHLORIDE 0.9% 1,000 ML IV STA (08:31)
[2023-08-19 08:44] LABS: Basophils % (A) 0 %; Eosinophils # (A) 0.5 k/uL (0-0.7); Eosinophils % (A) 6 %; HCT 30.2 % (34.0-46.0); HGB 9.7 gm/dL (11.4-16.0); Lymphocytes # (A) 1.7 k/uL (1.0-4.8); Lymphocytes % (A) 22 %; MCH 27.8 pg (25.0-35.0); MCHC 32.2 g/dL (31.0-37.0); MCV 86.3 fL (80.0-100.0); Mean Platelet Volume 7.4; Monocytes # (A) 0.4 k/uL (0-1.0); Monocytes % (A) 5 %; Neutrophils # (A) 4.8 k/uL (1.3-7.7); Neutrophils % (A) 64 %; Platelet Count 385 k/uL (150-450); RDW 14.6 % (11.5-15.5); WBC 7.5 k/uL (3.8-10.6)
[2023-08-19 08:59] LABS: ALT 147 U/L (4-34); AST 129 U/L (14-36); African American GFR (CKD) >90 (>60 ml/min/1.73 sqM); Albumin 3.3 g/dL (3.5-5.0); Alkaline Phosphatase 164 U/L (38-126); Anion Gap 9 mmol/L; Blood Urea Nitrogen 18 mg/dL (7-17); Calcium 8.6 mg/dL (8.4-10.2); Carbon Dioxide 26 mmol/L (22-30); Chloride 107 mmol/L (98-107); Glucose 98 mg/dL (74-99); Non-African American GFR(CKD) >90 (>60 ml/min/1.73 sqM); Potassium 3.7 mmol/L (3.5-5.1); Sodium 142 mmol/L (137-145); Total Bilirubin 0.6 mg/dL (0.2-1.3)
--- NOTE | 2023-08-19 09:43 | CT ---
EXAMINATION TYPE: CT abdomen pelvis w con CT DLP: 1455 mGycm, Automated exposure control for dose reduction was used. DATE OF EXAM: 08/19/2023 9:12 AM COMPARISON: 01/22/2021 CLINICAL INDICATION:Female, 53 years old with history of Postop abdominal pain and drainage; Post op abdominal pain and drainage TECHNIQUE: Axial CT abdomen pelvis w con;Sagittal and coronal reformats were created on a separate w orkstation. Contrast used:100 ml mL of Isovue 300 with IV Contrast, (none if empty) Oral contrast used: without Oral Contrast (none if empty) FINDINGS: LOWER CHEST: Streaky atelectasis in the lung bases. ABDOMEN LIVER: Unremarkable GALLBLADDER AND BILE DUCTS: The gallbladder surgically absent. PANCREAS: Unremarkable. SPLEEN: Unremarkable. ADRENAL GLANDS: Unremarkable. KIDNEYS AND URETERS: No evidence of hydronephrosis or renal calculus. The ureters are unremarkable. PELVIS BLADDER: Unremarkable REPRODUCTIVE: Unremarkable. ABDOMEN & PELVIS STOMACH AND BOWEL: No evidence of bowel obstruction. Postsurgical changes of gastric lumen. PERITONEUM/RETROPERITONEUM: No evidence of pneumoperitoneum or free fluid. VASCULATURE: No evidence of aortic aneurysm. MUSCULOSKELETAL: No acute osseous abnormalities. Mild disc degeneration changes are present throughou t the thoracolumbar spine. LYMPH NODES: No gross evidence for lymphadenopathy. SOFT TISSUE/ABDOMINAL WALL: Postsurgical changes to the anterior abdominal wall with fat interdigitat ing between the rectus abdominis muscles centrally. Bilateral Stephen-Berrios catheters are transversin g the anterior abdominal wall subcutaneous tissues. No organizing fluid collections. Streaky edema th roughout the tissues. IMPRESSION: Surgical changes to the anterior, wall with Stephen-Berrios drainage tubes in place. No organizing flui d collections visualized.
[2023-08-19 10:01] VITALS: BP 103/66; PULSE 89
== END 2023-08-19 10:29 | disposition home or self-care (01) ==
LOC: EC 07:56
DX: Z48.03 Encounter for change or removal of drains (principal); I10 Essential (primary) hypertension; Z87.891 Personal history of nicotine dependence; Z79.82 Long term (current) use of aspirin; Z79.899 Other long term (current) drug therapy
CPT/HCPCS: 36415; 80053; 83605; 85025; 74177; 99284; 96360; Q9967

== ENCOUNTER → 2023-08-28 | Outpatient (CLI) | payer OTHER ==
[2023-08-28 13:59] VITALS: BP 127/88; PULSE 73; TEMP 97.8; BMI 30.3
--- NOTE | 2023-08-28 16:18 | P.BASOAP ---
Subjective Progress Note Date: 08/28/23 Dressing removed. Has mild dehiscence of incision 6-cm. ALl drains removed. Patient reports a smell. Cultures obtained. Antibiotic dressing place. Objective - Vital Signs Vital signs: Vital Signs Temp 97.8 F 08/28/23 13:20 Pulse 73 08/28/23 13:20 Resp BP 127/88 08/28/23 13:20 Pulse Ox FiO2 Intake & Output 08/27/23 08/28/23 08/28/23 18:59 06:59 18:59 Weight 85.275 kg Assessment/Plan Plan: Date: 08/28/23 Initial Weight: 126.099 kg Initial BMI: 44.9 Current Weight: 85.275 kg Current BMI: 30.3 Type of Surgery: Total Volume in Band: Previous Volume: Volume Removed: Volume Added: Band Size:
== END ==
LOC: BARWHC3 12:49
PROVIDERS: ATTEND Surgery Plastic and Reconstructive Surgery
DX: E66.01 Morbid (severe) obesity due to excess calories (principal); L08.9 Local infection of the skin and subcutaneous tissue, unspecified; Z68.30 Body mass index [BMI] 30.0-30.9, adult; Z87.891 Personal history of nicotine dependence
CPT/HCPCS: 87070; 87205; 87075; 87077; 87186; G0463; 99212

== ENCOUNTER → 2023-09-04 | Outpatient (CLI) | payer OTHER ==
--- NOTE | 2023-09-04 13:45 | P.BASOAP ---
Subjective Progress Note Date: 09/04/23 Has STD paperwork. Wound with moderate improvement. Has multiple drug resistance to previous antibiotics. Waist checking with measuring tape. Has STD form. New dressing placed. Sensitivity reviewed. She is doing well. She is losing weight. Get new binder. Antibiotics. Assessment/Plan Plan: Date: Initial Weight: 126.099 kg Initial BMI: Current Weight: Current BMI: Type of Surgery: Total Volume in Band: Previous Volume: Volume Removed: Volume Added: Band Size:
[2023-09-05 13:38] VITALS: BP 109/67; PULSE 88; TEMP 97.6; BMI 30.2
== END ==
LOC: BARWHC3 12:50
PROVIDERS: ATTEND Surgery Plastic and Reconstructive Surgery
DX: E66.01 Morbid (severe) obesity due to excess calories (principal); Z53.9 Procedure and treatment not carried out, unspecified reason
CPT/HCPCS: 99212

== ENCOUNTER → 2023-09-11 | Outpatient (CLI) | payer OTHER ==
[2023-09-11 13:52] VITALS: BP 119/79; PULSE 85; TEMP 97.9; BMI 30.7
--- NOTE | 2023-09-11 13:56 | P.BASOAP ---
Subjective Progress Note Date: 09/11/23 Attempted needle drainage for seroma. Getting US aspiration of seroma. High salt diet adjustment reviewed. Weight gain of 3 pounds. Increase water. Anticipated weight loss in 4 weeks of 10 pounds. New binder placed. Daily use of binder only removed with showering. Objective - Vital Signs Vital signs: Vital Signs Temp 97.9 F 09/11/23 13:18 Pulse 85 09/11/23 13:18 Resp BP 119/79 09/11/23 13:18 Pulse Ox FiO2 Intake & Output 09/10/23 09/11/23 09/11/23 18:59 06:59 18:59 Weight 86.183 kg Assessment/Plan Plan: Date: 09/11/23 Initial Weight: 126.099 kg Initial BMI: 44.9 Current Weight: 86.183 kg Current BMI: 30.7 Type of Surgery: Total Volume in Band: Previous Volume: Volume Removed: Volume Added: Band Size:
== END | disposition home or self-care (01) ==
LOC: BARWHC3 12:33
PROVIDERS: ATTEND Surgery Plastic and Reconstructive Surgery
DX: E66.01 Morbid (severe) obesity due to excess calories (principal); L76.33 Postprocedural seroma of skin and subcutaneous tissue following a dermatologic procedure; Z87.891 Personal history of nicotine dependence; Z98.84 Bariatric surgery status; Z90.3 Acquired absence of stomach [part of]; Z68.30 Body mass index [BMI] 30.0-30.9, adult
CPT/HCPCS: 99212

== ENCOUNTER → 2023-09-18 | Outpatient (CLI) | payer OTHER ==
[2023-09-18 13:53] VITALS: BP 119/78; PULSE 83; TEMP 97.5; BMI 30.2
--- NOTE | 2023-09-18 14:21 | P.BASOAP ---
Subjective Progress Note Date: 09/18/23 She has lost weight. Still healing. Use vitamin Alive and Fish oil. US abd for seroma Objective - Vital Signs Vital signs: Vital Signs Temp 97.5 F L 09/18/23 13:22 Pulse 83 09/18/23 13:22 Resp BP 119/78 09/18/23 13:22 Pulse Ox FiO2 Intake & Output 09/17/23 09/18/23 09/18/23 18:59 06:59 18:59 Weight 85.049 kg Assessment/Plan Plan: Date: 09/18/23 Initial Weight: 126.099 kg Initial BMI: 44.9 Current Weight: 85.049 kg Current BMI: 30.2 Type of Surgery: Total Volume in Band: Previous Volume: Volume Removed: Volume Added: Band Size:
== END ==
LOC: BARWHC3 12:45
PROVIDERS: ATTEND Surgery Plastic and Reconstructive Surgery
DX: Z53.9 Procedure and treatment not carried out, unspecified reason (principal)
CPT/HCPCS: 99212

== ENCOUNTER 2023-09-24 09:15 | Day surgery (SDC) | payer OTHER ==
--- NOTE | 2023-09-24 10:38 | US ---
EXAMINATION TYPE: US discontinued ultrasound-guided aspiration DATE OF EXAM: 09/24/2023 10:33 AM CLINICAL INDICATION:Female, 53 years old with history of L76.54 POSTPROC SEROMA OF SKIN, SUBCU FOLLOW ING OT; , thyroid nodule. COMPARISON: None ATTENDING: Dr. Campbell Napoles PROCEDURE: Informed consent was obtained. The risks and benefits of the procedure were discussed with the patien t. The site was marked. Timeout procedure was performed Ultrasound imaging of the anterior abdominal wall demonstrates streaky edema no organizing fluid tramaine ection. The procedure was canceled at that time. IMPRESSION: Canceled ultrasound and aspiration secondary to lack of organizing fluid collection in the subcutaneo us tissues. Some mild streaky edema noted.
[2023-09-24 10:56] VITALS: BP 130/84; PULSE 75; RESP 18; TEMP 98.1
== END 2023-09-24 10:45 | disposition home or self-care (01) ==
LOC: RADPROMAIN 09:15
PROVIDERS: ATTEND Surgery Plastic and Reconstructive Surgery
DX: Z53.8 Procedure and treatment not carried out for other reasons (principal); E04.1 Nontoxic single thyroid nodule; L76.34 Postprocedural seroma of skin and subcutaneous tissue following other procedure
CPT/HCPCS: 76536

== ENCOUNTER → 2023-09-25 | Outpatient (CLI) | payer OTHER ==
[2023-09-25 14:08] VITALS: BP 129/87; PULSE 85; TEMP 98.1; BMI 30.7
--- NOTE | 2023-09-25 15:12 | P.PN ---
Progress Note - Text Progress Note Date: 09/25/23 Patient left without being seen
== END | disposition home or self-care (01) ==
LOC: BARWHC3 12:50
PROVIDERS: ATTEND Surgery Plastic and Reconstructive Surgery
DX: Z53.21 Procedure and treatment not carried out due to patient leaving prior to being seen by health care provider (principal)
CPT/HCPCS: 99212

== ENCOUNTER → 2024-03-06 | Outpatient (CLI) | payer OTHER ==
--- NOTE | 2024-03-08 11:30 | US ---
EXAMINATION TYPE: US abdomen limited DATE OF EXAM: 03/06/2024 COMPARISON: NONE CLINICAL INDICATION: Female, 54 years old with history of L76.34 POSTPROC SEROMA OF SKIN; Post pannic ulectomy in August 2023. Dr alan for seroma TECHNIQUE: Scanned lower abdomen along incision site FINDINGS: No fluid collection seen. Small anechoic area seen measuring 0.5 x 0.4 x 0.2cm IMPRESSION: Small subcutaneous cyst near the incision site. Otherwise unremarkable study [facility], , 03/08/2024 11:27 AM
== END | disposition home or self-care (01) ==
LOC: RADUSWWP 07:59
PROVIDERS: ATTEND Surgery Plastic and Reconstructive Surgery
DX: L76.34 Postprocedural seroma of skin and subcutaneous tissue following other procedure (principal)
CPT/HCPCS: 76705

== ENCOUNTER → 2024-03-13 | Outpatient (CLI) | payer OTHER ==
--- NOTE | 2024-03-13 15:40 | CT ---
EXAMINATION TYPE: CT urogram wo/w con CT DLP: 2742.6 mGycm, Automated exposure control for dose reduction was used. DATE OF EXAM: 03/13/2024 1:29 PM COMPARISON: CT abdomen pelvis 08/19/2023, 01/22/2021 CT 07/15/2014 CLINICAL INDICATION:Female, 54 years old with history of C67.9 MALIGNANT NEOPLASM OF BLADDER, UNSPEC R31.0; PHH, hematuria, bladder ca TECHNIQUE: Urogram of the abdomen and pelvis was performed before and after the administration of 100 cc of IV c ontrast Isovue 300 contrast. Delayed imaging was performed. Coronal and sagittal reformats were perfo rmed. One or more CT dose reduction strategies were utilized during this examination. 2D and 3D recon structions are performed to assist visualization of the urinary tract on a separate workstation. FINDINGS: GENITOURINARY: RIGHT KIDNEY AND URETER: No calculi. No hydronephrosis or hydroureter. Stable medial mid right kidney nonenhancing 1.1 cm cyst. No suspicious enhancing renal lesion. No urothelial lesions: no filling de fect, dilation, stricture or wall thickening. LEFT KIDNEY AND URETER: No calculi. No hydronephrosis or hydroureter. Stable left lower pole nonenhan cing 1.2 cm cyst. No suspicious enhancing renal lesion. No urothelial lesions: no filling defect, dil ation, stricture or wall thickening. URINARY BLADDER: Moderately well distended with small amount of contrast layering on delayed imaging. Normal, no calculi, mass or other lesions. REPRODUCTIVE: There are 2 right-sided tubal ligation clips with additional tubal ligation clip that i s nondisplaced and lies along the anterior right urinary bladder wall. ABDOMEN LIVER: Low-attenuation region within the inferior left hepatic lobe decreased in size from prior CTs and is favored to represent prior infarct. GALLBLADDER AND BILE DUCTS: Gallbladder is surgically absent. No biliary ductal dilatation. PANCREAS: Unremarkable. SPLEEN: Unremarkable. ADRENAL GLANDS: Unremarkable. STOMACH AND BOWEL: Post surgical changes from gastric sleeve. No focal bowel wall thickening or surro unding inflammatory changes. The appendix is within normal limits. No evidence of bowel obstruction. PERITONEUM: No evidence of pneumoperitoneum, free fluid, or adenopathy. VASCULATURE: No aortic aneurysm. MUSCULOSKELETAL: No acute osseous abnormalities. No aggressive osseous lesion. L4-L5 facet arthropath y. Mild multilevel degenerative disc disease. SOFT TISSUE/ABDOMINAL WALL: Postsurgical changes of the intra-abdominal wall with scarring demonstrat ed. No organized fluid collections. LOWER CHEST: Visualized lung bases are clear. Trace anterior pericardial effusion. IMPRESSION: 1. No evidence of urolithiasis or suspicious renal/urothelial neoplasm. No distinct urinary bladder l esion identified within limitations. Consider direct visualization if there is continued clinical con cern. 2. Bilateral small nonenhancing renal cysts. [facility], , 03/13/2024 3:37 PM
== END | disposition home or self-care (01) ==
LOC: RADCTMAIN 12:12
PROVIDERS: ATTEND Urology
DX: C67.9 Malignant neoplasm of bladder, unspecified (principal); R31.0 Gross hematuria; N28.1 Cyst of kidney, acquired; Z85.51 Personal history of malignant neoplasm of bladder
CPT/HCPCS: 74178; 74400; Q9967

== ENCOUNTER → 2024-07-08 | Outpatient (CLI) | payer OTHER ==
[2024-07-08 13:48] VITALS: BP 122/81; PULSE 79; RESP 16; TEMP 98.7
--- NOTE | 2024-07-08 13:54 | P.BASOAP ---
Subjective Progress Note Date: 07/08/24 She lost 80 pounds. She gained 10 pounds. She is looking into the shots for weight loss. Last blood work. She still eats peanut butter crackers. Objective - Vital Signs Vital signs: Vital Signs Temp 98.7 F 07/08/24 13:43 Pulse 79 07/08/24 13:43 Resp 16 07/08/24 13:43 BP 122/81 07/08/24 13:43 Pulse Ox FiO2 Intake & Output 07/07/24 07/08/24 07/08/24 18:59 06:59 18:59 Weight 94.347 kg Assessment/Plan Plan: Date: 07/08/24 Initial Weight: 126.099 kg Initial BMI: Current Weight: 94.347 kg Current BMI: Type of Surgery: Total Volume in Band: Previous Volume: Volume Removed: Volume Added: Band Size:
[2024-07-08 15:36] LABS: Partial Thromboplastin Time 25.1 sec (22.0-30.0)
[2024-07-08 18:15] LABS: HCT 40.9 % (37.2-46.3); MCH 26.2 pg (27.0-32.0); MCHC 31.8 g/dL (32.0-37.0); MCV 82.5 FL (80.0-97.0); NRBC Per 100 WBC 0 X 10*3/uL (0.00-0.01); Platelet Count 280 X 10*3/uL (140-440); RBC 4.96 X 10*6/uL (4.10-5.20); RDW 14.6 % (11.5-14.5); WBC 5.44 X 10*3/uL (4.50-10.00)
[2024-07-08 18:52] LABS: % Iron Saturation 27.73 (12.00-45.00); Ferritin 51.1 ng/mL (10.0-291.0); Iron 94 UG/DL (50-170); Magnesium 2.2 mg/dL (1.5-2.4); Phosphorus 4.7 mg/dL (2.4-5.1); Total Iron Binding Capacity 339 UG/DL (228-460); VLDL Calculation 10.82 mg/dL (5.00-40.00)
[2024-07-08 20:52] LABS: ALT 51 U/L (8-44); AST 30 U/L (13-35); Albumin 4.2 g/dL (3.8-4.9); Albumin/Globulin Ratio 1.75 Ratio (1.60-3.17); Alkaline Phosphatase 74 U/L (41-126); BUN/Creat Ratio 28.22 Ratio (12.00-20.00); Blood Urea Nitrogen 25.4 mg/dL (9.0-27.0); Calcium 9.4 mg/dL (8.7-10.3); Carbon Dioxide 25.1 mmol/L (21.6-31.8); Chloride 104 mmol/L (96-109); Globulin 2.4 g/dL (1.6-3.3); Glucose 75 mg/dL (70-110); Potassium 3.9 mmol/L (3.5-5.5); Sodium 140 mmol/L (135-145); Total Bilirubin 0.3 mg/dL (0.3-1.2); Total Protein 6.6 g/dL (6.2-8.2)
[2024-07-09 15:27] LABS: Zinc, Serum 77 ug/dL (60-130)
[2024-07-10 07:19] LABS: Vit B1(Thiamine) 59 ug/L (38-122)
[2024-07-10 07:24] LABS: Vitamin A 60 ug/dL (38-106)
== END ==
LOC: BARWHC3 13:42
PROVIDERS: ATTEND Surgery Plastic and Reconstructive Surgery
DX: E66.01 Morbid (severe) obesity due to excess calories (principal); Z87.891 Personal history of nicotine dependence; Z68.33 Body mass index [BMI] 33.0-33.9, adult
CPT/HCPCS: 80053; 80061; 82306; 82525; 82607; 82728; 82746; 83036; 83540; 83550; 83735; 83970; 84100; 84255; 84425; 84443; 84590; 84630; 85027; 85610; 85730; 99211

== ENCOUNTER → 2024-07-28 | Outpatient (CLI) | payer OTHER | END | disposition home or self-care (01) | LOC: LABT 13:11 | PROVIDERS: ATTEND Surgery Plastic and Reconstructive Surgery | DX: E66.01 Morbid (severe) obesity due to excess calories (principal); K90.89 Other intestinal malabsorption; K76.9 Liver disease, unspecified; N19 Unspecified kidney failure; T56.894A Toxic effect of other metals, undetermined, initial encounter | CPT/HCPCS: 84134; 84255 ==

== ENCOUNTER 2024-10-09 08:04 | Observation (INO) | payer OTHER ==
[2024-10-09 08:12] LABS: Glucose,Whole Blood 99 mg/dL (70-110)
--- NOTE | 2024-10-09 08:17 | ED ---
General Adult HPI - General Chief complaint: Chest Pain Stated complaint: Chest pain Time Seen by Provider: 10/09/24 08:07 Source: patient, family, RN notes reviewed Mode of arrival: wheelchair Limitations: no limitations - History of Present Illness Initial comments: Patient is a 54-year-old female presenting to the emergency department with concerns for chest discomfort. Discomfort felt like tightness. Onset of symptoms was just 5 minutes ago. Discomfort was severe however now is more mild. Patient has some associated dyspnea. No nausea or vomiting. No diaphoresis. No history of similar symptoms previously. No history of cardiac disease. No radiation. - Related Data Home Medications Medication Instructions Recorded Confirmed Multivitamins, Thera [Multivitamin 1 tab PO DAILY 07/30/20 07/21/24 (formulary)] Brimonidine Tartrate [Alphagan P 1 drops LEFT EYE DAILY 11/10/20 07/21/24 0.2% Ophth Soln] Calcium Crb,Cit/D3/Min34/Sanjay 1 each PO DAILY 01/30/21 07/21/24 [Citracal Plus Bone Density Tab] Aspirin EC [Ecotrin Low Dose] 81 mg PO DAILY PRN 08/06/23 07/21/24 Inulin/Chromium Picolinate [Fiber 2 tab PO DAILY PRN 08/06/23 07/21/24 Gummies Chew] Fluticasone Propion/Salmeterol 1 inhalation PO BID PRN 08/12/23 07/21/24 [Wixela 250-50 Inhub] Previous Rx's Medication Instructions Recorded Acetaminophen Tab [Tylenol] 1,000 mg PO Q6HR PRN #30 tablet 08/15/23 Allergies Allergy/AdvReac Type Severity Reaction Status Date / Time No Known Allergies Allergy Verified 07/21/24 11:24 Review of Systems ROS Statement: Those systems with pertinent positive or pertinent negative responses have been documented in the HPI. ROS Other: All systems not noted in ROS Statement are negative. Constitutional: Denies: fever Eyes: Denies: eye pain ENT: Denies: ear pain Respiratory: Reports: as per HPI, dyspnea Cardiovascular: Reports: as per HPI, chest pain Past Medical History Past Medical History: GERD/Reflux, Hypertension, Osteoarthritis (OA) Additional Past Medical History / Comment(s): hx irregular heart beat., bladder polyps. , glaucoma left eye ., DDD with back pain. 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 Genital HSV. History of Any Multi-Drug Resistant Organisms: MRSA Date of last positivie culture/infection: 12/08/2011 MDRO Source:: left axilla Past Surgical History: Bariatric Surgery, Section, Cholecystectomy, Hernia Repair, Tubal Ligation Additional Past Surgical History / Comment(s): umbilical hernia , cystoscopy, bladder-polyp removed , EGD., 01/04/20-laparoscopy-(bariatric surgery aborted due to hernia and adhesions). Gastric sleeve 12/06/20, COLONOSCOPY. panniculectomy 08-12-23 Past Anesthesia/Blood Transfusion Reactions: No Reported Reaction Past Psychological History: No Psychological Hx Reported Smoking Status: Former smoker Past Alcohol Use History: None Reported Past Drug Use History: None Reported - Past Family History Father Family Medical History: Hyperlipidemia, Hypertension Additional Family Medical History / Comment(s): hepatitis c>Liver transplant Mother Family Medical History: Hypertension Additional Family Medical History / Comment(s): mental health issues General Exam Limitations: no limitations General appearance: alert Head exam: Present: normocephalic Eye exam: Present: normal appearance, PERRL ENT exam: Present: normal oropharynx Neck exam: Present: normal inspection. Absent: tenderness, meningismus Respiratory exam: Present: normal lung sounds bilaterally. Absent: respiratory distress Cardiovascular Exam: Present: regular rate, normal rhythm, normal heart sounds Expanded Peripheral pulses: 2+: Radial (R), Radial (L), Posterior Tibialis (R), Posterior Tibialis (L) GI/Abdominal exam: Present: soft. Absent: tenderness Extremities exam: Present: normal inspection. Absent: pedal edema, calf tenderness Neurological exam: Present: alert, oriented X3, CN II-XII intact. Absent: motor sensory deficit Psychiatric exam: Present: normal affect, normal mood Skin exam: Present: normal color Course Vital Signs 10/09/24 10/09/24 10/09/24 08:05 08:14 08:25 Temperature 97.4 F L Pulse Rate 59 L 77 Pulse Rate [ 76 Business Taxes Specialist ] Respiratory 18 14 Rate Blood Pressure 71/47 102/74 O2 Sat by Pulse 96 100 Oximetry - Reevaluation(s) Reevaluation #1: 10/09/24 08:23 Patient reevaluated and now symptom-free. EKG Findings - EKG Results: EKG: interpreted by ERMD (Nonspecific ST), sinus rhythm, normal axis, normal QRS Medical Decision Making - Medical Decision Making EKG #2 interpreted by myself shows sinus rhythm with rate of 74. Normal axis. Normal intervals. Normal QRS. No acute ST elevation. Was pt. sent in by a medical professional or institution (, PA, INDEX CLERK, urgent care, hospital, or [facility]...) When possible be specific @ -No Did you speak to anyone other than the patient for history (EMS, parent, family, police, friend...)? What history was obtained from this source @ - is present and helps provide history including onset of symptoms just prior to arrival Did you review nursing and triage notes (agree or disagree)? Why? @ -I reviewed and agree with nursing and triage notes Were old charts reviewed (outside hosp., previous admission, EMS record, old EKG, old radiological studies, urgent care reports/EKG's, [facility] records)? Report findings @ -No old charts were reviewed Differential Diagnosis (chest pain, altered mental status, abdominal pain women, abdominal pain men, vaginal bleeding, weakness, fever, dyspnea, syncope, headache, dizziness, GI bleed, back pain, seizure, CVA, palpatations, mental health, musculoskeletal)? @ -Differential Chest Pain: Stable Angina, Unstable Angina, STEMI, NSTEMI Aortic Dissection, Pneumothorax, Musculoskeletal, Esophageal Spasm GERD, Cholecystitis, Pancreatitis, Zoster, this is not meant to be an all-inclusive list. EKG interpreted by me (3pts min.). @ -As above X-rays interpreted by me (1pt min.). @ -Chest x-ray shows no acute process CT interpreted by me (1pt min.). @ -None done U/S interpreted by me (1pt. min.). @ -None done What testing was considered but not performed or refused? (CT, X-rays, U/S, labs)? Why? @ -None What meds were considered but not given or refused? Why? @ -None Did you discuss the management of the patient with other professionals (professionals i.e. , MELY, INDEX CLERK, lab, RT, psych nurse, criminal justice social worker, hide inspector, teacher, staff mine warfare officer, manager rn case)? Give summary @ -Dr. Hartman to admit covering hospital call Was smoking cessation discussed for >3mins.? @ -No Was critical care preformed (if so, how long)? @ -No Were there social determinants of health that impacted care today? How? (Homelessness, low income, unemployed, alcoholism, drug addiction, transportation, low edu. Level, literacy, decrease access to med. care, half-way, rehab)? @ -No Was there de-escalation of care discussed even if they declined (Discuss DNR or withdrawal of care, Hospice)? DNR status @ -No What co-morbidities impacted this encounter? (DM, HTN, Smoking, COPD, CAD, Cancer, CVA, ARF, Chemo, Hep., AIDS, mental health diagnosis, sleep apnea, morbid obesity)? @ -None Was patient admitted / discharged? Hospital course, mention meds given and route, prescriptions, significant lab abnormalities, going to OR and other pertinent info. @ -Patient presents with chest discomfort. Patient was hypotensive on arrival however this has resolved. Patient did have 1 repeat episode however not as severe and EKG did not reveal acute abnormalities. Patient and family are updated on results and plan. Patient will be admitted with cardiac consult. Admission orders written. Undiagnosed new problem with uncertain prognosis? @ -No Drug Therapy requiring intensive monitoring for toxicity (Heparin, Nitro, Insulin, Cardizem)? @ -No Were any procedures done? @ -No Diagnosis/symptom? @ -Chest pain Acute, or Chronic, or Acute on Chronic? @ -Acute Uncomplicated (without systemic symptoms) or Complicated (systemic symptoms)? @ -Default Side effects of treatment? @ -No Exacerbation, Progression, or Severe Exacerbation? @ -No Poses a threat to life or bodily function? How? (Chest pain, [place], [place], pneumonia, PE, COPD, DKA, ARF, appy, cholecystitis, CVA, Diverticulitis, Homicidal, Suicidal, threat to staff... and all critical care pts) @ -Threat to cardiac function - Lab Data Result diagrams: 10/09/24 08:21 10/09/24 08:21 Lab Results 10/09/24 10/09/24 10/09/24 Range/Units 08:10 08:21 08:21 WBC 5.13 (4.50-10.00) 10*3/uL RBC 4.95 (4.10-5.20) 10*6/uL Hgb 13.4 (12.0-15.0) g/dL Hct 41.0 (37.2-46.3) % MCV 82.8 (80.0-97.0) fL MCH 27.1 (27.0-32.0) pg MCHC 32.7 (32.0-37.0) g/dL Plt Count 279 (140-440) 10*3/uL MPV 9.6 (9.5-12.2) fL Immature Gran % (Auto) 0.6 % Neutrophils % 28.4 % Lymphocytes % 57.7 % Monocytes % 9.2 % Eosinophils % 3.7 % Basophils % 0.4 % Immature Gran # 0.03 (0.00-0.04) 10*3/uL Neutrophils # 1.46 L (1.80-7.70) 10*3/uL Lymphocytes # 2.96 (0.90-5.00) 10*3/uL Monocytes # 0.47 (0.20-1.00) 10*3/uL Eosinophils # 0.19 (0.04-0.35) 10*3/uL Basophils # 0.02 (0.00-0.10) 10*3/uL PT 10.9 (10.0-12.5) sec INR 1.0 (<1.2) APTT 22.3 (22.0-30.0) sec D-Dimer 0.26 (<0.60) mg/L FEU Sodium (137-145) mmol/L Potassium (3.5-5.1) mmol/L Chloride (98-107) mmol/L Carbon Dioxide (22-30) mmol/L Anion Gap mmol/L BUN (7-17) mg/dL Creatinine (0.52-1.04) mg/dL Est GFR (CKD-EPI)AfAm (>60 ml/min/1.73 sqM) Est GFR (CKD-EPI)NonAf (>60 ml/min/1.73 sqM) Glucose (74-99) mg/dL POC Glucose (mg/dL) 99 (70-110) mg/dL POC Glu Dna Sequencing Associate ID [place] Calcium (8.4-10.2) mg/dL Magnesium (1.6-2.3) mg/dL Total Bilirubin (0.2-1.3) mg/dL AST (14-36) U/L ALT (4-34) U/L Alkaline Phosphatase (38-126) U/L Troponin I (0.000-0.034) ng/mL Total Protein (6.3-8.2) g/dL Albumin (3.5-5.0) g/dL Lipase (23-300) U/L 10/09/24 10/09/24 Range/Units 08:21 08:21 WBC (4.50-10.00) 10*3/uL RBC (4.10-5.20) 10*6/uL Hgb (12.0-15.0) g/dL Hct (37.2-46.3) % MCV (80.0-97.0) fL MCH (27.0-32.0) pg MCHC (32.0-37.0) g/dL Plt Count (140-440) 10*3/uL MPV (9.5-12.2) fL Immature Gran % (Auto) % Neutrophils % % Lymphocytes % % Monocytes % % Eosinophils % % Basophils % % Immature Gran # (0.00-0.04) 10*3/uL Neutrophils # (1.80-7.70) 10*3/uL Lymphocytes # (0.90-5.00) 10*3/uL Monocytes # (0.20-1.00) 10*3/uL Eosinophils # (0.04-0.35) 10*3/uL Basophils # (0.00-0.10) 10*3/uL PT (10.0-12.5) sec INR (<1.2) APTT (22.0-30.0) sec D-Dimer (<0.60) mg/L FEU Sodium 142 (137-145) mmol/L Potassium 3.6 (3.5-5.1) mmol/L Chloride 108 H (98-107) mmol/L Carbon Dioxide 26 (22-30) mmol/L Anion Gap 8 mmol/L BUN 18 H (7-17) mg/dL Creatinine 0.98 (0.52-1.04) mg/dL Est GFR (CKD-EPI)AfAm 75 (>60 ml/min/1.73 sqM) Est GFR (CKD-EPI)NonAf 65 (>60 ml/min/1.73 sqM) Glucose 91 (74-99) mg/dL POC Glucose (mg/dL) (70-110) mg/dL POC Glu Dna Sequencing Associate ID Calcium 9.5 (8.4-10.2) mg/dL Magnesium 2.1 (1.6-2.3) mg/dL Total Bilirubin 0.6 (0.2-1.3) mg/dL AST 46 H (14-36) U/L ALT 43 H (4-34) U/L Alkaline Phosphatase 63 (38-126) U/L Troponin I <0.012 (0.000-0.034) ng/mL Total Protein 6.4 (6.3-8.2) g/dL Albumin 3.8 (3.5-5.0) g/dL Lipase 102 (23-300) U/L Disposition Clinical Impression: Chest pain Disposition: ADMITTED IP TO THIS HOSP Is patient prescribed a controlled substance at d/c from ED?: No Referrals: None,Stated [REFERRING] - 1-2 days Time of Disposition: 09:33
[2024-10-09] MEDS: ASPIRIN 81 MG PO STA (08:19)
[2024-10-09 08:29] LABS: Basophils # (A) 0.02 10*3/uL (0.00-0.10); Basophils % (A) 0.4 %; Eosinophils # (A) 0.19 10*3/uL (0.04-0.35); Eosinophils % (A) 3.7 %; HGB 13.4 g/dL (12.0-15.0); Lymphocytes # (A) 2.96 10*3/uL (0.90-5.00); Lymphocytes % (A) 57.7 %; MCH 27.1 pg (27.0-32.0); MCHC 32.7 g/dL (32.0-37.0); MCV 82.8 fL (80.0-97.0); Mean Platelet Volume 9.6 fL (9.5-12.2); Monocytes # (A) 0.47 10*3/uL (0.20-1.00); Monocytes % (A) 9.2 %; Neutrophils # (A) 1.46 10*3/uL (1.80-7.70); Neutrophils % (A) 28.4 %; Platelet Count 279 10*3/uL (140-440); RBC 4.95 10*6/uL (4.10-5.20); RDW 14.5 % (11.5-14.5); WBC 5.13 10*3/uL (4.50-10.00)
--- NOTE | 2024-10-09 08:30 | XR ---
EXAMINATION TYPE: XR chest 1V portable DATE OF EXAM: 10/09/2024 8:26 AM COMPARISON: 12/07/2020 CLINICAL INDICATION: Female, 54 years old with history of chest pain, , FINDINGS: Heart normal size. Aorta and pulmonary vasculature within normal lives. Some mild central peribronchi al cuffing is noted. Mild interstitial density has a chronic appearance. The patchy bilateral lower l cherry opacity seen back in 2020 have resolved. No consolidation or pleural effusion. IMPRESSION: Some central peribronchial cuffing could reflect bronchitis or asthma. Otherwise, no acute process se en. [facility], , 10/09/2024 8:28 AM
[2024-10-09 08:43] LABS: ALT 43 U/L (4-34); AST 46 U/L (14-36); African American GFR (CKD) 75 (>60 ml/min/1.73 sqM); Albumin 3.8 g/dL (3.5-5.0); Alkaline Phosphatase 63 U/L (38-126); Anion Gap 8 mmol/L; Blood Urea Nitrogen 18 mg/dL (7-17); Calcium 9.5 mg/dL (8.4-10.2); Carbon Dioxide 26 mmol/L (22-30); Chloride 108 mmol/L (98-107); Glucose 91 mg/dL (74-99); Lipase 102 U/L (23-300); Magnesium 2.1 mg/dL (1.6-2.3); Non-African American GFR(CKD) 65 (>60 ml/min/1.73 sqM); Potassium 3.6 mmol/L (3.5-5.1); Sodium 142 mmol/L (137-145); Total Bilirubin 0.6 mg/dL (0.2-1.3); Total Protein 6.4 g/dL (6.3-8.2)
[2024-10-09 09:22] LABS: Partial Thromboplastin Time 22.3 sec (22.0-30.0); Prothrombin Time 10.9 sec (10.0-12.5)
[2024-10-09] MEDS ORDERED: NITROGLYCERIN SL TABS 0.4 MG TAB SUBLINGUAL PRN (09:34)
--- NOTE | 2024-10-09 13:30 | CT ---
EXAMINATION TYPE: CT chest wo con CT DLP: 490.3 mGycm, Automated exposure control for dose reduction was used. DATE OF EXAM: 10/09/2024 1:20 PM COMPARISON: Chest radiograph of 10/09/2024 CLINICAL INDICATION:Female, 54 years old with history of dyspnea; PHH, Dyspnea TECHNIQUE: Multiple axial images were obtained through the chest without IV contrast. Lack of IV or o ral contrast limits evaluation of solid and hollow organ viscera. . Coronal and sagittal reformats re viewed. FINDINGS: LUNGS/ PLEURA: No pleural effusion, pneumothorax, focal consolidation. Minimal bilateral lower lobe d ependent subsegmental atelectasis. No suspicious pulmonary nodule or mass. AIRWAY: Patent and unremarkable.. HEART: Size within normal limits. . Trace pericardial effusion. No significant coronary artery calcif ications. MEDIASTINUM: No gross evidence of adenopathy. VASCULATURE: No aortic aneurysm. Atherosclerotic calcification of the aorta and its branches. Dilata tion of the main pulmonary artery measuring 3.3 cm. MUSCULOSKELETAL: No acute osseous abnormalities. Multilevel anterior osteophytosis of the lower thora cic spine. SOFT TISSUES/LYMPH NODES: Unremarkable. LOWER NECK: No significant findings. UPPER ABDOMEN: Postsurgical changes from gastric sleeve. Gallbladder is surgically absent. IMPRESSION: 1. No CT evidence for acute thoracic process within limitations of a noncontrast exam. 2. Dilated main pulmonary artery suggesting pulmonary arterial hypertension. [facility], , 10/09/2024 1:28 PM
[2024-10-09 13:52] LABS: T4, Free (Free Thyroxine) 0.94 ng/dL (0.78-2.19)
--- NOTE | 2024-10-09 14:42 | P.CRDCN ---
History of Present Illness Consult date: 10/09/24 Consult reason: chest pain History of present illness: This is a 54-year-old female patient previously seen in the office by Dr. Lucia in 2018 for costochondritis. She has no significant past medical history. We have been asked to evaluate the patient for chest pain. She states that she was sitting at the table talking when she developed chest pain that was very intense and she started walking and rubbing her chest and it was just g etting worse and then she felt lightheaded and felt like her body was going limp. She also had sweats with it. She states she had generalized weakness on both sides. She was brought into the hospital by car and seem to get worse on the drive here. It gradually went away after she had aspirin and then it gradually was gone completely. She denies any chest pain or the other symptoms at this time. She denies any new medications. She did not receive nitroglycerin. This is the first episode she has ever had. The symptoms were gone in about 1 hour. She denies palpitations. She states the pain was a tight or sugey feeling in her chest. Her initial blood pressure was 71/47. Now her blood pressure 117/76. Heart rate has been running in the 70s, pulse ox 100% on room air. -EKG: Sinus rhythm with no acute ST-T wave changes. -Chest x-ray: Central peribronchial cuffing could reflect bronchitis or asthma. No acute process. -Chest CT: No acute thoracic process. Dilated main pulmonary artery suggesting pulmonary artery hypertension. -Laboratory studies: Troponin negative x 2. AST 46, ALT 43. TSH 2.02. CBC unremarkable. D-dimer 0.26. -Home cardiac medications: None -Echocardiogram performed 2018 at [facility] revealed EF 55 to 60%, borderline concentric left ventricular hypertrophy, mild mitral regurgitation, mild tricuspid regurgitation. -Stress echocardiogram performed at [facility] in 2018 revealed a negative stress test. Negative stress echo. Review Of Systems: At the time of my exam: CONSTITUTIONAL: Denies fever or chills. HEENT: Denies blurred vision, vision changes, or eye pain. Denies hemoptysis CARDIOVASCULAR: Denies chest pain. Denies orthopnea. Denies PND. Denies palpitations RESPIRATORY: Denies shortness of breath. GASTROINTESTINAL: Denies abdominal pain. Denies nausea or vomiting. HEMATOLOGIC: Denies bleeding disorders. GENITOURINARY: Denies any blood in urine. SKIN: Denies puritis. Denies rash. Physical examination: Gen: This is a 54-year-old black female in no acute distress VS: reviewed HEENT: Head is atraumatic, normocephalic. Pupils equal, round. Sclerae is anicteric. NECK: Supple. No JVD. LUNGS: Clear to auscultation. No wheezes or rhonchi. No intercostal retractions. HEART: Regular rate and rhythm. No murmur. ABDOMEN: Soft No tenderness. EXTREMITIES: No pedal edema. No calf tenderness. NEUROLOGICAL: Patient is awake, alert and oriented x3. Assessment: Hypotension possible vasovagal response to pain with initial blood pressure 71/47 Atypical chest pain Plan: Obtain third troponin Obtain 2-D echocardiogram and Doppler study to assess cardiac structure and function If echocardiogram is unremarkable, patient is cleared for discharge and she may follow-up in the office with Dr. Farrell in the next couple weeks for outpatient stress testing Thank you kindly for this consultation. Nurse practitioner note has been reviewed, I agree with documented findings and plan of care. Patient was seen and examined. Past Medical History Past Medical History: GERD/Reflux, Hypertension, Osteoarthritis (OA) Additional Past Medical History / Comment(s): hx irregular heart beat., bladder polyps. , glaucoma left eye ., DDD with back pain. 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 Genital HSV. History of Any Multi-Drug Resistant Organisms: MRSA Date of last positivie culture/infection: 12/08/2011 MDRO Source:: left axilla Past Surgical History: Bariatric Surgery, Section, Cholecystectomy, Hernia Repair, Tubal Ligation Additional Past Surgical History / Comment(s): umbilical hernia , cystoscopy, bladder-polyp removed , EGD., 01/04/20-laparoscopy-(bariatric surgery aborted due to hernia and adhesions). Gastric sleeve 12/06/20, COLONOSCOPY. panniculectomy 08-12-23 Past Anesthesia/Blood Transfusion Reactions: No Reported Reaction Past Psychological History: No Psychological Hx Reported Smoking Status: Former smoker Past Alcohol Use History: None Reported Past Drug Use History: None Reported - Past Family History Father Family Medical History: Hyperlipidemia, Hypertension Additional Family Medical History / Comment(s): hepatitis c>Liver transplant Mother Family Medical History: Hypertension Additional Family Medical History / Comment(s): mental health issues Medications and Allergies Home Medications Medication Instructions Recorded Confirmed Type Acetaminophen-Codeine 300-30mg 1 tab PO ONCE 10/09/24 10/09/24 History [Tylenol w/codeine #3] Betacol (Unknown Dose) 1 dose PO DAILY 10/09/24 10/09/24 History Moringa (Unknown Dose) 1 dose PO DAILY 10/09/24 10/09/24 History Vegan Supplement (Unknown Dose 1 dose PO DAILY 10/09/24 10/09/24 History Allergies Allergy/AdvReac Type Severity Reaction Status Date / Time No Known Allergies Allergy Verified 10/09/24 09:59 Physical Exam Vitals: Vital Signs Temp Pulse Pulse Resp BP BP Pulse Ox 10/09/24 13:30 97.5 F L 77 16 117/76 100 10/09/24 12:42 72 17 111/84 99 10/09/24 10:40 79 12 97/67 97 10/09/24 09:42 75 16 99/76 100 10/09/24 08:25 77 14 102/74 100 10/09/24 08:14 76 10/09/24 08:05 97.4 F L 59 L 18 71/47 96 Intake and Output 10/08/24 10/09/24 10/09/24 22:59 06:59 14:59 Other: Weight 99.79 kg Results 10/09/24 08:21 10/09/24 08:21 Cardiac Enzymes 10/09/24 10/09/24 10/09/24 Range/Units 08:21 08:21 11:45 AST 46 H (14-36) U/L Troponin I <0.012 <0.012 (0.000-0.034) ng/mL Coagulation 10/09/24 Range/Units 08:21 PT 10.9 (10.0-12.5) sec APTT 22.3 (22.0-30.0) sec CBC 10/09/24 Range/Units 08:21 WBC 5.13 (4.50-10.00) 10*3/uL RBC 4.95 (4.10-5.20) 10*6/uL Hgb 13.4 (12.0-15.0) g/dL Hct 41.0 (37.2-46.3) % Plt Count 279 (140-440) 10*3/uL Comprehensive Metabolic Panel 10/09/24 Range/Units 08:21 Sodium 142 (137-145) mmol/L Potassium 3.6 (3.5-5.1) mmol/L Chloride 108 H (98-107) mmol/L Carbon Dioxide 26 (22-30) mmol/L BUN 18 H (7-17) mg/dL Creatinine 0.98 (0.52-1.04) mg/dL Glucose 91 (74-99) mg/dL Calcium 9.5 (8.4-10.2) mg/dL AST 46 H (14-36) U/L ALT 43 H (4-34) U/L Alkaline Phosphatase 63 (38-126) U/L Total Protein 6.4 (6.3-8.2) g/dL Albumin 3.8 (3.5-5.0) g/dL Current Medications Generic Name Dose Route Start Last Admin Trade Name Freq PRN Reason Stop Dose Admin Aspirin 325 mg 10/10/24 09:00 Aspirin 325 Mg Tab PO DAILY EUSEBIA Nitroglycerin 0.4 mg 10/09/24 09:34 Nitroglycerin Sl Tabs 0.4 Mg Tab SUBLINGUAL Q5M PRN Chest Pain Intake and Output 10/08/24 10/09/24 10/09/24 22:59 06:59 14:59 Other: Weight 99.79 kg Patient Weight 10/10/24 06:59 Weight 99.79 kg 10/09/24 08:21 10/09/24 08:21
[2024-10-09] MEDS: ACETAMINOPHEN TAB 500 MG TAB PO PRN (15:57)
--- NOTE | 2024-10-09 17:14 | CA ---
Transthoracic Echo Report Name: Franko Rao Age: 54 Gender: F : 1970 Exam Date: 10/09/2024 11:08 Exam Location: [facility] Ht (in): 63 Wt (lb): 220 Ordering Physician: Mesfin Staples DO Attending/Referring Phys: Finishing Supervisor [employer] Erika Pereira RDCS Procedure CPT: Indications: CP Cardiac Hx: Technical Quality: Good Contrast 1: Total Dose (mL): Contrast 2: Total Dose (mL): MEASUREMENTS (Male / Female) Normal Values 2D ECHO LV Diastolic Diameter PLAX 4.0 cm 4.2 - 5.9 / 3.9 - 5.3 cm LV Systolic Diameter PLAX 2.8 cm IVS Diastolic Thickness 1.3 cm 0.6 - 1.0 / 0.6 - 0.9 cm LVPW Diastolic Thickness 1.2 cm 0.6 - 1.0 / 0.6 - 0.9 cm LV Relative Wall Thickness 0.6 RV Internal Dim ED PLAX 4.1 cm LA Systolic Diameter LX 2.5 cm 3.0 - 4.0 / 2.7 - 3.8 cm LV Diastolic Volume MOD 4C 80.2 cm??? LV Systolic Volume MOD 4C 33.2 cm??? LV Ejection Fraction MOD 4C 58.6 % LV Cardiac Index MOD 4C 1526.0 cm???/min???m??? LV Diastolic Length 4C 8.0 cm LV Systolic Length 4C 6.4 cm LV Diastolic Volume MOD 2C 69.8 cm??? LV Systolic Volume MOD 2C 33.7 cm??? LV Ejection Fraction MOD 2C 51.8 % LV Cardiac Index MOD 2C 1173.3 cm???/min???m??? LV Diastolic Length 2C 8.5 cm LV Systolic Length 2C 7.0 cm LA Volume 30.3 cm??? 18 - 58 / 22 - 52 cm??? LA Volume Index 14.1 cm???/m??? 16 - 28 cm???/m??? M-MODE Aortic Root Diameter MM 3.1 cm AV Cusp Separation MM 1.9 cm DOPPLER AV Peak Velocity 124.9 cm/s AV Peak Gradient 6.2 mmHg MV Area PHT 4.1 cm??? Mitral E Point Velocity 78.8 cm/s Mitral A Point Velocity 72.4 cm/s Mitral E to A Ratio 1.1 MV Deceleration Time 184.8 ms TR Peak Velocity 197.2 cm/s TR Peak Gradient 15.6 mmHg Right Ventricular Systolic Press 23.3 mmHg FINDINGS Left Ventricle Left ventricular ejection fraction is estimated at 55-60 %. Left ventricular cavity size normal. Moderately increased septal wall thickness. Mildly increased posterior wall thickness. Normal left ventricular wall motion. Right Ventricle Moderate right ventricular dilatation. Normal right ventricular size and function. Right Atrium Normal right atrial size. No right atrial thrombus or mass seen. Left Atrium Normal left atrial size. No left atrial thrombus or mass present. Mitral Valve Structurally normal mitral valve. No evidence for mitral valve prolapse. No mitral stenosis. Trace mitral regurgitation. Aortic Valve Trileaflet aortic valve. Aortic valve sclerosis. No aortic regurgitation. No aortic stenosis. Tricuspid Valve Structurally normal tricuspid valve. Mild tricuspid regurgitation. Pulmonic Valve Structurally normal pulmonic valve. No pulmonic regurgitation. Pericardium No pericardial effusion. Aorta Normal size aortic root and proximal ascending aorta. CONCLUSIONS Left ventricular ejection fraction 55 to 60% Mild to moderately increased left ventricular wall thickness RVSP 23 Trace mitral regurgitation Mild tricuspid regurgitation No pericardial effusion Previewed by: Dr. Roldan Farrell DO (Electronically Signed) Final Date: 09 Oct 2024 17:13
[2024-10-10 07:50] VITALS: BP 122/73; PULSE 72; RESP 16; TEMP 97.8
[2024-10-10] MEDS: ASPIRIN 325 MG TAB PO SCH (08:22)
--- NOTE | 2024-10-10 09:19 | P.PN ---
Subjective Progress Note Date: 10/10/24 Consult reason: chest pain History of present illness: This is a 54-year-old female patient previously seen in the office by Dr. Lcuia in 2018 for costochondritis. She has no significant past medical history. We have been asked to evaluate the patient for chest pain. She states that she was sitting at the table talking when she developed chest pain that was very intense and she started walking and rubbing her chest and it was just getting worse and then she felt lightheaded and felt like her body was going limp. She also had sweats with it. She states she had generalized weakness on both sides. She was brought into the hospital by car and seem to get worse on the drive here. It gradually went away after she had aspirin and then it g radually was gone completely. She denies any chest pain or the other symptoms at this time. She denies any new medications. She did not receive nitroglycerin. This is the first episode she has ever had. The symptoms were gone in about 1 hour. She denies palpitations. She states the pain was a tight or sugey feeling in her chest. Her initial blood pressure was 71/47. Now her blood pressure 117/76. Heart rate has been running in the 70s, pulse ox 100% on room air. -EKG: Sinus rhythm with no acute ST-T wave changes. -Chest x-ray: Central peribronchial cuffing could reflect bronchitis or asthma. No acute process. -Chest CT: No acute thoracic process. Dilated main pulmonary artery suggesting pulmonary artery hypertension. -Laboratory studies: Troponin negative x 2. AST 46, ALT 43. TSH 2.02. CBC unremarkable. D-dimer 0.26. -Home cardiac medications: None -Echocardiogram performed 2018 at [facility] revealed EF 55 to 60%, borderline concentric left ventricular hypertrophy, mild mitral regurgitation, mild tricuspid regurgitation. -Stress echocardiogram performed at [facility] in 2018 revealed a negative stress test. Negative stress echo. 10/10 Patient seen and examined. Patient has had no further episodes of lightheadedness, no chest pain. Third troponin came back negative. Echocardiogram reveals EF of 55 to 60%, RVSP 23, trace mitral regurgitation, mild tricuspid regurgitation. Dr. Nicole reviewed results of test including the echocardiogram with the patient. Physical examination: Gen: This is a 54-year-old black female in no acute distress VS: reviewed HEENT: Head is atraumatic, normocephalic. Pupils equal, round. Sclerae is anicteric. NECK: Supple. No JVD. LUNGS: Clear to auscultation. No wheezes or rhonchi. No intercostal retract ions. HEART: Regular rate and rhythm. No murmur. ABDOMEN: Soft No tenderness. EXTREMITIES: No pedal edema. No calf tenderness. NEUROLOGICAL: Patient is awake, alert and oriented x3. Assessment: Hypotension possible vasovagal response to pain with initial blood pressure 71/47 Atypical chest pain Plan: Patient is cleared for discharge and she may follow-up in the office with Dr. Farrell in the next couple weeks for outpatient stress testing Thank you kindly for this consultation. Nurse practitioner note has been reviewed, I agree with documented findings and plan of care. Patient was seen and examined. Objective - Vital Signs Vital signs: Vital Signs Temp 97.8 F 10/10/24 07:15 Pulse 72 10/10/24 07:15 Resp 16 10/10/24 07:15 BP 122/73 10/10/24 07:15 Pulse Ox 96 10/10/24 07:15 FiO2 Intake & Output 10/09/24 10/10/24 10/10/24 18:59 06:59 18:59 Weight 99.79 kg Other: # Voids 3 1 - Labs CBC & Chem 7: 10/09/24 08:21 10/09/24 08:21 Labs: Abnormal Lab Results - Last 24 Hours (Table) 10/09/24 10/09/24 Range/Units 08:21 08:21 Neutrophils # 1.46 L (1.80-7.70) 10*3/uL Chloride 108 H (98-107) mmol/L BUN 18 H (7-17) mg/dL AST 46 H (14-36) U/L ALT 43 H (4-34) U/L
[2024-10-10 11:07] LABS: Chol/HDL Ratio 3.15 Ratio; LDL Cholesterol,Calculated 99.9 mg/dL (0.0-131.0); VLDL Calculation 12.72 mg/dL (5.00-40.00)
[2024-10-10] MEDS ORDERED: SYMBICORT 160-4.5 MCG INHALER INHALATION SCH (20:00)
[2024-10-11] MEDS ORDERED: TIOTROPIUM 2.5 MCG INHALER INHALATION SCH (08:00)
--- NOTE | 2024-10-14 16:36 | HP ---
HISTORY AND PHYSICAL HISTORY OF PRESENT ILLNESS: In the hospital, walking this morning with chest pain. Five minutes prior, , associated with shortness of breath. She has negative troponins and D-dimer. No history of cardiac disease. She had hypotension when she came in. Home medicines are a bunch of multivitamins and Wixela inhaler. ALLERGIES: Negative. REVIEW OF SYSTEMS: Fourteen point review of systems otherwise negative. PAST MEDICAL HISTORY: 1. GERD. 2. Hypertension. 3. Osteoarthritis. 4. Irregularly irregular heart rate. 5. Glaucoma of the left eye. 6. Degenerative disk disease. 7. History of gonorrhea and Trichomonas. 8. HSV. 9. History of MRSA. PAST SURGICAL HISTORY: 1. Umbilical hernia. 2. Cystoscopy. 3. . 4. Laparoscopy. 5. Thoracic surgery. 6. Colonoscopy. 7. Appendectomy. FAMILY HISTORY: Father with hypertension and mental health issues. PHYSICAL EXAMINATION: VITAL SIGNS: Reviewed. CARDIOVASCULAR: S1, S2. LUNGS: Transmitted upper airway sounds. GI: Soft. ENDOCRINE: BMI is over 40. PSYCHIATRIC: Fair mood and affect. NEUROLOGIC: Alert and oriented x3. Pupils are equally, round and reactive. ASSESSMENT: Atypical pain. Nonspecific ST-T changes. Rule out myocardial infarction. Do CT of the chest. Rule out pneumonia. Prognosis is guarded. Continue with current treatment. Please see further orders. MMODL / IJN: [id number] /
== END 2024-10-10 12:06 | disposition home or self-care (01) ==
LOC: EC 08:04 → 6NMEDSUR 09:34
PROVIDERS: ADMIT Family Medicine; ATTEND Family Medicine
DX: R07.89 Other chest pain (principal); I95.9 Hypotension, unspecified; I08.1 Rheumatic disorders of both mitral and tricuspid valves; Z79.82 Long term (current) use of aspirin; Z79.899 Other long term (current) drug therapy; Z87.891 Personal history of nicotine dependence; Z87.39 Personal history of other diseases of the musculoskeletal system and connective tissue
CPT/HCPCS: 99285; 36415; 93005; 93306; 85379; 84439; 80061; 80053; 83690; 83735; 84443; 84484; 85025; 85610; 85730; 71045; 71250; G0378 ×2